=== PATIENT | male | born 1970 | race Caucasian/White ===

== ENCOUNTER → 2017-05-11 06:00 | Outpatient (REF) | payer MEDICARE, MEDICAID, SELFPAY ==
[2017-05-11 08:21] LABS: ALB/GLOB Ratio 0.7 RATIO (0.9-2.4); AST(SGOT) 17 U/L (15-37); Alanine Aminotransfer ALT/SGPT 33 U/L (12-78); Albumin, Serum 3.1 g/dL (3.4-5.0); Alkaline Phosphatase 108 U/L (45-117); Anion Gap 9 (5-15); BUN 16 mg/dL (7-18); BUN/Creat Ratio 11.4 RATIO (10-20); Calcium,Total 8.5 mg/dL (8.5-10.1); Chloride 107 mmol/L (98-107); EST Glomerular Filtration Rate 58 mL/min (>60); Est Glom Filt Rate - Afr Amer 70 mL/min (>60); Globulin 4.4 g/dL (2.2-4.2); Glucose 96 mg/dL (70-110); Protein, Total 7.5 g/dL (6.4-8.2); Sodium Level 139 mmol/L (136-145)
[2017-05-15 12:14] LABS: KEPPRA (LEVETIRACETAM) 23.2 ug/mL (10.0-40.0)
== END ==
LOC: OLS.WCC 06:00
PROVIDERS: Visit Provider Family Medicine
DX: Z79.899 Other long term (current) drug therapy (principal)
CPT/HCPCS: 36415; 80053; 80177

== ENCOUNTER → 2017-11-17 05:00 | Outpatient (REF) | payer MEDICARE, MEDICAID, SELFPAY ==
[2017-11-17 08:42] LABS: ALB/GLOB Ratio 0.6 RATIO (0.9-2.4); AST(SGOT) 18 U/L (15-37); Alanine Aminotransfer ALT/SGPT 38 U/L (16-61); Albumin, Serum 3.3 g/dL (3.2-5.0); Alkaline Phosphatase 121 U/L (45-117); Anion Gap 9 (5-15); BUN 18 mg/dL (7-18); BUN/Creat Ratio 13.1 RATIO (10-20); Bilirubin, Direct < 0.05 mg/dL (0.00-0.30); Calcium,Total 8.3 mg/dL (8.5-10.1); Chloride 106 mmol/L (98-107); Creatinine, Serum 1.37 mg/dL (0.70-1.30); EST Glomerular Filtration Rate 59 mL/min (>60); Est Glom Filt Rate - Afr Amer 72 mL/min (>60); Globulin 5.1 g/dL (2.2-4.2); Glucose 87 mg/dL (74-106); Protein, Total 8.4 g/dL (6.4-8.2); Sodium Level 138 mmol/L (136-145)
[2017-11-17 11:45] LABS: Hematocrit 40.2 % (40-54); Hemoglobin 13.2 g/dl (13.0-16.5); Mean Corp Hgb Conc 32.8 g/gl (32-36); Mean Corpuscular Hgb 27.1 pg (27.0-32.0); Mean Corpuscular Volume 82.5 fL (80-94); Mean Platelet Vol. 9.4 fl (6.2-12.0); Platelet Count 213 K/mm3 (150-450); RBC Distribution Width CV 14.4 % (11.6-14.6); RBC Distribution Width SD 43.3 fl (35.1-43.9); Red Blood Count 4.87 M/mm3 (4.6-6.2)
[2017-11-17 11:49] LABS: Scan Indicated on CBC? Y/N NO
[2017-11-28 11:59] LABS: KEPPRA (LEVETIRACETAM) 45.8 ug/mL (10.0-40.0)
== END ==
LOC: OLS.WCC 05:00
PROVIDERS: Visit Provider Family Medicine
DX: R56.9 Unspecified convulsions (principal); Z79.899 Other long term (current) drug therapy
CPT/HCPCS: 36415; 80053; 80177; 82248; 85027

== ENCOUNTER → 2018-02-21 05:00 | Outpatient (REF) | payer MEDICARE, MEDICAID, SELFPAY ==
[2018-02-24 11:45] LABS: KEPPRA (LEVETIRACETAM) 31.4 ug/mL (10.0-40.0)
== END ==
LOC: OLS.WCC 05:00
PROVIDERS: Visit Provider Family Medicine
DX: Z79.899 Other long term (current) drug therapy (principal)
CPT/HCPCS: 36415; 80177

== ENCOUNTER → 2018-05-16 04:00 | Outpatient (REF) | payer MEDICARE, MEDICAID, SELFPAY ==
[2018-05-16 09:09] LABS: Hematocrit 40.2 % (40-54); Hemoglobin 13.2 g/dl (13.0-16.5); Mean Corp Hgb Conc 32.8 g/gl (32-36); Mean Corpuscular Hgb 27.6 pg (27.0-32.0); Mean Corpuscular Volume 83.9 fL (80-94); Mean Platelet Vol. 10.4 fl (6.2-12.0); Platelet Count 210 K/mm3 (150-450); RBC Distribution Width CV 13.9 % (11.6-14.6); RBC Distribution Width SD 42.6 fl (35.1-43.9); Red Blood Count 4.79 M/mm3 (4.6-6.2); White Blood Count 5.5 K/mm3 (4.4-11.0)
[2018-05-16 09:18] LABS: Scan Indicated on CBC? Y/N NO
[2018-05-16 09:23] LABS: Hemoglobin A1c 5.8 % (4.2-6.3)
[2018-05-16 09:25] LABS: ALB/GLOB Ratio 0.7 RATIO (0.9-2.4); AST(SGOT) 34 U/L (15-37); Alanine Aminotransfer ALT/SGPT 46 U/L (16-61); Albumin, Serum 3.3 g/dL (3.2-5.0); Alkaline Phosphatase 107 U/L (45-117); Anion Gap 10 (5-15); BUN 14 mg/dL (7-18); BUN/Creat Ratio 9.4 RATIO (10-20); Calcium,Total 8.2 mg/dL (8.5-10.1); Chloride 106 mmol/L (98-107); Creatinine, Serum 1.49 mg/dL (0.70-1.30); EST Glomerular Filtration Rate 54 mL/min (>60); Est Glom Filt Rate - Afr Amer 65 mL/min (>60); Globulin 4.7 g/dL (2.2-4.2); Glucose 93 mg/dL (74-106); Potassium 3.9 mmol/L (3.5-5.1); Sodium Level 139 mmol/L (136-145); Thyroid Stim Hormone (TSH) 1.16 uIU/mL (0.358-3.74)
[2018-05-19 11:58] LABS: KEPPRA (LEVETIRACETAM) 34.6 ug/mL (10.0-40.0)
--- OUTSIDE RECORDS SUMMARY | 2018-06-27 18:03 | XMS RPT_ITS ---
:1970 Author Organization OHIP Care Team Providers Name Role Phone PROVIDER, UNKNOWN Admitting Unavailable PROVIDER, UNKNOWN Attending Unavailable OLVIN HAYDEN Referring Unavailable OLVIN HAYDEN Primary Care Unavailable PROVIDER, UNKNOWN Admitting Unavailable PROVIDER, UNKNOWN Attending Unavailable PATIENT, SELF Referring Unavailable OLVIN HAYDEN Primary Care Unavailable PROVIDER, UNKNOWN Admitting Unavailable PROVIDER, UNKNOWN Attending Unavailable PATIENT, SELF Referring Unavailable OLVIN AHYDEN Primary Care Unavailable Olvin Hayden Attending Unavailable Bryson, Olvin Attending Unavailable Olvin Hayden Attending Unavailable PROBLEMS PROBLEMS DATE TYPE CONDITION / CODE ATTENDING STATUS SOURCE 05/29/2018 Active Other specified Unknown [facility] / Rep[facility] Z98.890(ICD-10) 05/26/2018 Unknown Z79.899 - Other long Olvin Hayden Active [place] term (current) drug Community therapy / Hospital Z79.899(ICD-10) Repository 05/26/2018 Unknown G40.89 - Other Olvin Hayden Active [place] seizures / Community G40.89(ICD-10) Hospital Repository 05/15/2018 Active Dental caries, Unknown Active The [facility] unspecified / System K02.9(ICD-10) Repository 03/15/2018 Active Retained dental root Unknown [facility] K08.3(ICD-10) System Repository 01/20/2018 Unknown R56.9 - Unspecified Olvin Hayden Active [place] convulsions / Community R56.9(ICD-10) Hospital Repository PROCEDURES PROCEDURES DATE CODE DESCRIPTION STATUS SOURCE 05/15/2018 D7140(C4) EXTRACTION ERUPTED Completed [facility] TOOTH/EXR System Repository 03/15/2018 D0330(C4) PANORAMIC X RAY Completed [facility] System Repository RESULTS RESULTS CBC-COMPLETE BLOOD CNT Collected: 05/16/2018 Status: F Source: [place] NO DIFF 5:30 AM [facility] REPOSITORY Order Comment: ROOM 126 TYPE CODE TESTS RESULT OUT OF RANGE REFERENCE UNITS LAB L100.1000 4.4-11.0 K/mm3 Normal WBC 5.5 LAB L100.1200 4.6-6.2 M/mm3 Normal RBC 4.79 LAB L100.1300 13.0-16.5 g/dl Normal HGB 13.2 LAB L100.1400 40-54 % Normal HCT 40.2 LAB L100.1500 80-94 fL Normal MCV 83.9 LAB L100.1600 27.0-32.0 pg Normal MCH 27.6 LAB L100.1700 32-36 g/gl Normal MCHC 32.8 LAB L100.1810 11.6-14.6 % Normal RDW CV 13.9 LAB L100.1820 35.1-43.9 fl Normal RDW SD 42.6 LAB L100.1900 150-450 K/mm3 Normal PLT 210 LAB L100.2000 6.2-12.0 fl Normal MPV 10.4 Performed By: #### L100.0500 #### [facility] [place], [address] HEMOGLOBIN A1C Collected: 05/16/2018 Status: F Source: [place] 5:30 AM [facility] REPOSITORY Order Comment: ROOM 126 TYPE CODE TESTS RESULT OUT OF RANGE REFERENCE UNITS LAB L501.9985 4.2-6.3 % Normal HGB A1C 5.8 Performed By: #### L501.9985 #### [place] [facility] [address] [place], [address] COMPREHENSIVE METABOLIC Collected: 05/16/2018 Status: F Source: [place] [facility] 5:30 AM [facility] REPOSITORY Order Comment: ROOM 126 TYPE CODE TESTS RESULT OUT OF RANGE REFERENCE UNITS LAB L501.0100 74-106 mg/dL Normal GLU 93 Result Comment: Please note revised GLUCOSE reference range effective 2017. LAB L501.1000 7-18 mg/dL Normal BUN 14 LAB L501.1100 0.70-1.30 mg/dL High CREAT,SERUM 1.49 Result Comment: The validity of the calculated GFR AND GFRAA in patients over 70 years has not been determined. Clinical correlation is essential. LAB L501.1110 >60 mL/min Low EST GFR 54 Result Comment: Non- GFR Calc LAB L501.1115 >60 mL/min Normal EST GFR - AA 65 Result Comment: GFR Calc LAB L501.1300 10-20 RATIO Low BUN/CRE 9.4 LAB L501.1500 6.4-8.2 g/dL Normal T PROT 8.0 LAB L501.1800 3.2-5.0 g/dL Normal ALB 3.3 LAB L501.1950 2.2-4.2 g/dL High GLOB 4.7 LAB L501.2000 0.9-2.4 RATIO Low A/G 0.7 LAB L501.2200 8.5-10.1 mg/dL Low CA 8.2 LAB L501.4100 15-37 U/L Normal AST 34 LAB L501.4305 45-117 U/L Normal ALK P 107 LAB L501.4405 16-61 U/L Normal ALT 46 LAB L501.4600 0.20-1.00 mg/dL Normal T BILI 0.30 LAB L501.5300 136-145 mmol/L Normal NA 139 LAB L501.5600 3.5-5.1 mmol/L Normal K 3.9 LAB L501.5900 98-107 mmol/L Normal CL 106 LAB L501.6100 21.0-32.0 mmol/L Normal CO2 23.0 LAB L501.6200 5-15 Normal GAP 10 Performed By: #### L500.4050, L501.9520 #### [facility] [address] [place], [place], [address] THYROID STIM HORMONE Collected: 05/16/2018 Status: F Source: [place] (TSH) 5:30 AM [facility] REPOSITORY Order Comment: ROOM 126 TYPE CODE TESTS RESULT OUT OF RANGE REFERENCE UNITS LAB L501.9520 0.358-3.74 uIU/mL Normal TSH 1.16 Performed By: #### L500.4050, L501.9520 #### [facility] [address] [place], [place], [address] KEPPRA (LEVETIRACETAM) Collected: 05/16/2018 Status: F Source: [place] 5:30 AM [facility] REPOSITORY Order Comment: ROOM 126 TYPE CODE TESTS RESULT OUT OF RANGE REFERENCE UNITS LAB L3310.0000 10.0-40.0 ug/mL Normal KEPPRA 34.6 Result Comment: Performed at: [facility] [address] [id number] Preschool Teacher Aide: Jere Tierney MD, Phone: [phone] Performed By: #### L3310.0000 #### [facility] (refer to report for specific site) refer to report for address and phone number KEPPRA (LEVETIRACETAM) Collected: 02/21/2018 Status: F Source: [place] 7:30 AM [facility] REPOSITORY Order Comment: 126-1 TYPE CODE TESTS RESULT OUT OF RANGE REFERENCE UNITS LAB L3310.0000 10.0-40.0 ug/mL Normal KEPPRA 31.4 Result Comment: Performed at: [facility] [id number] Preschool Teacher Aide: Osbaldo Abbott MD, Phone: [phone] Performed By: #### L3310.0000 #### [facility] (refer to report for specific site) refer to report for address and phone number MISCELLANEOUS LAB Collected: 02/21/2018 Status: F Source: [place] PROCEDURE 7:30 AM [facility] REPOSITORY Order Comment: Comments: [id number];zonisamide;red/serum;1.2ml Test(s) Ordered: [id number];zonisamide;red/serum;1.2ml TYPE CODE TESTS RESULT OUT OF RANGE REFERENCE UNITS LAB L801.1541 Normal [facility] LAB TEST Result Comment: TEST RESULT UNITS REFERENCE INTERVAL Zonisamide(zonegran), serum Zonisamide 16.2 ug/mL 10.0 - 40.0 Detection Limit = 1.0 TESTING PERFORMED AT [facility]. ORIGINAL REPORT ON FILE IN LAB CONTAINS ADDITIONAL TEST SITE INFORMATION. Performed By: #### L801.1541 #### [facility] [address] [place], [address] CBC-COMPLETE BLOOD CNT Collected: 11/17/2017 Status: F Source: [place] NO DIFF 10:10 AM [facility] REPOSITORY TYPE CODE TESTS RESULT OUT OF RANGE REFERENCE UNITS LAB L100.1000 4.4-11.0 K/mm3 Normal WBC 5.0 LAB L100.1200 4.6-6.2 M/mm3 Normal RBC 4.87 LAB L100.1300 13.0-16.5 g/dl Normal HGB 13.2 LAB L100.1400 40-54 % Normal HCT 40.2 LAB L100.1500 80-94 fL Normal MCV 82.5 LAB L100.1600 27.0-32.0 pg Normal MCH 27.1 LAB L100.1700 32-36 g/gl Normal MCHC 32.8 LAB L100.1810 11.6-14.6 % Normal RDW CV 14.4 LAB L100.1820 35.1-43.9 fl Normal RDW SD 43.3 LAB L100.1900 150-450 K/mm3 Normal PLT 213 LAB L100.2000 6.2-12.0 fl Normal MPV 9.4 Performed By: #### L100.0500 #### [facility] [place], [address] COMPREHENSIVE METABOLIC Collected: 11/17/2017 Status: F Source: [place] GREENE 6:30 AM [facility] REPOSITORY Order Comment: 126-1 TYPE CODE TESTS RESULT OUT OF RANGE REFERENCE UNITS LAB L501.0100 74-106 mg/dL Normal GLU 87 Result Comment: Please note revised GLUCOSE reference range effective 2017. LAB L501.1000 7-18 mg/dL Normal BUN 18 LAB L501.1100 0.70-1.30 mg/dL High CREAT,SERUM 1.37 Result Comment: The validity of the calculated GFR AND GFRAA in patients over 70 years has not been determined. Clinical correlation is essential. LAB L501.1110 >60 mL/min Low EST GFR 59 Result Comment: Non- GFR Calc LAB L501.1115 >60 mL/min Normal EST GFR - AA 72 Result Comment: GFR Calc LAB L501.1300 10-20 RATIO Normal BUN/CRE 13.1 LAB L501.1500 6.4-8.2 g/dL High T PROT 8.4 LAB L501.1800 3.2-5.0 g/dL Normal ALB 3.3 LAB L501.1950 2.2-4.2 g/dL High GLOB 5.1 LAB L501.2000 0.9-2.4 RATIO Low A/G 0.6 LAB L501.2200 8.5-10.1 mg/dL Low CA 8.3 LAB L501.4100 15-37 U/L Normal AST 18 LAB L501.4305 45-117 U/L High ALK P 121 LAB L501.4405 16-61 U/L Normal ALT 38 LAB L501.4600 0.20-1.00 mg/dL T Normal BILI 0.30 LAB L501.5300 136-145 mmol/L NA Normal 138 LAB L501.5600 3.5-5.1 mmol/L K Normal 4.0 LAB L501.5900 98-107 mmol/L CL Normal 106 LAB L501.6100 21.0-32.0 mmol/L Normal CO2 23.0 LAB L501.6200 5-15 Normal GAP 9 Performed By: #### L500.4050, L501.4700 #### [facility] [address] [place], [address] BILIRUBIN, DIRECT Collected: 11/17/2017 Status: F Source: ODD 6:30 AM [facility] REPOSITORY Order Comment: 126-1 TYPE CODE TESTS RESULT OUT OF RANGE REFERENCE UNITS LAB L501.4700 0.00-0.30 mg/dL Normal D BILI < 0.05 Performed By: #### L500.4050, L501.4700 #### [facility] [address] [place], [address] KEPPRA (LEVETIRACETAM) Collected: 11/17/2017 Status: F Source: ODD 6:30 AM [facility] REPOSITORY Order Comment: 126-1 TYPE CODE TESTS RESULT OUT OF REFERENCE UNITS RANGE LAB L3310.0000 10.0-40.0 ug/mL High KEPPRA 45.8 Result Comment: Performed at: - [facility] [id number] Preschool Teacher Aide: Osbaldo Abbott MD, Phone: [phone] Performed By: #### L3310.0000 #### [facility] (refer to report for specific site) refer to report for address and phone number ALLERGIES ALLERGIES DATE TYPE / CODE NAME / CODE REACTION SEVERITY SOURCE 12/20/2013 Drug venom-honey Unknown Unknown [facility] Allergy/416 bee/[id number] Hospital 591203(SNOM 698(RXNORM) Repository ED CT) 12/06/2006 DRUG/579980 BEE ANAPHYLACTIC [facility] 003(SNOMED System Repository CT) ENCOUNTERS ENCOUNTERS ADMIT/DISCHARGE ACCOUNT NUMBER ADMITTING ENCOUNTER LOCATION SOURCE CLASS 05/29/2018 [id number] Unknown [facility] Repository 05/16/2018 [id number] [facility] ding:[facility] Repository 05/15/2018 [id number] Unknown Ambulatory [facility] Repository 03/15/2018/03/15/20 [id number] Unknown Ambulatory [facility] The [facility] Repository 02/21/2018 [id number] [facility] ding:[facility] Repository 11/17/2017 [id number] [facility] ding:[facility] Repository PAYERS PAYERS ENCOUNTER GUARANTOR PAYER SUBSCRIBER SOURCE 05/29/2018 OLVIN Abdul [facility] MONEOB: Insurance:DENTAL [facility] NICHOLASDOB: System Repository S MEDICAIDPolicy Number: [id number] [facility] [id number] [place], [place] Date:2018-02-18 [place], [place] [address]Zrq: [phone]: [phone] () 05/16/2018 Olvin Nazario Primary Insurance:[facility] Olvin L [place] [id number] [address] [facility] PLANPolicy NicholasDOB: [facility] Number: [id number] Repository [place] [id number] CARE Date:4998-39-17RP[address] [address]Kfm: [id number]: [phone] (HP) 05/16/2018 Secondary Olvin Nazario [facility] Insurance:MEDICARE RaviolaNahomiOB: Hospital PART A BPolicy Number: [id number] Repository [id number] Date:2018-05-16 05/16/2018 Tertiary NOT [facility] Insurance:SELF PAY Hospital INSURANCEPolicy Repository Number: Effective Date:2018-05-16 05/15/2018 OLVIN Abdul [facility] MONEOB: Insurance:DENTAL [facility] System Repository [id number] S MEDICAIDPolicy Number: [id number] [facility] [id number] S [facility] [place] Date:2018-02-18 [place], [place] [address]Bch: [phone]: [phone] (HP) 03/15/2018 OLVIN Primary [facility] Insurance:[facility] System Repository [id number] S HEALTHCAREPolicy [id number] [facility] Number: [place], [place] [id number] [place], [place] [address]Rry: 330) Date:2018-02-18 00824Vsz: (HP) [phone] (HP) 03/15/2018 Secondary OLVIN [facility] Insurance:[facility] System Repository [facility] [id number] Number: Stefania [facility] [id number] [facility] [place] Date:2018-02-18 [id number]: (HP) 02/21/2018 Olvin Nazario Primary Insurance:[facility] Olvin Hernandez [facility] [facility]ANPol[facility] NichAspirus Ontonagon HospitalOB: [facility] Number: [id number] Repository [place] [id number] CARE Date:1934-26-[address] [address]Ogp: [id number]: [phone] (HP) 02/21/2018 Secondary Olvin [facility] Insurance:MEDICARE NicholasDOB: Hospital PART A BPolicy Number: [id number] Repository [id number] Date:2018-02-21 02/21/2018 Tertiary NOT GIVENCYNTHIA [facility] Insurance:SELF PAY Hospital INSURANCEPolicy Repository Number: Effective Date:2018-02-21 11/17/2017 Olvin L Primary Olvin Nazario [id number] Insurance:MEDICARE NichAspirus Ontonagon HospitalOB: [facility] PART A BPolicy Number: [id number] Repository [place] [id number] CARE Date:2017-11-17 [place], [place] [address]Ecc: () 11/17/2017 Secondary Olvin Hernandez Community Insurance:[facility] RavicantonNahomiOB: [facility] COMMUNITY PLANPolicy [id number] Repository Number: [id number] Date:[id number] [address]LI: 11/17/2017 Tertiary NOT RALF [facility] Insurance:SELF PAY Hospital INSURANCEPolicy Repository Number: Effective Date:2017-11-17
== END ==
LOC: OLS.WCC 04:00
PROVIDERS: Visit Provider Family Medicine
DX: R56.9 Unspecified convulsions (principal); Z79.899 Other long term (current) drug therapy
CPT/HCPCS: 36415; 80053; 80177; 83036; 84443; 85027

== ENCOUNTER 2018-07-10 16:31 | Emergency (ER) | payer MEDICARE, MEDICAID, SELFPAY ==
[2018-07-10 16:33] VITALS: BP 142/98; PULSE 95; RESP 14; TEMP 36.9; O2SAT 92; BMI 43.0
--- NOTE | 2018-07-10 16:46 | CT_ITS ---
STUDY: CT BRAIN WITHOUT CONTRAST REASON FOR EXAM: Male, 47 years old. Fall, seizures. History of seizures. RADIATION DOSAGE (If Supplied By Facility): CTDIvol = ( 44.99 ) mGy, DLP = ( 931.09 ) mGycm TECHNIQUE: Transaxial CT imaging of the brain was performed without administration of intravenous contrast material. Coronal and sagittal 2-D MPR Individualized dose optimization techniques were used for this CT. COMPARISON: None. FINDINGS: Chronic near complete opacification of the right maxillary sinus, of the anterior right ethmoid and right frontal sinuses. Mild mucoperiosteal thickening left maxillary sinuses. Mastoid air cells acutely clear. Developmentally greater pneumatization on the left. Normal variant. Middle ear cavities clear. Osseous structures intact. Extra cranial soft tissues including orbital contents exhibit no definitive acute process. There may be a small forehead contusion on the left. Clinically correlate. There is also a small focus of calyceal thickening high right parietal which may represent an acute or old contusion. Moderate symmetric expansion of extra axial spaces, slightly more prominent of the lateral ventricles. Minimally ectatic 3rd ventricle. Compression of sulcation at the vertex. These features may merely represent age-related atrophy but could also be a manifestation of normal pressure hydrocephalus. Minimal chronic white matter changes. No acute intracranial bleed, mass or mass effect nor any specific evidence of acute territorial infarct. CT/Brain/Head without Contrast IMPRESSION: Ventriculomegaly somewhat out of proportion to increased sulcation. Differential considerations may include both age-related atrophy, and the possibility of normal pressure hydrocephalus. Chronic sinus disease. There may be a small left forehead contusion and a very small right parietal contusion. Clinically correlate. No fracture. No intracranial bleed. Electronically Signed: Tyree Arriaza MD at 17:25 EST Tel , Service support ,
--- NOTE | 2018-07-10 16:47 | EKG12_ITS ---
Test Reason : NEURO SYM Blood Pressure : / mmHG Vent. Rate : 092 BPM Atrial Rate : 092 BPM P-R Int : 174 ms QRS Dur : 092 ms QT Int : 348 ms P-R-T Axes : 022 039 018 degrees QTc Int : 430 ms Normal sinus rhythm Normal ECG Confirmed by SIENA TAYLOR, JINNY ([id number]), newspaper copy editor OMAR HAYDEN ([id number]) on 07/12/2018 1:41:11 PM Referred By: CANDELARIO Confirmed By:JINNY WREN MD
--- NOTE | 2018-07-10 16:47 | CT_ITS ---
STUDY: CT CERVICAL SPINE WITHOUT CONTRAST REASON FOR EXAM: Male, 47 years old. Fall x2, seizure. History of seizures. RADIATION DOSAGE (If Supplied By Facility): CTDIvol = ( 33.75 ) mGy, DLP = ( 794.41 ) mGycm TECHNIQUE: Thin slice helical CT acquisition of the cervical spine without contrast. Coronal and sagittal 2-D multiplanar reformatted images were saved to the PACS archive. Individualized dose optimization techniques were used for this CT. COMPARISON: None FINDINGS: Cervical and supraglottic or soft tissues exhibit no acute process. Apical lungs clear. Apical thoracic cage intact. Odontoid and lateral masses and ring of C1 is intact. Facet joints normally aligned with moderate to moderately severe facet hypertrophy at multiple levels most prominent on the left in the superior cervical spine. There is chronic fusion across the facet joints at C2-C3, C3-C4 with partial fusion across intervertebral discs. Vertebral body height and alignment are normal with reversal of lordosis. There is multilevel moderate disc narrowing between C4 and C7. Uncovertebral joint hypertrophy and facet hypertrophy contributing to foraminal narrowing at multiple levels. CT/Spine Cervical without Contras IMPRESSION: No evidence of acute cervical spine fracture or traumatic subluxation. Prominent multilevel spondylosis with multilevel mild to moderate foraminal stenosis secondary to uncovertebral joint hypertrophy and facet hypertrophy. Electronically Signed: Tyree Arriaza MD at 17:27 EST Tel , Service support ,
--- NOTE | 2018-07-10 16:48 | RAD_ITS ---
STUDY: X-RAY - LEFT KNEE REASON FOR EXAM: Male, 47 years old. Seizure. Pain. TECHNIQUE: 3 view(s) of the knee. COMPARISON: None. FINDINGS: Normal visualized distal femur. Normal visualized proximal tibia and fibula. Normal proximal tibiofibular articulation. There is no demonstrated fracture. Normal medial femorotibial compartment. Normal lateral femorotibial compartment. Normal patellofemoral articulation. The soft tissue structures are unremarkable. RAD/Knee 3 Views IMPRESSION: Normal x-ray examination of the knee. Electronically Signed: Dipak Talley MD at 17:43 EST , Service support ,
--- NOTE | 2018-07-10 16:48 | ED.VISSUMM ---
- ER Visit Summary Date of Service: 07/10/18 Chief Complaint: Seizures and falls History of Present Illness: The patient is a 47 M with history of seizure disorder and MRDD who presents from a fdc after having 2 falls and a seizure today. Patient was found on the ground at 9 AM this morning, unwitnessed. There was no noted seizure activity at that time, and nobody is quite sure what happened. This afternoon at 1 PM, patient had a generalized seizure and fell again. It is believed he had the seizure causing the fall. Patient was complaining of diffuse pain, including headache and back. History is limited from the patient due to MRDD and will not answer questions. Patient is on medications for seizure disorder, including Keppra and zonisamide. Patient at time of my evaluation is not complaining of any pain. Physical Examination: Vital signs: afebrile, hemodynamically stable, no hypoxia on room air General: well nourished, well developed, in no distress, laying in bed with eyes closed, will follow commands Skin: warm, dry, no rash, no pallor HEENT: normocephalic, hematoma with overlying abrasion to the left frontal forehead, no other scalp or maxillofacial trauma noted; PERRL, EOMI, moist mucous membranes, no oropharyngeal lesions or bleeding noted Cardiovascular: regular rate and rhythm without murmurs, no peripheral edema, 2+ pulses all distal extremities Respiratory: No increased work of breathing, lungs are clear to auscultation bilaterally, no rales, rhonchi or wheezing Abdominal: Abdomen is soft, nontender with normoactive bowel sounds, no guarding or rebound, no masses MSK: Moves all extremities, no deformities, will not fully extend the left knee, is able to lift both legs off the bed Neuro: Awake with eyes closed, will not open them to request but will follow all commands with his eyes closed, does not speak much. No facial droop, sensation and motor function intact and symmetric Test Results: Abnormal Lab Results 07/10/18 07/10/18 07/10/18 16:50 16:50 16:50 WBC 13.1 H RBC 4.89 Hgb 13.1 Hct 40.6 MCV 83.0 MCH 26.8 L MCHC 32.3 RDW 13.9 RDW Differential 41.9 Plt Count 248 MPV 9.2 Immature Gran % (Auto) 0.200 Neut % (Auto) 78.6 H Lymph % (Auto) 14.5 L Pepin % (Auto) 6.3 Eos % (Auto) 0.2 Baso % (Auto) 0.2 Absolute Neuts (auto) 10.3 H Absolute Lymphs (auto) 1.90 Total Counted Not Reportable PT 14.7 INR 1.2 APTT 28.6 Sodium 135 L Potassium 3.8 Chloride 103 Carbon Dioxide 24.0 Anion Gap 8 BUN 12 Creatinine 1.40 H Estim Creat Clear Calc 63.11 Est GFR (MDRD) Af Amer 70 Est GFR (MDRD) Non-Af 58 L BUN/Creatinine Ratio 8.6 L Glucose 96 Calcium 8.6 POC Glucose 07/10/18 16:56 WBC RBC Hgb Hct MCV MCH MCHC RDW RDW Differential Plt Count MPV Immature Gran % (Auto) Neut % (Auto) Lymph % (Auto) Pepin % (Auto) Eos % (Auto) Baso % (Auto) Absolute Neuts (auto) Absolute Lymphs (auto) Total Counted PT INR APTT Sodium Potassium Chloride Carbon Dioxide Anion Gap BUN Creatinine Estim Creat Clear Calc Est GFR (MDRD) Af Amer Est GFR (MDRD) Non-Af BUN/Creatinine Ratio Glucose Calcium POC Glucose 98 Clinical Impression(s) from Imaging Studies Brain CT 07/10/18 16:46 IMPRESSION: Ventriculomegaly somewhat out of proportion to increased sulcation. Differential considerations may include both age-related atrophy, and the possibility of normal pressure hydrocephalus. Chronic sinus disease. There may be a small left forehead contusion and a very small right parietal contusion. Clinically correlate. No fracture. No intracranial bleed. Electronically Signed: Tyree Arriaza MD at 17:25 EST Tel , Service support , Cervical Spine CT 07/10/18 16:47 IMPRESSION: No evidence of acute cervical spine fracture or traumatic subluxation. Prominent multilevel spondylosis with multilevel mild to moderate foraminal stenosis secondary to uncovertebral joint hypertrophy and facet hypertrophy. Electronically Signed: Tyree Arriaza MD at 17:27 EST Tel , Service support , Knee X-Ray 07/10/18 16:48 IMPRESSION: Normal x-ray examination of the knee. Electronically Signed: Dipak Talley MD at 17:43 EST , Service support , Chest X-Ray 07/10/18 17:08 IMPRESSION: Hypoventilatory exam with crowding of bronchovascular structures. No focal infiltrate. Electronically Signed: Dipak Talley MD at 17:43 EST , Service support , Medications Given Discontinued Medications Sodium Chloride () 1,000 mls @ 1,000 mls/hr IV .Q1H ONE Stop: 07/10/18 17:45 Last Admin: 07/10/18 16:59 Dose: 1,000 mls/hr Emergency Department Course and Treatment: Patient has findings consistent with head trauma on exam, with the hematoma to the left forehead. The staff member from patient's fdc accompanying him states patient is acting at his baseline mental status. Head CT showed no intracranial hemorrhage or other acute process. C-spine CT showed no fracture. X-ray of the left knee was performed due to patient not fully straightening it. It showed no fracture or other injury. Chest x-ray showed no acute process. Patient's EKG showed no ectopy or ischemia. Normal sinus rhythm. Labs were unremarkable for any acute changes from patient's baseline. Blood glucose at initial presentation was 98. Patient was reevaluated and was talking to me, denying pain and answering questions. No concerning injuries were noted on patient's workup. He does have a history of seizure disorder, thus no further workup for seizure was performed. Patient was discharged back to his fdc with emphasis on him getting all of his seizure medications properly dosed. Treatment Plan: [] Disposition: [] Impression: Breakthrough seizure, left forehead hematoma This note was generated with [employer] software. It may contain incorrect words, spelling, and punctuation that were not noted in review of the chart prior to signing ED Disposition - Plan for ED Patient: Disposition: Custodial Facility Chief Complaint: Seizure Instructions: ED Contusion Scalp, ED Seizure Recurrent Referrals: Otis Massey MD [Primary Care Provider] - 1-2 Days if not improving Additional Instructions: Continue all medications as prescribed, especially seizure medications. Apply ice for 15 minutes 3 times a day to the bruise on the left forehead to help with swelling and pain. Use [id number] pain medication as needed for headache or pain. If you have any worsening of your condition or any new concerning symptoms, please return immediately to the emergency department for another evaluation.
--- NOTE | 2018-07-10 16:53 | ED.DCSUM_ITS ---
- ER Visit Summary Date of Service: 07/10/18 Chief Complaint: Seizures and falls History of Present Illness: The patient is a 47 M with history of seizure disorder and MRDD who presents from a retirement after having 2 falls and a seizure today. Patient was found on the ground at 9 AM this morning, unwitne ssed. There was no noted seizure activity at that time, and nobody is quite sure what happened. This afternoon at 1 PM, patient had a generalized seizure and fell again. It is believed he had the seizure causing the fall. Patient was complaining of diffuse pain, including headache and back. History is limited from the patient due to MRDD and will not answer questions. Patient is on medications for seizure disorder, including Keppra and zonisamide. Patient at time of my evaluation is not complaining of any pain. Physical Examination: Vital signs: afebrile, hemodynamically stable, no hypoxia on room air General: well nourished, well developed, in no distress, laying in bed with eyes closed, will follow commands Skin: warm, dry, no rash, no pallor HEENT: normocephalic, hematoma with overlying abrasion to the left frontal forehead, no other scalp or maxillofacial trauma noted; PERRL, EOMI, moist mucous membranes, no oropharyngeal lesions or bleeding noted Cardiovascular: regular rate and rhythm without murmurs, no peripheral edema, 2+ pulses all distal extremities Respiratory: No increased work of breathing, lungs are clear to auscultation bilaterally, no rales, rhonchi or wheezing Abdominal: Abdomen is soft, nontender with normoactive bowel sounds, no guarding or rebound, no masses MSK: Moves all extremities, no deformities, will not fully extend the left knee, is able to lift both legs off the bed Neuro: Awake with eyes closed, will not open them to request but will follow all commands with his eyes closed, does not speak much. No facial droop, sensation and motor function intact and symmetric Test Results: Abnormal Lab Results 07/10/18 07/10/18 07/10/18 16:50 16:50 16:50 WBC 13.1 H RBC 4.89 Hgb 13.1 Hct 40.6 MCV 83.0 MCH 26.8 L MCHC 32.3 RDW 13.9 RDW Differential 41.9 Plt Count 248 MPV 9.2 Immature Gran % (Auto) 0.200 Neut % (Auto) 78.6 H Lymph % (Auto) 14.5 L Charles % (Auto) 6.3 Eos % (Auto) 0.2 Baso % (Auto) 0.2 Absolute Neuts (auto) 10.3 H Absolute Lymphs (auto) 1.90 Total Counted Not Reportable PT 14.7 INR 1.2 APTT 28.6 Sodium 135 L Potassium 3.8 Chloride 103 Carbon Dioxide 24.0 Anion Gap 8 BUN 12 Creatinine 1.40 H Estim Creat Clear Calc 63.11 Est GFR (MDRD) Af Amer 70 Est GFR (MDRD) Non-Af 58 L BUN/Creatinine Ratio 8.6 L Glucose 96 Calcium 8.6 POC Glucose 07/10/18 16:56 WBC RBC Hgb Hct MCV MCH MCHC RDW RDW Differential Plt Count MPV Immature Gran % (Auto) Neut % (Auto) Lymph % (Auto) Charles % (Auto) Eos % (Auto) Baso % (Auto) Absolute Neuts (auto) Absolute Lymphs (auto) Total Counted PT INR APTT Sodium Potassium Chloride Carbon Dioxide Anion Gap BUN Creatinine Estim Creat Clear Calc Est GFR (MDRD) Af Amer Est GFR (MDRD) Non-Af BUN/Creatinine Ratio Glucose Calcium POC Glucose 98 Clinical Impression(s) from Imaging Studies Brain CT 07/10/18 16:46 IMPRESSION: Ventriculomegaly somewhat out of proportion to increased sulcation. Differential considerations may include both age-related atrophy, and the possibility of normal pressure hydrocephalus. Chronic sinus disease. There may be a small left forehead contusion and a very small right parietal contusion. Clinically correlate. No fracture. No intracranial bleed. Electronically Signed: Tyree Arriaza MD at 17:25 EST Tel , Service support , Cervical Spine CT 07/10/18 16:47 IMPRESSION: No evidence of acute cervical spine fracture or traumatic subluxation. Prominent multilevel spondylosis with multilevel mild to moderate foraminal stenosis secondary to uncovertebral joint hypertrophy and facet hypertrophy. Electronically Signed: Tyree Arriaza MD at 17:27 EST Tel , Service support , Knee X-Ray 07/10/18 16:48 IMPRESSION: Normal x-ray examination of the knee. Electronically Signed: Dipak Talley MD at 17:43 EST , Service support , Chest X-Ray 07/10/18 17:08 IMPRESSION: Hypoventilatory exam with crowding of bronchovascular structures. No focal infiltrate. Electronically Signed: Dipak Talley MD at 17:43 EST , Service support , Medications Given Discontinued Medications Sodium Chloride () 1,000 mls @ 1,000 mls/hr IV .Q1H ONE Stop: 07/10/18 17:45 Last Admin: 07/10/18 16:59 Dose: 1,000 mls/hr Emergency Department Course and Treatment: Patient has findings consistent with head trauma on exam, with the hematoma to the left forehead. The staff member from patient's retirement accompanying him states patient is acting at his baseline mental status. Head CT showed no intracranial hemorrhage or other acute process. C-spine CT showed no fracture. X-ray of the left knee was performed due to patient not fully straightening it. It showed no fracture or other injury. Chest x-ray showed no acute process. Patient's EKG showed no ectopy or ischemia. Normal sinus rhythm. Labs were unremarkable for any acute changes from patient's baseline. Blood glucose at initial presentation was 98. Patient was reevaluated and was talking to me, denying pain and answering questions. No concerning injuries were noted on patient's workup. He does have a history of seizure disorder, thus no further workup for seizure was performed. Patient was discharged back to his retirement with emphasis on him getting all of his seizure medications properly dosed. Treatment Plan: [] Disposition: [] Impression: Breakthrough seizure, left forehead hematoma This note was generated with [employer] software. It may contain incorrect words, spelling, and punctuation that were not noted in review of the chart prior to signing ED Disposition - Plan for ED Patient: Disposition: Long-Term Facility Chief Complaint: Seizure Instructions: ED Contusion Scalp, ED Seizure Recurrent Referrals: Otis Massey MD [Primary Care Provider] - 1-2 Days if not improving Additional Instructions: Continue all medications as prescribed, especially seizure medications. Apply ice for 15 minutes 3 times a day to the bruise on the left forehead to help with swelling and pain. Use [id number] pain medication as needed for headache or pain. If you have any worsening of your condition or any new concerning symptoms, please return immediately to the emergency department for another evaluation.
[2018-07-10] MEDS: 0.9% Normal Saline 1,000 ML 1000 ML IV (16:59)
[2018-07-10 17:01] LABS: Bedside Glucose 98 mg/dL (70-110)
[2018-07-10 17:05] LABS: Absolute Neutrophil Count 10.3 X10^3/uL (2.0-7.7); Basophil# 0.03 X10^3/uL; Basophil% 0.2 % (0-1); Eosinophil# 0.03 X10^3/uL; Eosinophils% 0.2 % (0-5); Hematocrit 40.6 % (40-54); Hemoglobin 13.1 g/dl (13.0-16.5); Lymphocyte % 14.5 % (19-41); Mean Corp Hgb Conc 32.3 g/gl (32-36); Mean Corpuscular Hgb 26.8 pg (27.0-32.0); Mean Platelet Vol. 9.2 fl (6.2-12.0); Monocyte# 0.83 X10^3/uL; Monocyte% 6.3 % (0-10); Neutrophil # 10.29 X10^3/uL (2.7-7.7); Neutrophil % 78.6 % (47-70); Platelet Count 248 K/mm3 (150-450); RBC Distribution Width CV 13.9 % (11.6-14.6); RBC Distribution Width SD 41.9 fl (35.1-43.9); Red Blood Count 4.89 M/mm3 (4.6-6.2); White Blood Count 13.1 K/mm3 (4.4-11.0)
[2018-07-10 17:06] LABS: POSITIVE COUNT NO; POSITIVE DIFFERENTIAL NO; POSITIVE MORPHOLOGY NO
--- NOTE | 2018-07-10 17:08 | RAD_ITS ---
STUDY: X-RAY CHEST REASON FOR EXAM: Male, 47 years old. Seizure. TECHNIQUE: Single frontal view of the chest. COMPARISON: February 25, 2014. FINDINGS: There are monitoring devices. The lungs are underexpanded with crowding of bronchovascular structures. There is no demonstrated pleural abnormality. There is borderline cardiomegaly. Normal mediastinum and raegan. Normal visualized pulmonary arteries. Normal visualized aortic arch and descending thoracic aorta. Normal visualized thoracic spine. Normal visualized ribs, clavicles, and shoulders. There is no demonstrated abnormality of the visualized soft tissue structures of the upper abdomen. RAD/Chest 1 View (Portable) IMPRESSION: Hypoventilatory exam with crowding of bronchovascular structures. No focal infiltrate. Electronically Signed: Dipak Talley MD at 17:43 EST , Service support ,
[2018-07-10 17:16] LABS: Anion Gap 8 (5-15); BUN 12 mg/dL (7-18); BUN/Creat Ratio 8.6 RATIO (10-20); Calcium,Total 8.6 mg/dL (8.5-10.1); Chloride 103 mmol/L (98-107); EST Glomerular Filtration Rate 58 mL/min (>60); Est Glom Filt Rate - Afr Amer 70 mL/min (>60); Estimated Creatinine Clearance 63.11 ml/min; Glucose 96 mg/dL (74-106); Potassium 3.8 mmol/L (3.5-5.1); Sodium Level 135 mmol/L (136-145)
[2018-07-10 17:26] LABS: International Normalized Ratio 1.2; Prothrombin Time (Protime)PT. 14.7 SECONDS (11.7-14.9)
[2018-07-10 17:27] LABS: Partial Thromboplast Time 28.6 Seconds (24.1-36.2)
--- NOTE | 2018-07-10 17:49 | NURSING ---
PER [facility] REQUEST, FAXED LIVER PANEL AND 24 HR NOTE FROM DOCTOR TO THEM
[2018-07-10 19:17] VITALS: BP 145/91; PULSE 83; RESP 12; O2SAT 91
--- NOTE | 2018-07-10 19:41 | ED.DEP ---
ED Disposition - Plan for ED Patient: Disposition: Home or Assisted Living Chief Complaint: Seizure Instructions: ED Seizure Recurrent, ED Contusion Scalp Referrals: Otis Massey MD [Primary Care Provider] - 1-2 Days if not improving Additional Instructions: Continue all medications as prescribed, especially seizure medications. Apply ice for 15 minutes 3 times a day to the bruise on the left forehead to help with swelling and pain. Use [id number] pain medication as needed for headache or pain. If you have any worsening of your condition or any new concerning symptoms, please return immediately to the emergency department for another evaluation.
[2018-07-10 20:42] VITALS: BP 124/71; PULSE 88; RESP 14; O2SAT 94
--- OUTSIDE RECORDS SUMMARY | 2018-09-12 05:14 | XMS RPT_ITS ---
:1970 Author Organization OHIP Support Name Relationship Address Phone D Unavailable Unavailable Unavailable Abida Cochran/Cousin Unavailable [address] + [place] [address] Abelardo Cochran Unavailable [address] + [address] [place] [address] [facility] [place] Unavailable Unavailable + ABELARDO COCHRAN Unavailable Unavailable + D Unavailable Unavailable Unavailable Abiad Cochran/Cousin Unavailable [address] + [place] [address] Abelardo Cochran Unavailable [address] + [address] [place] [address] [facility] [place] Unavailable Unavailable + ABELARDO COCHRAN Unavailable Unavailable + [facility] [place] Unavailable Unavailable + ABELARDO COCHRAN Unavailable Unavailable + D Unavailable Unavailable Unavailable CochranAbida hudsno/Cousin Unavailable [address] + [place] [address] Abelardo Cochran Unavailable [address] + [address] [place] [address] D Unavailable Unavailable Unavailable CochranAbida hudson/Cousin Unavailable [address] + [place] [address] Abelardo Cochran Unavailable [address] + [address] [place] [address] Care Team Providers Name Role Phone PROVIDER, UNKNOWN Admitting Unavailable PROVIDER, UNKNOWN Attending Unavailable OLVIN HAYDEN Referring Unavailable OLVIN HAYDEN Primary Care Unavailable PROVIDER, UNKNOWN Admitting Unavailable PROVIDER, UNKNOWN Attending Unavailable PATIENT, SELF Referring Unavailable OLVIN HAYDEN Primary Care Unavailable PROVIDER, UNKNOWN Admitting Unavailable PROVIDER, UNKNOWN Attending Unavailable PATIENT, SELF Referring Unavailable CATRACHO, OLVIN Primary Care Unavailable Yeni Gusman Attending Unavailable Hayden, Olvin Primary Care Unavailable Hayden, Olvin Attending Unavailable Hayden, Olvin Attending Unavailable Hayden, Olvin Attending Unavailable PROBLEMS PROBLEMS DATE TYPE CONDITION / CODE ATTENDING STATUS SOURCE 05/29/2018 Active Other specified Unknown [facility] / Rep[facility] Z98.890(ICD-10) 05/26/2018 Unknown Z79.899 - Other long Olvin Hayden Active [facility]current[facility] therapy / Hospital Z79.899(ICD-10) Repository 05/26/2018 Unknown G40.89 - Other Olvin Hayden Active [facility] seizures / Community G40.89(ICD-10) Hospital Repository 05/15/2018 Active Dental caries, Unknown [facility] K02.9(ICD-10) Repository 03/15/2018 Active Retained dental root Unknown Active [facility] / K08.3(ICD-10) System Repository 01/20/2018 Unknown R56.9 - Unspecified Olvin Hayden Active [facility] convulsions / Community R56.9(ICD-10) Hospital Repository PROCEDURES PROCEDURES DATE CODE DESCRIPTION STATUS SOURCE 05/15/2018 D7140(C4) EXTRACTION ERUPTED Completed [facility] TO[facility]EXR [facility] Repository 03/15/2018 D0330(C4) PANORAMIC X RAY Com[facility] Rep[facility] RESULTS RESULTS 12 LEAD ELECTROCARDIOGRAM Observed: 07/12/2018 Status: F Source: [place] 1:[address] [facility] REPOSITORY [facility] Cardiovascular Services [address] [place] [address] 12 Lead EKG 07/10/18 1657 MR#: [id number] Acct: [id number] Name: OLVIN FARLEY Rep #: [id number] : 1970 47 From: Tobias Wren MD Attending Dr: Status: DEP ER Ordering Dr: Yeni Gusman MD Date: 07/10/18 Location: ED Sex: M C Admitted: Test Reason : NEURO SYM Blood Pressure : / mmHG Vent. Rate : 092 BPM Atrial Rate : 092 BPM P-R Int : 174 ms QRS Dur : 092 ms QT Int : 348 ms P-R-T Axes : 022 039 018 degrees QTc Int : 430 ms Normal sinus rhythm Normal ECG Confirmed by TOBIAS WREN MD ([id number]), scientific editor OMAR HAYDEN ([id number]) on 07/12/2018 1:41:11 PM Referred By: CANDELARIO Confirmed By:TOBIAS WREN MD 07/12/18 1341 Date Tobias Wren MD CC: Olvin Hayden MD; Yeni Gusman MD Signed EMERGENCY DEPARTMENT Observed: 07/10/2018 Status: F Source: [place] SUMMARY 9:[address] [facility] REPOSITORY [facility] Medical Records Department [address] [place] [address] Emergency Department Summary 07/10/18 1648 MR#: [id number] Acct: [id number] Name: OLVIN FARLEY Rep #: [id number] : 1970 47 From: Yeni Gusman MD PCP: Olvin Hayden MD Status: DEP ER - ER Visit Summary Date of Service: 07/10/18 Chief Complaint: Seizures and falls History of Present Illness: The patient is a 47 M with history of seizure disorder and MRDD who presents from a prison after having 2 falls and a seizure today. Patient was found on the ground at 9 AM this morning, unwitnessed. There was no noted seizure activity at that time, and nobody is quite sure what happened. This afternoon at 1 PM, patient had a generalized seizure and fell again. It is believed he had the seizure causing the fall. Patient was complaining of diffuse pain, including headache and back. History is limited from the patient due to MRDD and will not answer questions. Patient is on medications for seizure disorder, including Keppra and zonisamide. Patient at time of my evaluation is not complaining of any pain. Physical Examination: Vital signs: afebrile, hemodynamically stable, no hypoxia on room air General: well nourished, well developed, in no distress, laying in bed with eyes closed, will follow commands Skin: warm, dry, no rash, no pallor HEENT: normocephalic, hematoma with overlying abrasion to the left frontal forehead, no other scalp or maxillofacial trauma noted; PERRL, EOMI, moist mucous membranes, no oropharyngeal lesions or bleeding noted Cardiovascular: regular rate and rhythm without murmurs, no peripheral edema, 2+ pulses all distal extremities Respiratory: No increased work of breathing, lungs are clear to auscultation bilaterally, no rales, rhonchi or wheezing Abdominal: Abdomen is soft, nontender with normoactive bowel sounds, no guarding or rebound, no masses MSK: Moves all extremities, no deformities, will not fully extend the left knee, is able to lift both legs off the bed Neuro: Awake with eyes closed, will not open them to request but will follow all commands with his eyes closed, does not speak much. No facial droop, sensation and motor function intact and symmetric Test Results: Abnormal Lab Results WBC RBC Hgb Hct MCV MCH MCHC RDW RDW Differential Plt Count MPV Immature Gran % (Auto) Neut % (Auto) Clinical Impression(s) from Imaging Studies Brain CT 07/10/18 16:46 IMPRESSION: Ventriculomegaly somewhat out of proportion to increased sulcation. Differential considerations may include both age-related atrophy, and the possibility of normal pressure hydrocephalus. Chronic sinus disease. There may be a small left forehead contusion and a very small right parietal contusion. Clinically correlate. No fracture. No intracranial bleed. Electronically Signed: Tyree Arriaza MD at 17:25 EST Tel , Service support , Cervical Spine CT 07/10/18 16:47 IMPRESSION: No evidence of acute cervical spine fracture or traumatic subluxation. Prominent multilevel spondylosis with multilevel mild to moderate foraminal stenosis secondary to uncovertebral joint hypertrophy and facet hypertrophy. Electronically Signed: Tyree Arriaza MD at 17:27 EST Tel , Service support , Knee X-Ray 07/10/18 16:48 IMPRESSION: Normal x-ray examination of the knee. Electronically Signed: Dipak Talley MD at 17:43 EST , Service support , Chest X-Ray 07/10/18 17:08 IMPRESSION: Hypoventilatory exam with crowding of bronchovascular structures. No focal infiltrate. Electronically Signed: Dipak Talley MD at 17:43 EST , Service support , Medications Given Discontinued Medications Sodium Chloride () 1,000 mls @ 1,000 mls/hr IV .Q1H ONE Stop: 07/10/18 17:45 Last Admin: 07/10/18 16:59 Dose: 1,000 mls/hr Emergency Department Course and Treatment: Patient has findings consistent with head trauma on exam, with the hematoma to the left forehead. The staff member from patient's prison accompanying him states patient is acting at his baseline mental status. Head CT showed no intracranial hemorrhage or other acute process. C-spine CT showed no fracture. X-ray of the left knee was performed due to patient not fully straightening it. It showed no fracture or other injury. Chest x-ray showed no acute process. Patient's EKG showed no ectopy or ischemia. Normal sinus rhythm. Labs were unremarkable for any acute changes from patient's baseline. Blood glucose at initial presentation was 98. Patient was reevaluated and was talking to me, denying pain and answering questions. No concerning injuries were noted on patient's workup. He does have a history of seizure disorder, thus no further workup for seizure was performed. Patient was discharged back to his prison with emphasis on him getting all of his seizure medications properly dosed. Treatment Plan: [] Disposition: [] Impression: Breakthrough seizure, left forehead hematoma This note was generated with [employer] dictation software. It may contain incorrect words, spelling, and punctuation that were not noted in review of the chart prior to signing ED Disposition - Plan for ED Patient: Disposition: Half-Way Facility Chief Complaint: Seizure Instructions: ED Contusion Scalp, ED Seizure Recurrent Referrals: Olvin Hayden MD [Primary Care Provider] - 1-2 Days if not improving Additional Instructions: Continue all medications as prescribed, especially seizure medications. Apply ice for 15 minutes 3 times a day to the bruise on the left forehead to help with swelling and pain. Use ocyk-riw-baonpvm pain medication as needed for headache or pain. If you have any worsening of your condition or any new concerning symptoms, please return immediately to the emergency department for another evaluation. What to do if you have Problems For any increased pain, shortness of breath, bleeding, nausea or vomiting, chest pain, or any unexpected problems, contact your Primary Care Provider. Call [facility] ([phone]) or report to the closest Emergency Room. Call 911 if necessary. 07/10/182121 <Electronically signed by Yeni Gusman MD> Date Yeni Gusman MD Cosigner Signature (If Indicated): Date CC: Olvin Hayden MD DISCHARGE INSTRUCTION Observed: 07/10/2018 Status: F Source: [place] 9:[address] [facility] REPOSITORY [facility] Medical Records Department [address] [facility] [place] [address] Discharge Instruction 07/10/18 194 MR#: [id number] Acct: [id number] Name: OLVIN FARLEY Rep #: [id number] : 1970 47 From: Yeni Gusman MD PCP: Olvin Hayden MD Status: [facility] ER ED Disposition - Plan for ED Patient: Disposition: Home or Assisted Living Chief Complaint: Seizure Instructions: ED Seizure Recurrent, ED Contusion Scalp Referrals: Olvin Hayden MD [Primary Care Provider] - 1-2 Days if not improving Additional Instructions: Continue all medications as prescribed, especially seizure medications. Apply ice for 15 minutes 3 times a day to the bruise on the left forehead to help with swelling and pain. Use rqvc-qfc-yolbonj pain medication as needed for headache or pain. If you have any worsening of your condition or any new concerning symptoms, please return immediately to the emergency department for another evaluation. What to do if you have Problems For any increased pain, shortness of breath, bleeding, nausea or vomiting, chest pain, or any unexpected problems, contact your Primary Care Provider. Call [facility] ([phone]) or report to the closest Emergency Room. Call 911 if necessary. 07/10/182109 <Electronically signed by Yeni Gusman MD> Date Yeni Gusman MD Cosigner Signature (If Indicated): Date CC: Olvin Hayden MD BEDSIDE GLUCOSE Collected: 07/10/2018 Status: F Source: [place] 4:[address] [facility] REPOSITORY TYPE CODE TESTS RESULT OUT OF RANGE REFERENCE UNITS LAB L501.080 70-110 mg/dL Normal BEDSIDE GLU 98 Result Comment: MANAGEMENT OF PATIENT CARE PER NURSING PROTOCOL Performed By: #### L501.080 #### [facility] Point of Care [facility] [place] [address] CBC W/DIFF, AUTOMATED Collected: 07/10/2018 Status: F Source: [place] 4:[address] [facility] REPOSITORY TYPE CODE TESTS RESULT OUT OF RANGE REFERENCE UNITS LAB L100.1000 4.4-11.0 K/mm3 High WBC 13.1 LAB L100.1200 4.6-6.2 M/mm3 Normal RBC 4.89 LAB L100.1300 13.0-16.5 g/dl Normal HGB 13.1 LAB L100.1400 40-54 % Normal HCT 40.6 LAB L100.1500 80-94 fL Normal MCV 83.0 LAB L100.1600 27.0-32.0 pg Low MCH 26.8 LAB L100.1700 32-36 g/gl Normal MCHC 32.3 LAB L100.1810 11.6-14.6 % Normal RDW CV 13.9 LAB L100.1820 35.1-43.9 fl Normal RDW SD 41.9 LAB L100.1900 150-450 K/mm3 Normal PLT 248 LAB L100.2000 6.2-12.0 fl Normal MPV 9.2 LAB L100.2100 47-70 % High NEUT% 78.6 LAB L100.2200 19-41 % Low LY% 14.5 LAB L100.2300 0-10 % Normal MONO% 6.3 LAB L100.2400 0-5 % Normal EO% 0.2 LAB L100.2500 0-1 % Normal BASO% 0.2 LAB L100.2550 0.0-0.9 % Normal IM GRAN % 0.200 Result Comment: IG% - Immature Granulocytes (promyelocytes, myelocytes and metamyelocytes) > 1% indicates that a LEFT SHIFT is Present. LAB L100.2620 2.0-7.7 X10 3/uL High Absolute Neut 10.3 LAB L100.2720 0.83-4.51 X10 3/ul Normal Absolute Lymph 1.90 Performed By: #### L100.0100 #### [facility] [address] [place], [address] BASIC METABOLIC Collected: 07/10/2018 Status: F Source: [place] PROFILE (BMP) 4:[address] [facility] REPOSITORY TYPE CODE TESTS RESULT OUT OF RANGE REFERENCE UNITS LAB L501.0100 74-106 mg/dL Normal GLU 96 Result Comment: Please note revised GLUCOSE reference range effective 2017. LAB L501.1000 7-18 mg/dL Normal BUN 12 LAB L501.1100 0.70-1.30 mg/dL High CREAT,SERUM 1.40 Result Comment: The validity of the calculated GFR AND GFRAA in patients over 70 years has not been determined. Clinical correlation is essential. LAB L501.1110 >60 mL/min Low EST GFR 58 Result Comment: Non- GFR Calc LAB L501.1115 >60 mL/min Normal EST GFR - AA 70 Result Comment: GFR Calc LAB L501.1255 ml/min Normal Estimated CRCL 63.11 LAB L501.1300 10-20 RATIO Low BUN/CRE 8.6 LAB L501.2200 8.5-10 mg/dL Normal .1 CA 8.6 LAB L501.5300 136-14 mmol/L Low 5 NA 135 LAB L501.5600 3.5-5. mmol/L Normal 1 K 3.8 LAB L501.5900 98-107 mmol/L Normal CL 103 LAB L501.6100 21.0-3 mmol/L Normal 2.0 CO2 24.0 LAB L501.6200 5-15 Normal GAP 8 Performed By: #### L500.2500 #### [facility] [address] [facility] [place], [address] PROTHROMBIN TIME W/INR Collected: 07/10/2018 Status: F Source: [place] 4:[address] [facility] REPOSITORY TYPE CODE TESTS RESULT OUT OF RANGE REFERENCE UNITS LAB L300.4150 11.7-14.9 SECONDS Normal PROTIME 14.7 LAB L300.4200 Normal INR 1.2 Performed By: #### L300.3900, L300.4310 #### [facility] [address] [place], [address] PARTIAL THROMBOPLAST Collected: 07/10/2018 Status: F Source: [place] TIME 4:[address] [facility] REPOSITORY TYPE CODE TESTS RESULT OUT OF RANGE REFERENCE UNITS LAB L300.4310 24.1-36.2 Seconds Normal PTT 28.6 Performed By: #### L300.3900, L300.4310 #### [facility] [address] [place], [address] BRAIN/HEAD WITHOUT Observed: 07/10/2018 Status: F Source: [place] CONTRAST 4:[address] [facility] REPOSITORY [facility] Imaging Services [address] [place] [address] Brain/Head without Contrast MR#: [id number] Acct: [id number] Name: Miguelito,Olvin Aravind Rep #: [id number] : 1970 M 47 From: Tyree Arriaza MD PCP: Olvin Hayden MD Status: PRE ER Study: Brain/Head without Contrast Date of Exam: 07/10/18 Exam# [id number] Ordering Dr: Yeni Gusman MD STUDY: CT BRAIN WITHOUT CONTRAST REASON FOR EXAM: Male, 47 years old. Fall, seizures. History of seizures. RADIATION DOSAGE (If Supplied By Facility): CTDIvol = ( 44.99 ) mGy, DLP = ( 931.09 ) mGycm TECHNIQUE: Transaxial CT imaging of the brain was performed without administration of intravenous contrast material. Coronal and sagittal 2-D MPR Individualized dose optimization techniques were used for this CT. COMPARISON: None. FINDINGS: Chronic near complete opacification of the right maxillary sinus, of the anterior right ethmoid and right frontal sinuses. Mild mucoperiosteal thickening left maxillary sinuses. Mastoid air cells acutely clear. Developmentally greater pneumatization on the left. Normal variant. Middle ear cavities clear. Osseous structures intact. Extra cranial soft tissues including orbital contents exhibit no definitive acute process. There may be a small forehead contusion on the left. Clinically correlate. There is also a small focus of calyceal thickening high right parietal which may represent an acute or old contusion. Moderate symmetric expansion of extra axial spaces, slightly more prominent of the lateral ventricles. Minimally ectatic 3rd ventricle. Compression of sulcation at the vertex. These features may merely represent age-related atrophy but could also be a manifestation of normal pressure hydrocephalus. Minimal chronic white matter changes. No acute intracranial bleed, mass or mass effect nor any specific evidence of acute territorial infarct. CT/Brain/Head without Contrast IMPRESSION: Ventriculomegaly somewhat out of proportion to increased sulcation. Differential considerations may include both age-related atrophy, and the possibility of normal pressure hydrocephalus. Chronic sinus disease. There may be a small left forehead contusion and a very small right parietal contusion. Clinically correlate. No fracture. No intracranial bleed. Electronically Signed: Tyree Arriaza MD at 17:25 EST Tel , Service support , CC: Olvin Hayden MD; Yeni Gusman MD Fringe Weaver: Signed SPINE CERVICAL Observed: 07/10/2018 Status: F Source: [place] WITHOUT CONTRAS 4:[address] [facility] REPOSITORY [facility] [place] [address] Spine Cervical without Contras MR#: [id number] Acct: [id number] Name: Olvin Farley Rep #: [id number] : 1970 M 47 From: Tyree Arriaza MD PCP: Olvin Hayden MD Status: PRE ER Study: Spine Cervical without Contras Date of Exam: 07/10/18 Exam# [id number] Ordering Dr: Yeni Gusman MD STUDY: CT CERVICAL SPINE WITHOUT CONTRAST REASON FOR EXAM: Male, 47 years old. Fall x2, seizure. History of seizures. RADIATION DOSAGE (If Supplied By Facility): CTDIvol = ( 33.75 ) mGy, DLP = ( 794.41 ) mGycm TECHNIQUE: Thin slice helical CT acquisition of the cervical spine without contrast. Coronal and sagittal 2-D multiplanar reformatted images were saved to the PACS archive. Individualized dose optimization techniques were used for this CT. COMPARISON: None FINDINGS: Cervical and supraglottic or soft tissues exhibit no acute process. Apical lungs clear. Apical thoracic cage intact. Odontoid and lateral masses and ring of C1 is intact. Facet joints normally aligned with moderate to moderately severe facet hypertrophy at multiple levels most prominent on the left in the superior cervical spine. There is chronic fusion across the facet joints at C2-C3, C3-C4 with partial fusion across intervertebral discs. Vertebral body height and alignment are normal with reversal of lordosis. There is multilevel moderate disc narrowing between C4 and C7. Uncovertebral joint hypertrophy and facet hypertrophy contributing to foraminal narrowing at multiple levels. CT/Spine Cervical without Contras IMPRESSION: No evidence of acute cervical spine fracture or traumatic subluxation. Prominent multilevel spondylosis with multilevel mild to moderate foraminal stenosis secondary to uncovertebral joint hypertrophy and facet hypertrophy. Electronically Signed: Tyree Arriaza MD at 17:27 EST Tel , Service support , CC: Olvin Hayden MD; Yeni Gusman MD Fringe Weaver: Signed CHEST 1 VIEW Observed: 07/10/2018 Status: F Source: [place] (PORTABLE) 4:48 PM [facility] RE[facility] Imaging Services [address] [place] [address] Chest 1 View (Portable) MR#: [id number] Acct: [id number] Name: OLVIN FARLEY Rep #: [id number] : 1970 M 47 From: Dipak Talley MD PCP: Olvin Hayden MD Status: REG ER Study: Chest 1 View (Portable) Date of Exam: 07/10/18 Exam# [id number] Ordering Dr: Yeni Gusman MD STUDY: X-RAY CHEST REASON FOR EXAM: Male, 47 years old. Seizure. TECHNIQUE: Single frontal view of the chest. COMPARISON: February 25, 2014. FINDINGS: There are monitoring devices. The lungs are underexpanded with crowding of bronchovascular structures. There is no demonstrated pleural abnormality. There is borderline cardiomegaly. Normal mediastinum and raegan. Normal visualized pulmonary arteries. Normal visualized aortic arch and descending thoracic aorta. Normal visualized thoracic spine. Normal visualized ribs, clavicles, and shoulders. There is no demonstrated abnormality of the visualized soft tissue structures of the upper abdomen. RAD/Chest 1 View (Portable) IMPRESSION: Hypoventilatory exam with crowding of bronchovascular structures. No focal infiltrate. Electronically Signed: Dipak Talley MD at 17:43 EST , Service support , CC: Olvin Hayden MD; Yeni Gusman MD Fringe Weaver: Signed KNEE 3 VIEWS Observed: 07/10/2018 Status: F Source: [place] 4:48 PM [facility] REPOSIT[facility] Imaging Services [address] [place] [address] Knee 3 Views MR#: [id number] Acct: [id number] Name: OLVIN FARLEY Rep #: [id number] : 1970 M 47 From: Dipak Talley MD PCP: Olvin Hayden MD Status: REG ER Study: Knee 3 Views Date of Exam: 07/10/18 Exam# [id number] Ordering Dr: Yeni Gusman MD STUDY: X-RAY - LEFT KNEE REASON FOR EXAM: Male, 47 years old. Seizure. Pain. TECHNIQUE: 3 view(s) of the knee. COMPARISON: None. FINDINGS: Normal visualized distal femur. Normal visualized proximal tibia and fibula. Normal proximal tibiofibular articulation. There is no demonstrated fracture. Normal medial femorotibial compartment. Normal lateral femorotibial compartment. Normal patellofemoral articulation. The soft tissue structures are unremarkable. RAD/Knee 3 Views IMPRESSION: Normal x-ray examination of the knee. Electronically Signed: Dipak Talley MD at 17:43 EST , Service support , CC: Olvin Hayden MD; Yeni Gusman MD Fringe Weaver: Signed CBC-COMPLETE BLOOD CNT Collected: 05/16/2018 Status: F Source: [place] NO DIFF 5:[address] [facility] REPOSITORY Order Comment: ROOM 126 TYPE CODE [...] MPV 10.4 Performed By: #### L100.0500 #### [facility] [address] [place], [address] HEMOGLOBIN A1C Collected: 05/16/2018 Status: F Source: [place] 5:[address] [facility] REPOSITORY Order Comment: ROOM 126 TYPE CODE TESTS RESULT OUT OF RANGE REFERENCE UNITS LAB L501.9985 4.2-6.3 % Normal HGB A1C 5.8 Performed By: #### L501.9985 #### [facility] [address] [place], [address] COMPREHENSIVE METABOLIC Collected: 05/16/2018 Status: F Source: [facility] 5:[address] [facility] REPOSITORY Order Comment: ROOM 126 TYPE CODE [...] 10 Performed By: #### L500.4050, L501.9520 #### [facility] [address] [place], [place], [address] THYROID STIM HORMONE Collected: 05/16/2018 Status: F Source: [place] (TSH) 5:[address] [facility] REPOSITORY Order Comment: ROOM 126 TYPE CODE TESTS RESULT OUT OF RANGE REFERENCE UNITS LAB L501.9520 0.358-3.74 uIU/mL Normal TSH 1.16 Performed By: #### L500.4050, L501.9520 #### [facility] [address] [place], [place], [address] KEPPRA (LEVETIRACETAM) Collected: 05/16/2018 Status: F Source: [place] 5:[address] [facility] REPOSITORY Order Comment: ROOM 126 TYPE CODE TESTS RESULT OUT OF RANGE REFERENCE UNITS LAB L3310.0000 10.0-40.0 ug/mL Normal KEPPRA 34.6 Result Comment: Performed at: - [facility] [address] [id number] E Learning Designer: Jere Tierney MD, Phone: [phone] Performed By: #### L3310.0000 #### [facility] (refer to report for specific site) refer to report for address and phone number KEPPRA (LEVETIRACETAM) Collected: 02/21/2018 Status: F Source: DAVID 7:[address] [facility] REPOSITORY Order Comment: 126-1 TYPE CODE TESTS RESULT OUT OF RANGE REFERENCE UNITS LAB L3310.0000 10.0-40.0 ug/mL Normal KEPPRA 31.4 Result Comment: Performed at: [address] [id number] E Learning Designer: Osbaldo Abbott MD, Phone: [phone] Performed By: #### L3310.0000 #### [facility] (refer to report for specific site) refer to report for address and phone number MISCELLANEOUS LAB Collected: 02/21/2018 Status: F Source: DAVID PROCEDURE 7:[address] [facility] REPOSITORY Order Comment: Comments: [id number];zonisamide;red/serum;1.2ml Test(s) Ordered: [id number];zonisamide;red/serum;1.2ml TYPE CODE TESTS RESULT OUT OF RANGE REFERENCE UNITS LAB L801.1541 Normal [facility] LAB TEST Result Comment: TEST RESULT UNITS REFERENCE INTERVAL Zonisamide(zonegran), serum Zonisamide 16.2 ug/mL 10.0 - 40.0 Detection Limit = 1.0 TESTING PERFORMED AT [facility]. ORIGINAL REPORT ON FILE IN LAB CONTAINS ADDITIONAL TEST SITE INFORMATION. Performed By: #### L801.1541 #### [facility] [address], [address] CBC-COMPLETE BLOOD CNT Collected: 11/17/2017 Status: F Source: DAVID NO DIFF 10:[address] [facility] REPOSITORY TYPE CODE TESTS RESULT OUT OF [...] MPV 9.4 Performed By: #### L100.0500 #### [facility] [address] [place], [address] COMPREHENSIVE METABOLIC Collected: 11/17/2017 Status: F Source: [facility] 6:[address] [facility] REPOSITORY Order Comment: 126-1 TYPE CODE TESTS [...] 9 Performed By: #### L500.4050, L501.4700 #### [facility] [address] [facility] [place], [address] BILIRUBIN, DIRECT Collected: 11/17/2017 Status: F Source: [place] 6:[address] [facility] REPOSITORY Order Comment: 126-1 TYPE CODE TESTS RESULT OUT OF RANGE REFERENCE UNITS LAB L501.4700 0.00-0.30 mg/dL Normal D BILI < 0.05 Performed By: #### L500.4050, L501.4700 #### [facility] [address] [place], [place], [address] KEPPRA (LEVETIRACETAM) Collected: 11/17/2017 Status: F Source: [place] 6:[address] [facility] REPOSITORY Order Comment: 126-1 TYPE CODE TESTS RESULT OUT OF REFERENCE UNITS RANGE LAB L3310.0000 10.0-40.0 ug/mL High KEPPRA 45.8 Result Comment: Performed at: - [facility] [address] [id number] E Learning Designer: Osbaldo Abbott MD, Phone: [phone] Performed By: #### L3310.0000 #### [facility] (refer to report for specific site) refer to report for address and phone number ALLERGIES ALLERGIES DATE TYPE / CODE NAME / CODE REACTION SEVERITY SOURCE 07/10/2018 Drug venom-honey Unknown Unknown [facility] Allergy/416 bee/R651978 Hospital 936591(SNOM 698(RXNORM) Repository ED CT) 12/06/2006 DRUG/288319 B[facility]LACTIC [facility](SN[facility]ED System Repository CT) ENCOUNTERS ENCOUNTERS ADMIT/DISCHARGE ACCOUNT NUMBER ADMITTING ENCOUNTER LOCATION SOURCE CLASS 07/10/2018/07/10/19 [id number] Emergency [address] ding:ED Repository 05/29/2018 [id number] Unknown [facility]ulatory [facility] Repository 05/16/2018 [id number] Ambulatory [facility] ding:[facility] Repository 05/15/2018 [id number] Unknown [facility]ulatory [facility] Repository 03/15/2018/03/15/20 [id number] Unknown Ambulatory [facility] The [facility] Repository 02/21/2018 [id number] Ambulatory [facility] ding:[facility] Repository 11/17/2017 [id number] Ambulatory [facility] ding:[facility] Repository PAYERS PAYERS ENCOUNTER GUARANTOR PAYER SUBSCRIBER SOURCE 07/10/2018 OLVIN Nazario Primary Insurance:[facility] OLVIN Nazario [facility]Policy [facility] Number: [id number] Repository [facility] [id number] CARE Date:[id number] [address]Ifu: [phone]: [phone] (hp) 07/10/2018 Secondary [facility] Insurance:MEDICARE [facility] PART A BPolicy Number: [id number] Repository [id number] Date:2018-07-10 07/10/2018 [facility]SELF PAY Hospital INSURANCEPolicy Repository Number: Effective Date:2018-07-10 05/29/2018 [facility] BAH [facility] Insurance:DENTAL [facility] NICHOLASDOB: System Repository S MEDICAIDPolicy Number: [id number] [facility] [id number] [address] [place], [place] Date:2018-02-18 [place], [place] [address]Vzi: [phone]: (HP) [phone] (HP) 05/16/2018 Olvin Nazario Primary Insurance:[facility] Olvin Hernandez Count Includes [facility]Policy NicholasDOB: Hospital [facility] Number: [id number] Repository [facility] [id number] CARE Date:[id number] [address]Lul: [address]LD: [phone] (HP) 05/16/2018 Secondary Olvin Hernandez [facility] Insurance:MEDICARE NicholasDOB: Hospital PART A BPolicy Number: [id number] Repository [id number] Date:2018-05-16 05/16/2018 [facility]ertiary [facility] [place] [facility] Insurance:SELF PAY Hospital INSURANCEPolicy Repository Number: Effective Date:2018-05-16 05/15/2018 OLVIN BAH [facility] NICHOLASDOB: Insurance:DENTAL [facility] NICHOLASDOB: System Repository [id number] S MEDICAIDPolicy Number: [id number] [facility] [id number] S [place], [place] Date:2018-02-18 [place], [place] [address]Buz: [phone]: (HP) [phone] (HP) 03/15/2018 OLVIN BAH [facility] NICHOLASDOB: Insurance:UNITED NICHOLASDOB: System Repository S HEALTHCAREPolicy [id number] [facility] Number: S [facility] [id number] [place], [place] [address]Cqg: (330) Date:2018-02-18 [address]Yev: (HP) [phone] (HP) 03/15/2018 Secondary [facility]LVIN [facility]ithra [facility] System Repository HEALTHCAREPolicy [id number] Number: [facility] [id number] [place], [place] Date:2018-02-18 [address]Tfr: (HP) 02/21/2018 Olvin Nzaario Primary Insurance:[facility] Olvin Hernandez Count Includes [facility] PLANPolicy NicholasDOB: [facility] Number: [id number] Repository [facility] [id number] CARE Date:[id number] [address]Lje: [address]YX: [phone] () 02/21/2018 Secondary Olvin Hernandez Community Insurance:MEDICARE NicholasDOB: Hospital PART A BPolicy Number: [id number] Repository [id number] Date:2018-02-21 02/21/2018 Tertiary NOT GIVENUNK [facility] Insurance:SELF PAY Hospital INSURANCEPolicy Repository Number: Effective Date:2018-02-21 11/17/2017 Olvin L Primary Olvin Hernandez Count Includes [facility]876 S Insurance:MEDICARE NicholasDOB: [facility] PART A BPolicy Number: [id number] Repository [facility] [id number] CARE Date:2017-11-17 [place], [place] [address]Abx: () 11/17/2017 Secondary Olvin L [facility] Insurance:[facility] NicholasDOB: Hospital COMMUNITY PLANPolicy [id number] Repository Number: [id number] Date:[id number] [address] [address]SZ: 11/17/2017 Tertiary NOT GIVENUNK [facility] Insurance:SELF PAY Hospital INSURANCEPolicy Repository Number: Effective Date:2017-11-17
== END 2018-07-10 20:42 | disposition skilled nursing facility (03) ==
PROVIDERS: Emergency Provider Emergency Medicine; Family Provider Family Medicine; PCP Family Medicine
DX: G40.909 Epilepsy, unspecified, not intractable, without status epilepticus (principal); S00.83XA Contusion of other part of head, initial encounter; W19.XXXA Unspecified fall, initial encounter; Y93.9 Activity, unspecified; Y92.199 Unspecified place in other specified residential institution as the place of occurrence of the external cause; Y99.9 Unspecified external cause status; F79 Unspecified intellectual disabilities; E66.9 Obesity, unspecified
CPT/HCPCS: 70450; 71045; 72125; 73562; 80048; 82962; 85025; 85610; 85730; 93005; 96360; 99285; J7030; A4216

== ENCOUNTER → 2018-08-29 05:30 | Outpatient (REF) | payer MEDICARE, SELFPAY ==
[2018-08-29 09:06] LABS: Absolute Lymphocyte Count 2.23 X10^3/ul (0.83-4.51); Absolute Neutrophil Count 5.1 X10^3/uL (2.0-7.7); Basophil# 0.04 X10^3/uL; Basophil% 0.5 % (0-1); Eosinophil# 0.13 X10^3/uL; Eosinophils% 1.6 % (0-5); Hematocrit 41.8 % (40-54); Lymphocyte # 2.23 X10^3/ul (4.0); Lymphocyte % 27.4 % (19-41); Mean Corp Hgb Conc 31.1 g/gl (32-36); Mean Corpuscular Hgb 26.5 pg (27.0-32.0); Mean Corpuscular Volume 85.3 fL (80-94); Mean Platelet Vol. 10.4 fl (6.2-12.0); Monocyte# 0.63 X10^3/uL; Monocyte% 7.7 % (0-10); Neutrophil % 62.7 % (47-70); Platelet Count 247 K/mm3 (150-450); RBC Distribution Width CV 14.6 % (11.6-14.6); RBC Distribution Width SD 45.6 fl (35.1-43.9); White Blood Count 8.1 K/mm3 (4.4-11.0)
[2018-08-29 09:07] LABS: POSITIVE COUNT NO; POSITIVE DIFFERENTIAL NO; POSITIVE MORPHOLOGY NO
[2018-08-29 09:30] LABS: Anion Gap 10 (5-15); BUN 14 mg/dL (7-18); BUN/Creat Ratio 10.8 RATIO (10-20); Calcium,Total 8.8 mg/dL (8.5-10.1); Chloride 108 mmol/L (98-107); EST Glomerular Filtration Rate 63 mL/min (>60); Est Glom Filt Rate - Afr Amer 76 mL/min (>60); Glucose 86 mg/dL (74-106); Potassium 4.1 mmol/L (3.5-5.1); Sodium Level 141 mmol/L (136-145)
[2018-09-01 08:23] LABS: KEPPRA (LEVETIRACETAM) 19.2 ug/mL (10.0-40.0)
== END ==
LOC: OLS.WCC 05:30
PROVIDERS: Visit Provider Family Medicine
DX: R53.83 Other fatigue (principal); R56.9 Unspecified convulsions
CPT/HCPCS: 36415; 80048; 80177; 85025

== ENCOUNTER → 2018-09-25 09:40 | Outpatient (REF) | payer MEDICARE, MEDICAID, SELFPAY ==
[2018-09-25 10:27] LABS: Absolute Lymphocyte Count 1.67 X10^3/ul (0.83-4.51); Absolute Neutrophil Count 3.8 X10^3/uL (2.0-7.7); Basophil# 0.02 X10^3/uL; Basophil% 0.3 % (0-1); Eosinophil# 0.13 X10^3/uL; Hematocrit 41.9 % (40-54); Lymphocyte # 1.67 X10^3/ul (4.0); Lymphocyte % 26.3 % (19-41); Mean Corp Hgb Conc 33.4 g/gl (32-36); Mean Corpuscular Hgb 27.6 pg (27.0-32.0); Mean Corpuscular Volume 82.5 fL (80-94); Mean Platelet Vol. 9.9 fl (6.2-12.0); Monocyte# 0.73 X10^3/uL; Monocyte% 11.5 % (0-10); Neutrophil % 59.7 % (47-70); Platelet Count 234 K/mm3 (150-450); RBC Distribution Width CV 14.1 % (11.6-14.6); RBC Distribution Width SD 42.2 fl (35.1-43.9); Red Blood Count 5.08 M/mm3 (4.6-6.2); White Blood Count 6.4 K/mm3 (4.4-11.0)
[2018-09-25 10:28] LABS: POSITIVE COUNT NO; POSITIVE DIFFERENTIAL NO; POSITIVE MORPHOLOGY NO
[2018-09-25 10:47] LABS: Hemoglobin A1c 5.9 % (4.2-6.3)
[2018-09-25 10:52] LABS: ALB/GLOB Ratio 0.8 RATIO (0.9-2.4); AST(SGOT) 30 U/L (15-37); Alanine Aminotransfer ALT/SGPT 39 U/L (16-61); Albumin, Serum 3.6 g/dL (3.2-5.0); Alkaline Phosphatase 125 U/L (45-117); Anion Gap 5 (5-15); BUN 14 mg/dL (7-18); BUN/Creat Ratio 9.9 RATIO (10-20); Calcium,Total 8.7 mg/dL (8.5-10.1); Chloride 107 mmol/L (98-107); Creatinine, Serum 1.41 mg/dL (0.70-1.30); EST Glomerular Filtration Rate 57 mL/min (>60); Est Glom Filt Rate - Afr Amer 69 mL/min (>60); Globulin 4.7 g/dL (2.2-4.2); Glucose 77 mg/dL (74-106); Potassium 4.1 mmol/L (3.5-5.1); Protein, Total 8.3 g/dL (6.4-8.2); Sodium Level 140 mmol/L (136-145)
[2018-09-25 11:00] LABS: Insulin 29.7 mU/L (2.6-37.6)
== END ==
LOC: OLS.WCC 09:40
PROVIDERS: Visit Provider Family Medicine
DX: R53.83 Other fatigue (principal); R61 Generalized hyperhidrosis; E16.2 Hypoglycemia, unspecified
CPT/HCPCS: 80053; 83036; 83525; 85025

== ENCOUNTER → 2018-10-02 06:48 | Outpatient (CLI) | payer MEDICARE, SELFPAY ==
--- NOTE | 2018-10-02 06:54 | CT_ITS ---
STUDY: CT ABDOMEN AND PELVIS WITH CONTRAST REASON FOR EXAM: Male, 47 years old. Abdominal distention RADIATION DOSAGE (If Supplied By Facility): CTDIvol = ( 18.74 ) mGy, DLP = ( 1344.68 ) mGycm TECHNIQUE: Transaxial images were obtained from the dome of the diaphragm to the symphysis pubis without oral contrast. 100 IV Isovue 300 was administered. Sagittal and coronal images were reconstructed. Individualized dose optimization techniques were used for this CT. COMPARISON: July 20, 2018 chest x-ray FINDINGS: The visualized lung bases are unremarkable. There is minimal lower lobe atelectasis. There is borderline cardiac enlargement. There is decreased attenuation of the liver consistent with steatosis. There is a small focus of low attenuation within the liver measuring 5.9 mm the most too small to characterize likely representing a small cyst. Normal gallbladder and extrahepatic biliary system. Normal spleen. There is a diminutive appearance of the tail the pancreas. Normal bilateral adrenal glands. There is a small low attenuating structure within the right kidney measuring 5 mm which may represent cyst or angiomyolipoma. Normal left kidney. There is a hiatal hernia which contains a portion of the fundus of the stomach 4.5 x 4.0 cm. There is a tortuous appearance of the mid mesentery with the small bowel extending partially over to the right. There is no evidence of bowel obstruction. There is a tortuous redundant appearance of the sigmoid colon raising to the left upper quadrant. This is moderately stool-filled. There is a ggcm-dx-qeirpozj amount of stool within the cecum with a decompressed appearance of the transverse colon. There Is abundant stool in the rectum. The appendix is visualized and appears normal. There is trace calcification of the distal aorta. Normal inferior vena cava. Normal retroperitoneum. The bladder is decompressed, mildly thick walled. Prostate is incompletely visualized on this study measures 4.1 x 4.8 cm. Normal abdominal wall. There are diffuse degenerative changes of the visualized lumbar spine. CT/Abdomen/Pelvis WITH Contrast IMPRESSION: Constipation redundant tortuous appearing sigmoid colon. Fecal impaction. Small right renal cyst Hepatic cyst. Hepatic steatosis. Electronically Signed: Deepa Maldonado MD at 16:59 EDT Tel , Service support ,
== END ==
PROVIDERS: Family Provider Family Medicine; PCP Family Medicine; Referring Provider Family Medicine; Visit Provider Family Medicine
DX: R14.0 Abdominal distension (gaseous) (principal); E16.2 Hypoglycemia, unspecified
CPT/HCPCS: 74177; Q9967

== ENCOUNTER → 2018-11-08 05:35 | Outpatient (REF) | payer MEDICARE, MEDICAID, SELFPAY ==
[2018-11-08 07:50] LABS: Hematocrit 40.3 % (40-54); Hemoglobin 13.1 g/dl (13.0-16.5); Mean Corp Hgb Conc 32.5 g/gl (32-36); Mean Corpuscular Hgb 26.7 pg (27.0-32.0); Mean Corpuscular Volume 82.2 fL (80-94); Platelet Count 255 K/mm3 (150-450); RBC Distribution Width CV 13.7 % (11.6-14.6); RBC Distribution Width SD 40.4 fl (35.1-43.9); White Blood Count 7.2 K/mm3 (4.4-11.0)
[2018-11-08 07:53] LABS: Scan Indicated on CBC? Y/N NO
[2018-11-08 07:59] LABS: ALB/GLOB Ratio 0.7 RATIO (0.9-2.4); AST(SGOT) 15 U/L (15-37); Alanine Aminotransfer ALT/SGPT 30 U/L (16-61); Albumin, Serum 3.1 g/dL (3.2-5.0); Alkaline Phosphatase 118 U/L (45-117); Anion Gap 6 (5-15); BUN 15 mg/dL (7-18); BUN/Creat Ratio 10.9 RATIO (10-20); Bilirubin, Direct 0.06 mg/dL (0.00-0.30); Calcium,Total 8.1 mg/dL (8.5-10.1); Chloride 111 mmol/L (98-107); Creatinine, Serum 1.38 mg/dL (0.70-1.30); EST Glomerular Filtration Rate 59 mL/min (>60); Est Glom Filt Rate - Afr Amer 71 mL/min (>60); Globulin 4.3 g/dL (2.2-4.2); Glucose 81 mg/dL (74-106); Potassium 3.6 mmol/L (3.5-5.1); Protein, Total 7.4 g/dL (6.4-8.2); Sodium Level 140 mmol/L (136-145)
[2018-11-11 12:40] LABS: KEPPRA (LEVETIRACETAM) 43.1 ug/mL (10.0-40.0)
== END ==
LOC: OLS.WCC 05:35
PROVIDERS: Visit Provider Family Medicine
DX: R56.9 Unspecified convulsions (principal)
CPT/HCPCS: 36415; 80053; 80177; 82248; 85027

== ENCOUNTER → 2019-05-16 05:00 | Outpatient (REF) | payer MEDICARE, SELFPAY ==
[2019-05-16 07:35] LABS: Hematocrit 41.4 % (40-54); Hemoglobin 13.5 g/dL (13.0-16.5); Mean Corp Hgb Conc 32.6 g/dL (32-36); Mean Corpuscular Hgb 28.1 pg (27.0-32.0); Mean Corpuscular Volume 86.3 fL (80-94); Mean Platelet Vol. 10.4 fl (6.2-12.0); Platelet Count 241 K/mm3 (150-450); RBC Distribution Width CV 13.2 % (11.6-14.6); RBC Distribution Width SD 41.1 fl (35.1-43.9); White Blood Count 6.7 K/mm3 (4.4-11.0)
[2019-05-16 07:39] LABS: Anion Gap 6 (5-15); BUN 15 mg/dL (7-18); BUN/Creat Ratio 11.4 RATIO (10-20); Calcium,Total 8.5 mg/dL (8.5-10.1); Chloride 112 mmol/L (98-107); Creatinine, Serum 1.32 mg/dL (0.70-1.30); EST Glomerular Filtration Rate 61 mL/min (>60); Est Glom Filt Rate - Afr Amer 74 mL/min (>60); Glucose 91 mg/dL (74-106); Potassium 4.1 mmol/L (3.5-5.1); Sodium Level 141 mmol/L (136-145)
[2019-05-19 13:21] LABS: KEPPRA (LEVETIRACETAM) 24.5 ug/mL (10.0-40.0)
== END ==
LOC: OLS.WCC 05:00
PROVIDERS: Visit Provider Family Medicine
DX: Z79.899 Other long term (current) drug therapy (principal)
CPT/HCPCS: 36415; 80048; 80177; 85027

== ENCOUNTER → 2019-11-14 06:00 | Outpatient (REF) | payer MEDICARE, MEDICAID, SELFPAY ==
[2019-11-14 11:13] LABS: Absolute Lymphocyte Count 2.77 X10^3/uL (0.83-4.51); Absolute Neutrophil Count 6.2 X10^3/uL (2.0-7.7); Basophil# 0.08 X10^3/uL; Basophil% 0.8 % (0-1); Eosinophil# 0.25 X10^3/uL; Eosinophils% 2.5 % (0-5); Hematocrit 46.2 % (40-54); Hemoglobin 14.6 g/dL (13.0-16.5); Lymphocyte # 2.77 X10^3/ul (4.0); Lymphocyte % 27.6 % (19-41); Mean Corp Hgb Conc 31.6 g/dL (32-36); Mean Corpuscular Hgb 27.5 pg (27.0-32.0); Monocyte# 0.65 X10^3/uL; Monocyte% 6.5 % (0-10); NRBC Flagged by Analyzer 0 % (0-5); Neutrophil # 6.23 X10^3/uL (2.7-7.7); Neutrophil % 62.2 % (47-70); Platelet Count 255 K/mm3 (150-450); RBC Distribution Width CV 13.6 % (11.6-14.6); RBC Distribution Width SD 42.6 fl (35.1-43.9); Red Blood Count 5.31 M/mm3 (4.6-6.2)
[2019-11-14 11:28] LABS: ALB/GLOB Ratio 0.7 RATIO (0.9-2.4); AST(SGOT) 22 U/L (15-37); Alanine Aminotransfer ALT/SGPT 40 U/L (16-61); Albumin, Serum 3.5 g/dL (3.2-5.0); Alkaline Phosphatase 131 U/L (45-117); Anion Gap 6 (5-15); BUN 13 mg/dL (7-18); BUN/Creat Ratio 9.3 RATIO (10-20); Chloride 107 mmol/L (98-107); EST Glomerular Filtration Rate 57 mL/min (>60); Est Glom Filt Rate - Afr Amer 69 mL/min (>60); Glucose 91 mg/dL (74-106); Potassium 3.9 mmol/L (3.5-5.1); Protein, Total 8.5 g/dL (6.4-8.2); Sodium Level 139 mmol/L (136-145)
[2019-11-16 09:15] LABS: KEPPRA (LEVETIRACETAM) 41.1 ug/mL (10.0-40.0)
== END ==
LOC: OLS.WCC 06:00
PROVIDERS: PCP Family Medicine; Visit Provider Family Medicine
DX: G40.89 Other seizures (principal); Z79.899 Other long term (current) drug therapy
CPT/HCPCS: 36415; 80053; 80177; 82248; 85025

== ENCOUNTER → 2020-02-13 13:33 | Outpatient (REF) | payer MEDICARE, MEDICAID, SELFPAY | LOC: OLS.WCC 13:33 | PROVIDERS: PCP Family Medicine; Referring Provider Family Medicine; Visit Provider Family Medicine | DX: Z20.828 Contact with and (suspected) exposure to other viral communicable diseases (principal) | CPT/HCPCS: 87635; U0003 ==

== ENCOUNTER → 2020-03-10 10:36 | Outpatient (REF) | payer MEDICARE, MEDICAID, SELFPAY ==
[2020-03-10 13:29] LABS: Hematocrit 44.3 % (40-54); Hemoglobin 13.8 g/dL (13.0-16.5); Mean Corp Hgb Conc 31.2 g/dL (32-36); Mean Corpuscular Hgb 27.2 pg (27.0-32.0); Mean Corpuscular Volume 87.2 fL (80-94); Mean Platelet Vol. 10.7 fl (6.2-12.0); Platelet Count 235 K/mm3 (150-450); RBC Distribution Width CV 13.5 % (11.6-14.6); RBC Distribution Width SD 43.2 fl (35.1-43.9); Red Blood Count 5.08 M/mm3 (4.6-6.2); White Blood Count 7.8 K/mm3 (4.4-11.0)
[2020-03-10 15:44] LABS: Anion Gap 7 (5-15); BUN 14 mg/dL (7-18); BUN/Creat Ratio 10.1 RATIO (10-20); Calcium,Total 8.6 mg/dL (8.5-10.1); Chloride 108 mmol/L (98-107); Creatinine, Serum 1.39 mg/dL (0.70-1.30); Glucose 110 mg/dL (74-106); Potassium 3.9 mmol/L (3.5-5.1); Sodium Level 140 mmol/L (136-145)
[2020-03-10 16:17] LABS: EST Glomerular Filtration Rate 58 mL/min (>60); Est Glom Filt Rate - Afr Amer 70 mL/min (>60)
== END ==
LOC: OLS.WCC 10:36
PROVIDERS: PCP Family Medicine; Visit Provider Family Medicine
DX: G40.909 Epilepsy, unspecified, not intractable, without status epilepticus (principal)
CPT/HCPCS: 80048; 85027

== ENCOUNTER → 2020-05-16 06:45 | Outpatient (REF) | payer MEDICARE, MEDICAID, SELFPAY ==
[2020-05-16 08:03] LABS: Hemoglobin 13.5 g/dL (13.0-16.5); Mean Corp Hgb Conc 31.4 g/dL (32-36); Mean Corpuscular Hgb 27.3 pg (27.0-32.0); Mean Platelet Vol. 9.8 fl (6.2-12.0); Platelet Count 252 K/mm3 (150-450); RBC Distribution Width CV 13.8 % (11.6-14.6); RBC Distribution Width SD 43.8 fl (35.1-43.9); Red Blood Count 4.94 M/mm3 (4.6-6.2); White Blood Count 4.8 K/mm3 (4.4-11.0)
[2020-05-16 08:31] LABS: ALB/GLOB Ratio 0.7 RATIO (0.9-2.4); AST(SGOT) 25 U/L (15-37); Alanine Aminotransfer ALT/SGPT 42 U/L (16-61); Albumin, Serum 3.3 g/dL (3.2-5.0); Alkaline Phosphatase 110 U/L (45-117); Anion Gap 4 (5-15); BUN 14 mg/dL (7-18); BUN/Creat Ratio 9.6 RATIO (10-20); Calcium,Total 8.6 mg/dL (8.5-10.1); Chloride 109 mmol/L (98-107); Creatinine, Serum 1.46 mg/dL (0.70-1.30); EST Glomerular Filtration Rate 55 mL/min (>60); Est Glom Filt Rate - Afr Amer 66 mL/min (>60); Globulin 4.5 g/dL (2.2-4.2); Glucose 89 mg/dL (74-106); Potassium 4.1 mmol/L (3.5-5.1); Protein, Total 7.8 g/dL (6.4-8.2); Sodium Level 140 mmol/L (136-145)
[2020-05-20 08:32] LABS: KEPPRA (LEVETIRACETAM) 34.6 ug/mL (10.0-40.0)
== END ==
LOC: OLS.WCC 06:45
PROVIDERS: PCP Family Medicine; Referring Provider Family Medicine; Visit Provider Family Medicine
DX: R56.9 Unspecified convulsions (principal); Z79.899 Other long term (current) drug therapy
CPT/HCPCS: 36415; 80053; 80177; 85027

== ENCOUNTER → 2020-05-20 10:48 | Outpatient (REF) | payer MEDICARE, MEDICAID, SELFPAY | LOC: OLS.WCC 10:48 | PROVIDERS: PCP Family Medicine; Referring Provider Family Medicine; Visit Provider Family Medicine | DX: Z03.818 Encounter for observation for suspected exposure to other biological agents ruled out (principal) | CPT/HCPCS: 87635; U0003 ==

== ENCOUNTER → 2020-06-17 06:00 | Outpatient (REF) | payer MEDICARE, MEDICAID, SELFPAY ==
[2020-06-17 07:26] LABS: Absolute Lymphocyte Count 1.89 X10^3/uL (0.83-4.51); Basophil# 0.06 X10^3/uL; Basophil% 0.4 % (0-1); Eosinophil# 0.15 X10^3/uL; Eosinophils% 1.1 % (0-5); Hematocrit 43.7 % (40-54); Hemoglobin 13.4 g/dL (13.0-16.5); Lymphocyte # 1.89 X10^3/ul (4.0); Lymphocyte % 14.1 % (19-41); Mean Corp Hgb Conc 30.7 g/dL (32-36); Mean Corpuscular Volume 87.9 fL (80-94); Mean Platelet Vol. 9.7 fl (6.2-12.0); Monocyte# 1.24 X10^3/uL; Monocyte% 9.3 % (0-10); NRBC Flagged by Analyzer 0 % (0-5); Neutrophil # 9.96 X10^3/uL (2.7-7.7); Neutrophil % 74.7 % (47-70); Platelet Count 254 K/mm3 (150-450); RBC Distribution Width SD 44.8 fl (35.1-43.9); Red Blood Count 4.97 M/mm3 (4.6-6.2); White Blood Count 13.4 K/mm3 (4.4-11.0)
[2020-06-17 07:44] LABS: Anion Gap 4 (5-15); BUN 15 mg/dL (7-18); BUN/Creat Ratio 10.6 RATIO (10-20); Calcium,Total 8.6 mg/dL (8.5-10.1); Chloride 107 mmol/L (98-107); Creatinine, Serum 1.42 mg/dL (0.70-1.30); EST Glomerular Filtration Rate 56 mL/min (>60); Est Glom Filt Rate - Afr Amer 68 mL/min (>60); Glucose 85 mg/dL (74-106); Potassium 3.9 mmol/L (3.5-5.1); Sodium Level 138 mmol/L (136-145)
[2020-06-17 09:22] LABS: BNP,B-Type NATRIURETIC PEPTIDE 24.2 pg/mL (0-100)
== END ==
LOC: OLS.WCC 06:00
PROVIDERS: PCP Family Medicine; Referring Provider Family Medicine; Visit Provider Family Medicine
DX: M62.81 Muscle weakness (generalized) (principal); R50.9 Fever, unspecified; R22.9 Localized swelling, mass and lump, unspecified
CPT/HCPCS: 36415; 80048; 83880; 85025

== ENCOUNTER → 2020-07-01 12:05 | Outpatient (REF) | payer MEDICARE, MEDICAID, SELFPAY | LOC: OLS.WCC 12:05 | PROVIDERS: PCP Family Medicine; Referring Provider Family Medicine; Visit Provider Family Medicine | DX: Z20.828 Contact with and (suspected) exposure to other viral communicable diseases (principal) | CPT/HCPCS: 87635; U0005; U0003 ==

== ENCOUNTER → 2020-07-22 05:00 | Outpatient (REF) | payer MEDICARE, MEDICAID, SELFPAY ==
[2020-07-22 08:16] LABS: Absolute Lymphocyte Count 2.47 X10^3/uL (0.83-4.51); Absolute Neutrophil Count 2.6 X10^3/uL (2.0-7.7); Basophil# 0.05 X10^3/uL; Basophil% 0.8 % (0-1); Eosinophil# 0.14 X10^3/uL; Eosinophils% 2.2 % (0-5); Hematocrit 43.8 % (40-54); Hemoglobin 13.7 g/dL (13.0-16.5); Lymphocyte # 2.47 X10^3/ul (4.0); Lymphocyte % 38.2 % (19-41); Mean Corp Hgb Conc 31.3 g/dL (32-36); Mean Corpuscular Hgb 27.1 pg (27.0-32.0); Mean Corpuscular Volume 86.7 fL (80-94); Monocyte% 18.5 % (0-10); NRBC Flagged by Analyzer 0 % (0-5); Neutrophil # 2.59 X10^3/uL (2.7-7.7); Platelet Count 246 K/mm3 (150-450); RBC Distribution Width CV 13.4 % (11.6-14.6); RBC Distribution Width SD 42.9 fl (35.1-43.9); Red Blood Count 5.05 M/mm3 (4.6-6.2); White Blood Count 6.5 K/mm3 (4.4-11.0)
[2020-07-22 08:33] LABS: Anion Gap 7 (5-15); BUN 14 mg/dL (7-18); BUN/Creat Ratio 10.4 RATIO (10-20); Calcium,Total 8.5 mg/dL (8.5-10.1); Chloride 104 mmol/L (98-107); Creatinine, Serum 1.35 mg/dL (0.70-1.30); EST Glomerular Filtration Rate 60 mL/min (>60); Est Glom Filt Rate - Afr Amer 72 mL/min (>60); Glucose 77 mg/dL (74-106); Potassium 3.8 mmol/L (3.5-5.1); Sodium Level 135 mmol/L (136-145)
== END ==
LOC: OLS.WCC 05:00
PROVIDERS: PCP Family Medicine; Visit Provider Family Medicine
DX: R50.9 Fever, unspecified (principal)
CPT/HCPCS: 36415; 80048; 85025

== ENCOUNTER → 2020-09-23 07:05 | Outpatient (REF) | payer MEDICARE, MEDICAID, SELFPAY ==
[2020-09-23 08:24] LABS: Anion Gap 7 (5-15); BUN 13 mg/dL (7-18); BUN/Creat Ratio 9.2 RATIO (10-20); Calcium,Total 8.8 mg/dL (8.5-10.1); Chloride 105 mmol/L (98-107); Creatinine, Serum 1.41 mg/dL (0.70-1.30); EST Glomerular Filtration Rate 57 mL/min (>60); Est Glom Filt Rate - Afr Amer 69 mL/min (>60); Glucose 87 mg/dL (74-106); Sodium Level 137 mmol/L (136-145)
[2020-09-23 09:08] LABS: Hemoglobin A1c 5.8 % (3.8-5.6)
== END ==
LOC: OLS.WCC 07:05
PROVIDERS: PCP Family Medicine; Referring Provider Family Medicine; Visit Provider Family Medicine
DX: E66.01 Morbid (severe) obesity due to excess calories (principal); G40.901 Epilepsy, unspecified, not intractable, with status epilepticus; E11.9 Type 2 diabetes mellitus without complications
CPT/HCPCS: 36415; 80048; 83036

== ENCOUNTER → 2020-11-13 05:00 | Outpatient (REF) | payer MEDICARE, MEDICAID, SELFPAY ==
[2020-11-13 08:42] LABS: Hematocrit 41.4 % (40-54); Mean Corp Hgb Conc 31.4 g/dL (32-36); Mean Corpuscular Hgb 27.1 pg (27.0-32.0); Mean Corpuscular Volume 86.4 fL (80-94); Mean Platelet Vol. 10.3 fl (6.2-12.0); Platelet Count 293 K/mm3 (150-450); RBC Distribution Width SD 41.1 fl (35.1-43.9); Red Blood Count 4.79 M/mm3 (4.6-6.2); White Blood Count 10.3 K/mm3 (4.4-11.0)
[2020-11-13 09:13] LABS: ALB/GLOB Ratio 0.7 RATIO (0.9-2.4); AST(SGOT) 28 U/L (15-37); Alanine Aminotransfer ALT/SGPT 41 U/L (16-61); Albumin, Serum 3.2 g/dL (3.2-5.0); Alkaline Phosphatase 126 U/L (45-117); Anion Gap 6 (5-15); BUN 15 mg/dL (7-18); Bilirubin, Direct 0.15 mg/dL (0.00-0.30); Calcium,Total 8.5 mg/dL (8.5-10.1); Chloride 106 mmol/L (98-107); Creatinine, Serum 1.25 mg/dL (0.70-1.30); EST Glomerular Filtration Rate 65 mL/min (>60); Est Glom Filt Rate - Afr Amer 79 mL/min (>60); Globulin 4.7 g/dL (2.2-4.2); Glucose 102 mg/dL (74-106); Potassium 3.6 mmol/L (3.5-5.1); Protein, Total 7.9 g/dL (6.4-8.2); Sodium Level 137 mmol/L (136-145)
[2020-11-14 06:53] LABS: Bacteria 0 SEEN /hpf (None Seen); Mucous, Urine 0 SEEN /hpf (<or=2+); Red Blood Cells-Urine 0 SEEN /hpf (0-5); Squamous Epithelial Cells - UA 0 SEEN /hpf (0-5); White Blood Cells 0 SEEN /hpf (0-5)
[2020-11-14 08:40] LABS: Color, Urine Yellow (Yellow); Glucose, Dipstick Normal (Normal); Ketone-Dipstick Negative (Negative); Leukocyte Esterase-Dipstick Negative /ul (Negative); Nitrite-Dipstick Negative (Negative); Occult Blood-Urine Negative /ul (Negative); Protein-Dipstick Negative (Negative); Urine Bilirubin Dipstick Negative (Negative); Urine Clarity Clear (Clear); Urine Urobilinogen Normal (Normal); Urine pH 6.5 (5.0 - 8.0)
[2020-11-16 13:55] LABS: KEPPRA (LEVETIRACETAM) 21.9 ug/mL (10.0-40.0)
== END ==
LOC: OLS.WCC 05:00
PROVIDERS: Visit Provider Family Medicine
DX: R56.9 Unspecified convulsions (principal); Z79.899 Other long term (current) drug therapy
CPT/HCPCS: 36415; 80053; 80177; 81001; 82248; 85027; 87086

== ENCOUNTER → 2021-02-24 15:15 | Outpatient (REF) | payer MEDICARE, MEDICAID, SELFPAY | LOC: OLS.WCC 15:15 | PROVIDERS: PCP Family Medicine; Visit Provider Family Medicine | DX: Z20.828 Contact with and (suspected) exposure to other viral communicable diseases (principal) | CPT/HCPCS: 87635; U0005; U0003 ==

== ENCOUNTER → 2021-03-16 11:30 | Outpatient (REF) | payer MEDICARE, MEDICAID, SELFPAY | LOC: OLS.WCC 11:30 | PROVIDERS: PCP Family Medicine; Visit Provider Family Medicine | DX: S71.102A Unspecified open wound, left thigh, initial encounter (principal) | CPT/HCPCS: 87070; 87077; 87186; 87205 ==

== ENCOUNTER → 2021-05-15 04:00 | Outpatient (REF) | payer MEDICARE, MEDICAID, SELFPAY ==
[2021-05-15 06:27] LABS: Hematocrit 41.8 % (40-54); Hemoglobin 13.7 g/dL (13.0-16.5); Mean Corp Hgb Conc 32.8 g/dL (32-36); Mean Corpuscular Hgb 28.4 pg (27.0-32.0); Mean Corpuscular Volume 86.5 fL (80-94); Mean Platelet Vol. 9.8 fl (6.2-12.0); Platelet Count 240 K/mm3 (150-450); RBC Distribution Width CV 12.9 % (11.6-14.6); RBC Distribution Width SD 40.8 fl (35.1-43.9); Red Blood Count 4.83 M/mm3 (4.6-6.2); White Blood Count 8.2 K/mm3 (4.4-11.0)
[2021-05-15 06:55] LABS: ALB/GLOB Ratio 0.7 RATIO (0.9-2.4); AST(SGOT) 14 U/L (15-37); Alanine Aminotransfer ALT/SGPT 25 U/L (16-61); Albumin, Serum 3.1 g/dL (3.2-5.0); Alkaline Phosphatase 123 U/L (45-117); Anion Gap 7 (5-15); BUN 16 mg/dL (7-18); BUN/Creat Ratio 12.3 RATIO (10-20); Chloride 106 mmol/L (98-107); EST Glomerular Filtration Rate 62 mL/min (>60); Est Glom Filt Rate - Afr Amer 75 mL/min (>60); Globulin 4.7 g/dL (2.2-4.2); Glucose 92 mg/dL (74-106); Protein, Total 7.8 g/dL (6.4-8.2); Sodium Level 139 mmol/L (136-145)
== END ==
LOC: OLS.WCC 04:00
PROVIDERS: PCP Family Medicine; Visit Provider Family Medicine
DX: I10 Essential (primary) hypertension (principal); R56.9 Unspecified convulsions; Z79.899 Other long term (current) drug therapy
CPT/HCPCS: 36415; 80053; 80177; 85027

== ENCOUNTER → 2021-11-13 | Outpatient (REF) | payer MEDICARE, MEDICAID, SELFPAY ==
[2021-11-13 09:14] LABS: Hemoglobin 14.1 g/dL (13.0-16.5); Mean Corp Hgb Conc 32.8 g/dL (32-36); Mean Corpuscular Hgb 28.8 pg (27.0-32.0); Mean Corpuscular Volume 87.8 fL (80-94); Mean Platelet Vol. 9.7 fl (6.2-12.0); Platelet Count 254 K/mm3 (150-450); RBC Distribution Width CV 12.4 % (11.6-14.6); RBC Distribution Width SD 39.7 fl (35.1-43.9)
[2021-11-13 09:27] LABS: ALB/GLOB Ratio 0.8 RATIO (0.9-2.4); AST(SGOT) 16 U/L (15-37); Alanine Aminotransfer ALT/SGPT 43 U/L (16-61); Albumin, Serum 3.4 g/dL (3.2-5.0); Alkaline Phosphatase 112 U/L (45-117); Anion Gap 6 (5-15); BUN 14 mg/dL (7-18); BUN/Creat Ratio 9.6 RATIO (10-20); Bilirubin, Direct 0.08 mg/dL (0.00-0.30); Calcium,Total 8.8 mg/dL (8.5-10.1); Chloride 105 mmol/L (98-107); Creatinine, Serum 1.46 mg/dL (0.70-1.30); EST Glomerular Filtration Rate 54 mL/min (>60); Est Glom Filt Rate - Afr Amer 66 mL/min (>60); Globulin 4.4 g/dL (2.2-4.2); Glucose 96 mg/dL (74-106); Potassium 3.9 mmol/L (3.5-5.1); Protein, Total 7.8 g/dL (6.4-8.2); Sodium Level 137 mmol/L (136-145)
[2021-11-18 11:32] LABS: KEPPRA (LEVETIRACETAM) 30.3 ug/mL (10.0-40.0)
== END | disposition home or self-care (01) ==
LOC: OLS.WCC 05:00
PROVIDERS: PCP Family Medicine; Visit Provider Family Medicine
DX: R56.9 Unspecified convulsions (principal); Z79.899 Other long term (current) drug therapy
CPT/HCPCS: 36415; 80053; 80177; 82248; 85027

== ENCOUNTER → 2022-05-17 | Outpatient (REF) | payer MEDICARE, MEDICAID, SELFPAY ==
[2022-05-17 08:11] LABS: Hematocrit 42.6 % (40-54); Hemoglobin 14.2 g/dL (13.0-16.5); Mean Corp Hgb Conc 33.3 g/dL (32-36); Mean Corpuscular Hgb 29.5 pg (27.0-32.0); Mean Corpuscular Volume 88.6 fL (80-94); Mean Platelet Vol. 10.1 fl (6.2-12.0); Platelet Count 245 K/mm3 (150-450); RBC Distribution Width CV 12.5 % (11.6-14.6); RBC Distribution Width SD 40.9 fl (35.1-43.9); Red Blood Count 4.81 M/mm3 (4.6-6.2); White Blood Count 12.9 K/mm3 (4.4-11.0)
[2022-05-17 08:28] LABS: ALB/GLOB Ratio 0.8 RATIO (0.9-2.4); AST(SGOT) 15 U/L (15-37); Alanine Aminotransfer ALT/SGPT 29 U/L (16-61); Albumin, Serum 3.4 g/dL (3.2-5.0); Alkaline Phosphatase 104 U/L (45-117); Anion Gap 6 (5-15); BUN 16 mg/dL (7-18); BUN/Creat Ratio 11.8 RATIO (10-20); Calcium,Total 8.8 mg/dL (8.5-10.1); Chloride 107 mmol/L (98-107); Creatinine, Serum 1.36 mg/dL (0.70-1.30); EST Glomerular Filtration Rate 59 mL/min (>60); Est Glom Filt Rate - Afr Amer 71 mL/min (>60); Globulin 4.4 g/dL (2.2-4.2); Glucose 95 mg/dL (74-106); Potassium 3.7 mmol/L (3.5-5.1); Protein, Total 7.8 g/dL (6.4-8.2); Sodium Level 139 mmol/L (136-145)
[2022-05-19 20:14] LABS: KEPPRA (LEVETIRACETAM) 29.6 ug/mL (10.0-40.0)
== END ==
LOC: OLS.WCC 05:00
PROVIDERS: PCP Family Medicine; Visit Provider Family Medicine
DX: G40.219 Localization-related (focal) (partial) symptomatic epilepsy and epileptic syndromes with complex partial seizures, intractable, without status epilepticus (principal); R53.83 Other fatigue; I10 Essential (primary) hypertension; Z79.899 Other long term (current) drug therapy
CPT/HCPCS: 36415; 80053; 80177; 85027

== ENCOUNTER → 2022-11-16 | Outpatient (REF) | payer MEDICARE, MEDICAID, SELFPAY ==
[2022-11-16 08:47] LABS: Hematocrit 45.2 % (40-54); Hemoglobin 14.6 g/dL (13.0-16.5); Mean Corp Hgb Conc 32.3 g/dL (32-36); Mean Corpuscular Hgb 28.7 pg (27.0-32.0); Mean Platelet Vol. 9.6 fl (6.2-12.0); Platelet Count 268 K/mm3 (150-450); RBC Distribution Width CV 12.7 % (11.6-14.6); RBC Distribution Width SD 41.7 fl (35.1-43.9); Red Blood Count 5.08 M/mm3 (4.6-6.2); White Blood Count 7.7 K/mm3 (4.4-11.0)
[2022-11-16 09:04] LABS: ALB/GLOB Ratio 0.7 RATIO (0.9-2.4); AST(SGOT) 14 U/L (15-37); Alanine Aminotransfer ALT/SGPT 32 U/L (16-61); Albumin, Serum 3.4 g/dL (3.2-5.0); Alkaline Phosphatase 130 U/L (45-117); Anion Gap 4 (5-15); BUN 15 mg/dL (7-18); BUN/Creat Ratio 11.8 RATIO (10-20); Bilirubin, Direct 0.09 mg/dL (0.00-0.30); Calcium,Total 9.1 mg/dL (8.5-10.1); Chloride 105 mmol/L (98-107); Creatinine, Serum 1.27 mg/dL (0.70-1.30); EST Glomerular Filtration Rate 63 mL/min (>60); Est Glom Filt Rate - Afr Amer 77 mL/min (>60); Globulin 4.9 g/dL (2.2-4.2); Glucose 90 mg/dL (74-106); Potassium 4.1 mmol/L (3.5-5.1); Protein, Total 8.3 g/dL (6.4-8.2); Sodium Level 136 mmol/L (136-145)
[2022-11-17 15:08] LABS: KEPPRA (LEVETIRACETAM) 48.3 ug/mL (10.0-40.0)
== END ==
LOC: OLS.WCC 05:00
PROVIDERS: PCP Family Medicine; Visit Provider Internal Medicine
DX: G40.219 Localization-related (focal) (partial) symptomatic epilepsy and epileptic syndromes with complex partial seizures, intractable, without status epilepticus (principal); K76.0 Fatty (change of) liver, not elsewhere classified; R53.83 Other fatigue; I10 Essential (primary) hypertension; Z79.899 Other long term (current) drug therapy
CPT/HCPCS: 36415; 80053; 80177; 82248; 85027

== ENCOUNTER → 2022-12-13 | Outpatient (REF) | payer MEDICARE, MEDICAID, SELFPAY ==
[2022-12-13 09:09] LABS: Hematocrit 43.1 % (40-54); Mean Corp Hgb Conc 32.5 g/dL (32-36); Mean Corpuscular Volume 89.2 fL (80-94); Mean Platelet Vol. 9.7 fl (6.2-12.0); Platelet Count 233 K/mm3 (150-450); RBC Distribution Width CV 12.7 % (11.6-14.6); RBC Distribution Width SD 41.4 fl (35.1-43.9); Red Blood Count 4.83 M/mm3 (4.6-6.2); White Blood Count 10.8 K/mm3 (4.4-11.0)
[2022-12-13 09:15] LABS: Anion Gap 5 (5-15); BUN 13 mg/dL (7-18); BUN/Creat Ratio 9.6 RATIO (10-20); Calcium,Total 8.8 mg/dL (8.5-10.1); Chloride 104 mmol/L (98-107); Creatinine, Serum 1.35 mg/dL (0.70-1.30); EST Glomerular Filtration Rate 59 mL/min (>60); Est Glom Filt Rate - Afr Amer 71 mL/min (>60); Glucose 87 mg/dL (74-106); Potassium 3.6 mmol/L (3.5-5.1); Sodium Level 136 mmol/L (136-145)
== END ==
LOC: OLS.WCC 05:00
PROVIDERS: PCP Family Medicine; Visit Provider Family Medicine
DX: R53.83 Other fatigue (principal); I10 Essential (primary) hypertension; Z79.899 Other long term (current) drug therapy
CPT/HCPCS: 36415; 80048; 85027

== ENCOUNTER → 2023-05-16 | Outpatient (REF) | payer MEDICARE, MEDICAID, SELFPAY ==
[2023-05-16 08:17] LABS: Hematocrit 43.8 % (40-54); Hemoglobin 14.1 g/dL (13.0-16.5); Mean Corp Hgb Conc 32.2 g/dL (32-36); Mean Corpuscular Hgb 29.2 pg (27.0-32.0); Mean Corpuscular Volume 90.7 fL (80-94); Mean Platelet Vol. 10.1 fl (6.2-12.0); Platelet Count 232 K/mm3 (150-450); RBC Distribution Width CV 11.6 % (11.6-14.6); RBC Distribution Width SD 38.5 fl (35.1-43.9); Red Blood Count 4.83 M/mm3 (4.6-6.2); White Blood Count 7.5 K/mm3 (4.4-11.0)
[2023-05-16 08:35] LABS: ALB/GLOB Ratio 0.7 RATIO (0.9-2.4); AST(SGOT) 15 U/L (15-37); Alanine Aminotransfer ALT/SGPT 25 U/L (16-61); Albumin, Serum 3.2 g/dL (3.2-5.0); Alkaline Phosphatase 121 U/L (45-117); Anion Gap 5 (5-15); BUN 14 mg/dL (7-18); BUN/Creat Ratio 10.4 RATIO (10-20); Calcium,Total 8.8 mg/dL (8.5-10.1); Chloride 107 mmol/L (98-107); Creatinine, Serum 1.34 mg/dL (0.70-1.30); EST Glomerular Filtration Rate 59 mL/min (>60); Est Glom Filt Rate - Afr Amer 72 mL/min (>60); Globulin 4.3 g/dL (2.2-4.2); Glucose 94 mg/dL (74-106); Potassium 3.5 mmol/L (3.5-5.1); Protein, Total 7.5 g/dL (6.4-8.2); Sodium Level 140 mmol/L (136-145)
[2023-05-18 11:09] LABS: KEPPRA (LEVETIRACETAM) 42.1 ug/mL (10.0-40.0)
== END ==
LOC: OLS.WCC 04:00
PROVIDERS: PCP Family Medicine; Referring Provider Family Medicine; Visit Provider Family Medicine
DX: R53.83 Other fatigue (principal); I10 Essential (primary) hypertension; G40.219 Localization-related (focal) (partial) symptomatic epilepsy and epileptic syndromes with complex partial seizures, intractable, without status epilepticus; Z79.899 Other long term (current) drug therapy
CPT/HCPCS: 36415; 80053; 80177; 85027

== ENCOUNTER → 2023-08-10 | Outpatient (REF) | payer MEDICARE, MEDICAID, SELFPAY ==
--- OUTSIDE RECORDS SUMMARY | 2023-08-10 23:07 | XMS RPT_ITS | CCD ---
Author Name Unknown Address [address] [place] [address] Organization [facility] Care Team Providers Care Lean Facilitator Name Role Phone PATIENT, SELF Referring Unavailable OLVIN HAYDEN Primary Care Unavailable PROVIDER, UNKNOWN Admitting Unavailable PROVIDER, UNKNOWN Attending Unavailable Allergies Allergy Classification Reported Allergen(s) Allergy Type Date of Onset Reaction(s) Facility (1 source) Bee; Translations: [BEE] Propensity to adverse reactions to drug (disorder) 7 [facility] Encounters Encounter Date Encounter Type Care Provider Facility Start: 05-29-2018 ambulatory SELF PATIENT Facility:[facility] Payers Date Payer Category Payer Medicaid [id number] 1970 Unknown [id number] Summary Purpose Family History No Family History Records Found Advance Directives No Advanced Directives Records Found Additional Source Comments (unrecognized sect ion and content) No Status Records Found INFORMATION SOURCE (unrecogn ized section and content) FOR RECORDS PERTAINING TO PATIENTS WHO ARE OR HAVE BEEN ENROLLED IN A CHEMICAL DEPENDENCY/SUBSTANCEABUSE PROGRAM, SOME INFORMATION MAY BE OMITTED. This clinical summary was aggregated from multiple sources. Caution should be exercised in using it in the provision of clinical care. This summary normalizes information from multiple sources, and as a consequence, information in this document may materially change the coding, format and clinical context of patient data. In addition, data may be omitted in some cases. CLINICAL DECISIONS SHOULD BE BASED ON THE PRIMARY CLINICAL RECORDS. [employer] provides no warranty or guarantee of the accuracy or completeness of information in this document.
== END ==
LOC: OLS.WCC 23:05
PROVIDERS: PCP Family Medicine; Visit Provider Family Medicine
DX: R50.9 Fever, unspecified (principal)
CPT/HCPCS: 87633

== ENCOUNTER → 2023-11-15 | Outpatient (REF) | payer MEDICARE, MEDICAID, SELFPAY ==
[2023-11-15 08:23] LABS: Hematocrit 44.7 % (40-54); Hemoglobin 14.6 g/dL (13.0-16.5); Mean Corp Hgb Conc 32.7 g/dL (32-36); Mean Corpuscular Hgb 29.7 pg (27.0-32.0); Platelet Count 220 K/mm3 (150-450); RBC Distribution Width SD 39.9 fl (35.1-43.9); Red Blood Count 4.91 M/mm3 (4.6-6.2); White Blood Count 8.3 K/mm3 (4.4-11.0)
[2023-11-15 09:11] LABS: ALB/GLOB Ratio 0.8 RATIO (0.9-2.4); AST(SGOT) 20 U/L (15-37); Alanine Aminotransfer ALT/SGPT 29 U/L (16-61); Albumin, Serum 3.3 g/dL (3.2-5.0); Alkaline Phosphatase 118 U/L (45-117); Anion Gap 6 (5-15); BUN 18 mg/dL (7-18); BUN/Creat Ratio 13.2 RATIO (10-20); Calcium,Total 8.9 mg/dL (8.5-10.1); Chloride 106 mmol/L (98-107); Creatinine, Serum 1.36 mg/dL (0.70-1.30); EST Glomerular Filtration Rate 58 mL/min (>60); Est Glom Filt Rate - Afr Amer 71 mL/min (>60); Globulin 4.2 g/dL (2.2-4.2); Glucose 114 mg/dL (74-106); Potassium 3.6 mmol/L (3.5-5.1); Protein, Total 7.5 g/dL (6.4-8.2); Sodium Level 137 mmol/L (136-145)
[2023-11-16 15:08] LABS: KEPPRA (LEVETIRACETAM) 38.4 ug/mL (10.0-40.0)
== END ==
LOC: OLS.WCC 05:00
PROVIDERS: PCP Family Medicine; Visit Provider Family Medicine
DX: G40.219 Localization-related (focal) (partial) symptomatic epilepsy and epileptic syndromes with complex partial seizures, intractable, without status epilepticus (principal); R53.83 Other fatigue; I10 Essential (primary) hypertension; K76.0 Fatty (change of) liver, not elsewhere classified; Z79.899 Other long term (current) drug therapy
CPT/HCPCS: 36415; 80053; 80177; 82248; 85027

== ENCOUNTER → 2024-05-15 | Outpatient (REF) | payer MEDICARE, MEDICAID, SELFPAY ==
[2024-05-15 08:19] LABS: Hematocrit 40.8 % (40-54); Hemoglobin 13.9 g/dL (13.0-16.5); Mean Corp Hgb Conc 34.1 g/dL (32-36); Mean Corpuscular Volume 87.9 fL (80-94); Mean Platelet Vol. 9.4 fl (6.2-12.0); Platelet Count 212 K/mm3 (150-450); RBC Distribution Width CV 11.9 % (11.6-14.6); RBC Distribution Width SD 37.7 fl (35.1-43.9); Red Blood Count 4.64 M/mm3 (4.6-6.2); White Blood Count 8.7 K/mm3 (4.4-11.0)
[2024-05-15 09:08] LABS: ALB/GLOB Ratio 0.9 RATIO (0.9-2.4); AST(SGOT) 22 U/L (15-37); Alanine Aminotransfer ALT/SGPT 41 U/L (16-61); Albumin, Serum 3.3 g/dL (3.2-5.0); Alkaline Phosphatase 109 U/L (45-117); Anion Gap 6 (5-15); BUN 12 mg/dL (7-18); BUN/Creat Ratio 8.5 RATIO (10-20); Calcium,Total 8.8 mg/dL (8.5-10.1); Chloride 107 mmol/L (98-107); Creatinine, Serum 1.42 mg/dL (0.70-1.30); EST Glomerular Filtration Rate 55 mL/min (>60); Est Glom Filt Rate - Afr Amer 67 mL/min (>60); Globulin 3.8 g/dL (2.2-4.2); Glucose 86 mg/dL (74-106); Potassium 3.7 mmol/L (3.5-5.1); Protein, Total 7.1 g/dL (6.4-8.2); Sodium Level 137 mmol/L (136-145)
[2024-05-18 16:09] LABS: KEPPRA (LEVETIRACETAM) 40.6 ug/mL (10.0-40.0)
== END ==
LOC: OLS.WCC 07:15
PROVIDERS: PCP Family Medicine; Visit Provider Family Medicine
DX: R53.83 Other fatigue (principal); I10 Essential (primary) hypertension; G40.219 Localization-related (focal) (partial) symptomatic epilepsy and epileptic syndromes with complex partial seizures, intractable, without status epilepticus; Z79.899 Other long term (current) drug therapy
CPT/HCPCS: 36415; 80053; 80177; 85027

== ENCOUNTER → 2024-07-02 04:00 | Outpatient (REF) | payer MEDICARE, MEDICAID, SELFPAY ==
[2024-07-02 08:34] LABS: Hematocrit 38.4 % (40-54); Mean Corp Hgb Conc 33.9 g/dL (32-36); Mean Corpuscular Hgb 29.5 pg (27.0-32.0); Mean Corpuscular Volume 87.1 fL (80-94); Mean Platelet Vol. 10.1 fl (6.2-12.0); Platelet Count 233 K/mm3 (150-450); RBC Distribution Width CV 12.1 % (11.6-14.6); RBC Distribution Width SD 38.7 fl (35.1-43.9); Red Blood Count 4.41 M/mm3 (4.6-6.2); White Blood Count 7.3 K/mm3 (4.4-11.0)
[2024-07-02 08:46] LABS: Anion Gap 5 (5-15); BUN 12 mg/dL (7-18); BUN/Creat Ratio 11.4 RATIO (10-20); Calcium,Total 8.6 mg/dL (8.5-10.1); Chloride 105 mmol/L (98-107); Creatinine, Serum 1.05 mg/dL (0.70-1.30); EST Glomerular Filtration Rate 78 mL/min (>60); Est Glom Filt Rate - Afr Amer 95 mL/min (>60); Glucose 106 mg/dL (74-106); Potassium 3.7 mmol/L (3.5-5.1); Sodium Level 135 mmol/L (136-145)
== END ==
LOC: OLS.WCC 04:00
PROVIDERS: PCP Family Medicine; Referring Provider Family Medicine; Visit Provider Family Medicine
DX: I10 Essential (primary) hypertension (principal)
CPT/HCPCS: 36415; 80048; 85027

== ENCOUNTER → 2024-07-20 05:00 | Outpatient (REF) | payer MEDICARE, MEDICAID, SELFPAY ==
[2024-07-20 08:11] LABS: Hematocrit 37.6 % (40-54); Hemoglobin 12.8 g/dL (13.0-16.5); Mean Corpuscular Hgb 29.7 pg (27.0-32.0); Mean Corpuscular Volume 87.2 fL (80-94); Mean Platelet Vol. 8.6 fl (6.2-12.0); Platelet Count 266 K/mm3 (150-450); RBC Distribution Width CV 12.6 % (11.6-14.6); RBC Distribution Width SD 40.2 fl (35.1-43.9); Red Blood Count 4.31 M/mm3 (4.6-6.2); White Blood Count 6.6 K/mm3 (4.4-11.0)
[2024-07-20 08:31] LABS: Anion Gap 5 (5-15); BUN 18 mg/dL (7-18); BUN/Creat Ratio 15.1 RATIO (10-20); Calcium,Total 8.9 mg/dL (8.5-10.1); Chloride 107 mmol/L (98-107); Creatinine, Serum 1.19 mg/dL (0.70-1.30); EST Glomerular Filtration Rate 68 mL/min (>60); Est Glom Filt Rate - Afr Amer 82 mL/min (>60); Glucose 100 mg/dL (74-106); Potassium 3.7 mmol/L (3.5-5.1); Sodium Level 136 mmol/L (136-145)
== END ==
LOC: OLS.WCC 05:00
PROVIDERS: PCP Family Medicine; Visit Provider Family Medicine
DX: Z79.899 Other long term (current) drug therapy (principal)
CPT/HCPCS: 36415; 80048; 85027

== ENCOUNTER 2024-08-05 08:53 | Emergency (ER) | payer MEDICARE, MEDICAID, SELFPAY ==
[2024-08-05 08:54] VITALS: BP 98/65; PULSE 96; RESP 14; TEMP 37; O2SAT 95; BMI 30.9
--- NOTE | 2024-08-05 09:52 | CT_ITS ---
EXAM: BRAIN/HEAD WITHOUT CONTRAST CLINICAL HISTORY: 53-year-old male, altered mental status. Increasing behavioral problems, history of bipolar and schizoaffective disorder. COMPARISON: CT head 07/10/2018. TECHNIQUE: Routine CT imaging of the head without IV contrast. Additional multiplanar reformats were obtained. Dose reduction techniques were used including intermediate exposure control (AEC),iterative reconstruction technique, and/or mA and/or KV dose adjustments based on patient's size. FINDINGS: Marked generalized cerebral and cerebellar volume loss with concordant prominence of the ventricles and subarachnoid spaces. There is overall a simplified gyral pattern throughout the cerebrum. The wade- white matter interfaces are maintained. No acute intracranial hemorrhage or herniation. The basal cisterns are patent. Improved near-complete opacification of the right frontal sinus and a few right ethmoid air cells. Mild mucosal thickening of the bilateral maxillary sinuses. The mastoid air cells are well-aerated. No acute calvarial fracture or scalp hematoma. CT/Brain/Head without Contrast IMPRESSION: Stable CT head. Congenital findings as described. Reading Location: [id number]
--- NOTE | 2024-08-05 09:52 | CT_ITS ---
PROCEDURE: ABDOMEN/PELVIS W IV CONT ONLY REASON FOR EXAM: 53-year-old male, abdominal pain. TECHNIQUE: Abdomen and pelvis CT with intravenous contrast. No oral contrast. IV CONTRAST: Administered. COMPARISON: CT abdomen pelvis 10/02/2018. FINDINGS: Lung bases: Trace bilateral pleural effusions and bibasilar atelectasis. Mild cardiomegaly. Liver: The liver is normal in size with scattered hepatic cysts. The major portal veins are patent. No biliary ductal dilation. Gallbladder: No radiopaque stones within the gallbladder. Spleen: Unremarkable. Pancreas: Unremarkable. Adrenals: Unremarkable. Kidneys: Small bilateral renal cysts. No hydronephrosis or nephrolithiasis. Bladder: Moderate diffuse thickening of the bladder wall. Reproductive Organs: Unremarkable. Bowel: The bowel loops are normal in caliber. Moderate retained fecal material throughout the sigmoid colon with circumferential mural thickening. No ascites or pneumoperitoneum. Normal appendix. Lymph nodes: No suspicious lymph node enlargement. Vasculature: Major vascular structures are unremarkable. Bones: Thoracolumbar spondylosis. CT/Abdomen/Pelvis W IV Cont ONLY IMPRESSION: 1. No acute abdominopelvic finding. 2. Moderate retained fecal material throughout the sigmoid colon with circumfer ential mural thickening, compatible with constipation. No evidence of ulceration or perforation. 3. Diffuse thickening of the urinary bladder, which may be secondary to incompl ete distention, however infection can not be ruled out. Correlation with urinalysis recommended. 4. Mild cardiomegaly and trace pleural effusions, which may represent CHF/volum e overload. One or more dose reduction techniques were used (e.g., Automated exposure contr ol, adjustment of the mA and/or kV according to patient size, use of iterative reconstruction technique). Reading Location: [id number]
--- NOTE | 2024-08-05 09:52 | RAD_ITS ---
PROCEDURE: CHEST 1 VIEW (PORTABLE) REASON FOR EXAM: 53-year-old male, altered mental status. TECHNIQUE: Frontal view of the chest. COMPARISON: Same day CT abdomen pelvis, chest radiograph 07/10/2018. FINDINGS: Heart size is mildly enlarged. Low lung volumes bilaterally. Trace bilateral pleural effusions. No focal consolidation or pneumothorax. The bones are unremarkable. RAD/Chest 1 View (Portable) IMPRESSION: Findings of mild CHF/volume overload. Reading Location: [id number]
--- NOTE | 2024-08-05 10:15 | EDS_ITS ---
HPI History of Present Illness Chief Complaint: Mental Health Informant: patient, EMS and SNF Narrative Narrative: 53-year-old male from [facility] presenting to the emergency room with abnormal behavior. Patient has a history of schizoaffective disorder, bipolar, OCD, mild cognitive impairment, schizoaffective disorder. He has a history of seizure disorder as well He also has a history of hyponatremia and is on a fluid restricted diet. snf provider notes the patient has been more confused from his baseline. Send of using his wheelchair to move around he has been crawling on the floor. He attempted to strike staff members. He notes an intermittent abdominal pain. Patient states he feels okay currently. He notes that he had fruit loops for breakfast. There was no report of new or medications. Apparently this morning was not the first time that he had change in behavior. There is a provider at the [facility] that makes psychiatric medication changes but that person is not working for the next couple weeks due to a medical leave of absence. There was concern that the patient may be overmedicated. [facility] Home Medications ?Medication ?Instructions ?Recorded ?Last Taken ?Type docusate sodium 100 mg capsule 100 mg PO DAILY 6 Unknown History (DOK) levetiracetam 500 mg tablet 1,000 mg PO BREAKFAST 12/03 Unknown History lorazepam 1 mg tablet 1 mg PO QHS 02/24/16 Unknown History sennosides 8.8 mg/5 mL oral syrup 2 tab PO BID 6 Unknown History (Senexon) zonisamide 100 mg capsule 200 mg PO BID 02/24/16 Unkno wn History (Zonegran) aspirin 81 mg tablet,delayed 81 mg PO DAILY 07/10/18 U nknown History release (Aspir-Low) levetiracetam 500 mg tablet 1,500 mg PO LUNCH 07/10/18 Unknown History magnesium hydroxide 400 mg/5 mL 30 ml PO DAILY PRN PRN Constipation 07/10/18 Unknown History oral suspension nystatin 100,000 unit/gram topical 1 applic TP Q12H MI N PRN redness 07/10/18 Unknown History powder (Nystop) and irritation amlodipine 5 mg tablet 5 mg PO DAILY 08/05/24 Unkno wn History fluvoxamine 100 mg tablet 100 mg PO BID 08/05/24 Unkno wn History loratadine 10 mg capsule (Allergy 10 mg PO DAILY 08/05 Unknown History Relief (loratadine)) tamsulosin 0.4 mg capsule 0.4 mg PO Q24H 08/05/24 Unkn own History Allergy/AdvReac Type Severity Reaction Status Date / Time venom-honey bee (bee venom Allergy Unknown Verified 08/05/24 08:54 (honey bee)) Social History Smoking Status: Never smoker ROS ROS ED Constitutional Constitutional ED: Denies chills or weight loss Eyes Eyes: Denies change in vision or diplopia ENT ENT ED: Denies ear pain, rhinorrhea or sore throat Cardiovascular Cardiovascular: Denies chest pain, orthopnea, palpitations or racing heartbeat Respiratory/Chest Respiratory/Chest: Denies cough, dyspnea or orthopnea Gastrointestinal Gastrointestinal: Reports abdominal pain; Denies diarrhea, nausea or vomiting Genitourinary Genitourinary ED: Denies dysuria, hematuria or urinary frequency Musculoskeletal Musculoskeletal: Denies arthralgias or myalgias Integumentary Denies abscess or rash Neurologic Neurologic: Reports other Details: Confusion behavioral changes ; Denies headache(s) or weakness Psychiatric Psychiatric: Reports depression; Denies anxiety, suicidal ideation or suicidal thoughts Endocrine Endocrinology: Denies polydipsia, polyphagia or polyuria Allergic/Immunologic Allergic/Immunologic ED: Denies mouth swelling, tongue swelling or urticaria EXAM Physical Exam Const Vital Signs: 08/05/24 08:54 08/05/24 11:28 08/05/24 13:00 Temperature 98.6 F Temperature Source Oral Pulse Rate 96 65 Respiratory Rate 14 15 Blood Pressure 98/65 104/62 101/74 Blood Pressure Mean 76 76 83 Pulse Ox 95 98 Oxygen Delivery Method Room Air Room Air Positive well nourished, well developed and obese General Appearance ED: well developed and NAD Nutritional Appearance: obese HEENT Reports normocephalic, head/scalp atraumatic and moist mucous membranes Eyes PERRL and EOMs intact bilaterally Neck no lymphadenopathy, supple and no JVD Resp normal respiratory effort and clear to auscultation bilaterally Cardio regular rate, regular rhythm and no murmurs GI normal to inspection, nondistended, normoactive bowel sounds and non-tender Palpation: soft Back/Spine no CVA tenderness and normal ROM Extremity normal to inspection General Extremety ED: Negative for edema General Extremity: Negative for edema Neuro CN's II-XII intact bilaterally Neuro Narrative: Patient is alert and speaking with me. He does however quickly go to sleep and I am able to wake him up and continue our conversation. Sensorium / Orientation: alert Motor Exam: strength 5/5 throughout Psych Psych Narrative: Blunted affect. Patient cooperative with staff. Mood & Affect: Negative for depressed or tearful Skin no rashes or lesions noted and no wounds MDM MDM MDM Narrative Medical decision making narrative: Differential diagnosis includes UTI electrolyte abnormality dehydration decompensated mental health illness Psychiatric screening labs were obtained. Sodium is 140 potassium 3.4 BUN of 14 creatinine 1.28. LFTs are normal except for an alkaline phosphatase 210. Lipase 27. Urinalysis with 5-10 white cells no bacteria 2+ sediment negative nitrates. Toxicology workup is negative. CT of the brain shows no acute findings. CT of the ab pelvis was read by radiology reviewed by myself. There are no acute findings to explain his symptoms. My independent interpretation the chest x-ray is no acute process. I discussed the case with social work. They interviewed the patient also spoke with half-way and additional [facility] social workers. Recommendation is to admit for psychiatric evaluation/medication adjustment. History & Record Review Discussion w/independent historian: EMS personnel, Patient and Other (SNF) Additional record(s) reviewed:: Prior labs Lab Data Attestation: I reviewed the patient's lab results. Labs: Laboratory Results - last 24 hr 08/05/24 08/05/24 10:15 13:20 WBC 8.3 RBC 4.48 L Hgb 13.3 Hct 40.6 MCV 90.6 MCH 29.7 MCHC 32.8 RDW Std Deviation 43.5 RDW Coeff of Moon 13.2 Plt Count 261 MPV 9.0 Immature Gran % (Auto) 0.400 Neut % (Auto) 73.5 H Lymph % (Auto) 17.9 L [place] % (Auto) 7.4 Eos % (Auto) 0.1 Baso % (Auto) 0.7 Absolute Neuts (auto) 6.1 Absolute Lymphs (auto) 1.48 Nucleated RBC % 0 Sodium 140 Potassium 3.4 L Chloride 107 Carbon Dioxide 27.0 Anion Gap 6 BUN 14 Creatinine 1.28 Estim Creat Clear Calc 78.34 Est GFR (MDRD) Af Amer 75 Est GFR (MDRD) Non-Af 62 BUN/Creatinine Ratio 10.9 Glucose 119 H Calcium 9.1 Magnesium 2.5 Total Bilirubin 0.30 Direct Bilirubin 0.11 AST 15 ALT 28 Alkaline Phosphatase 210 H Total Protein 7.6 Albumin 3.3 Globulin 4.3 H Lipase 27 L Urine Color Yellow Urine Clarity Cloudy Urine pH 8.0 Ur Specific [place] 1.010 Urine Protein Negative Urine Glucose (UA) Normal Urine Ketones Negative Urine Occult Blood Negative Urine Nitrite Negative Urine Bilirubin Negative Urine Urobilinogen Normal Ur Leukocyte Esterase 100 H Urine RBC 0 SEEN Urine WBC 5-10 SEEN Ur Squamous Epith Cells 0 SEEN Amorphous Sediment 2+ Urine Bacteria 0 SEEN Urine Mucus 0 SEEN Urine Opiates Screen NEGATIVE Urine Methadone Screen NEGATIVE Ur Barbiturates Screen NEGATIVE Ur Phencyclidine Scrn NEGATIVE Ur Amphetamines Screen NEGATIVE MDMA (Ecstasy) Screen NEGATIVE U Benzodiazepines Scrn NEGATIVE Urine Cocaine Screen NEGATIVE U Cannabinoids Screen NEGATIVE Ur Drug Screen Comment Ethyl Alcohol < 3.0 Radiography Diagnostic Testing: Clinical Impression(s) from Imaging Studies Abdomen/Pelvis CT 08/05/24 09:52 IMPRESSION: 1. No acute abdominopelvic finding. 2. Moderate retained fecal material throughout the sigmoid colon with circumferential mural thickening, compatible with constipation. No evidence of ulceration or perforation. 3. Diffuse thickening of the urinary bladder, which may be secondary to incomplete distention, however infection can not be ruled out. Correlation with urinalysis recommended. 4. Mild cardiomegaly and trace pleural effusions, which may represent CHF/volume overload. One or more dose reduction techniques were used (e.g., Automated exposure control, adjustment of the mA and/or kV according to patient size, use of iterative reconstruction technique). Reading Location: [facility] Brain CT 08/05/24 09:52 IMPRESSION: Stable CT head. Congenital findings as described. Reading Location: [facility] Chest X-Ray 08/05/24 09:52 IMPRESSION: Findings of mild CHF/volume overload. Reading Location: [facility] EKG Initial EKG: Attestation: I personally reviewed and interpreted this EKG as follows: Comments: Normal sinus rhythm ventricular rate of 80 bpm Management Discussion w/another healthcare provider: protective services social worker/Case management Discharge Plan Triage Chief Complaint: Mental Health Other Complaint: Suicidal ED Provider: Landon Allen Dx/Rx/DC Orders Clinical Impression: Schizoaffective disorder, Bipolar disorder Prescriptions: No Action levetiracetam 500 MG tablet 1,000 mg PO BREAKFAST sennosides [Senexon] 8.8 MG/5 ML syrup 2 tab PO BID zonisamide [Zonegran] 100 MG capsule 200 mg PO BID docusate sodium [DOK] 100 MG capsule 100 mg PO DAILY lorazepam 1 MG tablet 1 mg PO QHS levetiracetam 500 tablet 1,500 mg PO LUNCH aspirin [Aspir-Low] 81 MG tablet,delayed release (DR/EC) 81 mg PO DAILY magnesium hydroxide 30 ML suspension 30 ml PO DAILY PRN PRN (Reason: Constipation) nystatin [Nystop] 100,000 powder 1 applic TP Q12H PRN PRN (Reason: redness and irritation) fluvoxamine 100 mg tablet 100 mg PO BID tamsulosin 0.4 mg capsule 0.4 mg PO Q24H Patient Comments: [NO ORIGINAL SIG] amlodipine 5 mg tablet 5 mg PO DAILY Allergy Relief (loratadine) 10 mg capsule 10 mg PO DAILY Primary Care Provider: Otis Massey Referrals: Otis Massey MD [[facility]] - Print Language: Serbian Disposition Disposition: Psychiatric Hospital or Unit
[2024-08-05 10:20] LABS: Absolute Lymphocyte Count 1.48 X10^3/uL (0.83-4.51); Absolute Neutrophil Count 6.1 X10^3/uL (2.0-7.7); Basophil# 0.06 X10^3/uL; Basophil% 0.7 % (0-1); Eosinophil# 0.01 X10^3/uL; Eosinophils% 0.1 % (0-5); Hematocrit 40.6 % (40-54); Hemoglobin 13.3 g/dL (13.0-16.5); Lymphocyte # 1.48 X10^3/ul (0.83-4.51); Lymphocyte % 17.9 % (19-41); Mean Corp Hgb Conc 32.8 g/dL (32-36); Mean Corpuscular Hgb 29.7 pg (27.0-32.0); Mean Corpuscular Volume 90.6 fL (80-94); Monocyte# 0.61 X10^3/uL; Monocyte% 7.4 % (0-10); NRBC Flagged by Analyzer 0 % (0-5); Neutrophil # 6.08 X10^3/uL (2.7-7.7); Neutrophil % 73.5 % (47-70); Platelet Count 261 K/mm3 (150-450); RBC Distribution Width CV 13.2 % (11.6-14.6); RBC Distribution Width SD 43.5 fl (35.1-43.9); Red Blood Count 4.48 M/mm3 (4.6-6.2); White Blood Count 8.3 K/mm3 (4.4-11.0)
[2024-08-05 10:48] LABS: AST(SGOT) 15 U/L (15-37); Alanine Aminotransfer ALT/SGPT 28 U/L (16-61); Albumin, Serum 3.3 g/dL (3.2-5.0); Alcohol, Blood (Medical)-Serum < 3.0 mg/dL; Alkaline Phosphatase 210 U/L (45-117); Anion Gap 6 (5-15); BUN 14 mg/dL (7-18); BUN/Creat Ratio 10.9 RATIO (10-20); Bilirubin, Direct 0.11 mg/dL (0.00-0.30); Calcium,Total 9.1 mg/dL (8.5-10.1); Chloride 107 mmol/L (98-107); Creatinine, Serum 1.28 mg/dL (0.70-1.30); EST Glomerular Filtration Rate 62 mL/min (>60); Est Glom Filt Rate - Afr Amer 75 mL/min (>60); Estimated Creatinine Clearance 78.34 ml/min; Globulin 4.3 g/dL (2.2-4.2); Glucose 119 mg/dL (74-106); Lipase 27 U/L (73-393); Magnesium 2.5 mg/dL (1.6-2.6); Potassium 3.4 mmol/L (3.5-5.1); Protein, Total 7.6 g/dL (6.4-8.2); Sodium Level 140 mmol/L (136-145)
--- NOTE | 2024-08-05 11:24 | CM.ED ---
Social Work: animal care service worker attempted to complete psychiatric assessment with no success. Patient was asleep and could not stay awake to answer more than 2 questions. animal care service worker will try again at a later time. Georgie Velásquez, SKIVER MACHINE OPERATOR, SENIOR SALES ASSISTANT
[2024-08-05 11:28] VITALS: BP 104/62; PULSE 65; RESP 15; O2SAT 98
[2024-08-05 13:00] VITALS: BP 101/74
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
--- NOTE | 2024-08-05 13:15 | CM.ED ---
Social Work: idea worker made phone contact Ashli the nurse at [facility] who stated patient's behavior started changing roughly a week-week and a half ago. Patient has had more attention-seeking behavior, asks the same questions over and over like when is it time to go to bed, when patient goes to bed he won't stay in bed and won't always go back to bed when directed to. Patient's sleeping patterns and eating patterns have been off; sometimes not sleeping well and not always eating. Patient pulled back like he was going to swing at a staff member but patient never hit anyone. Last week and today, patient was crawling around on the floor on all 4's. This is not patient's baseline and the person at the facility who normally oversees patient's medication is on medical leave for the next few week. Facility doctor, Dr. Otis Massey doesnot feel comfortable adjusting meds at this time and is requesting this be done through a thad-psych inpatient placement. Georgie Velásquez, RESIDENTIAL COUNSELOR, CRITICAL CARE CLINICAL NURSE SPECIALIST
[2024-08-05 13:25] LABS: Bacteria 0 SEEN /hpf (None Seen); Mucous, Urine 0 SEEN /hpf (<or=2+); Squamous Epithelial Cells - UA 0 SEEN /hpf (0-5)
[2024-08-05 13:33] LABS: Color, Urine Yellow (Yellow); Glucose, Dipstick Normal (Normal); Ketone-Dipstick Negative (Negative); Leukocyte Esterase-Dipstick 100 /ul (Negative); Nitrite-Dipstick Negative (Negative); Occult Blood-Urine Negative /ul (Negative); Protein-Dipstick Negative (Negative); Urine Bilirubin Dipstick Negative (Negative); Urine Clarity Cloudy (Clear); Urine Urobilinogen Normal (Normal)
[2024-08-05 13:42] LABS: Amorphous Sediment 2+; Red Blood Cells-Urine 0 SEEN /hpf (0-5); White Blood Cells 5-10 SEEN /hpf (0-5)
[2024-08-05 13:57] LABS: Amphetamine Urine NEGATIVE (<1000 ng/mL); Barbiturate Urine VISTA NEGATIVE (< 200 ng/mL); Benzodiazepine Urine VISTA NEGATIVE (< 200 ng/mL); Cocaine Urine VISTA NEGATIVE (< 300 ng/mL); Ecstacy Urine VISTA NEGATIVE (< 500 ng/mL); Methadone Urine VISTA NEGATIVE (< 300 ng/mL); Opiates Urine NEGATIVE (< 300 ng/mL); PCP Urine NEGATIVE (< 25 ng/mL); THC Urine VISTA NEGATIVE (< 50 ng/mL); Vista UDS pH Range 7
--- NOTE | 2024-08-05 14:40 | CM.ED ---
Social Work: direct service worker clarified with LTC facility nurse Kasey that patient is LTC there and his admission date was 12/11/13. Patient's guardian is patient's aunt, Renay Silveira of [place] . Guardian is aware of behaviors and also that patient is here at the hospital ED. Georgie Velásquez, ONCOLOGY ADMIN, ELECTRICIAN SHIP
--- NOTE | 2024-08-05 14:55 | CM.ED ---
Social Work: radiation control worker made phone contact with patient's guardian who assisted with some of the questions for the psychiatric assessment. Guardian agreeable to placement and agreed that the described behaviors aren't typical for patient. Guardian stated once placement is secured, social service director can call LTC facility and LTC facility can notify her of where patient is placed. No other concerns/needs identified at this time. Georgie Velásquez, DEATH CLAIM CLERK, BILINGUAL LOAN PROCESSOR
--- NOTE | 2024-08-05 16:44 | CM.ED ---
Social Work: [facility] an open thad-psych bed. asbestos worker helper faxed over referral to see if they will accept. Georgie Velásquez, SAW EDGE FUSER CIRCULAR, DIRECTOR COMMUNITY HEALTH NURSING
--- NOTE | 2024-08-05 18:28 | CM.ED ---
Social Work: [facility] will accept patient. [facility] slip needs to be faxed to them at [phone] and will also need to accompany patient. Accepting doctor: Dr. Jean-Baptiste. NTN: [phone], opt. 1. They will need an ETA and will then transfer to thad-nurse. Georgie Velásquez, PRIMARY OPERATOR, CLASSIFICATION ANALYST
--- NOTE | 2024-08-05 19:05 | ED.RN ---
CALLED [facility] TO ARRANGE TRANSPORT FOR PT, SPOKE TO JOÃO. ETA IS 0700 TOMORROW MORNING DUE TO [facility] AVAILABILITY AND WEATHER. REQUESTED OUTSOURCING, THEY STATED THEY WOULD WORK ON IT.
[2024-08-05 20:04] VITALS: BP 119/74; PULSE 73; RESP 17; O2SAT 96
[2024-08-05] MEDS: Tamsulosin HCl 0.4 MG Capsule PO (21:25)
[2024-08-05] MEDS: fluvoxaMINE Maleate 50 MG Tablet 100 MG PO (21:25)
[2024-08-05] MEDS: ZONISAMIDE 100 MG CAPSULE 200 MG PO (21:25)
--- NOTE | 2024-08-05 21:33 | ED.RN ---
[facility] CALLED TO INQUIRE ABOUT PT ETA. THEY STATED DUE TO LONG WAIT TIME, THEY WOULD WORK ON ARRANGING TRANSPORT ON THEIR END THROUGH [facility] TO TRY AND GET PT TO FACILITY SOONER.
--- NOTE | 2024-08-05 22:37 | ED.RN ---
[facility] CALLED TO LET US KNOW THEY WERE ABLE TO ARRANGE TRANSPORT FOR PT THROUGH [facility] @ 0300. CALLED [facility] TO [facility] THROUGH THEM.
[2024-08-06 00:13] VITALS: BP 119/72; PULSE 79; RESP 18; O2SAT 96
== END 2024-08-06 04:10 ==
PROVIDERS: Emergency Provider Emergency Medicine; PCP Family Medicine; Visit Provider Emergency Medicine
DX: F25.9 Schizoaffective disorder, unspecified (principal); F31.9 Bipolar disorder, unspecified; G40.909 Epilepsy, unspecified, not intractable, without status epilepticus; E66.9 Obesity, unspecified; Z68.30 Body mass index [BMI] 30.0-30.9, adult; Z79.899 Other long term (current) drug therapy
CPT/HCPCS: 70450; 71045; 74177; 80048; 80076; 80307; 81001; 82077; 83690; 83735; 85025; 93005; 99285; P9612; Q9967; A4216

== ENCOUNTER → 2024-08-29 | Outpatient (REF) | payer MEDICARE, MEDICAID, SELFPAY ==
[2024-08-29 08:18] LABS: Anion Gap 11 (5-15); BUN 13 mg/dL (4-19); BUN/Creat Ratio 11.8 RATIO (10-20); Carbon Dioxide 21.8 mmol/L (21.0-32.0); Chloride 98 mmol/L (98-108); Creatinine, Serum 1.07 mg/dL (0.70-1.20); EST Glomerular Filtration Rate 83 (>60); Glucose 90 mg/dL (70-99); Potassium 4.3 mmol/L (3.3-5.1); Sodium Level 130 mmol/L (133-145)
== END ==
LOC: OLS.WCC 06:40
PROVIDERS: PCP Family Medicine; Visit Provider Family Medicine
DX: E87.1 Hypo-osmolality and hyponatremia (principal); Z79.899 Other long term (current) drug therapy
CPT/HCPCS: 36415; 80048

== ENCOUNTER → 2024-09-25 | Outpatient (REF) | payer MEDICARE, MEDICAID, SELFPAY ==
[2024-09-25 08:53] LABS: Anion Gap 10 (5-15); BUN 12 mg/dL (4-19); Calcium,Total 8.8 mg/dL (7.6-11.0); Carbon Dioxide 21.8 mmol/L (21.0-32.0); Chloride 104 mmol/L (98-108); Creatinine, Serum 0.99 mg/dL (0.70-1.20); EST Glomerular Filtration Rate 91 (>60); Glucose 98 mg/dL (70-99); Sodium Level 136 mmol/L (133-145)
== END ==
LOC: OLS.WCC 05:00
PROVIDERS: PCP Family Medicine; Visit Provider Family Medicine
DX: I10 Essential (primary) hypertension (principal)
CPT/HCPCS: 36415; 80048

== ENCOUNTER → 2024-10-09 | Outpatient (REF) | payer MEDICARE, MEDICAID, SELFPAY ==
[2024-10-09 07:11] LABS: Anion Gap 9 (5-15); BUN 15 mg/dL (4-19); BUN/Creat Ratio 13.4 RATIO (10-20); Calcium,Total 8.8 mg/dL (7.6-11.0); Carbon Dioxide 24.7 mmol/L (21.0-32.0); Chloride 101 mmol/L (98-108); Creatinine, Serum 1.12 mg/dL (0.70-1.20); EST Glomerular Filtration Rate 79 (>60); Glucose 88 mg/dL (70-99); Potassium 3.9 mmol/L (3.3-5.1); Sodium Level 135 mmol/L (133-145)
== END ==
LOC: OLS.WCC 04:00
PROVIDERS: PCP Family Medicine; Referring Provider Family Medicine; Visit Provider Family Medicine
DX: Z79.899 Other long term (current) drug therapy (principal); I67.9 Cerebrovascular disease, unspecified
CPT/HCPCS: 36415; 80048

== ENCOUNTER → 2024-10-25 05:00 | Outpatient (REF) | payer MEDICARE, MEDICAID, SELFPAY ==
[2024-10-25 08:21] LABS: Anion Gap 10 (5-15); BUN 17 mg/dL (4-19); BUN/Creat Ratio 15.3 RATIO (10-20); Calcium,Total 9.3 mg/dL (7.6-11.0); Carbon Dioxide 23.4 mmol/L (21.0-32.0); Chloride 104 mmol/L (98-108); Creatinine, Serum 1.12 mg/dL (0.70-1.20); EST Glomerular Filtration Rate 79 (>60); Glucose 104 mg/dL (70-99); Potassium 3.7 mmol/L (3.3-5.1); Sodium Level 137 mmol/L (133-145)
== END ==
LOC: OLS.WCC 05:00
PROVIDERS: PCP Family Medicine; Visit Provider Family Medicine
DX: I10 Essential (primary) hypertension (principal); Z79.899 Other long term (current) drug therapy
CPT/HCPCS: 36415; 80048

== ENCOUNTER → 2024-11-14 05:00 | Outpatient (REF) | payer MEDICARE, MEDICAID, SELFPAY ==
[2024-11-14 09:13] LABS: Hematocrit 42.9 % (40-54); Hemoglobin 14.1 g/dL (13.0-16.5); Mean Corp Hgb Conc 32.9 g/dL (32-36); Mean Corpuscular Hgb 28.8 pg (27.0-32.0); Mean Corpuscular Volume 87.6 fL (80-94); Platelet Count 256 K/mm3 (150-450); RBC Distribution Width SD 38.6 fl (35.1-43.9); White Blood Count 6.7 K/mm3 (4.4-11.0)
[2024-11-14 09:54] LABS: AST(SGOT) 19 U/L (<=37); Alanine Aminotransfer ALT/SGPT 22 U/L (<=46); Albumin, Serum 4.1 g/dL (3.5-5.0); Alkaline Phosphatase 147 U/L (40-129); Bilirubin, Direct 0.12 mg/dL (0.00-0.30); Globulin 3.7 g/dL (2.2-4.2); Protein, Total 7.8 g/dL (5.9-8.4)
[2024-11-17 12:08] LABS: KEPPRA (LEVETIRACETAM) 22.5 ug/mL (10.0-40.0)
== END ==
LOC: OLS.WCC 05:00
PROVIDERS: PCP Family Medicine; Visit Provider Family Medicine
DX: K76.0 Fatty (change of) liver, not elsewhere classified (principal); G40.219 Localization-related (focal) (partial) symptomatic epilepsy and epileptic syndromes with complex partial seizures, intractable, without status epilepticus
CPT/HCPCS: 36415; 80076; 80177; 85027

== ENCOUNTER → 2024-12-14 | Outpatient (REF) | payer MEDICARE, MEDICAID, SELFPAY ==
[2024-12-14 09:23] LABS: Cholesterol 124 mg/dL (<=200); High Density Lipoprotein 40 mg/dL; Low Density Lipoprotein Calc. 60 mg/dL; Triglycerides 118 mg/dL; Very Low Density Lipoprotein 24 mg/dL (5-40)
[2024-12-14 09:28] LABS: Hemoglobin A1c 5.6 % (<=5.6)
== END ==
LOC: OLS.WCC 05:00
PROVIDERS: PCP Family Medicine; Visit Provider Family Medicine
DX: E78.5 Hyperlipidemia, unspecified (principal)
CPT/HCPCS: 36415; 80061; 83036

== ENCOUNTER → 2025-01-24 | Outpatient (REF) | payer MEDICARE, MEDICAID, SELFPAY ==
[2025-01-24 17:43] LABS: Mucous, Urine 0 SEEN /hpf (<or=2+); Squamous Epithelial Cells - UA 0 SEEN /hpf (0-5)
[2025-01-24 18:26] LABS: Color, Urine Straw (Yellow); Glucose, Dipstick Normal (Normal); Ketone-Dipstick Negative (Negative); Leukocyte Esterase-Dipstick 500 /ul (Negative); Nitrite-Dipstick Negative (Negative); Occult Blood-Urine Negative /ul (Negative); Protein-Dipstick Negative (Negative); Specific Gravity, Urine 1.005 (1.002-1.030); Urine Bilirubin Dipstick Negative (Negative)
[2025-01-24 23:05] LABS: Red Blood Cells-Urine 0-5 SEEN /hpf (0-5)
== END ==
LOC: OLS.WCC 17:36
PROVIDERS: PCP Family Medicine; Referring Provider Family Medicine; Visit Provider Family Medicine
DX: N39.0 Urinary tract infection, site not specified (principal)
CPT/HCPCS: 81001; 87077; 87086; 87088; 87186

== ENCOUNTER → 2025-01-25 | Outpatient (REF) | payer MEDICARE, MEDICAID, SELFPAY ==
[2025-01-25 07:34] LABS: Anion Gap 11 (5-15); BUN 20 mg/dL (4-19); BUN/Creat Ratio 17.6 RATIO (10-20); Calcium,Total 9.3 mg/dL (7.6-11.0); Carbon Dioxide 23.4 mmol/L (21.0-32.0); Chloride 105 mmol/L (98-108); Glucose 84 mg/dL (70-99); Potassium 4.0 mmol/L (3.3-5.1)
== END ==
LOC: OLS.WCC 04:00
PROVIDERS: PCP Family Medicine; Referring Provider Family Medicine; Visit Provider Family Medicine
DX: E11.9 Type 2 diabetes mellitus without complications (principal); I10 Essential (primary) hypertension
CPT/HCPCS: 36415; 80048

== ENCOUNTER → 2025-02-23 | Outpatient (REF) | payer MEDICARE, MEDICAID, SELFPAY ==
[2025-02-23 17:53] LABS: Mucous, Urine 0 SEEN /hpf (<or=2+); Red Blood Cells-Urine 0 SEEN /hpf (0-5); Squamous Epithelial Cells - UA 0 SEEN /hpf (0-5)
[2025-02-23 18:00] LABS: Color, Urine Yellow (Yellow); Glucose, Dipstick Normal (Normal); Ketone-Dipstick Negative (Negative); Leukocyte Esterase-Dipstick Negative /ul (Negative); Nitrite-Dipstick Negative (Negative); Occult Blood-Urine Negative /ul (Negative); Protein-Dipstick 30 mg/dl (Negative); Specific Gravity, Urine 1.010 (1.002-1.030); Urine Bilirubin Dipstick Negative (Negative)
== END ==
LOC: OLS.WCC 08:50
PROVIDERS: PCP Family Medicine; Referring Provider Family Medicine; Visit Provider Family Medicine
DX: R39.9 Unspecified symptoms and signs involving the genitourinary system (principal)
CPT/HCPCS: 81001; 87086; 87088

== ENCOUNTER → 2025-04-29 | Outpatient (REF) | payer MEDICARE, MEDICAID, SELFPAY ==
--- OUTSIDE RECORDS SUMMARY | 2025-04-29 04:12 | XMS RPT_ITS | CCD ---
Author Organization [facility] Care Team Providers Care Machine Milker Name Role Phone PATIENT, SELF Referring Unavailable CATRACHO, OLVIN Primary Care Unavailable PROVIDER, UNKNOWN Admitting Unavailable PROVIDER, UNKNOWN Attending Unavailable Catracho TAYLOR, Olvin Vania Primary Care Provider Unavaila jose Massey MD, Olvin Caro Attending Provider Unavailable Catracho TAYLOR, Olvin Caro Referring Provider Unavailable Dr. Landon Allen DO Attending Provider [phone] Dr. Landon Allen DO Emergency Provider Dr. Olvin Massey MD Primary Care Provider [phone] Massey OLS, Olvin K Attending Unavailable Massey, Olvin K Primary Care Unavailable Massey OLS, Olvin K Attending Unavailable Massey OLS, Olvin K Primary Care Unavailable Massey OLS, Olvin K Referring Unavailable Massey OLS, Olvin K Primary Care Unavailable Massey OLS, Olvin K Attending Unavailable Massey OLS, Olvin K Attending Unavailable Massey OLS, Olvin K Primary Care Unavailable Landon Allen Attending Unavailable Massey, Olvin K Primary Care Unavailable Massey OLS, Olvin K Referring Unavailable Massey OLS, Olvin K Primary Care Unavailable Massey OLS, Olvin K Attending Unavailable Massey OLS, Olvin K Referring Unavailable Massey OLS, Olvin K Attending Unavailable Massey, Olvin K Primary Care Unavailable Massey OLS, Olvin K Referring Unavailable Massey OLS, Olvin K Attending Unavailable Massey, Olvin K Primary Care Unavailable Massey OLS, Olvin K Attending Unavailable Massey, Olvin K Primary Care Unavailable Massey OLS, Olvin K Attending Unavailable Massey, Olvin K Primary Care Unavailable Massey OLS, Olvin K Attending Unavailable Massey, Olvin K Primary Care Unavailable Massey OLS, Olvin K Attending Unavailable Massey OLS, Olvin K Primary Care Unavailable Massey OLS, Olvin K Attending Unavailable Massey OLS, Olvin K Referring Unavailable Massey, Olvin K Primary Care Unavailable Massey OLS, Olvin K Attending Unavailable Massey, Olvin K Primary Care Unavailable Allergies Allergy Classification Reported Allergen(s) Allergy Type Date of Onset Reaction(s) Facility (1 source) Bee; Translations: [BEE] Propensity to adverse reactions to drug (disorder) 7 [facility] (7 sources) venom-honey bee Allergy to substance 9 Unknown [facility] (1 source) venom-honey bee Drug allergy (disorder) 5 [facility] Repository Medications Current Medications Medication Drug Class(es) Dates Sig (Normalized) Sig (Original) amLODIPine 5 mg oral tablet (1 source) Dihydropyridine Calcium Channel Maame Start: 08-05-2024 take 1 tablet by mouth once daily Amlodipine 5 mg tablet Active 5 mg PO DAILY August 05, 2024 1:00am aspirin 81 mg delayed release oral tablet (7 sources) Platelet Aggregation Inhibitor, Nonsteroidal Anti-inflammatory Drug Start: 07-10-2018 take 1 tablet by mouth once daily Aspirin (Aspir-Low) 81 MG tablet,delayed release (DR/EC) Active 81 mg PO DAILY July 10, 2018 1:00am docusate sodium 100 mg oral capsule (7 sources) Start: 02-24-2016 take 1 capsule by mouth once daily Docusate Sodium (Colace) 100 MG capsule Active 100 mg PO DAILY February 24, 2016 12:00am fluvoxaMINE maleate 100 mg oral tablet (1 source) Serotonin Reuptake Inhibitor Start: 08-05-2024 take 1 tablet by mouth twice daily Fluvoxamine 100 mg tablet Active 100 mg PO TWICE A DAY August 05, 2024 1:00am levETIRAcetam 500 mg oral tablet (14 sources) Start: 07-10-2018 take 1 tablet by mouth at lunch Levetiracetam 500 tablet Active 1500 mg PO WITH LUNCH July 10, 2018 1:00am Start: 02-24-2016 take 2 tablets by mo uth at breakfast Levetiracetam 500 MG tablet Active 1000 mg PO WITH BREAKFAST February 24, 2016 12:00am Start: 02-24-2016 take 1000 mg by mout h at breakfast Levetiracetam Active 1000 MG PO WITH BREAKFAST February 23, 2016 11:00pm loratadine 10 mg oral tablet (1 source) Start: 08-05-2024 take 1 capsule by mouth once daily Loratadine (Allergy Relief (Loratadine)) 10 mg capsule Active 10 mg PO DAILY August 05, 2024 1:00am LORazepam 1 mg oral tablet (7 sources) Benzodiazepine Start: 02-24-2016 take 1 tablet by mouth at bedtime Lorazepam 1 MG tablet Active 1 mg PO AT BEDTIME February 24, 2016 12:00am Magnesium Hydroxide (7 sources) Start: 07-10-2018 take 1 mL by mouth once daily as needed for constipation Magnesium Hydroxide 30 ML suspension Active 30 mL PO DAILY NEEDED as needed for Constipation July 10, 2018 1:00am Start: 07-10-2018 take 1 mL by mouth o nce daily as needed Magnesium Hydroxide Active 30 ML PO DAILY NEEDED July 10, 2018 12:00am nystatin 100 unt/mg topical powder (7 sources) Polyene Antifungal Start: 07-10-2018 Nystatin (N ystop) 586644 powder Active 1 NMA TP EVERY 12 HOURS NEEDED as needed for redness and irritation July 10, 2018 1:00am sennosides, snf 1.76 mg/ml oral solution (7 sources) Start: 02-24-2016 Sennosides (Se nexon) 8.8 MG/5 ML syrup Active 2 {tbl} PO TWICE A DAY February 24, 2016 12:00am Start: 02-24-2016 take 2 tablets by mo [facility] twice daily Sennosides (Senexon) 8.8 MG/5 ML syrup Active 2 TABLET PO TWICE A DAY February 23, 2016 11:00pm tamsulosin hydrochloride 0.4 mg oral capsule (1 source) alpha-Adrenergic Maame Start: 08-05-2024 take 1 capsule by mouth every twenty-four hours Tamsulosin 0.4 mg capsule Active 0.4 mg PO Q24H August 05, 2024 1:00am zonisamide 100 mg oral capsule (7 sources) Anti-epileptic Agent Start: 02-24-2016 take 1 capsule by mouth twice daily Zonisamide (Zonegran) 100 MG capsule Active 200 mg PO TWICE A DAY February 24, 2016 12:00am Completed/Discontinued Medications Medication Drug Class(es) Dates Sig (Normalized) Sig (Original) escitalopram 20 mg oral tablet (7 sources) Serotonin Reuptake Inhibitor Start: 02-24-2016 End: 08-05-2024 take 1 tablet by mouth once daily Escitalopram Oxalate 20 MG tablet Discontinued 20 mg PO DAILY February 24, 2016 12:00am August 05, 2024 4:06pm meloxicam 15 mg oral tablet (7 sources) Nonsteroidal Anti-inflammatory Drug Start: 02-24-2016 End: 08-05-2024 take 1 tablet by mouth once daily Meloxicam (Mobic) 15 MG tablet Discontinued 15 mg PO DAILY February 24, 2016 12:00am August 05, 2024 4:08pm OLANZapine 5 mg oral tablet (7 sources) Atypical Antipsychotic Start: 07-10-2018 End: 08-05-2024 take 1 tablet by mouth once daily Olanzapine (Zyprexa) 5 MG tablet Discontinued 5 mg PO DAILY July 10, 2018 1:00am August 05, 2024 4:08pm Problems Active Problems Problem Classification Problem Date Documented Date Episodic/Chronic Anxiety disorders (7 sources) Acute stress disorder; Translations: [Acute stress reaction] 12-01-2013 Chronic Diabetes mellitus without complication (1 source) Type 2 diabetes mellitus without complications; Translations: [Type 2 diabetes mellitus without complications] Onset: 04-19-2025 Chronic Disorders of lipid metabolism (1 source) Hyperlipidemia, unspecified; Translations: [Hyperlipidemia, unspecified] Onset: 04-19-2025 Chronic Epilepsy; convulsions (1 source) Localization-related (focal) (partial) symptomatic epilepsy and epileptic syndromes with complex partial seizures, intractable, without status epilepticus; Translations: [Localization-related (focal) (partial) symptomatic epilepsy and epileptic syndromes with complex partial seizures, intractable, without status epilepticus] Onset: 11-28-2024 Chronic Essential hypertension (2 sources) Essential (primary) hypertension; Translations: [Essential (primary) hypertension] Onset: 11-28-2024 Chronic Genitourinary symptoms and ill-defined conditions (3 sources) Dysuria; Translations: [Frequency of micturition] Onset: 04-19-2025 Episodic Mood disorders (1 source) Bipolar disorder; Translations: [Bipolar disorder, unspecified] 08-14-2024 Chronic Other and ill-defined cerebrovascular disease (1 source) Cerebrovascular disease, unspecified; Translations: [Cerebrovascular disease, unspecified] Onset: 10-09-2024 Chronic Other liver diseases (1 source) Fatty (change of) liver, not elsewhere classified; Translations: [Fatty (change of) liver, not elsewhere classified] Onset: 11-28-2024 Chronic Other nutritional; endocrine; and metabolic disorders (1 source) Polydipsia; Translations: [Polydipsia] Onset: 04-19-2025 Episodic Residual codes; unclassified (7 sources) Insomnia; Translations: [Insomnia, unspecified] 12-01-2013 Episodic Schizophrenia and other psychotic disorders (1 source) Schizoaffective disorder; Translations: [Schizoaffective disorder, unspecified] 08-14-2024 Chronic Urinary tract infections (1 source) Urinary tract infection, site not specified; Translations: [Urinary tract infection, site not specified] Onset: 04-19-2025 Episodic Past or Other Problems Problem Classification Problem Date Documented Da te Episodic/Chronic Attention-deficit, conduct, and disruptive behavior disorders (1 source) Strange and inexplicable behavior; Translations: [Strange and inexplicable behavior] Onset: 08-19-2024 Episodic Fluid and electrolyte disorders (1 source) Hypo-osmolality and hyponatremia; Translations: [Hypo-osmolality and hyponatremia] Onset: 09-19-2024 Episodic Malaise and fatigue (1 source) Other fatigue; Translations: [Other fatigue] Onset: 06-15-2024 Episodic Other aftercare (2 sources) Other alf (current) drug therapy; Translations: [Other terminal block assembler (current) drug therapy] Onset: 10-09-2024 Episodic Results Test Name Value Interpretation Reference Range Facility Urine Cultureon 02-25-2025 [facility] Below infection leve l. Mixed Gram Positive Organisms [place] Count 1000-10,000 [facility] Mixed contaminants. Submit a new specimen if indicated. Normal [facility] Comment on above: Performed By: #### M 100.2200, L400.0001 #### [facility] [address] [place], [address] Urinalysis, Completeon 02-23 BACTERIA RARE Normal None Seen [facility] Comment on above: Order Comment: Urine , Random Performed By: #### M 100.2200, L400.0001 #### [facility] [address] [place], [address] EPI,SQUAMOUS 0 SEEN Normal 0-5 [facility] Comment on above: Order Comment: Urine , Random Performed By: #### M 100.2200, L400.0001 #### [facility] [address] [place], [address] Mucus Ql (Urine sed) 0 SEEN Normal [facility] Comment on above: Order Comment: Urine , Random Performed By: #### M 100.2200, L400.0001 #### [facility] [address] [place], [address] RBC 0 SEEN Normal 0-5 [facility] Comment on above: Order Comment: Urine , Random Performed By: #### M 100.2200, L400.0001 #### [facility] [address] [place], [address] WBC 0 SEEN Normal 0-5 [facility] Comment on above: Order Comment: Urine , Random Performed By: #### M 100.2200, L400.0001 #### [facility] [address] [place], [address] Urine Cultureon 01-26-2025 [facility] Enterococcus faecali s [place] Count 1000-10,000 Enterococcus faecalis: REACTION Ampicillin Islt BRIANDA <=2 Gentamicin Synergy Susc Islt SYN-S S Linezolid Islt BRIANDA 2 S Streptomycin High Pot Susc Islt SYN-S S Vancomycin Islt BRIANDA 1 S Normal [facility] Comment on above: Performed By: #### L 100.0500, L500.2500 #### [facility] [address] [place], [address] Basic Metabolic Profile (BMP )on 01-25-2025 BUN/CRE 17.6 RATIO Normal 10-20 [facility] Comment on above: Order Comment: 119.1 Performed By: #### L 100.0500, L500.2500 #### [facility] [address] [place], [address] Calcium [Mass/Vol] 9.3 mg/dL Normal 7.6-11.0 [facility] Comment on above: Order Comment: 119.1 Performed By: #### L 100.0500, L500.2500 #### [facility] [address] [place], [address] Chloride [Moles/Vol] 105 mmol/L Normal 98-108 [facility] Comment on above: Order Comment: 119.1 Performed By: #### L 100.0500, L500.2500 #### [facility] [address] [place], [address] CO2 [Moles/Vol] 23.4 mmol/L Normal 21.0-32.0 [facility] Comment on above: Order Comment: 119.1 Performed By: #### L 100.0500, L500.2500 #### [facility] [address] [place], [address] Creatinine [Mass/Vol] 1.12 mg/dL Normal 0.70-1.[address] [facility] Comment on above: Order Comment: 119.1 Performed By: #### L 100.0500, L500.2500 #### [facility] [address] [place], [address] GAP 11 Normal 5-15 [facility] Comment on above: Order Comment: 119.1 Performed By: #### L 100.0500, L500.2500 #### [facility] [address] [place], [address] GFR/1.73 sq M.predicted among non-blacks MDRD (S/P/Bld) [Vol rate/Area] 78 mL/min/{1.73_m2} Normal >60 [facility] Comment on above: Order Comment: 119.1 Result Comment: mL/m in/1.73m2 CKD-EPI Creatinine Equation (2020) Performed By: #### L 100.0500, L500.2500 #### [facility] [address] [place], [address] Glucose [Mass/Vol] 84 mg/dL Normal 70-99 [facility] Comment on above: Order Comment: 119.1 Performed By: #### L 100.0500, L500.2500 #### [facility] [address] [place], [address] Potassium [Moles/Vol] 4.0 mmol/L Normal 3.3-5.[address] [facility] Comment on above: Order Comment: 119.1 Performed By: #### L 100.0500, L500.2500 #### [facility] [address] [place], [address] Sodium [Moles/Vol] 139 mmol/L Normal 133-145 [facility] Comment on above: Order Comment: 119.1 Performed By: #### L 100.0500, L500.2500 #### [facility] [address] [place], [address] Urea nitrogen [Mass/Vol] 20 mg/dL High 4-19 [facility] Comment on above: Order Comment: 119.1 Performed By: #### L 100.0500, L500.2500 #### [facility] [address] [place], [address] Urinalysis, Completeon 01-24 BACTERIA RARE Normal None Seen [facility] Comment on above: Order Comment: 119.1 Performed By: #### L 100.0500, L500.2500 #### [facility] [address] [place], [address] RBC 0-5 SEEN Normal 0-5 [facility] Comment on above: Order Comment: 119.1 Performed By: #### L 100.0500, L500.2500 #### [facility] [address] [place], [address] WBC 5-10 SEEN Normal 0-5 [facility] Comment on above: Order Comment: 119.1 Performed By: #### L 100.0500, L500.2500 #### [facility] [address] [place], [address] EPI,SQUAMOUS 0 SEEN Normal 0-5 [facility] Comment on above: Order Comment: 119.1 Performed By: #### L 100.0500, L500.2500 #### [facility] [address] [place], [address] Mucus Ql (Urine sed) 0 SEEN Normal [facility] Comment on above: Order Comment: 119.1 Performed By: #### L 100.0500, L500.2500 #### [facility] [address] [place], [address] Hemoglobin A1con 12-14-2024 HbA1c (Bld) [Mass fraction] 5.6 % Normal <=5.6 [facility] Comment on above: Result Comment: Norm al < 5.7 % Prediabetic 5.7 - 6.4 % Diabetic >or= 6.5 % Please note range changes. Performed By: #### L 500.2500, L100.0500 #### [facility] [address] [place], [address] Lipid Profileon 12-14-2024 CHOL:HDL 3.10 Normal [facility] Comment on above: Order Comment: 119-1 Performed By: #### L 500.2500, L100.0500 #### [facility] [address] [place], [address] Cholesterol [Mass/Vol] 124 mg/dL Normal <=200 [facility] Comment on above: Order Comment: 119-1 Result Comment: Chol esterol level, Desirable <200 mg/dL Borderline high cholesterol 200-239 mg/dL High cholesterol >=240 mg/dL Recommendations of the NCEP Adult Treatment Panel for the following risk-cutoff thresholds for the [place] population. Performed By: #### L 500.2500, L100.0500 #### [facility] [address] [place], [address] Cholesterol in HDL [Mass/Vol] 40 mg/dL Normal [facility] Comment on above: Order Comment: 119-1 Result Comment: Shayna onal Cholesterol Education Program (NCEP) guidelines: <40 mg/dL: Low HDL-cholesterol (major risk factor for CHD) >= 60 mg/dL: High HDL-cholesterol (negative risk factor for CHD) HDL-cholesterol is affected by a number of factors, e.g. smoking, exercise, hormones, sex and age. Performed By: #### L 500.2500, L100.0500 #### [facility] [address] [place], [address] Cholesterol in LDL [Mass/Vol] 60 mg/dL Normal [facility] Comment on above: Order Comment: 119-1 Result Comment: Bord cysbfe=673-985 mg/dL Higher Wrvh=830 mg/dL or greater Performed By: #### L 500.2500, L100.0500 #### [facility] [address] [place], [address] Cholesterol in VLDL [Mass/Vol] 24 mg/dL Normal 5-40 [facility] Comment on above: Order Comment: 119-1 Performed By: #### L 500.2500, L100.0500 #### [facility] [address] [place], [address] Triglyceride [Mass/Vol] 118 mg/dL Normal [facility] Comment on above: Order Comment: 119-1 Result Comment: The drugs N-Acetylcysteine and Metamizole may falsely depress this assay. Normal range: <150 mg/dL Borderline High: 150-199 mg/dL High: 200-499 mg/dL Very High: >500 mg/dL Performed By: #### L 500.2500, L100.0500 #### [facility] [address] [place], [address] KEPPRA (LEVETIRACETAM)on KEPPRA 22.5 ug/mL Normal 10.0-40.0 [facility] Comment on above: Order Comment: 119-1 Result Comment: Perf ormed at: - [facility] [id number] Chief Quality Officer: Jere Tierney MD, Phone: [phone] Performed By: #### L 500.2500, L100.0500 #### [facility] [address] [place], [address] CBC-Complete Blood Cnt No Di ffon 11-14-2024 Erythrocyte distribution width (RBC) [Ratio] 12.0 % Normal 11.6-14.6 [facility] Comment on above: Order Comment: 119-1 Performed By: #### L 500.2500, L100.0500 #### [facility] [address] [place], [address] Hematocrit (Bld) [Volume fraction] 42.9 % Normal 40-54 [facility] Comment on above: Order Comment: 119-1 Performed By: #### L 500.2500, L100.0500 #### [facility] [address] [place], [address] Hemoglobin (Bld) [Mass/Vol] 14.1 g/dL Normal 13.0-16. 5 [facility] Comment on above: Order Comment: 119-1 Performed By: #### L 500.2500, L100.0500 #### [facility] [address] [place], [address] MCH (RBC) [Entitic mass] 28.8 pg Normal 27.0-32.0 [facility] Comment on above: Order Comment: 119-1 Performed By: #### L 500.2500, L100.0500 #### [facility] [address] [place], [address] MCHC (RBC) [Mass/Vol] 32.9 g/dL Normal 32-[address] [facility] Comment on above: Order Comment: 119-1 Performed By: #### L 500.2500, L100.0500 #### [facility] [address] [place], [address] MCV (RBC) [Entitic vol] 87.6 fL Normal 80-94 [facility] Comment on above: Order Comment: 119-1 Performed By: #### L 500.2500, L100.0500 #### [facility] [address] [place], [address] Platelet mean volume (Bld) [Entitic vol] 10.0 fL Normal 6.2-12.0 [facility] Comment on above: Order Comment: 119-1 Performed By: #### L 500.2500, L100.0500 #### [facility] [address] [place], [address] Platelets (Bld) [#/Vol] 256 10*3/uL Normal 150-450 [facility] Comment on above: Order Comment: 119-1 Performed By: #### L 500.2500, L100.0500 #### [facility] [address] [place], [address] RBC (Bld) [#/Vol] 4.90 10*6/uL Normal 4.6-6.2 [facility] Comment on above: Order Comment: 119-1 Performed By: #### L 500.2500, L100.0500 #### [facility] [address] [place], [address] RDW SD 38.6 fl Normal 35.1-43.9 [facility] Comment on above: Order Comment: 119-1 Performed By: #### L 500.2500, L100.0500 #### [facility] [address] [place], [address] WBC (Bld) [#/Vol] 6.7 10*3/uL Normal 4.4-11.0 [facility] Comment on above: Order Comment: 119-1 Performed By: #### L 500.2500, L100.0500 #### [facility] [address] [place], [address] Liver Profileon 11-14-2024 Albumin [Mass/Vol] 4.1 g/dL Normal 3.5-5.0 [facility] Comment on above: Order Comment: 119-1 Performed By: #### L 500.2500, L100.0500 #### [facility] [address] [place], [address] ALK PHOS 147 U/L High 40-129 [facility] Comment on above: Order Comment: 119-1 Performed By: #### L 500.2500, L100.0500 #### [facility] [address] [place], [address] ALT [Catalytic activity/Vol] 22 U/L Normal <=46 [facility] Comment on above: Order Comment: 119-1 Performed By: #### L 500.2500, L100.0500 #### [facility] [address] [place], [address] AST [Catalytic activity/Vol] 19 U/L Normal <=37 [facility] Comment on above: Order Comment: 119-1 Performed By: #### L 500.2500, L100.0500 #### [facility] [address] [place], [address] Bilirubin [Mass/Vol] 0.30 mg/dL Normal 0.00-1.30 [facility] Comment on above: Order Comment: 119-1 Performed By: #### L 500.2500, L100.0500 #### [facility] [address] [place], [address] Bilirubin.direct [Mass/Vol] 0.12 mg/dL Normal 0.00-0.3 0 [facility] Comment on above: Order Comment: 119-1 Performed By: #### L 500.2500, L100.0500 #### [facility] [address] [place], [address] Globulin (S) [Mass/Vol] 3.7 g/dL Normal 2.2-4.2 [facility] Comment on above: Order Comment: 119-1 Performed By: #### L 500.2500, L100.0500 #### [facility] [facility] [address] [place], [address] T PROT 7.8 g/dL Normal 5.9-8.4 [facility] Comment on above: Order Comment: 119-1 Performed By: #### L 500.2500, L100.0500 #### [facility] [address] [place], [address] Basic Metabolic Profile (BMP )on 10-25-2024 BUN/CRE 15.3 RATIO Normal 10-20 [facility] Comment on above: Order Comment: 119-1 Performed By: #### L 500.2500, L100.0500 #### [facility] [address] [place], [address] Calcium [Mass/Vol] 9.3 mg/dL Normal 7.6-11.0 [facility] Comment on above: Order Comment: 119-1 Performed By: #### L 500.2500, L100.0500 #### [facility] [address] [place], [address] Chloride [Moles/Vol] 104 mmol/L Normal 98-108 [facility] Comment on above: Order Comment: 119-1 Performed By: #### L 500.2500, L100.0500 #### [facility] [address] [place], [address] CO2 [Moles/Vol] 23.4 mmol/L Normal 21.0-32.0 [facility] Comment on above: Order Comment: 119-1 Performed By: #### L 500.2500, L100.0500 #### [facility] [address] [place], [address] Creatinine [Mass/Vol] 1.12 mg/dL Normal 0.70-1.[address] [facility] Comment on above: Order Comment: 119-1 Performed By: #### L 500.2500, L100.0500 #### [facility] [address] [place], [address] GAP 10 Normal 5-15 [facility] Comment on above: Order Comment: 119-1 Performed By: #### L 500.2500, L100.0500 #### [facility] [address] [place], [address] GFR/1.73 sq M.predicted among non-blacks MDRD (S/P/Bld) [Vol rate/Area] 79 mL/min/{1.73_m2} Normal >60 [facility] Comment on above: Order Comment: 119-1 Result Comment: mL/m in/1.73m2 CKD-EPI Creatinine Equation (2020) Performed By: #### L 500.2500, L100.0500 #### [facility] [address] [place], [address] Glucose [Mass/Vol] 104 mg/dL High 70-99 [facility] Comment on above: Order Comment: 119-1 Performed By: #### L 500.2500, L100.0500 #### [facility] [address] [place], [address] Potassium [Moles/Vol] 3.7 mmol/L Normal 3.3-5.[address] [facility] Comment on above: Order Comment: 119-1 Performed By: #### L 500.2500, L100.0500 #### [facility] [address] [place], [address] Sodium [Moles/Vol] 137 mmol/L Normal 133-145 [facility] Comment on above: Order Comment: 119-1 Performed By: #### L 500.2500, L100.0500 #### [facility] [address] [place], [address] Urea nitrogen [Mass/Vol] 17 mg/dL Normal 4-19 [facility] Comment on above: Order Comment: 119-1 Performed By: #### L 500.2500, L100.0500 #### [facility] [address] [place], [address] Basic Metabolic Profile (BMP )on 10-09-2024 BUN/CRE 13.4 RATIO Normal 10-20 [facility] Comment on above: Order Comment: 119-1 Performed By: #### L 500.2500, L100.0500 #### [facility] [address] [place], [address] Calcium [Mass/Vol] 8.8 mg/dL Normal 7.6-11.0 [facility] Comment on above: Order Comment: 119-1 Performed By: #### L 500.2500, L100.0500 #### [facility] [address] [place], [address] Chloride [Moles/Vol] 101 mmol/L Normal 98-108 [facility] Comment on above: Order Comment: 119-1 Performed By: #### L 500.2500, L100.0500 #### [facility] [address] [place], [address] CO2 [Moles/Vol] 24.7 mmol/L Normal 21.0-32.0 [facility] Comment on above: Order Comment: 119-1 Performed By: #### L 500.2500, L100.0500 #### [facility] [address] [place], [address] Creatinine [Mass/Vol] 1.12 mg/dL Normal 0.70-1.[address] [facility] Comment on above: Order Comment: 119-1 Performed By: #### L 500.2500, L100.0500 #### [facility] [address] [place], [address] GAP 9 Normal 5-15 [facility] Comment on above: Order Comment: 119-1 Performed By: #### L 500.2500, L100.0500 #### [facility] [address] [place], [address] GFR/1.73 sq M.predicted among non-blacks MDRD (S/P/Bld) [Vol rate/Area] 79 mL/min/{1.73_m2} Normal >60 [facility] Comment on above: Order Comment: 119-1 Result Comment: mL/m in/1.73m2 CKD-EPI Creatinine Equation (2020) Performed By: #### L 500.2500, L100.0500 #### [facility] [address] [place], [address] Glucose [Mass/Vol] 88 mg/dL Normal 70-99 [facility] Comment on above: Order Comment: 119-1 Performed By: #### L 500.2500, L100.0500 #### [facility] [address] [place], [address] Potassium [Moles/Vol] 3.9 mmol/L Normal 3.3-5.[address] [facility] Comment on above: Order Comment: 119-1 Performed By: #### L 500.2500, L100.0500 #### [facility] [address] [place], [address] Sodium [Moles/Vol] 135 mmol/L Normal 133-145 [facility] Comment on above: Order Comment: 119-1 Performed By: #### L 500.2500, L100.0500 #### [facility] [address] [place], [address] Urea nitrogen [Mass/Vol] 15 mg/dL Normal 4-19 [facility] Comment on above: Order Comment: 119-1 Performed By: #### L 500.2500, L100.0500 #### [facility] [address] [place], [address] Basic Metabolic Profile (BMP )on 09-25-2024 BUN/CRE 12.0 RATIO Normal 10-20 [facility] Comment on above: Order Comment: 119-1 Performed By: #### L 500.2500, L100.0500 #### [facility] [address] [place], [address] Calcium [Mass/Vol] 8.8 mg/dL Normal 7.6-11.0 [facility] Comment on above: Order Comment: 119-1 Performed By: #### L 500.2500, L100.0500 #### [facility] [address] [place], [address] Chloride [Moles/Vol] 104 mmol/L Normal 98-108 [facility] Comment on above: Order Comment: 119-1 Performed By: #### L 500.2500, L100.0500 #### [facility] [address] [place], [address] CO2 [Moles/Vol] 21.8 mmol/L Normal 21.0-32.0 [facility] Comment on above: Order Comment: 119-1 Performed By: #### L 500.2500, L100.0500 #### [facility] [address] [place], [address] Creatinine [Mass/Vol] 0.99 mg/dL Normal 0.70-1.[address] [facility] Comment on above: Order Comment: 119-1 Performed By: #### L 500.2500, L100.0500 #### [facility] [address] [place], [address] GAP 10 Normal 5-15 [facility] Comment on above: Order Comment: 119-1 Performed By: #### L 500.2500, L100.0500 #### [facility] [address] [place], [address] GFR/1.73 sq M.predicted among non-blacks MDRD (S/P/Bld) [Vol rate/Area] 91 mL/min/{1.73_m2} Normal >60 [facility] Comment on above: Order Comment: 119 Result Comment: mL/m in/1.73m2 CKD-EPI Creatinine Equation (2020) Performed By: #### L 500.2500, L100.0500 #### [facility] [address] [place], [address] Glucose [Mass/Vol] 98 mg/dL Normal 70-99 [facility] Comment on above: Order Comment: 119-1 Performed By: #### L 500.2500, L100.0500 #### [facility] [address] [place], [address] Potassium [Moles/Vol] 4.0 mmol/L Normal 3.3-5.[address] [facility] Comment on above: Order Comment: 119- Result Comment: Hemo lysis present, Results??could be affected. ?? Performed By: #### L 500.2500, L100.0500 #### [facility] [address] [place], [address] Sodium [Moles/Vol] 136 mmol/L Normal 133-145 [facility] Comment on above: Order Comment: 119-1 Performed By: #### L 500.2500, L100.0500 #### [facility] [address] [place], [address] Urea nitrogen [Mass/Vol] 12 mg/dL Normal 4-19 [facility] Comment on above: Order Comment: 119-1 Performed By: #### L 500.2500, L100.0500 #### [facility] [address] [place], [address] Anion gap in Serum or Plasma Ordered By: Olvin Massey on 08-29-2024 Anion gap [Moles/Vol] 11 mmol/L 5-[address] [facility] BUN/creatinine ratioOrdered By: Olvin Massey on 08-29-2024 Urea nitrogen/Creatinine [Mass ratio] 11.8 mg/mg 10-20 [facility] Basic Metabolic Profile (BMP )on 08-29-2024 BUN/CRE 11.8 RATIO Normal 10-20 [facility] Comment on above: Performed By: #### L 100.0500, L500.2500 #### [facility] [address] [place], [address] Calcium [Mass/Vol] 9.0 mg/dL Normal 7.6-11.0 [facility] Comment on above: Performed By: #### L 100.0500, L500.2500 #### [facility] [address] [place], [address] Chloride [Moles/Vol] 98 mmol/L Normal 98-108 [facility] Comment on above: Performed By: #### L 100.0500, L500.2500 #### [facility] [address] [place], [address] CO2 [Moles/Vol] 21.8 mmol/L Normal 21.0-32.0 [facility] Comment on above: Performed By: #### L 100.0500, L500.2500 #### [facility] [address] [place], [address] Creatinine [Mass/Vol] 1.07 mg/dL Normal 0.70-1.[address] [facility] Comment on above: Performed By: #### L 100.0500, L500.2500 #### [facility] [address] [place], [address] GAP 11 Normal 5-15 [facility] Comment on above: Performed By: #### L 100.0500, L500.2500 #### [facility] [address] [place], [address] GFR/1.73 sq M.predicted among non-blacks MDRD (S/P/Bld) [Vol rate/Area] 83 mL/min/{1.73_m2} Normal >60 [facility] Comment on above: Result Comment: mL/m in/1.73m2 CKD-EPI Creatinine Equation (2020) Performed By: #### L 100.0500, L500.2500 #### [facility] [address] [place], [address] Glucose [Mass/Vol] 90 mg/dL Normal 70-99 [facility] Comment on above: Performed By: #### L 100.0500, L500.2500 #### [facility] [address] [place], [address] Potassium [Moles/Vol] 4.3 mmol/L Normal 3.3-5.[address] [facility] Comment on above: Performed By: #### L 100.0500, L500.2500 #### [facility] [address] [place], [address] Sodium [Moles/Vol] 130 mmol/L Low 133-145 [facility] Comment on above: Performed By: #### L 100.0500, L500.2500 #### [facility] [address] [place], [address] Urea nitrogen [Mass/Vol] 13 mg/dL Normal 4-19 [facility] Comment on above: Performed By: #### L 100.0500, L500.2500 #### [facility] [address] [place], [address] Carbon dioxide, total [Moles /volume] in Central venous bloodOrdered By: Olvin Massey on 08-29-2024 CO2 [Moles/Vol] 21.8 mmol/L 21.0-32.0 [facility] Chloride assayOrdered By: Deborah Massey on 08-29-2024 Chloride [Moles/Vol] 98 mmol/L 98-108 [facility] GFR/1.73 sq M.predicted emory g non-blacks MDRD (S/P/Bld) [Vol rate/Area]Ordered By: Olvin Massey on 08-29-2024 Estimated GFR (MDRD) Non-Af Amer 83 >60 [facility] Comment on above: mL/min/1.73m2 CKD-EP I Creatinine Equation (2020) Potassium (Unsp spec) [Mass/ Vol]Ordered By: Olvin Massey on 08-29-2024 Potassium [Moles/Vol] 4.3 mmol/L 3.3-5.[address] [facility] Serum creatinine measurement (mass/volume)Ordered By: Olvin Massey on 08-29-2024 Creatinine [Mass/Vol] 1.07 mg/dL 0.70-1.[address] [facility] Serum glucose measurement (m ass/volume)Ordered By: Olvin Massey on 08-29-2024 Glucose [Mass/Vol] 90 mg/dL 70-99 [facility] Serum or plasma calcium jack urement (mass/volume)Ordered By: Olvin Massey on 08-29-2024 Calcium [Mass/Vol] 9.0 mg/dL 7.6-11.0 [facility] Serum or plasma urea nitroge n measurement (mass/volume)Ordered By: Olvin Massey on 08-29-2024 Urea nitrogen [Mass/Vol] 13 mg/dL 4-19 [facility] Sodium levelOrdered By: Olvin Massey on 08-29-2024 Sodium [Moles/Vol] 130 mmol/L Low 133-145 [facility] Abdomen/Pelvis W IV Cont ONL Yon 08-05-2024 Abdomen/Pelvis W IV Cont ONLY [facility] [address] [place], [place] [address] Abdomen/Pelvis W IV Cont ONLY MR#: [id number] Acct: [id number] Name: OLVIN JUAREZ Rep #: [id number] : 1970 M 53 From: Caitlin Jimenez nd, MD PCP: Dr. Olvin Massey MD Status: REG ER Study: Abdomen/Pelvis W IV Cont ONLY Date of Exam: Exam# [id number] Ordering Dr: Landon Allen DO PROCEDURE: ABDOMEN/PELVIS W IV CONT ONLY REASON FOR EXAM: 53-year-old male, abdominal pain. TECHNIQUE: Abdomen and pelvis CT with intravenous contrast. No oral contrast. IV CONTRAST: Administered. COMPARISON: CT abdomen pelvis 10/02/2018. FINDINGS: Lung bases: Trace bilateral pleural effusions and bibasilar atelectasis. Mild cardiomegaly. Liver: The liver is normal in size with scattered hepatic cysts. The major portal veins are patent. No biliary ductal dilation. Gallbladder: No radiopaque stones within the gallbladder. Spleen: Unremarkable. Pancreas: Unremarkable. Adrenals: Unremarkable. Kidneys: Small bilateral renal cysts. No hydronephrosis or nephrolithiasis. Bladder: Moderate diffuse thickening of the bladder wall. Reproductive Organs: Unremarkable. Bowel: The bowel loops are normal in caliber. Moderate retained fecal material throughout the sigmoid colon with circumferential mural thickening. No ascites or pneumoperitoneum. Normal appendix. Lymph nodes: No suspicious lymph node enlargement. Vasculature: Major vascular structures are unremarkable. Bones: Thoracolumbar spondylosis. CT/Abdomen/Pelvis W IV Cont ONLY IMPRESSION: 1. No acute abdominopelvic finding. 2. Moderate retained fecal material throughout the sigmoid colon with circumferential mural thickening, compatible with constipation. No evidence of ulceration or perforation. 3. Diffuse thickening of the urinary bladder, which may be secondary to incomplete distention, however infection can not be ruled out. Correlation with urinalysis recommended. 4. Mild cardiomegaly and trace pleural effusions, which may represent CHF/volume overload. One or more dose reduction techniques were used (e.g., Automated exposure control, adjustment of the mA and/or kV according to patient size, use of iterative reconstruction technique). Reading Location: [facility] CC: Dr. Landon Allen DO; Dr. Olvin Massey MD Mgmt Specialist: Signed Normal [facility] Absolute neutrophil countOrd ered By: Landon Allen on 08-05-2024 Neutrophils (Bld) [#/Vol] 6.1 10*3/uL 2.0-7.7 [facility] Alcohol, Blood (Medical)-Ser umon 08-05-2024 SERUM ETOH < 3.0 Normal [facility] Comment on above: Result Comment: The serum:whole blood ethanol ratio is approximately 1.14 and varies slightly with hematocrit. Medical Alcohol reference interval and critical value in non-tolerant individuals; 50 - 100 Impairment 100 Intoxication 100 - 250 Severe Poisoning 250 - 400 Deep/possible fatal coma Performed By: #### L 501.2450, L500.2500, L501.9100, L500.3400, L501.5200, L100.0100 #### [facility] [address] [place], [address] Amorphous sediment detection in urine sediment by light microscopyOrdered By: Landon Allen on 08-05-2024 Amorphous sediment LM Ql (Urine sed) 2+ [facility] Basic Metabolic Profile (BMP )on 08-05-2024 BUN/CRE 10.9 RATIO Normal 10-20 [facility] Comment on above: Performed By: #### L 501.2450, L500.2500, L501.9100, L500.3400, L501.5200, L100.0100 #### [facility] [address] [place], [address] CA,Total 9.1 mg/dL Normal 8.5-10.1 [facility] Comment on above: Performed By: #### L 501.2450, L500.2500, L501.9100, L500.3400, L501.5200, L100.0100 #### [facility] [address] [place], [address] Chloride [Moles/Vol] 107 mmol/L Normal 98-107 [facility] Comment on above: Performed By: #### L 501.2450, L500.2500, L501.9100, L500.3400, L501.5200, L100.0100 #### [facility] [address] [place], [address] CO2 [Moles/Vol] 27.0 mmol/L Normal 21.0-32.0 [facility] Comment on above: Performed By: #### L 501.2450, L500.2500, L501.9100, L500.3400, L501.5200, L100.0100 #### [facility] [address] [place], [address] Creatinine [Mass/Vol] 1.28 mg/dL Normal 0.70-1.[address] [facility] Comment on above: Result Comment: The validity of the calculated GFR GFRAA in patients over 70 years has not been determined. Clinical correlation is essential. Performed By: #### L 501.2450, L500.2500, L501.9100, L500.3400, L501.5200, L100.0100 #### [facility] [address] [place], [address] ECRCL 78.34 ml/min Normal [facility] Comment on above: Performed By: #### L 501.2450, L500.2500, L501.9100, L500.3400, L501.5200, L100.0100 #### [facility] [address] [place], [address] EST GFR - AA 75 mL/min Normal >60 [facility] Comment on above: Result Comment: Afri can Italian GFR Calc Performed By: #### L 501.2450, L500.2500, L501.9100, L500.3400, L501.5200, L100.0100 #### [facility] [address] [place], [address] GAP 6 Normal 5-15 [facility] Comment on above: Performed By: #### L 501.2450, L500.2500, L501.9100, L500.3400, L501.5200, L100.0100 #### [facility] [address] [place], [address] GFR/1.73 sq M.predicted among non-blacks MDRD (S/P/Bld) [Vol rate/Area] 62 mL/min/{1.73_m2} Normal >60 [facility] Comment on above: Result Comment: Non- GFR Calc Performed By: #### L 501.2450, L500.2500, L501.9100, L500.3400, L501.5200, L100.0100 #### [facility] [address] [place], [address] Glucose [Mass/Vol] 119 mg/dL High 74-106 [facility] Comment on above: Result Comment: Fast ing Glucose result from 100 to 125 mg/dL suggests IMPAIRED HOMEOSTASIS per A.D.A. criteria. Performed By: #### L 501.2450, L500.2500, L501.9100, L500.3400, L501.5200, L100.0100 #### [facility] [address] [place], [address] Potassium [Moles/Vol] 3.4 mmol/L Low 3.5-5.[address] [facility] Comment on above: Performed By: #### L 501.2450, L500.2500, L501.9100, L500.3400, L501.5200, L100.0100 #### [facility] [address] [place], [address] Sodium [Moles/Vol] 140 mmol/L Normal 136-145 [facility] Comment on above: Performed By: #### L 501.2450, L500.2500, L501.9100, L500.3400, L501.5200, L100.0100 #### [facility] [address] [place], [address] Urea nitrogen [Mass/Vol] 14 mg/dL Normal 7-18 [facility] Comment on above: Performed By: #### L 501.2450, L500.2500, L501.9100, L500.3400, L501.5200, L100.0100 #### [facility] [address] [place], [address] Basophil percentageOrdered B y: aLndon Allen on 08-05-2024 Basophils/100 WBC (Bld) 0.7 % 0-1 [facility] Bilirubin Test strip Ql (U)O rdered By: Landon Allen on 08-05-2024 Bilirubin Ql (U) Negative Negative [facility] Bilirubin directOrdered By: Landon Allen on 08-05-2024 Bilirubin.direct [Mass/Vol] 0.11 mg/dL 0.00-0.3 0 [facility] Bilirubin, totalOrdered By: Landon Allen on 08-05-2024 Bilirubin [Mass/Vol] 0.30 mg/dL 0.20-1.00 [facility] Comment on above: For patients on eltr ombopag therapy, use of Dimension [place] TBIL is not recommended. Blood urea nitrogen (BUN)/cr eatinine ratioOrdered By: Landon Allen on 08-05-2024 Urea nitrogen/Creatinine [Mass ratio] 10.9 mg/mg 10-20 [facility] Brain/Head without Contrasto n 08-05-2024 Brain/Head without Contrast [facility] Imaging Services [address] [place], [place] [address] Brain/Head without Contrast MR#: [id number] Acct: [id number] Name: OLVIN JUAREZ Rep #: [id number] : 1970 M 53 From: Caitlin Jimenez nd, MD PCP: Dr. Olvin Massey MD Status: [facility] Study: Brain/Head without Contrast Date of Exam: 07/21 12/12 Exam# [id number] Ordering Dr: Landon Allen DO EXAM: BRAIN/HEAD WITHOUT CONTRAST CLINICAL HISTORY: 53-year-old male, altered mental status. Increasing behavioral problems, history of bipolar and schizoaffective disorder. COMPARISON: CT head 07/10/2018. TECHNIQUE: Routine CT imaging of the head without IV contrast. Additional multiplanar reformats were obtained. Dose reduction techniques were used including intermediate exposure control (AEC),iterative reconstruction technique, and/or mA and/or KV dose adjustments based on patient's size. FINDINGS: Marked generalized cerebral and cerebellar volume loss with concordant prominence of the ventricles and subarachnoid spaces. There is overall a simplified gyral pattern throughout the cerebrum. The wade-white matter interfaces are maintained. No acute intracranial hemorrhage or herniation. The basal cisterns are patent. Improved near-complete opacification of the right frontal sinus and a few right ethmoid air cells. Mild mucosal thickening of the bilateral maxillary sinuses. The mastoid air cells are well-aerated. No acute calvarial fracture or scalp hematoma. CT/Brain/Head without Contrast IMPRESSION: Stable CT head. Congenital findings as described. Reading Location: [facility] CC: Dr. Landon Allen DO; Dr. Olvin Massey MD Mgmt Specialist: Signed Normal [facility] CBC W/Diff, Automatedon 07-21 Absolute Lymph 1.48 X10 3/uL Normal 0.83-4.51 [facility] Comment on above: Performed By: #### L 501.2450, L500.2500, L501.9100, L500.3400, L501.5200, L100.0100 #### [facility] [address] [place], [address] Absolute Neut 6.1 X10 3/uL Normal 2.0-7.7 [facility] Comment on above: Performed By: #### L 501.2450, L500.2500, L501.9100, L500.3400, L501.5200, L100.0100 #### [facility] [address] [place], [address] Basophils/100 WBC (Bld) 0.7 % Normal 0-1 [facility] Comment on above: Performed By: #### L 501.2450, L500.2500, L501.9100, L500.3400, L501.5200, L100.0100 #### [facility] [address] [place], [address] Eosinophils/100 WBC (Bld) 0.1 % Normal 0-5 [facility] Comment on above: Performed By: #### L 501.2450, L500.2500, L501.9100, L500.3400, L501.5200, L100.0100 #### [facility] [address] [place], [address] Erythrocyte distribution width (RBC) [Ratio] 13.2 % Normal 11.6-14.6 [facility] Comment on above: Performed By: #### L 501.2450, L500.2500, L501.9100, L500.3400, L501.5200, L100.0100 #### [facility] [address] [place], [address] Hematocrit (Bld) [Volume fraction] 40.6 % Normal 40-54 [facility] Comment on above: Performed By: #### L 501.2450, L500.2500, L501.9100, L500.3400, L501.5200, L100.0100 #### [facility] [address] [place], [address] Hemoglobin (Bld) [Mass/Vol] 13.3 g/dL Normal 13.0-16. 5 [facility] Comment on above: Performed By: #### L 501.2450, L500.2500, L501.9100, L500.3400, L501.5200, L100.0100 #### [facility] [address] [place], [address] IG% 0.400 Normal 0.0-0.9 [facility] Comment on above: Result Comment: IG% - Immature Granulocytes (promyelocytes, myelocytes and metamyelocytes) > 1% indicates that a LEFT SHIFT is Present. Performed By: #### L 501.2450, L500.2500, L501.9100, L500.3400, L501.5200, L100.0100 #### [facility] [address] [place], [address] Lymphocytes/100 WBC (Bld) 17.9 % Low 19-41 [facility] Comment on above: Performed By: #### L 501.2450, L500.2500, L501.9100, L500.3400, L501.5200, L100.0100 #### [facility] [address] [place], [address] MCH (RBC) [Entitic mass] 29.7 pg Normal 27.0-32.0 [facility] Comment on above: Performed By: #### L 501.2450, L500.2500, L501.9100, L500.3400, L501.5200, L100.0100 #### [facility] [address] [place], [address] MCHC (RBC) [Mass/Vol] 32.8 g/dL Normal 32-[address] [facility] Comment on above: Performed By: #### L 501.2450, L500.2500, L501.9100, L500.3400, L501.5200, L100.0100 #### [facility] [address] [place], [address] MCV (RBC) [Entitic vol] 90.6 fL Normal 80-94 [facility] Comment on above: Performed By: #### L 501.2450, L500.2500, L501.9100, L500.3400, L501.5200, L100.0100 #### [facility] [address] [place], [address] Monocytes/100 WBC (Bld) 7.4 % Normal 0-10 [facility] Comment on above: Performed By: #### L 501.2450, L500.2500, L501.9100, L500.3400, L501.5200, L100.0100 #### [facility] [address] [place], [address] Neutrophils/100 WBC (Bld) 73.5 % High 47-70 [facility] Comment on above: Performed By: #### L 501.2450, L500.2500, L501.9100, L500.3400, L501.5200, L100.0100 #### [facility] [address] [place], [address] Nucleated RBC (Bld) [#/Vol] 0 10*3/uL Normal 0-5 [facility] Comment on above: Performed By: #### L 501.2450, L500.2500, L501.9100, L500.3400, L501.5200, L100.0100 #### [facility] [address] [place], [address] Platelet mean volume (Bld) [Entitic vol] 9.0 fL Normal 6.2-12.0 [facility] Comment on above: Performed By: #### L 501.2450, L500.2500, L501.9100, L500.3400, L501.5200, L100.0100 #### [facility] [address] [place], [address] Platelets (Bld) [#/Vol] 261 10*3/uL Normal 150-450 [facility] Comment on above: Performed By: #### L 501.2450, L500.2500, L501.9100, L500.3400, L501.5200, L100.0100 #### [facility] [address] [place], [address] RBC (Bld) [#/Vol] 4.48 10*6/uL Low 4.6-6.2 [facility] Comment on above: Performed By: #### L 501.2450, L500.2500, L501.9100, L500.3400, L501.5200, L100.0100 #### [facility] [address] [place], [address] RDW SD 43.5 fl Normal 35.1-43.9 [facility] Comment on above: Performed By: #### L 501.2450, L500.2500, L501.9100, L500.3400, L501.5200, L100.0100 #### [facility] [address] [place], [address] WBC (Bld) [#/Vol] 8.3 10*3/uL Normal 4.4-11.0 [facility] Comment on above: Performed By: #### L 501.2450, L500.2500, L501.9100, L500.3400, L501.5200, L100.0100 #### [facility] [address] [place], [address] Carbon dioxide measurementOr dered By: Landon Allen on 08-05-2024 CO2 [Moles/Vol] 27.0 mmol/L 21.0-32.0 [facility] Chest 1 View (Portable)on Chest 1 View (Portable) [facility] Services [address] [place], [place] [address] Chest 1 View (Portable) MR#: [id number] Acct: [id number] Name: OLVIN JUAREZ Rep #: [id number] : 1970 M 53 From: Caitlin Jimenez nd, MD PCP: Dr. Olvin Massey MD Status: REG ER Study: Chest 1 View (Portable) Date of Exam: 08/05/24 Exam# [id number] Ordering Dr: Landon Allen DO PROCEDURE: CHEST 1 VIEW (PORTABLE) REASON FOR EXAM: 53-year-old male, altered mental status. TECHNIQUE: Frontal view of the chest. COMPARISON: Same day CT abdomen pelvis, chest radiograph 07/10/2018. FINDINGS: Heart size is mildly enlarged. Low lung volumes bilaterally. Trace bilateral pleural effusions. No focal consolidation or pneumothorax. The bones are unremarkable. RAD/Chest 1 View (Portable) IMPRESSION: Findings of mild CHF/volume overload. Reading Location: [facility] CC: Dr. Landon Allen DO; Dr. Olvin Massey MD Mgmt Specialist: Signed Normal [facility] Chloride measurementOrdered By: Landon Allen on 08-05-2024 Chloride [Moles/Vol] 107 mmol/L 98-107 [facility] Emergency Department Summary on 08-05-2024 Emergency Department Summary [facility] Medical Records Department [address] [place] [address] Emergency Department Summary 08/05/24 MR#: [id number] Acct: [id number] Name: OLVIN JUAREZ Rep #: [id number] : 1970 53 From: Landon Allen DO PCP: Dr. Olvin Massey MD Status:REG ER Location: ED ADDENDUM by Dr. Brian Reyes DO on 08/05/24 at 2250 Care of the patient was turned over to me. Patient was accepted to [place]. Thinks it was filled out. Patient remained calm and cooperative. Care of the patient will be turned over to the oncoming physician pending transfer. 08/05/24 2250 Cosigner Signature (if applicable): cc: Dr. Olvin Massey MD * Signed HPI History of Present Illness Chief Complaint: Mental Health Informant: patient, EMS and SNF Narrative Narrative: 53-year-old male from [facility] presenting to the emergency room with abnormal behavior. Patient has a history of schizoaffective disorder, bipolar, OCD, mild cognitive impairment, schizoaffective disorder. He has a history of seizure disorder as well He also has a history of hyponatremia and is on a fluid restricted diet. residential provider notes the patient has been more confused from his baseline. Send of using his wheelchair to move around he has been crawling on the floor. He attempted to strike staff members. He notes an intermittent abdominal pain. Patient states he feels okay currently. He notes that he had fruit loops for breakfast. There was no report of new or medications. Apparently this morning was not the first time that he had change in behavior. There is a provider at the skilled facility that makes psychiatric medication changes but that person is not working for the next couple weeks due to a medical leave of absence. There was concern that the patient may be overmedicated. PFSH PFSH Home Medications ???Medication ???Instructions ???Recorded ???Last Taken ???Type docusate sodium 100 mg capsule 100 mg PO DAILY 02/24/16 Unknown H istory (DOK) levetiracetam 500 mg tablet 1,000 mg PO BREAKFAST 02/24/16 Unk nown History lorazepam 1 mg tablet 1 mg PO QHS 02/24/16 Unknown Histo ry sennosides 8.8 mg/5 mL oral syrup 2 tab PO BID 02/24/16 Unknown His tory (Senexon) zonisamide 100 mg capsule 200 mg PO BID 02/24/16 Unknown His tory (Zonegran) aspirin 81 mg tablet,delayed 81 mg PO DAILY 07/10/18 Unknown Hi story release (Aspir-Low) levetiracetam 500 mg tablet 1,500 mg PO LUNCH 07/10/18 Unknown History magnesium hydroxide 400 mg/5 mL 30 ml PO DAILY PRN PRN Constipatio n 07/10/18 Unknown History oral suspension nystatin 100,000 unit/gram topical 1 applic TP Q12H PRN PRN redness 07/10/18 Unknown History powder (Nystop) and irritation amlodipine 5 mg tablet 5 mg PO DAILY 08/05/24 Unknown His tory fluvoxamine 100 mg tablet 100 mg PO BID 08/05/24 Unknown His tory loratadine 10 mg capsule (Allergy 10 mg PO DAILY 08/05/24 Unknown H istory Relief (loratadine)) tamsulosin 0.4 mg capsule 0.4 mg PO Q24H 08/05/24 Unknown Hi story Allergy/AdvReac Type Severity Reaction Status Date / Time venom-honey bee (bee venom Allergy Unknown Verified 08/05/24 08:54 (honey bee)) Social History Smoking Status: Never smoker ROS ROS ED Constitutional Constitutional ED: Denies chills or weight loss Eyes Eyes: Denies change in vision or diplopia ENT ENT ED: Denies ear pain, rhinorrhea or sore throat Cardiovascular Cardiovascular: Denies chest pain, orthopnea, palpitations or racing heartbeat Respiratory/Chest Respiratory/Chest: Denies cough, dyspnea or orthopnea Gastrointestinal Gastrointestinal: Reports abdominal pain; Denies diarrhea, nausea or vomiting Genitourinary Genitourinary ED: Denies dysuria, hematuria or urinary frequency Musculoskeletal Musculoskeletal: Denies arthralgias or myalgias Integumentary Denies abscess or rash Neurologic Neurologic: Reports other Details: Confusion behavioral changes ; Denies headache(s) or weakness Psychiatric Psychiatric: Reports depression; Denies anxiety, suicidal ideation or suicidal thoughts Endocrine Endocrinology: Denies polydipsia, polyphagia or polyuria Allergic/Immunologic Allergic/Immunologic ED: Denies mouth swelling, tongue swelling or urticaria EXAM Physical Exam Const Vital Signs: 08/05/24 08:54 08/05/24 11:28 08/05/24 13:00 Temperature 98.6 F Temperature Source Oral Pulse Rate 96 65 Respiratory Rate 14 15 Blood Pressure 98/65 104/62 101/74 Blood Pressure Mean 76 76 83 Pulse Ox 95 98 Oxygen Delivery Method Room Air Room Air Positive well nourished, well developed and obese General Appearance ED: well developed and NAD Nutritional Appearance: obese (more content not included)... Normal [facility] Eosinophil percentageOrdered By: Landon Allen on 08-05-2024 Eosinophils/100 WBC (Bld) 0.1 % 0-5 [facility] Epithelial cells.squamous LM Ql (Urine sed)Ordered By: Landon Allen on 08-05-2024 Epithelial cells.squamous LM.HPF (Urine sed) [#/Area] 0 /[HPF] 0-5 [facility] Erythrocyte distribution wid th (RBC) [Ratio]Ordered By: Landon Allen on 08-05-2024 Erythrocyte distribution width (RBC) [Entitic vol] 43.5 fL 35.1-43.9 [facility] Erythrocyte distribution wid th ratioOrdered By: Landon Allen on 08-05-2024 Erythrocyte distribution width (RBC) [Ratio] 13.2 % 11.6-14.6 [facility] Estimated glomerular filtrat ion rate (GFR) AmericanOrdered By: Landon Allen on 08-05-2024 Estimated GFR (MDRD) Amer 75 mL/min >60 [facility] Comment on above: GFR Calc Estimation of creatinine rodriguez aranceOrdered By: Landon Allen on 08-05-2024 Estimated Creatinine Clearance Calc 78.34 ml/min [facility] Glomerular filtration rate ( GFR) estimationOrdered By: Landon Allen on 08-05-2024 Estimated GFR (MDRD) Non-Af Amer 62 mL/min >60 [facility] Comment on above: Non- GFR Calc Glucose Ql (U)Ordered By: Nehemiah Allen on 08-05-2024 Urine Glucose (UA) Normal mg/dl Normal [facility] Glucose measurementOrdered B y: Landon Allen on 08-05-2024 Glucose [Mass/Vol] 119 mg/dL High 74-106 [facility] Comment on above: Fasting Glucose resu lt from 100 to 125 mg/dL suggests IMPAIRED HOMEOSTASIS per A.D.A. criteria. Hematocrit Auto (Bld) [Volum e fraction]Ordered By: Landon Allen on 08-05-2024 Hematocrit (Bld) [Volume fraction] 40.6 % 40-54 [facility] Hemoglobin measurementOrdere d By: Landon Allen on 08-05-2024 Hemoglobin (Bld) [Mass/Vol] 13.3 g/dL 13.0-16. 5 [facility] Immature granulocytes/100 WB C Auto (Bld)Ordered By: Landon Allen on 08-05-2024 Immature granulocytes/100 WBC (Bld) 0.400 % 0.0-0.9 [facility] Comment on above: IG% - Immature Granu locytes (promyelocytes, myelocytes and metamyelocytes) > 1% indicates that a LEFT SHIFT is Present. Ketones Test strip Ql (U)Ord ered By: Landon Allen on 08-05-2024 Ketones Ql (U) Negative Negative [facility] Laboratory - Chemistry and C hemistry - challengeOrdered By: Landon Allen on 08-05-2024 AST [Catalytic activity/Vol] 15 U/L 15-37 [facility] Lipaseon 08-05-2024 Lipase [Catalytic activity/Vol] 27 U/L Low 73-393 [facility] Comment on above: Performed By: #### L 500.2500, L100.0500 #### [facility] Laboratory [address] [place], [place] [address], [address] Lipase measurementOrdered By : Landon Allen on 08-05-2024 Lipase [Catalytic activity/Vol] 27 U/L Low 73-393 [facility] Liver Profileon 08-05-2024 Albumin [Mass/Vol] 3.3 g/dL Normal 3.2-5.0 [facility] Comment on above: Performed By: #### L 500.2500, L100.0500 #### [facility] [address] [place], [address] ALK P 210 U/L High 45-117 [facility] Comment on above: Performed By: #### L 500.2500, L100.0500 #### [facility] [address] [place], [address] ALT [Catalytic activity/Vol] 28 U/L Normal 16-61 [facility] Comment on above: Performed By: #### L 500.2500, L100.0500 #### [facility] [address] [place], [address] AST [Catalytic activity/Vol] 15 U/L Normal 15-37 [facility] Comment on above: Performed By: #### L 500.2500, L100.0500 #### [facility] [address] [place], [address] Bilirubin [Mass/Vol] 0.30 mg/dL Normal 0.20-1.00 [facility] Comment on above: Result Comment: For patients on eltrombopag therapy, use of Dimension [place] TBIL is not recommended. Performed By: #### L 500.2500, L100.0500 #### [facility] [address] [place], [address] Bilirubin.direct [Mass/Vol] 0.11 mg/dL Normal 0.00-0.3 0 [facility] Comment on above: Performed By: #### L 500.2500, L100.0500 #### [facility] [address] [place], [address] Globulin (S) [Mass/Vol] 4.3 g/dL High 2.2-4.2 [facility] Comment on above: Performed By: #### L 500.2500, L100.0500 #### [facility] [address] [place], [address] T PROT 7.6 g/dL Normal 6.4-8.2 [facility] Comment on above: Performed By: #### L 500.2500, L100.0500 #### [facility] [address] [place], [address] Lymphocytes Auto (Unsp spec) [#/Vol]Ordered By: Landon Allen on 08-05-2024 Lymphocytes (Bld) [#/Vol] 1.48 10*3/uL 0.83-4.5 1 [facility] Lymphocytes/100 WBC Auto (Un sp spec)Ordered By: Landon Allen on 08-05-2024 Lymphocytes/100 WBC (Bld) 17.9 % Low 19-41 [facility] MCV (mean corpuscular volume ) determinationOrdered By: Landon Allen on 08-05-2024 MCV (RBC) [Entitic vol] 90.6 fL 80-94 [facility] Magnesiumon 08-05-2024 Magnesium [Mass/Vol] 2.5 mg/dL Normal 1.6-2.6 [facility] Comment on above: Performed By: #### L 500.2500, L100.0500 #### [facility] [address] [place], [address] Magnesium measurementOrdered By: Landon Allen on 08-05-2024 Magnesium [Mass/Vol] 2.5 mg/dL 1.6-2.6 [facility] Mean corpuscular hemoglobin (MCH) determinationOrdered By: Landon Allen on 08-05-2024 MCH (RBC) [Entitic mass] 29.7 pg 27.0-32.0 [facility] Mean corpuscular hemoglobin concentration (MCHC) determinationOrdered By: Landon Allen on 08-05-2024 MCHC (RBC) [Mass/Vol] 32.8 g/dL 32-[address] [facility] Mean platelet volume determi nationOrdered By: Landon Allen on 08-05-2024 Platelet mean volume (Bld) [Entitic vol] 9.0 fL 6.2-12.0 [facility] Methadone, urineOrdered By: Landon Allen on 08-05-2024 Urine Methadone Screen Negative < 300 ng/mL [facility] Microscopic analysis of urin e for red blood cells (RBC)Ordered By: Ladnon Allen on 08-05-2024 Urine RBC 0 SEEN /hpf 0-5 [facility] Monocyte percentageOrdered B y: Landon Allen on 08-05-2024 Monocytes/100 WBC (Bld) 7.4 % 0-10 [facility] Mucus LM Ql (Urine sed)Order ed By: Landon Allen on 08-05-2024 Mucus Ql (Urine sed) 0 SEEN /hpf [facility] Neutrophil percentageOrdered By: Landon Allen on 08-05-2024 Neutrophils/100 WBC (Bld) 73.5 % High 47-70 [facility] Nitrite Test strip Ql (U)Ord ered By: Landon Allen on 08-05-2024 Nitrite Ql (U) Negative Negative [facility] No Panel InformationOrdered By: Landon Allen on 08-05-2024 Urine Drug Screen Comment [facility] Comment on above: CONFIRMATORY TESTING FOR ALL POSITIVE URINE DRUG SCREENRESULTS WILL ONLY BE SENT OUT UPON PHYSICIAN ORDER. VISTA Urine Drug Screen methods provide only preliminaryanalytical test results. A more specific alternate chemicalmethod must be used in order to obtain a confirmedanalytical result. Gas chromatography/mass spectrometery(GC/MS) is the preferred confirmatory method. Clinicalconsideration and professional judgement should be appliedto any drug of abuse test result, particularly whenpreliminary positive results are used. URINE TCA TESTING MUST BE ORDERED SEPARATELY. USE TESTMNEMONIC: [facility] Nucleated red blood cell per centageOrdered By: Landon Allen on 08-05-2024 Nucleated RBC/100 WBC (Bld) [Ratio] 0 % 0-5 [facility] Platelet countOrdered By: Nehemiah Allen on 08-05-2024 Platelets (Bld) [#/Vol] 261 10*3/uL 150-450 [facility] Potassium measurementOrdered By: Landon Allen on 08-05-2024 Potassium [Moles/Vol] 3.4 mmol/L Low 3.5-5.[address] [facility] Protein Test strip Ql (U)Ord ered By: Landon Allen on 08-05-2024 Protein Ql (U) Negative Negative [facility] Quantitative urine opiates m easurementOrdered By: Landon Allen on 08-05-2024 Opiates Ql (U) Negative < 300 ng/mL [facility] RBC Auto (Bld) [#/Vol]Ordere d By: Landon Allen on 08-05-2024 RBC (Bld) [#/Vol] 4.48 10*6/uL Low 4.6-6.2 [facility] Serum anion gap measurementO rdered By: Landon Allen on 08-05-2024 Anion gap [Moles/Vol] 6 mmol/L 5-[address] [facility] Serum ethanol measurementOrd ered By: Landon Allen on 08-05-2024 Ethyl Alcohol Level < 3.0 mg/dL [facility] Comment on above: The serum:whole bloo d ethanol ratio is approximately 1.14and varies slightly with hematocrit. Medical Alcohol reference interval and critical value innon-tolerant individuals; 50 - 100 Impairment 100 Intoxication 100 - 250 Severe Poisoning 250 - 400 Deep/possible fatal coma Serum globulin measurementOr dered By: Landon Allen on 08-05-2024 Globulin (S) [Mass/Vol] 4.3 g/dL High 2.2-4.2 [facility] Serum or plasma alanine chavez otransferase (ALT) measurementOrdered By: Landon Allen on 08-05-2024 ALT [Catalytic activity/Vol] 28 U/L [facility] Serum or plasma albumin jack urement (mass/volume)Ordered By: Landon Allen on 08-05-2024 Albumin [Mass/Vol] 3.3 g/dL 3.2-5.0 [facility] Serum or plasma alkaline nazia sphatase measurementOrdered By: Landon Allen on 08-05-2024 ALP [Catalytic activity/Vol] 210 U/L High 45-117 [facility] Serum or plasma calcium jack urement (mass/volume)Ordered By: Landon Allen on 08-05-2024 Calcium [Mass/Vol] 9.1 mg/dL 8.5-10.1 [facility] Serum or plasma creatinine m easurement (mass/volume)Ordered By: Landon Allen on 08-05-2024 Creatinine [Mass/Vol] 1.28 mg/dL 0.70-1.[address] [facility] Comment on above: The validity of the calculated GFR & GFRAA in patients over 70 years has not been determined. Clinical correlation is essential. Serum or plasma urea nitroge n measurement (mass/volume)Ordered By: Landon Allen on 08-05-2024 Urea nitrogen [Mass/Vol] 14 mg/dL 7-18 [facility] Sodium levelOrdered By: Wm Allen on 08-05-2024 Sodium [Moles/Vol] 140 mmol/L 136-145 [facility] Total proteinOrdered By: James Allen on 08-05-2024 Protein [Mass/Vol] 7.6 g/dL 6.4-8.2 [facility] Urinalysis, Completeon 08-05 AMORPHOUS 2+ Normal [facility] Comment on above: Order Comment: CLEAN CATCH Performed By: #### L 400.0001 #### [facility] [address] [place], [address] RBC 0 SEEN Normal 0-5 [facility] Comment on above: Order Comment: CLEAN CATCH Performed By: #### L 400.0001 #### [facility] [address] [place], [address] WBC 5-10 SEEN Normal 0-5 [facility] Comment on above: Order Comment: CLEAN CATCH Performed By: #### L 400.0001 #### [facility] [address] [place], [address] BACTERIA 0 SEEN Normal None Seen [facility] Comment on above: Order Comment: CLEAN CATCH Performed By: #### L 400.0001 #### [facility] [address] [place], [address] EPI,SQUAMOUS 0 SEEN Normal 0-5 [facility] Comment on above: Order Comment: CLEAN CATCH Performed By: #### L 400.0001 #### [facility] [address] [place], [address] Mucus Ql (Urine sed) 0 SEEN Normal [facility] Comment on above: Order Comment: CLEAN CATCH Performed By: #### L 400.0001 #### [facility] [address] [place], [place], [facility] Urine Drug Screen (VISTA)on 08-05-2024 AMPHETAMINES Negative Normal <1000 ng/mL [facility] Comment on above: Performed By: #### L 500.2500, L100.0500 #### [facility] [address] [place], [place], [facility] BARBITIURATES Negative Normal < 200 ng/mL [facility] Comment on above: Performed By: #### L 500.2500, L100.0500 #### [facility] [address] [place], [place], [facility] BENZODIAZIPINE Negative Normal < 200 ng/mL [facility] Comment on above: Performed By: #### L 500.2500, L100.0500 #### [facility] [address] [place], [place], [facility] COCAINE Negative Normal < 300 ng/mL [facility] Comment on above: Performed By: #### L 500.2500, L100.0500 #### [facility] [address] [place], [address] ECSTACY Negative Normal < 500 ng/mL [facility] Comment on above: Performed By: #### L 500.2500, L100.0500 #### [facility] [address] [place], [address] METHADONE Negative Normal < 300 ng/mL [facility] Comment on above: Performed By: #### L 500.2500, L100.0500 #### [facility] [address] [place], [address] OPIATES Negative Normal < 300 ng/mL [facility] Comment on above: Performed By: #### L 500.2500, L100.0500 #### [facility] [address] [place], [address] PCP Negative Normal < 25 ng/mL [facility] Comment on above: Performed By: #### L 500.2500, L100.0500 #### [facility] [address] [place], [address] THC Negative Normal < 50 ng/mL [facility] Comment on above: Performed By: #### L 500.2500, L100.0500 #### [facility] [address] [place], [address] VISTA UDS PH 7 Normal [facility] Comment on above: Performed By: #### L 500.2500, L100.0500 #### [facility] [address] [place], [address] Urine amphetamine measuremen tOrdered By: Landon Allen on 08-05-2024 Amphetamines Ql (U) Negative <1000 ng/mL [facility] Urine barbiturates measureme ntOrdered By: Landon Allen on 08-05-2024 Urine Barbiturates Screen Negative < 200 ng/mL [facility] Urine benzodiazepine levelOr dered By: Landon Allen on 08-05-2024 Benzodiazepines Ql (U) Negative < 200 ng/mL [facility] Urine blood detectionOrdered By: Landon Allen on 08-05-2024 Urine Occult Blood Negative Negative [facility] Urine clarityOrdered By: James Allen on 08-05-2024 Clarity (U) Cloudy Clear [facility] Urine cocaine levelOrdered B y: Landon Allen on 08-05-2024 Cocaine Ql (U) Negative < 300 ng/mL [facility] Urine color determinationOrd ered By: Landon Allen on 08-05-2024 Color (U) Yellow Yellow [facility] Urine aizkt-0-irdwcwvtvauoyd abinol (THC) measurementOrdered By: Landon Allen on 08-05-2024 Cannabinoids Screen Ql (U) Negative < 50 ng/m L [facility] Urine leukocyte esterase det ection by dipstickOrdered By: Landon Allen on 08-05-2024 Leukocyte esterase Test strip Ql (U) 100 /ul High Negative [facility] Urine methylenedioxymethamph etamine (MDMA) measurementOrdered By: Landon Allen on 08-05-2024 MDMA (Ecstasy) Screen Negative < 500 ng/mL [facility] Urine pHOrdered By: Landon saunders on 08-05-2024 pH (U) 8.0 [pH] 5.0 - 8.0 [facility] Urine phencyclidine (PCP) de tectionOrdered By: Landon Allen on 08-05-2024 Phencyclidine Ql (U) Negative < 25 ng/mL [facility] Urine sediment bacteria coun t by microscopy (number/high power field)Ordered By: Landon Allen on 08-05-2024 Bacteria LM.HPF (Urine sed) [#/Area] 0 /[HPF] None Seen [facility] Urine specific gravity measu rementOrdered By: Landon Allen on 08-05-2024 Specific gravity (U) [Rel density] 1.010 1.002-1.03 0 [facility] Urobilinogen Ql (U)Ordered B y: Landon Allen on 08-05-2024 Urine Urobilinogen Normal mg/dl Normal [facility] White blood cell (WBC) count Ordered By: Landon Allen on 08-05-2024 WBC (Bld) [#/Vol] 8.3 10*3/uL 4.4-11.0 [facility] White blood cell countOrdere d By: Landon Allen on 08-05-2024 Urine WBC 5-10 SEEN /hpf 0-5 [facility] Automated blood erythrocyte countOrdered By: Olvin Massey on 07-20-2024 RBC (Bld) [#/Vol] 4.31 10*6/uL Low 4.6-6.2 [facility] Comment on above: Order Comment: 119-1 Performed By: #### L 500.2500, L100.0500 #### [facility] [address] [place], [address] Automated blood hematocrit ( percentage)Ordered By: Olvin Massey on 07-20-2024 Hematocrit (Bld) [Volume fraction] 37.6 % Low 40-54 [facility] Comment on above: Order Comment: 119-1 Performed By: #### L 500.2500, L100.0500 #### [facility] [address] [place], [address] Basic Metabolic Profile (BMP )on 07-20-2024 BUN/CRE 15.1 RATIO Normal 10-20 [facility] Comment on above: Order Comment: 119-1 Performed By: #### L 500.2500, L100.0500 #### [facility] [address] [place], [address] CA,Total 8.9 mg/dL Normal 8.5-10.1 [facility] Comment on above: Order Comment: 119-1 Performed By: #### L 500.2500, L100.0500 #### [facility] [address] [place], [address] EST GFR - AA 82 mL/min Normal >60 [facility] Comment on above: Order Comment: 119-1 Result Comment: Afri can Italian GFR Calc Performed By: #### L 500.2500, L100.0500 #### [facility] [address] [place], [address] GAP 5 Normal 5-15 [facility] Comment on above: Order Comment: 119-1 Performed By: #### L 500.2500, L100.0500 #### [facility] [address] [place], [address] GFR/1.73 sq M.predicted among non-blacks MDRD (S/P/Bld) [Vol rate/Area] 68 mL/min/{1.73_m2} Normal >60 [facility] Comment on above: Order Comment: Result Comment: Non- GFR Calc Performed By: #### L 500.2500, L100.0500 #### [facility] [address] [place], [address] Blood urea nitrogen (BUN)/cr eatinine ratioOrdered By: Olvin Massey on 07-20-2024 Urea nitrogen/Creatinine [Mass ratio] 15.1 mg/mg 10-20 [facility] CBC-Complete Blood Cnt No Di ffon 07-20-2024 RDW SD 40.2 fl Normal 35.1-43.9 [facility] Comment on above: Order Comment: Performed By: #### L 500.2500, L100.0500 #### [facility] [address] [place], [address] Carbon dioxide measurementOr dered By: Olvin Massey on 07-20-2024 CO2 [Moles/Vol] 24.0 mmol/L Normal 21.0-32.0 [facility] Comment on above: Order Comment: Performed By: #### L 500.2500, L100.0500 #### [facility] [address] [place], [address] Chloride measurementOrdered By: Olvin Massey on 07-20-2024 Chloride [Moles/Vol] 107 mmol/L Normal 98-107 [facility] Comment on above: Order Comment: Performed By: #### L 500.2500, L100.0500 #### [facility] [address] [place], [address] Erythrocyte distribution wid th (RBC) [Ratio]Ordered By: Olvin Massey on 07-20-2024 Erythrocyte distribution width (RBC) [Entitic vol] 40.2 fL 35.1-43.9 [facility] Erythrocyte distribution wid th ratioOrdered By: Olvin Massey on 07-20-2024 Erythrocyte distribution width (RBC) [Ratio] 12.6 % Normal 11.6-14.6 [facility] Comment on above: Order Comment: 119-1 Performed By: #### L 500.2500, L100.0500 #### [facility] [address] [place], [place], [address] Estimated glomerular filtrat ion rate (GFR) AmericanOrdered By: Olvin Massey on 07-20-2024 Estimated GFR (MDRD) Amer 82 mL/min >60 [facility] Comment on above: GFR Calc Glomerular filtration rate ( GFR) estimationOrdered By: Olvin Massey on 07-20-2024 Estimated GFR (MDRD) Non-Af Amer 68 mL/min >60 [facility] Comment on above: Non- GFR Calc Glucose measurementOrdered B y: Olvin Massey on 07-20-2024 Glucose [Mass/Vol] 100 mg/dL Normal 74-106 [facility] Comment on above: Fasting Glucose resu lt from 100 to 125 mg/dL suggests IMPAIRED HOMEOSTASIS per A.D.A. criteria. Order Comment: 119- Result Comment: Fast ing Glucose result from 100 to 125 mg/dL suggests IMPAIRED HOMEOSTASIS per A.D.A. criteria. Performed By: #### L 500.2500, L100.0500 #### [facility] [address] [place], [place], [id number] Hemoglobin measurementOrdere d By: Olvin Massey on 07-20-2024 Hemoglobin (Bld) [Mass/Vol] 12.8 g/dL Low 13.0-16. 5 [facility] Comment on above: Order Comment: 119-1 Performed By: #### L 500.2500, L100.0500 #### [facility] [address] [place], [address] MCV (mean corpuscular volume ) determinationOrdered By: Olvin Massey on 07-20-2024 MCV (RBC) [Entitic vol] 87.2 fL Normal 80-94 [facility] Comment on above: Order Comment: 119-1 Performed By: #### L 500.2500, L100.0500 #### [facility] [address] [place], [address] Mean corpuscular hemoglobin (MCH) determinationOrdered By: Olvin Massey on 07-20-2024 MCH (RBC) [Entitic mass] 29.7 pg Normal 27.0-32.0 [facility] Comment on above: Order Comment: 119-1 Performed By: #### L 500.2500, L100.0500 #### [facility] [address] [place], [address] Mean corpuscular hemoglobin concentration (MCHC) determinationOrdered By: Olvin Massey on 07-20-2024 MCHC (RBC) [Mass/Vol] 34.0 g/dL Normal 32-[address] [facility] Comment on above: Order Comment: 119-1 Performed By: #### L 500.2500, L100.0500 #### [facility] [address] [place], [address] Mean platelet volume determi nationOrdered By: Olvin Massey on 07-20-2024 Platelet mean volume (Bld) [Entitic vol] 8.6 fL Normal 6.2-12.0 [facility] Comment on above: Order Comment: 119-1 Performed By: #### L 500.2500, L100.0500 #### [facility] [address] [place], [address] Platelet countOrdered By: Deborah Massey on 07-20-2024 Platelets (Bld) [#/Vol] 266 10*3/uL Normal 150-450 [facility] Comment on above: Order Comment: 119-1 Performed By: #### L 500.2500, L100.0500 #### [facility] [address] [place], [address] Potassium measurementOrdered By: Olvin Massey on 07-20-2024 Potassium [Moles/Vol] 3.7 mmol/L Normal 3.5-5.[address] [facility] Comment on above: Order Comment: 119-1 Performed By: #### L 500.2500, L100.0500 #### [facility] [address] [place], [place], [id number] Serum anion gap measurementO rdered By: Olvin Massey on 07-20-2024 Anion gap [Moles/Vol] 5 mmol/L 5-[address] [facility] Serum or plasma calcium jack urement (mass/volume)Ordered By: Olvin Massey on 07-20-2024 Calcium [Mass/Vol] 8.9 mg/dL 8.5-10.1 [facility] Serum or plasma creatinine m easurement (mass/volume)Ordered By: Olvin Massey on 07-20-2024 Creatinine [Mass/Vol] 1.19 mg/dL Normal 0.70-1.[address] [facility] Comment on above: The validity of the calculated GFR & GFRAA in patients over 70 years has not been determined. Clinical correlation is essential. Order Comment: 119- Result Comment: The validity of the calculated GFR GFRAA in patients over 70 years has not been determined. Clinical correlation is essential. Performed By: #### L 500.2500, L100.0500 #### [facility] [address] [place], [address] Serum or plasma urea nitroge n measurement (mass/volume)Ordered By: Olvin Massey on 07-20-2024 Urea nitrogen [Mass/Vol] 18 mg/dL Normal 7-18 [facility] Comment on above: Order Comment: 119-1 Performed By: #### L 500.2500, L100.0500 #### [facility] [address] [place], [address] Sodium levelOrdered By: Olvin Massey on 07-20-2024 Sodium [Moles/Vol] 136 mmol/L Normal 136-145 [facility] Comment on above: Order Comment: 119-1 Performed By: #### L 500.2500, L100.0500 #### [facility] [address] [place], [address] White blood cell (WBC) count Ordered By: Olvin Massey on 07-20-2024 WBC (Bld) [#/Vol] 6.6 10*3/uL Normal 4.4-11.0 [facility] Comment on above: Order Comment: 119-1 Performed By: #### L 500.2500, L100.0500 #### [facility] [address] [place], [address] Basic Metabolic Profile (BMP )on 07-16-2024 BUN/CRE 7.5 RATIO Low 10-20 [facility] Comment on above: Order Comment: 119-1 Performed By: #### L 500.2500, L100.0500 #### [facility] [address] [place], [address] CA,Total 9.0 mg/dL Normal 8.5-10.1 [facility] Comment on above: Order Comment: 119-1 Performed By: #### L 500.2500, L100.0500 #### [facility] [address] [place], [address] Chloride [Moles/Vol] 94 mmol/L Low 98-107 [facility] Comment on above: Order Comment: 119-1 Performed By: #### L 500.2500, L100.0500 #### [facility] [address] [place], [address] CO2 [Moles/Vol] 21.0 mmol/L Normal 21.0-32.0 [facility] Comment on above: Order Comment: 119-1 Performed By: #### L 500.2500, L100.0500 #### [facility] [address] [place], [address] Creatinine [Mass/Vol] 0.94 mg/dL Normal 0.70-1.[address] [facility] Comment on above: Order Comment: 119-1 Result Comment: The validity of the calculated GFR GFRAA in patients over 70 years has not been determined. Clinical correlation is essential. Performed By: #### L 500.2500, L100.0500 #### [facility] [address] [place], [address] EST GFR - AA 108 mL/min Normal >60 [facility] Comment on above: Order Comment: 119-1 Result Comment: Afri can Italian GFR Calc Performed By: #### L 500.2500, L100.0500 #### [facility] [address] [place], [address] GAP 8 Normal 5-15 [facility] Comment on above: Order Comment: 119-1 Performed By: #### L 500.2500, L100.0500 #### [facility] [address] [place], [address] GFR/1.73 sq M.predicted among non-blacks MDRD (S/P/Bld) [Vol rate/Area] 90 mL/min/{1.73_m2} Normal >60 [facility] Comment on above: Order Comment: 119-1 Result Comment: Non- GFR Calc Performed By: #### L 500.2500, L100.0500 #### [facility] [address] [place], [address] Glucose [Mass/Vol] 98 mg/dL Normal 74-106 [facility] Comment on above: Order Comment: 119-1 Performed By: #### L 500.2500, L100.0500 #### [facility] [address] [place], [address] Potassium [Moles/Vol] 3.7 mmol/L Normal 3.5-5.[address] [facility] Comment on above: Order Comment: 119-1 Performed By: #### L 500.2500, L100.0500 #### [facility] [address] [place], [address] Sodium [Moles/Vol] 123 mmol/L Low 136-145 [facility] Comment on above: Order Comment: 119-1 Performed By: #### L 500.2500, L100.0500 #### [facility] [address] [place], [address] Urea nitrogen [Mass/Vol] 7 mg/dL Normal 7-18 [facility] Comment on above: Order Comment: 119-1 Performed By: #### L 500.2500, L100.0500 #### [facility] [address] [place], [address] Blood urea nitrogen (BUN)/cr eatinine ratioOrdered By: Olvin Massey on 07-16-2024 Urea nitrogen/Creatinine [Mass ratio] 7.5 mg/mg Low 10-20 [facility] CBC-Complete Blood Cnt No Di ffon 07-16-2024 Erythrocyte distribution width (RBC) [Ratio] 12.0 % Normal 11.6-14.6 [facility] Comment on above: Order Comment: 119-1 Performed By: #### L 500.2500, L100.0500 #### [facility] [address] [place], [address] Hematocrit (Bld) [Volume fraction] 39.5 % Low 40-54 [facility] Comment on above: Order Comment: 119-1 Performed By: #### L 500.2500, L100.0500 #### [facility] [address] [place], [address] Hemoglobin (Bld) [Mass/Vol] 13.6 g/dL Normal 13.0-16. 5 [facility] Comment on above: Order Comment: 119-1 Performed By: #### L 500.2500, L100.0500 #### [facility] [address] [place], [address] MCH (RBC) [Entitic mass] 29.1 pg Normal 27.0-32.0 [facility] Comment on above: Order Comment: 119-1 Performed By: #### L 500.2500, L100.0500 #### [facility] [address] [place], [address] MCHC (RBC) [Mass/Vol] 34.4 g/dL Normal 32-[address] [facility] Comment on above: Order Comment: 119-1 Performed By: #### L 500.2500, L100.0500 #### [facility] [address] [place], [address] MCV (RBC) [Entitic vol] 84.4 fL Normal 80-94 [facility] Comment on above: Order Comment: 119-1 Performed By: #### L 500.2500, L100.0500 #### [facility] [address] [place], [address] Platelet mean volume (Bld) [Entitic vol] 8.9 fL Normal 6.2-12.0 [facility] Comment on above: Order Comment: 119-1 Performed By: #### L 500.2500, L100.0500 #### [facility] [address] [place], [address] Platelets (Bld) [#/Vol] 237 10*3/uL Normal 150-450 [facility] Comment on above: Order Comment: 119-1 Performed By: #### L 500.2500, L100.0500 #### [facility] [address] [place], [address] RBC (Bld) [#/Vol] 4.68 10*6/uL Normal 4.6-6.2 [facility] Comment on above: Order Comment: 119-1 Performed By: #### L 500.2500, L100.0500 #### [facility] [address] [place], [address] RDW SD 36.9 fl Normal 35.1-43.9 [facility] Comment on above: Order Comment: 119-1 Performed By: #### L 500.2500, L100.0500 #### [facility] [address] [place], [address] WBC (Bld) [#/Vol] 5.5 10*3/uL Normal 4.4-11.0 [facility] Comment on above: Order Comment: 119-1 Performed By: #### L 500.2500, L100.0500 #### [facility] [address] [place], [address] Carbon dioxide measurementOr dered By: Olvin Massey on 07-16-2024 CO2 [Moles/Vol] 21.0 mmol/L 21.0-32.0 [facility] Chloride measurementOrdered By: Olvin Massey on 07-16-2024 Chloride [Moles/Vol] 94 mmol/L Low 98-107 [facility] Erythrocyte distribution wid th (RBC) [Ratio]Ordered By: Olvin Massey on 07-16-2024 Erythrocyte distribution width (RBC) [Entitic vol] 36.9 fL 35.1-43.9 [facility] Erythrocyte distribution wid th ratioOrdered By: Olvin Massey on 07-16-2024 Erythrocyte distribution width (RBC) [Ratio] 12.0 % 11.6-14.6 [facility] Estimated glomerular filtrat ion rate (GFR) AmericanOrdered By: Olvin Massey on 07-16-2024 Estimated GFR (MDRD) Amer 108 mL/min >60 [facility] Comment on above: GFR Calc Glomerular filtration rate ( GFR) estimationOrdered By: Olvin Massey on 07-16-2024 Estimated GFR (MDRD) Non-Af Amer 90 mL/min >60 [facility] Comment on above: Non- GFR Calc Glucose measurementOrdered B y: Olvin Massey on 07-16-2024 Glucose [Mass/Vol] 98 mg/dL 74-106 [facility] Hematocrit Auto (Bld) [Volum e fraction]Ordered By: Olvin Massey on 07-16-2024 Hematocrit (Bld) [Volume fraction] 39.5 % Low 40-54 [facility] Hemoglobin measurementOrdere d By: Olvin Massey on 07-16-2024 Hemoglobin (Bld) [Mass/Vol] 13.6 g/dL 13.0-16. 5 [facility] MCV (mean corpuscular volume ) determinationOrdered By: Olvin Massey on 07-16-2024 MCV (RBC) [Entitic vol] 84.4 fL 80-94 [facility] Mean corpuscular hemoglobin (MCH) determinationOrdered By: Olvin Massey on 07-16-2024 MCH (RBC) [Entitic mass] 29.1 pg 27.0-32.0 [facility] [facility] Mean corpuscular hemoglobin concentration (MCHC) determinationOrdered By: Olvin Massey on 07-16-2024 MCHC (RBC) [Mass/Vol] 34.4 g/dL 32-[address] [facility] Mean platelet volume determi nationOrdered By: Olvin Massey on 07-16-2024 Platelet mean volume (Bld) [Entitic vol] 8.9 fL 6.2-12.0 [facility] Platelet countOrdered By: Deborah Massey on 07-16-2024 Platelets (Bld) [#/Vol] 237 10*3/uL 150-450 [facility] Potassium measurementOrdered By: Olvin Massey on 07-16-2024 Potassium [Moles/Vol] 3.7 mmol/L 3.5-5.[address] [facility] RBC Auto (Bld) [#/Vol]Ordere d By: Olvin Massey on 07-16-2024 RBC (Bld) [#/Vol] 4.68 10*6/uL 4.6-6.2 [facility] Serum anion gap measurementO rdered By: Olvin Massey on 07-16-2024 Anion gap [Moles/Vol] 8 mmol/L 5-[address] [facility] Serum or plasma calcium jack urement (mass/volume)Ordered By: Olvin Massey on 07-16-2024 Calcium [Mass/Vol] 9.0 mg/dL 8.5-10.1 [facility] Serum or plasma creatinine m easurement (mass/volume)Ordered By: Olvin Massey on 07-16-2024 Creatinine [Mass/Vol] 0.94 mg/dL 0.70-1.[address] [facility] Comment on above: The validity of the calculated GFR & GFRAA in patients over 70 years has not been determined. Clinical correlation is essential. Serum or plasma urea nitroge n measurement (mass/volume)Ordered By: Olvin Massey on 07-16-2024 Urea nitrogen [Mass/Vol] 7 mg/dL 7-18 [facility] Sodium levelOrdered By: Olvin Massey on 07-16-2024 Sodium [Moles/Vol] 123 mmol/L Low 136-145 [facility] White blood cell (WBC) count Ordered By: Olvin Massey on 07-16-2024 WBC (Bld) [#/Vol] 5.5 10*3/uL 4.4-11.0 [facility] Basic Metabolic Profile (BMP )on 07-02-2024 BUN/CRE 11.4 RATIO Normal 10-20 [facility] Comment on above: Order Comment: 119.1 Performed By: #### L 100.0500, L500.2500 #### [facility] [address] [place], [address] CA,Total 8.6 mg/dL Normal 8.5-10.1 [facility] Comment on above: Order Comment: 119.1 Performed By: #### L 100.0500, L500.2500 #### [facility] [address] [place], [address] Chloride [Moles/Vol] 105 mmol/L Normal 98-107 [facility] Comment on above: Order Comment: 119.1 Performed By: #### L 100.0500, L500.2500 #### [facility] [address] [place], [address] CO2 [Moles/Vol] 25.0 mmol/L Normal 21.0-32.0 [facility] Comment on above: Order Comment: 119.1 Performed By: #### L 100.0500, L500.2500 #### [facility] [address] [place], [address] Creatinine [Mass/Vol] 1.05 mg/dL Normal 0.70-1.[address] [facility] Comment on above: Order Comment: 119.1 Result Comment: The validity of the calculated GFR GFRAA in patients over 70 years has not been determined. Clinical correlation is essential. Performed By: #### L 100.0500, L500.2500 #### [facility] [address] [place], [address] EST GFR - AA 95 mL/min Normal >60 [facility] Comment on above: Order Comment: 119.1 Result Comment: Afri can Italian GFR Calc Performed By: #### L 100.0500, L500.2500 #### [facility] [address] [place], [address] GAP 5 Normal 5-15 [facility] Comment on above: Order Comment: 119.1 Performed By: #### L 100.0500, L500.2500 #### [facility] [address] [place], [address] GFR/1.73 sq M.predicted among non-blacks MDRD (S/P/Bld) [Vol rate/Area] 78 mL/min/{1.73_m2} Normal >60 [facility] Comment on above: Order Comment: 119.1 Result Comment: Non- GFR Calc Performed By: #### L 100.0500, L500.2500 #### [facility] [address] [place], [address] Glucose [Mass/Vol] 106 mg/dL Normal 74-106 [facility] Comment on above: Order Comment: 119.1 Result Comment: Fast ing Glucose result from 100 to 125 mg/dL suggests IMPAIRED HOMEOSTASIS per A.D.A. criteria. Performed By: #### L 100.0500, L500.2500 #### [facility] [address] [place], [address] Potassium [Moles/Vol] 3.7 mmol/L Normal 3.5-5.[address] [facility] Comment on above: Order Comment: 119.1 Performed By: #### L 100.0500, L500.2500 #### [facility] [address] [place], [address] Sodium [Moles/Vol] 135 mmol/L Low 136-145 [facility] Comment on above: Order Comment: 119.1 Performed By: #### L 100.0500, L500.2500 #### [facility] [address] [place], [address] Urea nitrogen [Mass/Vol] 12 mg/dL Normal 7-18 [facility] Comment on above: Order Comment: 119.1 Performed By: #### L 100.0500, L500.2500 #### [facility] [address] [place], [address] Blood urea nitrogen (BUN)/cr eatinine ratioOrdered By: Olvin Massey on 07-02-2024 Urea nitrogen/Creatinine [Mass ratio] 11.4 mg/mg 10-20 [facility] CBC-Complete Blood Cnt No Di ffon 07-02-2024 Erythrocyte distribution width (RBC) [Ratio] 12.1 % Normal 11.6-14.6 [facility] Comment on above: Order Comment: 119.1 Performed By: #### L 100.0500, L500.2500 #### [facility] [address] [place], [address] Hematocrit (Bld) [Volume fraction] 38.4 % Low 40-54 [facility] Comment on above: Order Comment: 119.1 Performed By: #### L 100.0500, L500.2500 #### [facility] [address] [place], [address] Hemoglobin (Bld) [Mass/Vol] 13.0 g/dL Normal 13.0-16. 5 [facility] Comment on above: Order Comment: 119.1 Performed By: #### L 100.0500, L500.2500 #### [facility] [address] [place], [address] MCH (RBC) [Entitic mass] 29.5 pg Normal 27.0-32.0 [facility] Comment on above: Order Comment: 119.1 Performed By: #### L 100.0500, L500.2500 #### [facility] [address] [place], [address] MCHC (RBC) [Mass/Vol] 33.9 g/dL Normal 32-[address] [facility] Comment on above: Order Comment: 119.1 Performed By: #### L 100.0500, L500.2500 #### [facility] [address] [place], [address] MCV (RBC) [Entitic vol] 87.1 fL Normal 80-94 [facility] Comment on above: Order Comment: 119.1 Performed By: #### L 100.0500, L500.2500 #### [facility] [address] [place], [address] Platelet mean volume (Bld) [Entitic vol] 10.1 fL Normal 6.2-12.0 [facility] Comment on above: Order Comment: 119.1 Performed By: #### L 100.0500, L500.2500 #### [facility] [address] [place], [address] Platelets (Bld) [#/Vol] 233 10*3/uL Normal 150-450 [facility] Comment on above: Order Comment: 119.1 Performed By: #### L 100.0500, L500.2500 #### [facility] [address] [place], [address] RBC (Bld) [#/Vol] 4.41 10*6/uL Low 4.6-6.2 [facility] Comment on above: Order Comment: 119.1 Performed By: #### L 100.0500, L500.2500 #### [facility] [address] [place], [address] RDW SD 38.7 fl Normal 35.1-43.9 [facility] Comment on above: Order Comment: 119.1 Performed By: #### L 100.0500, L500.2500 #### [facility] [address] [place], [address] WBC (Bld) [#/Vol] 7.3 10*3/uL Normal 4.4-11.0 [facility] Comment on above: Order Comment: 119.1 Performed By: #### L 100.0500, L500.2500 #### [facility] [address] [place], [address] Carbon dioxide measurementOr dered By: Olvin Massey on 07-02-2024 CO2 [Moles/Vol] 25.0 mmol/L 21.0-32.0 [facility] Chloride measurementOrdered By: Olvin Massey on 07-02-2024 Chloride [Moles/Vol] 105 mmol/L 98-107 [facility] Erythrocyte distribution wid th (RBC) [Ratio]Ordered By: Olvin Massey on 07-02-2024 Erythrocyte distribution width (RBC) [Entitic vol] 38.7 fL 35.1-43.9 [facility] Erythrocyte distribution wid th ratioOrdered By: Olvin Massey on 07-02-2024 Erythrocyte distribution width (RBC) [Ratio] 12.1 % 11.6-14.6 [facility] Estimated glomerular filtrat ion rate (GFR) AmericanOrdered By: Olvin Massey on 07-02-2024 Estimated GFR (MDRD) Amer 95 mL/min >60 [facility] Comment on above: GFR Calc Glomerular filtration rate ( GFR) estimationOrdered By: Olvin Massey on 07-02-2024 Estimated GFR (MDRD) Non-Af Amer 78 mL/min >60 [facility] Comment on above: Non- GFR Calc Glucose measurementOrdered B y: Olvin Massey on 07-02-2024 Glucose [Mass/Vol] 106 mg/dL 74-106 [facility] Comment on above: Fasting Glucose resu lt from 100 to 125 mg/dL suggests IMPAIRED HOMEOSTASIS per A.D.A. criteria. Hematocrit Auto (Bld) [Volum e fraction]Ordered By: Olvin Massey on 07-02-2024 Hematocrit (Bld) [Volume fraction] 38.4 % Low 40-54 [facility] Hemoglobin measurementOrdere d By: Olvin Massey on 07-02-2024 Hemoglobin (Bld) [Mass/Vol] 13.0 g/dL 13.0-16. 5 [facility] MCV (mean corpuscular volume ) determinationOrdered By: Olvin Massey on 07-02-2024 MCV (RBC) [Entitic vol] 87.1 fL 80-94 [facility] Mean corpuscular hemoglobin (MCH) determinationOrdered By: Olvin Massey on 07-02-2024 MCH (RBC) [Entitic mass] 29.5 pg 27.0-32.0 [facility] Mean corpuscular hemoglobin concentration (MCHC) determinationOrdered By: Olvin Massey on 07-02-2024 MCHC (RBC) [Mass/Vol] 33.9 g/dL 32-[address] [facility] Mean platelet volume determi nationOrdered By: Olvin Massey on 07-02-2024 Platelet mean volume (Bld) [Entitic vol] 10.1 fL 6.2-12.0 [facility] Platelet countOrdered By: Deborah Massey on 07-02-2024 Platelets (Bld) [#/Vol] 233 10*3/uL 150-450 [facility] Potassium measurementOrdered By: Olvin Massey on 07-02-2024 Potassium [Moles/Vol] 3.7 mmol/L 3.5-5.[address] [facility] RBC Auto (Bld) [#/Vol]Ordere d By: Olvin Massey on 07-02-2024 RBC (Bld) [#/Vol] 4.41 10*6/uL Low 4.6-6.2 [facility] Serum anion gap measurementO rdered By: Olvin Massey on 07-02-2024 Anion gap [Moles/Vol] 5 mmol/L 5-[address] [facility] Serum or plasma calcium jack urement (mass/volume)Ordered By: Olvin Massey on 07-02-2024 Calcium [Mass/Vol] 8.6 mg/dL 8.5-10.1 [facility] Serum or plasma creatinine m easurement (mass/volume)Ordered By: Olvin Massey on 07-02-2024 Creatinine [Mass/Vol] 1.05 mg/dL 0.70-1.[address] [facility] Comment on above: The validity of the calculated GFR & GFRAA in patients over 70 years has not been determined. Clinical correlation is essential. Serum or plasma urea nitroge n measurement (mass/volume)Ordered By: Olvin Massey on 07-02-2024 Urea nitrogen [Mass/Vol] 12 mg/dL 7-18 [facility] Sodium levelOrdered By: Olvin Massey on 07-02-2024 Sodium [Moles/Vol] 135 mmol/L Low 136-145 [facility] White blood cell (WBC) count Ordered By: Olvin Massey on 07-02-2024 WBC (Bld) [#/Vol] 7.3 10*3/uL 4.4-11.0 [facility] KEPPRA (LEVETIRACETAM)on KEPPRA 40.6 ug/mL Abnormal 10.0-40.0 [facility] Comment on above: Result Comment: Perf ormed at: [facility] - [facility] [address] [id number] Chief Quality Officer: Jere Tierney MD, Phone: [phone] Performed By: #### L 100.0500, L500.2500 #### [facility] [address] [place], [place], [id number] CBC-Complete Blood Cnt No Di ffon 05-15-2024 Erythrocyte distribution width (RBC) [Ratio] 11.9 % Normal 11.6-14.6 [facility] Comment on above: Performed By: #### L 500.2500, L100.0500 #### [facility] [address] [place], [place], [id number] Hematocrit (Bld) [Volume fraction] 40.8 % Normal 40-54 [facility] Comment on above: Performed By: #### L 500.2500, L100.0500 #### [facility] [address] [place], [place], [id number] [phone] Hemoglobin (Bld) [Mass/Vol] 13.9 g/dL Normal 13.0-16. 5 [facility] Comment on above: Performed By: #### L 500.2500, L100.0500 #### [facility] [address] [place], [address] MCH (RBC) [Entitic mass] 30.0 pg Normal 27.0-32.0 [facility] Comment on above: Performed By: #### L 500.2500, L100.0500 #### [facility] [address] [place], [address] MCHC (RBC) [Mass/Vol] 34.1 g/dL Normal 32-[address] [facility] Comment on above: Performed By: #### L 500.2500, L100.0500 #### [facility] [address] [place], [address] MCV (RBC) [Entitic vol] 87.9 fL Normal 80-94 [facility] Comment on above: Performed By: #### L 500.2500, L100.0500 #### [facility] [address] [place], [address] Platelet mean volume (Bld) [Entitic vol] 9.4 fL Normal 6.2-12.0 [facility] Comment on above: Performed By: #### L 500.2500, L100.0500 #### [facility] [address] [place], [address] Platelets (Bld) [#/Vol] 212 10*3/uL Normal 150-450 [facility] Comment on above: Performed By: #### L 500.2500, L100.0500 #### [facility] [address] [place], [address] RBC (Bld) [#/Vol] 4.64 10*6/uL Normal 4.6-6.2 [facility] Comment on above: Performed By: #### L 500.2500, L100.0500 #### [facility] [address] [place], [address] RDW SD 37.7 fl Normal 35.1-43.9 [facility] Comment on above: Performed By: #### L 500.2500, L100.0500 #### [facility] [address] [place], [address] WBC (Bld) [#/Vol] 8.7 10*3/uL Normal 4.4-11.0 [facility] Comment on above: Performed By: #### L 500.2500, L100.0500 #### [facility] [address] [place], [address] Comprehensive Metabolic Prof ilon 05-15-2024 Albumin [Mass/Vol] 3.3 g/dL Normal 3.2-5.0 [facility] Comment on above: Performed By: #### L 500.2500, L100.0500 #### [facility] [address] [place], [address] Albumin/Globulin [Mass ratio] 0.9 {ratio} Normal 0.9-2.4 [facility] Comment on above: Performed By: #### L 500.2500, L100.0500 #### [facility] [address] [place], [address] ALK P 109 U/L Normal 45-117 [facility] Comment on above: Performed By: #### L 500.2500, L100.0500 #### [facility] [address] [place], [address] ALT [Catalytic activity/Vol] 41 U/L Normal 16-61 [facility] Comment on above: Performed By: #### L 500.2500, L100.0500 #### [facility] [address] [place], [address] AST [Catalytic activity/Vol] 22 U/L Normal 15-37 [facility] Comment on above: Performed By: #### L 500.2500, L100.0500 #### [facility] [address] [place], [address] Bilirubin [Mass/Vol] 0.40 mg/dL Normal 0.20-1.00 [facility] Comment on above: Result Comment: For patients on eltrombopag therapy, use of Dimension [place] TBIL is not recommended. Performed By: #### L 500.2500, L100.0500 #### [facility] [address] [place], [address] BUN/CRE 8.5 RATIO Low 10-20 [facility] Comment on above: Performed By: #### L 500.2500, L100.0500 #### [facility] [address] [place], [address] CA,Total 8.8 mg/dL Normal 8.5-10.1 [facility] Comment on above: Performed By: #### L 500.2500, L100.0500 #### [facility] [address] [place], [address] Chloride [Moles/Vol] 107 mmol/L Normal 98-107 [facility] Comment on above: Performed By: #### L 500.2500, L100.0500 #### [facility] [address] [place], [address] CO2 [Moles/Vol] 24.0 mmol/L Normal 21.0-32.0 [facility] Comment on above: Performed By: #### L 500.2500, L100.0500 #### [facility] [address] [place], [address] Creatinine [Mass/Vol] 1.42 mg/dL High 0.70-1.[address] [facility] Comment on above: Result Comment: The validity of the calculated GFR GFRAA in patients over 70 years has not been determined. Clinical correlation is essential. Performed By: #### L 500.2500, L100.0500 #### [facility] [address] [place], [address] EST GFR - AA 67 mL/min Normal >60 [facility] Comment on above: Result Comment: Afri can Italian GFR Calc Performed By: #### L 500.2500, L100.0500 #### [facility] [address] [place], [address] GAP 6 Normal 5-15 [facility] Comment on above: Performed By: #### L 500.2500, L100.0500 #### [facility] [address] [place], [address] GFR/1.73 sq M.predicted among non-blacks MDRD (S/P/Bld) [Vol rate/Area] 55 mL/min/{1.73_m2} Low >60 [facility] Comment on above: Result Comment: Non- GFR Calc Performed By: #### L 500.2500, L100.0500 #### [facility] [address] [place], [address] Globulin (S) [Mass/Vol] 3.8 g/dL Normal 2.2-4.2 [facility] Comment on above: Performed By: #### L 500.2500, L100.0500 #### [facility] [address] [place], [address] Glucose [Mass/Vol] 86 mg/dL Normal 74-106 [facility] Comment on above: Performed By: #### L 500.2500, L100.0500 #### [facility] [address] [place], [address] Potassium [Moles/Vol] 3.7 mmol/L Normal 3.5-5.[address] [facility] Comment on above: Performed By: #### L 500.2500, L100.0500 #### [facility] [address] [place], [address] Sodium [Moles/Vol] 137 mmol/L Normal 136-145 [facility] Comment on above: Performed By: #### L 500.2500, L100.0500 #### [facility] [address] [place], [address] T PROT 7.1 g/dL Normal 6.4-8.2 [facility] Comment on above: Performed By: #### L 500.2500, L100.0500 #### [facility] [address] [place], [address] Urea nitrogen [Mass/Vol] 12 mg/dL Normal 7-18 [facility] Comment on above: Performed By: #### L 500.2500, L100.0500 #### [facility] [address] [place], [address] Respiratory pathogens DNA an d RNA panel IBAN+probe (Resp)Ordered By: Olvin Massey on 08-10-2023 Respiratory Panel (PCR) Influenza A (Sub type H1) [facility] Basophil percentageOrdered B y: Olvin Massey on 05-16-2023 Bilirubin [Mass/Vol] 0.30 mg/dL 0.20-1.00 [facility] Comment on above: For patients on eltr ombopag therapy, use of Dimension [place] TBIL is not recommended. Chloride [Moles/Vol] 107 mmol/L 98-107 [facility] Glucose [Mass/Vol] 94 mg/dL 74-106 [facility] Potassium [Moles/Vol] 3.5 mmol/L 3.5-5.[address] [facility] Protein [Mass/Vol] 7.5 g/dL 6.4-8.2 [facility] Sodium [Moles/Vol] 140 mmol/L 136-145 [facility] WBC (Bld) [#/Vol] 7.5 10*3/uL 4.4-11.0 [facility] Blood erythrocytes count (nu mber/volume)Ordered By: Olvin Massey on 05-16-2023 RBC (Bld) [#/Vol] 4.83 10*6/uL 4.6-6.2 [facility] Blood hemoglobin measurement (mass/volume)Ordered By: Olvin Massey on 05-16-2023 Hemoglobin (Bld) [Mass/Vol] 14.1 g/dL 13.0-16. 5 [facility] Blood platelet mean volumeOr dered By: Olvin Massey on 05-16-2023 Platelet mean volume (Bld) [Entitic vol] 10.1 fL 6.2-12.0 [facility] Determination of erythrocyte mean corpuscular volume (MCV)Ordered By: Olvin Massey on 05-16-2023 MCV (RBC) [Entitic vol] 90.7 fL 80-94 [facility] Hematocrit Auto (Bld) [Volum e fraction]Ordered By: Olvin Massey on 05-16-2023 Hematocrit (Bld) [Volume fraction] 43.8 % 40-54 [facility] Laboratory - Chemistry and C hemistry - challengeOrdered By: Olvin Massey on 05-16-2023 ALP [Catalytic activity/Vol] 121 U/L 45-117 [facility] ALT [Catalytic activity/Vol] 25 U/L 16-61 [facility] CO2 [Moles/Vol] 28.0 mmol/L 21.0-32.0 [facility] Globulin (S) [Mass/Vol] 4.3 g/dL 2.2-4.2 [facility] Urea nitrogen/Creatinine [Mass ratio] 10.4 mg/mg 10-20 [facility] - Hematology and Cell countsOrdered By: Olvin Massey on 05-16-2023 Erythrocyte distribution width (RBC) [Entitic vol] 38.5 fL 35.1-43.9 [facility] Erythrocyte distribution width (RBC) [Ratio] 11.6 % 11.6-14.6 [facility] MCH (RBC) [Entitic mass] 29.2 pg 27.0-32.0 [facility] MCHC Auto (RBC) [Mass/Vol]Or dered By: Olvin Massey on 05-16-2023 MCHC (RBC) [Mass/Vol] 32.2 g/dL 32-[address] [facility] No Panel InformationOrdered By: Olvin Massey on 05-16-2023 Estimated GFR (MDRD) Amer 72 mL/min >60 [facility] Comment on above: GFR Calc Estimated GFR (MDRD) Non-Af Amer 59 mL/min >60 [facility] Comment on above: Non- GFR Calc Levetiracetam (Keppra) Level 42.1 ug/mL 10.0-40 .0 [facility] Comment on above: Performed at: - [address] [id number] Director: Jere Tierney MD, Phone: [phone] Platelets bldOrdered By: Herbert Massey on 05-16-2023 Platelets (Bld) [#/Vol] 232 10*3/uL 150-450 [facility] Serum or plasma albumin jack urement (mass/volume)Ordered By: Olvin Massey on 05-16-2023 Albumin [Mass/Vol] 3.2 g/dL 3.2-5.0 [facility] Serum or plasma albumin/glob ulin mass ratioOrdered By: Olvin Massey on 05-16-2023 Albumin/Globulin [Mass ratio] 0.7 {ratio} 0.9-2.4 [facility] Serum or plasma calcium jack urement (mass/volume)Ordered By: Olvin Massey on 05-16-2023 Calcium [Mass/Vol] 8.8 mg/dL 8.5-10.1 [facility] Serum or plasma creatinine m easurement (mass/volume)Ordered By: Olvin Massey on 05-16-2023 Creatinine [Mass/Vol] 1.34 mg/dL 0.70-1.[address] [facility] Comment on above: The validity of the calculated GFR & GFRAA in patients over 70 years has not been determined. Clinical correlation is essential. Serum or plasma urea nitroge n measurement (mass/volume)Ordered By: Olvin Massey on 05-16-2023 Urea nitrogen [Mass/Vol] 14 mg/dL 7-18 [facility] Thin prep Papanicolaou smear with manual screeningOrdered By: Olvin Massey on 05-16-2023 Thin prep Papanicolaou smear with manual screening 15 U/L 15-37 [facility] Thin prep Papanicolaou smear with manual screening 5 5-15 [facility] Basophil percentageOrdered B y: Olvin Massey on 12-13-2022 Chloride [Moles/Vol] 104 mmol/L 98-107 [facility] Glucose [Mass/Vol] 87 mg/dL 74-106 [facility] Potassium [Moles/Vol] 3.6 mmol/L 3.5-5.[address] [facility] Sodium [Moles/Vol] 136 mmol/L 136-145 [facility] WBC (Bld) [#/Vol] 10.8 10*3/uL 4.4-11.0 [facility] Blood erythrocytes count (nu mber/volume)Ordered By: Olvin Massey on 12-13-2022 RBC (Bld) [#/Vol] 4.83 10*6/uL 4.6-6.2 [facility] Blood hemoglobin measurement (mass/volume)Ordered By: Olvin Massey on 12-13-2022 Hemoglobin (Bld) [Mass/Vol] 14.0 g/dL 13.0-16. 5 [facility] Blood platelet mean volumeOr dered By: Olvin Massey on 12-13-2022 Platelet mean volume (Bld) [Entitic vol] 9.7 fL 6.2-12.0 [facility] Determination of erythrocyte mean corpuscular volume (MCV)Ordered By: Olvin Massey on 12-13-2022 MCV (RBC) [Entitic vol] 89.2 fL 80-94 [facility] Hematocrit Auto (Bld) [Volum e fraction]Ordered By: Olvin Massey on 12-13-2022 Hematocrit (Bld) [Volume fraction] 43.1 % 40-54 [facility] Laboratory - Chemistry and C hemistry - challengeOrdered By: Olvin Massey on 12-13-2022 CO2 [Moles/Vol] 27.0 mmol/L 21.0-32.0 [facility] Urea nitrogen/Creatinine [Mass ratio] 9.6 mg/mg 10-20 [facility] Laboratory - Hematology and Cell countsOrdered By: Olvin Massey on 12-13-2022 Erythrocyte distribution width (RBC) [Entitic vol] 41.4 fL 35.1-43.9 [facility] Erythrocyte distribution width (RBC) [Ratio] 12.7 % 11.6-14.6 [facility] MCH (RBC) [Entitic mass] 29.0 pg 27.0-32.0 [facility] MCHC Auto (RBC) [Mass/Vol]Or dered By: Olvin Massey on 12-13-2022 MCHC (RBC) [Mass/Vol] 32.5 g/dL 32-[address] [facility] No Panel InformationOrdered By: lOvin Massey on 12-13-2022 Estimated GFR (MDRD) Amer 71 mL/min >60 [facility] Comment on above: GFR Calc Estimated GFR (MDRD) Non-Af Amer 59 mL/min >60 [facility] Comment on above: Non- GFR Calc Platelets bldOrdered By: Herbert Massey on 12-13-2022 Platelets (Bld) [#/Vol] 233 10*3/uL 150-450 [facility] Serum or plasma calcium jack urement (mass/volume)Ordered By: Olvin Massey on 12-13-2022 Calcium [Mass/Vol] 8.8 mg/dL 8.5-10.1 [facility] Serum or plasma creatinine m easurement (mass/volume)Ordered By: Olvin Massey on 12-13-2022 Creatinine [Mass/Vol] 1.35 mg/dL 0.70-1.[address] [facility] Comment on above: The validity of the calculated GFR & GFRAA in patients over 70 years has not been determined. Clinical correlation is essential. Serum or plasma urea nitroge n measurement (mass/volume)Ordered By: Olvin Massey on 12-13-2022 Urea nitrogen [Mass/Vol] 13 mg/dL 7-18 [facility] Thin prep Papanicolaou smear with manual screeningOrdered By: Olvin Massey on 12-13-2022 Thin prep Papanicolaou smear with manual screening 5 5-15 [facility] Basophil percentageOrdered B y: Tracy Massey on 11-16-2022 Bilirubin [Mass/Vol] 0.40 mg/dL 0.20-1.00 [facility] Comment on above: For patients on eltr ombopag therapy, use of Dimension [place] TBIL is not recommended. Chloride [Moles/Vol] 105 mmol/L 98-107 [facility] Glucose [Mass/Vol] 90 mg/dL 74-106 [facility] Potassium [Moles/Vol] 4.1 mmol/L 3.5-5.[address] [facility] Protein [Mass/Vol] 8.3 g/dL 6.4-8.2 [facility] Sodium [Moles/Vol] 136 mmol/L 136-145 [facility] WBC (Bld) [#/Vol] 7.7 10*3/uL 4.4-11.0 [facility] Blood erythrocytes count (nu mber/volume)Ordered By: Tracy Massey on 11-16-2022 RBC (Bld) [#/Vol] 5.08 10*6/uL 4.6-6.2 [facility] Blood hemoglobin measurement (mass/volume)Ordered By: Tracy Massey on 11-16-2022 Hemoglobin (Bld) [Mass/Vol] 14.6 g/dL 13.0-16. 5 [facility] Blood platelet mean volumeOr dered By: Tracy Massey on 11-16-2022 Platelet mean volume (Bld) [Entitic vol] 9.6 fL 6.2-12.0 [facility] Determination of erythrocyte mean corpuscular volume (MCV)Ordered By: Tracy Massey on 11-16-2022 MCV (RBC) [Entitic vol] 89.0 fL 80-94 [facility] Direct bilirubinOrdered By: Tracy Massey on 11-16-2022 Bilirubin.direct [Mass/Vol] 0.09 mg/dL 0.00-0.3 0 [facility] Hematocrit Auto (Bld) [Volum e fraction]Ordered By: Tracy Massey on 11-16-2022 Hematocrit (Bld) [Volume fraction] 45.2 % 40-54 [facility] Laboratory - Chemistry and C hemistry - challengeOrdered By: Tracy Massey on 11-16-2022 ALP [Catalytic activity/Vol] 130 U/L 45-117 [facility] ALT [Catalytic activity/Vol] 32 U/L 16-61 [facility] CO2 [Moles/Vol] 27.0 mmol/L 21.0-32.0 [facility] Globulin (S) [Mass/Vol] 4.9 g/dL 2.2-4.2 [facility] Urea nitrogen/Creatinine [Mass ratio] 11.8 mg/mg 10-20 [facility] Laboratory - Hematology and Cell countsOrdered By: Tracy Massey on 11-16-2022 Erythrocyte distribution width (RBC) [Entitic vol] 41.7 fL 35.1-43.9 [facility] Erythrocyte distribution width (RBC) [Ratio] 12.7 % 11.6-14.6 [facility] MCH (RBC) [Entitic mass] 28.7 pg 27.0-32.0 [facility] MCHC Auto (RBC) [Mass/Vol]Or dered By: Tracy Massey on 11-16-2022 MCHC (RBC) [Mass/Vol] 32.3 g/dL 32-[address] [facility] No Panel InformationOrdered By: Tracy Massey on 11-16-2022 Estimated GFR (MDRD) Amer 77 mL/min >60 [facility] Comment on above: GFR Calc Estimated GFR (MDRD) Non-Af Amer 63 mL/min >60 [facility] Comment on above: Non- GFR Calc Levetiracetam (Keppra) Level 48.3 ug/mL 10.0-40 .0 [facility] Comment on above: Performed at: [address] [id number] Director: Jere Tierney MD, Phone: [phone] Platelets bldOrdered By: Maria Esther Massey on 11-16-2022 Platelets (Bld) [#/Vol] 268 10*3/uL 150-450 [facility] Serum or plasma albumin jack urement (mass/volume)Ordered By: Tracy Massey on 11-16-2022 Albumin [Mass/Vol] 3.4 g/dL 3.2-5.0 [facility] Serum or plasma albumin/glob ulin mass ratioOrdered By: Tracy Massey on 11-16-2022 Albumin/Globulin [Mass ratio] 0.7 {ratio} 0.9-2.4 [facility] Serum or plasma calcium jack urement (mass/volume)Ordered By: Tracy Massey on 11-16-2022 Calcium [Mass/Vol] 9.1 mg/dL 8.5-10.1 [facility] Serum or plasma creatinine m easurement (mass/volume)Ordered By: Tracy Massey on 11-16-2022 Creatinine [Mass/Vol] 1.27 mg/dL 0.70-1.[address] [facility] Comment on above: The validity of the calculated GFR & GFRAA in patients over 70 years has not been determined. Clinical correlation is essential. Serum or plasma urea nitroge n measurement (mass/volume)Ordered By: Tracy Massey on 11-16-2022 Urea nitrogen [Mass/Vol] 15 mg/dL 7-18 [facility] Thin prep Papanicolaou smear with manual screeningOrdered By: Tracy Massey on 11-16-2022 Thin prep Papanicolaou smear with manual screening 14 U/L 15-37 [facility] Thin prep Papanicolaou smear with manual screening 4 5-15 [facility] Basophil percentageon 2021 Bilirubin [Mass/Vol] 0.30 mg/dL 0.20-1.00 [facility] Work Phone: Comment on above: For patients on eltr ombopag therapy, use of Dim[employer] [place] TBIL is not recommended. Chloride [Moles/Vol] 107 mmol/L 98-107 [facility] Work Phone: [phone] Glucose [Mass/Vol] 95 mg/dL 74-106 [facility] Work Phone: [phone] Potassium [Moles/Vol] 3.7 mmol/L 3.5-5.[address] [facility] Work Phone: [phone] Protein [Mass/Vol] 7.8 g/dL 6.4-8.2 [facility] Work Phone: [phone] Sodium [Moles/Vol] 139 mmol/L 136-145 [facility] Work Phone: [phone] WBC (Bld) [#/Vol] 12.9 10*3/uL 4.4-11.0 [facility] Work Phone: [phone] Blood erythrocytes count (nu mber/volume)on 05-17-2022 RBC (Bld) [#/Vol] 4.81 10*6/uL 4.6-6.2 [facility] Work Phone: [phone] Blood hemoglobin measurement (mass/volume)on 05-17-2022 Hemoglobin (Bld) [Mass/Vol] 14.2 g/dL 13.0-16. 5 [facility] Work Phone: [phone] Blood platelet mean volumeon 05-17-2022 Platelet mean volume (Bld) [Entitic vol] 10.1 fL 6.2-12.0 [facility] Work Phone: [phone] Determination of erythrocyte mean corpuscular volume (MCV)on 05-17-2022 MCV (RBC) [Entitic vol] 88.6 fL 80-94 [facility] Work Phone: Hematocrit Auto (Bld) [Volum e fraction]on 05-17-2022 Hematocrit (Bld) [Volume fraction] 42.6 % 40-54 [facility] Work Phone: [phone] Laboratory - Chemistry and C hemistry - challengeon 05-17-2022 ALP [Catalytic activity/Vol] 104 U/L 45-117 [facility] Work Phone: ALT [Catalytic activity/Vol] 29 U/L 16-61 [facility] Work Phone: [phone] CO2 [Moles/Vol] 26.0 mmol/L 21.0-32.0 [facility] Work Phone: [phone] Globulin (S) [Mass/Vol] 4.4 g/dL 2.2-4.2 [facility] Work Phone: [phone] Urea nitrogen/Creatinine [Mass ratio] 11.8 mg/mg 10-20 [facility] Work Phone: [phone] Laboratory - Hematology and Cell countson 05-17-2022 Erythrocyte distribution width (RBC) [Entitic vol] 40.9 fL 35.1-43.9 [facility] Work Phone: [phone] Erythrocyte distribution width (RBC) [Ratio] 12.5 % 11.6-14.6 [facility] Work Phone: MCH (RBC) [Entitic mass] 29.5 pg 27.0-32.0 [facility] Work Phone: MCHC Auto (RBC) [Mass/Vol]on 05-17-2022 MCHC (RBC) [Mass/Vol] 33.3 g/dL 32-[address] [facility] Work Phone: No Panel Informationon 05-17 Estimated GFR (MDRD) Amer 71 mL/min >60 [facility] Work Phone: Comment on above: GFR Calc Estimated GFR (MDRD) Non-Af Amer 59 mL/min >60 [facility] Work Phone: Comment on above: Non- GFR Calc Levetiracetam (Keppra) Level 29.6 ug/mL 10.0-40 .0 [facility] Work Phone: Comment on above: Performed at: - [address] [id number] Director: Jere Tierney MD, Phone: [phone] Platelets bldon 05-17-2022 Platelets (Bld) [#/Vol] 245 10*3/uL 150-450 [facility] Work Phone: Serum or plasma albumin jack urement (mass/volume)on 05-17-2022 Albumin [Mass/Vol] 3.4 g/dL 3.2-5.0 [facility] Work Phone: Serum or plasma albumin/glob ulin mass ratioon 05-17-2022 Albumin/Globulin [Mass ratio] 0.8 {ratio} 0.9-2.4 [facility] Work Phone: Serum or plasma calcium jack urement (mass/volume)on 05-17-2022 Calcium [Mass/Vol] 8.8 mg/dL 8.5-10.1 [facility] Work Phone: Serum or plasma creatinine m easurement (mass/volume)on 05-17-2022 Creatinine [Mass/Vol] 1.36 mg/dL 0.70-1.[address] [facility] Work Phone: Comment on above: The validity of the calculated GFR & GFRAA in patients over 70 years has not been determined. Clinical correlation is essential. Serum or plasma urea nitroge n measurement (mass/volume)on 05-17-2022 Urea nitrogen [Mass/Vol] 16 mg/dL 7-18 [facility] Work Phone: Thin prep Papanicolaou smear with manual screeningon 05-17-2022 Thin prep Papanicolaou smear with manual screening 15 U/L 15-37 [facility] Work Phone: Thin prep Papanicolaou smear with manual screening 6 5-15 [facility] Work Phone: Basophil percentageon 2021 Bilirubin [Mass/Vol] 0.30 mg/dL 0.20-1.00 [facility] Work Phone: Comment on above: For patients on eltr ombopag therapy, use of Dim[place] TBIL is not recommended. Chloride [Moles/Vol] 105 mmol/L 98-107 [facility] Work Phone: Glucose [Mass/Vol] 96 mg/dL 74-106 [facility] Work Phone: Potassium [Moles/Vol] 3.9 mmol/L 3.5-5.[address] [facility] Work Phone: [phone] Protein [Mass/Vol] 7.8 g/dL 6.4-8.2 [facility] Work Phone: [phone] Sodium [Moles/Vol] 137 mmol/L 136-145 [facility] Work Phone: [phone] WBC (Bld) [#/Vol] 8.0 10*3/uL 4.4-11.0 [facility] Work Phone: [phone] Blood erythrocytes count (nu mber/volume)on 11-13-2021 RBC (Bld) [#/Vol] 4.90 10*6/uL 4.6-6.2 [facility] Work Phone: [phone] Blood hemoglobin measurement (mass/volume)on 11-13-2021 Hemoglobin (Bld) [Mass/Vol] 14.1 g/dL 13.0-16. 5 [facility] Work Phone: [phone] Blood platelet mean volumeon 11-13-2021 Platelet mean volume (Bld) [Entitic vol] 9.7 fL 6.2-12.0 [facility] Work Phone: Determination of erythrocyte mean corpuscular volume (MCV)on 11-13-2021 MCV (RBC) [Entitic vol] 87.8 fL 80-94 [facility] Work Phone: [phone] Direct bilirubinon Bilirubin.direct [Mass/Vol] 0.08 mg/dL 0.00-0.3 0 [facility] Work Phone: Hematocrit Auto (Bld) [Volum e fraction]on 11-13-2021 Hematocrit (Bld) [Volume fraction] 43.0 % 40-54 [facility] Work Phone: Laboratory - Chemistry and C hemistry - challengeon 11-13-2021 ALP [Catalytic activity/Vol] 112 U/L 45-117 [facility] Work Phone: [phone] ALT [Catalytic activity/Vol] 43 U/L 16-61 [facility] Work Phone: CO2 [Moles/Vol] 26.0 mmol/L 21.0-32.0 [facility] Work Phone: Globulin (S) [Mass/Vol] 4.4 g/dL 2.2-4.2 [facility] Work Phone: [phone] Urea nitrogen/Creatinine [Mass ratio] 9.6 mg/mg 10-20 [facility] Work Phone: Laboratory - Hematology and Cell countson 11-13-2021 Erythrocyte distribution width (RBC) [Entitic vol] 39.7 fL 35.1-43.9 [facility] Work Phone: Erythrocyte distribution width (RBC) [Ratio] 12.4 % 11.6-14.6 [facility] Work Phone: MCH (RBC) [Entitic mass] 28.8 pg 27.0-32.0 [facility] Work Phone: MCHC Auto (RBC) [Mass/Vol]on 11-13-2021 MCHC (RBC) [Mass/Vol] 32.8 g/dL 32-[address] [facility] Work Phone: No Panel Informationon 11-13 Estimated GFR (MDRD) Amer 66 mL/min >60 [facility] Work Phone: Comment on above: GFR Calc Estimated GFR (MDRD) Non-Af Amer 54 mL/min >60 [facility] Work Phone: Comment on above: Non- GFR Calc Levetiracetam (Keppra) Level 30.3 ug/mL [facility] Work Phone: Comment on above: Performed at: - [address] [id number] Director: Jere Tierney MD, Phone: [phone] Platelets bldon 11-13-2021 Platelets (Bld) [#/Vol] 254 10*3/uL 150-450 [facility] Work Phone: Serum or plasma albumin jack urement (mass/volume)on 11-13-2021 Albumin [Mass/Vol] 3.4 g/dL 3.2-5.0 [facility] Work Phone: Serum or plasma albumin/glob ulin mass ratioon 11-13-2021 Albumin/Globulin [Mass ratio] 0.8 {ratio} 0.9-2.4 [facility] Work Phone: Serum or plasma calcium jack urement (mass/volume)on 11-13-2021 Calcium [Mass/Vol] 8.8 mg/dL 8.5-10.1 [facility] Work Phone: Serum or plasma creatinine m easurement (mass/volume)on 11-13-2021 Creatinine [Mass/Vol] 1.46 mg/dL 0.70-1.[address] [facility] Work Phone: Comment on above: The validity of the calculated GFR & GFRAA in patients over 70 years has not been determined. Clinical correlation is essential. Serum or plasma urea nitroge n measurement (mass/volume)on 11-13-2021 Urea nitrogen [Mass/Vol] 14 mg/dL 7-18 [facility] Work Phone: Thin prep Papanicolaou smear with manual screeningon 11-13-2021 Thin prep Papanicolaou smear with manual screening 16 U/L 15-37 [facility] Work Phone: Thin prep Papanicolaou smear with manual screening 6 5-15 [facility] Work Phone: Vital Signs Date Time Vital Sign Value Performing Clinician Faci lity 08-06-2024 00:13-0500 Diastolic blood pressure 72 mm[Hg] Olvin Massey MD [facility] 08-06-2024 00:13-0500 Heart rate 79 /min Olvin Massey MD [facility] 08-06-2024 00:13-0500 Respiratory rate 18 /min Olvin Massey MD [facility] 08-06-2024 00:13-0500 SaO2% (BldA) [Mass fraction] 96 % Olvin Massey MD [facility] 08-06-2024 00:13-0500 Systolic blood pressure 119 mm[Hg] Olvin Massey MD [facility] 08-05-2024 08:54-0500 Body height 177.8 cm Olvin Massey MD [facility] 08-05-2024 08:54-0500 Body mass index (BMI) [Ratio] 30.9 kg/m2 Olvin Massey MD [facility] 08-05-2024 08:54-0500 Body temperature 98.6 [degF] Olvin Massey MD [facility] 08-05-2024 08:54-0500 Body weight 97.97 kg Olvin Massey MD [facility] Encounters Encounter Date Encounter Type Care Provider Facility Start: 02-23-2025 End: 02-23-2025 ambulatory Olvin NOEL Facility:[facility] Start: 01-25-2025 End: 01-25-2025 ambulatory Olvin NOEL Facility:[facility] Start: 01-24-2025 End: 01-24-2025 ambulatory Olvin NOEL Facility:[facility] Start: 12-14-2024 End: 12-14-2024 ambulatory Olvin Massey OLS Facility:[facility] Start: 11-14-2024 ambulatory Olvin Massey OLS Facil ity:[facility] Start: 10-25-2024 ambulatory Olvin NOEL Facil ity:[facility] Start: 10-09-2024 End: 10-09-2024 ambulatory Olvin NOEL Facility:[facility] Start: 09-25-2024 End: 09-25-2024 ambulatory Olvin NOEL Facility:[facility] Start: 08-29-2024 End: 08-29-2024 ambulatory Olvin Massey MD [facility] Work Phone: Start: 08-29-2024 End: 08-29-2024 Departed Referred Olvin Massey MD [facility] Start: 08-29-2024 End: 08-29-2024 ambulatory Olvin NEOL Facility:[facility] Start: 08-05-2024 End: 08-06-2024 Emergency department patient visit Dr. Landon Allen DO -Emergency Department Work Phone: Start: 07-20-2024 ambulatory Olvin NOEL Facil ity:[facility] Start: 07-20-2024 Registered Referred Olvin Massey MD [facility] Start: 07-16-2024 ambulatory Olvin NOEL Facil ity:[facility] Start: 07-16-2024 Registered Referred Olvin Massey MD [facility] Start: 07-02-2024 ambulatory Olvin NOEL Facil ity:[facility] Start: 07-02-2024 Registered Referred Olvin Massey MD [facility] Start: 05-15-2024 End: 05-15-2024 ambulatory Olvin NOEL Facility:[facility] Start: 08-10-2023 End: 08-10-2023 ambulatory [facility] Work Phone: Start: 08-10-2023 End: 08-10-2023 Departed Referred [facility] Start: 05-16-2023 End: 05-16-2023 ambulatory [facility] Work Phone: Start: 05-16-2023 End: 05-16-2023 Departed Referred [facility] Start: 12-13-2022 End: 12-13-2022 ambulatory [facility] Work Phone: Start: 12-13-2022 End: 12-13-2022 Departed Referred [facility] Start: 12-13-2022 Registered Referred [facility] Start: 11-16-2022 End: 11-16-2022 ambulatory [facility] Work Phone: Start: 11-16-2022 End: 11-16-2022 Departed Referred [facility] Start: 05-17-2022 End: 05-17-2022 ambulatory [facility] Work Phone: Start: 05-17-2022 End: 05-17-2022 Departed Referred [facility] Start: 11-13-2021 End: 11-13-2021 Departed Referred [facility] Start: 05-29-2018 ambulatory SELF PATIENT Facility:[facility] Procedures Date Procedure Procedure Detail Performing Clinician Start: 08-05-2024 Computed tomography of abdomen and pelvis with intravenous contrast Olvin Massey MD Start: 08-05-2024 CT of head without contrast Olvin Massey MD Start: 08-05-2024 Plain chest X-ray Olvin Massey MD Start: 08-10-2023 Nucleic acid assay Plan of Treatment Date Care Activity Detail Author Start: 08-05-2024 [facility] Start: 08-05-2024 [facility] Start: 08-05-2024 [facility] Patient referral [facility] Work Phone: Immunizations Immunization Date Immunization Notes Care Provider Fa ciliuma 02-25-2014 tetanus and diphther ia toxoids, adsorbed, preservative free, for adult use (2 Lf of tetanus toxoid and 2 Lf of diphtheria toxoid) [facility] Payers Date Payer Category Payer Medicare [id number] 2024 Self-pay [id number] 2018 Medicaid [id number] 2013 Medicaid [id number] [id number] 1970 Unknown [id number] 2.16. [id number] Unknown [id number] 2.16.8 [id number] Unknown [id number] 2.16.8 40.1.285345.3.579.2.462 Unknown [id number] 2.16.8 40.1.108710.3.579.2.462 Unknown [id number] 2.16.8 40.1.462744.3.579.2.462 Unknown [id number] 2.16.8 40.1.171008.3.579.2.462 Unknown [id number] 2.16.8 40.1.242709.3.579.2.462 Unknown [id number] 2.16.8 40.1.369381.3.579.2.462 Unknown [id number] 2.16.8 40.1.680492.3.579.2.462 Unknown [id number] 2.16.8 40.1.498991.3.579.2.462 Unknown [id number] 2.16.8 40.1.605860.3.579.2.462 Unknown [id number] 2.16.8 40.1.019551.3.579.2.462 Unknown [id number] 2.16.8 40.1.409908.3.579.2.462 Unknown [id number] 2.16.8 40.1.760691.3.579.2.462 Social History Date Type Detail Facility Start: 07-10-2018 End: 07-10-2018 Tobacco smoking status NHIS Unknown if ever smoked [facility] Start: 1970 Sex Assigned At Male [facility] Start: 08-05-2024 Tobacco smoking stat us NHIS Never smoked tobacco (finding) [facility] Start: 09-19-2024 Sex Male (finding) [facility] Evaluation note Note Date & Type Note Facility Evaluation note No assessment information availa ble [facility] Work Phone: Reason for referral (narrative) Note Date & Type Note Facility Reason for referral (narrative) No reason for referral information available [facility] Work Phone: Summary Purpose Family History No Family History Records FoundNo Family History Records Found Advance Directives No Advanced Directives Records Found Advance Directive Response Recorded Date/ Time Living Will No July 10 5:47pm Power of Packaging Tech No July 10, 2018 5:47pm Advance Directive Response Recorded Date/ Time Living Will No July 10 4:47pm Power of Packaging Tech No July 10, 2018 4:47pm Advance Directive Response Recorded Date/ Time Living Will Yes August 05 10:03am Do you have a Healthcare Power of Packaging Tech? Yes August 05, 2024 10:03am Name of Medical Power of Packaging Tech ? August 05, 2024 10:03am Chief Complaint and Reason for Visit Chief Complaint LONG TERM LABWORK Chief Complaint LONG TERM LAB WOR K LABWORK Chief Complaint LONG TERM LAB WOR K Chief Complaint Admit Date LONG TERM LAB WORK July 02, 2024 4:00am LONG TERM LAB WORK July 20, 2024 5:00am mental health August 05, 2024 8:53am LONG TERM LAB WORK August 29, 2024 6 :40am Additional Source Comments (unrecognized sect ion and content) No Status Records FoundNo Status Records Found INFORMATION SOURCE (unrecogn ized section and content) DATE CREATED AUTHOR 07/11/2021 [employer] DATE CREATED AUTHOR AUTHOR'Stefania GUTIÉRREZ 04/20/2025 [facility] Goals (unrecognized section and content) Goals may be documented in a n alternate sectionGoals may be documented in an alternate sectionGoals may be documented in an alternate sectionGoals may be documented in an alternate sectionGoals may be documented in an alternate sectionGoals may be documented in an alternate sectionGoals may be documented in an alternate section Care Teams (unrecognized sec tion and content) Team Status: Active Member Role Status Dates Dr. Olvin Massey MD Family Provider Active Dr. Olvin Massey MD Primary Care Provider Active Team Status: Inactive Member Role Status Dates Dr. Olvin Massey MD Primary Care Provider Active Dr. Tracy NOEL DO Attending Provider Active Team Status: Active Member Role Status Dates Dr. Olvin Massey MD Primary Care Provider Active Olvin NOEL MD Attending Provider Active Team Status: Inactive Member Role Status Dates Dr. Olvin Massey MD Primary Care Provider Active Olvin NOEL MD Attending Provider Active Team Status: Active Member Role Status Dates Dr. Olvin Massey MD Family Provider Active Olvin NOEL MD Primary Care Provider Active Team Status: Inactive Member Role Status Dates Olvin NOEL MD Primary Care Provi maritza, Attending Provider, Referring Provider Active Team Status: Inactive Member Role Status Dates Olvin NOEL MD Primary Care Provider, Attending Provider Active Team Status: Active Member Role Status Dates Dr. Olvin Massey MD Primary Care Provider Active Team Status: Active Member Role Status Dates Olvin NOEL MD Primary Care Provider Active Start: July 02, 2024 Olvin NOEL MD Attending Provider Active Start: July 02, 2024 Olvin NOEL MD Referring Provider Active Start: July 02, 2024 Team Status: Active Member Role Status Dates Olvin NOEL MD Primary Care Provider Active Start: July 16, 2024 Olvin NOEL MD Attending Provider Active Start: July 16, 2024 Team Status: Active Member Role Status Dates Olvin NOEL MD Primary Care Provider Active Start: July 20, 2024 Olvin NOEL MD Attending Provider Active Start: July 20, 2024 Team Status: Inactive Member Role Status Dates Dr. Landon Allen DO Attending Provider Active Start: August 05, 2024 End: August 06, 2024 Dr. Landon Allen DO Emergency Provider Active Start: August 05, 2024 End: August 06, 2024 Dr. Olvin Massey MD Primary Care Provider Active Start: August 05, 2024 End: August 06, 2024 Team Status: Inactive Member Role Status Dates Dr. Olvin Massey MD Primary Care Provider Active Start: August 29, 2024 End: August 29, 2024 Olvin NOEL MD Attending Provider Active Start: August 29, 2024 End: August 29, 2024 FOR RECORDS PERTAINING TO PATIENTS WHO ARE [...] BE BASED ON THE PRIMARY CLINICAL RECORDS. [employer] provides no warranty or guarantee of the accuracy or completeness of information in this document.
[2025-04-29 07:56] LABS: Anion Gap 9 (5-15); BUN 17 mg/dL (4-19); BUN/Creat Ratio 15.0 RATIO (10-20); Calcium,Total 9.4 mg/dL (7.6-11.0); Carbon Dioxide 24.5 mmol/L (21.0-32.0); Chloride 102 mmol/L (98-108); Glucose 97 mg/dL (70-99); Potassium 4.2 mmol/L (3.3-5.1)
== END ==
LOC: OLS.WCC 05:00
PROVIDERS: PCP Family Medicine; Visit Provider Family Medicine
DX: I10 Essential (primary) hypertension (principal)
CPT/HCPCS: 36415; 80048

== ENCOUNTER → 2025-05-17 | Outpatient (REF) | payer MEDICARE, MEDICAID, SELFPAY ==
--- OUTSIDE RECORDS SUMMARY | 2025-05-17 03:56 | XMS RPT_ITS | CCD ---
Author Organization [facility] Care Team Providers Care Plan Consultant Name Role Phone PATIENT, SELF Referring Unavailable CATRACHO OLVIN Primary Care Unavailable PROVIDER, UNKNOWN Admitting Unavailable PROVIDER, UNKNOWN Attending Unavailable Catracho TAYLOR, Olvin Caro Primary Care Provider Unavaila jose Massey MD, Olvin Caro Attending Provider Unavailable Catracho TAYLOR, Olvin Caro Referring Provider Unavailable Dr. Landon Allen DO Attending Provider Dr. Landon Allen DO Emergency Provider Dr. Olvin Massey MD Primary Care Provider [phone] Massey OLS, Olvin K Attending Unavailable Massey OLS, Olvin K Primary Care Unavailable Massey OLS, Olvin K Referring Unavailable Massey OLS, Olvin K Primary Care Unavailable Massey OLS, Olvin K Attending Unavailable Landon Allen Attending Unavailable Massey, Olvin [...] Primary Care Unavailable Massey OLS, Olvin K Primary Care Unavailable Massey OLS, Olvin K Attending Unavailable Massey OLS, Olvin K Referring Unavailable Massey OLS, Olvin K Primary Care Unavailable Massey OLS, Olvin K Attending Unavailable Massey OLS, Olvin K Primary Care Unavailable Massey OLS, Olvin K Attending Unavailable Allergies Allergy Classification Reported Allergen(s) Allergy Type Date of Onset Reaction(s) Facility (1 source) Bee; Translations: [BEE] Propensity to adverse reactions to drug (disorder) 7 [facility] (7 sources) venom-honey bee Allergy to substance 9 Unknown [facility] (1 source) venom-honey bee Drug allergy (disorder) 5 [facility] Medications Current Medications Medication Drug Class(es) [...] Polyene Antifungal Start: 07-10-2018 Nystatin (N ystop) 753841 powder Active 1 NMA TP EVERY 12 HOURS NEEDED as needed for redness and irritation July 10, 2018 1:00am sennosides, jail 1.76 mg/ml oral solution (7 sources) Start: 02-24-2016 Sennosides (Se nexon) 8.8 MG/5 ML syrup Active 2 {tbl} PO TWICE A DAY February 24, 2016 12:00am Start: 02-24-2016 take 2 tablets by mo [facility] twice daily Sennosides (Senexon) 8.8 MG/5 ML [...] (primary) hypertension; Translations: [Essential (primary) hypertension] Onset: 04-19-2025 Chronic Genitourinary symptoms and ill-defined conditions (3 [...] 06-15-2024 Episodic Other aftercare (2 sources) Other bed bug exterminator (current) drug therapy; Translations: [Other custodial (current) drug therapy] Onset: 10-09-2024 Episodic Results Test Name Value Interpretation Reference Range Facility Basic Metabolic Profile (BMP )on 04-29-2025 BUN/CRE 15.0 RATIO Normal - [facility] Comment on above: Order Comment: 119-1 Performed By: #### L 500.2500, L100.0500 #### [facility] [address] [place], [address] Calcium [Mass/Vol] 9.4 mg/dL Normal 7.6-11.0 [facility] Comment on above: Order Comment: 119-1 Performed By: #### L 500.2500, L100.0500 #### [facility] [address] [place], [address] Chloride [Moles/Vol] 102 mmol/L Normal 98-108 [facility] Comment on above: Order Comment: 119-1 Performed By: #### L 500.2500, L100.0500 #### [facility] [address] [place], [address] CO2 [Moles/Vol] 24.5 mmol/L Normal 21.0-32.0 [facility] Comment on above: Order Comment: 119-1 Performed By: #### L 500.2500, L100.0500 #### [facility] [address] [place], [address] Creatinine [Mass/Vol] 1.16 mg/dL Normal 0.70-1.20 [facility] Comment on above: Order Comment: 119-1 Performed By: #### L 500.2500, L100.0500 #### [facility] [address] [place], [address] GAP 9 Normal 5-15 [facility] Comment on above: Order Comment: 119-1 Performed By: #### L 500.2500, L100.0500 #### [facility] [address] [place], [address] GFR/1.73 sq M.predicted among non-blacks MDRD (S/P/Bld) [Vol rate/Area] 75 mL/min/{1.73_m2} Normal >60 [facility] Comment on above: Order Comment: 119-1 Result Comment: mL/m in/1.73m2 CKD-EPI Creatinine Equation (2020) Performed By: #### L 500.2500, L100.0500 #### [facility] [address] [place], [address] Glucose [Mass/Vol] 97 mg/dL Normal 70-99 [facility] Comment on above: Order Comment: 119-1 Performed By: #### L 500.2500, L100.0500 #### [facility] [address] [place], [address] Potassium [Moles/Vol] 4.2 mmol/L Normal 3.3-5.1 [facility] Comment on above: Order Comment: 119-1 Performed By: #### L 500.2500, L100.0500 #### [facility] [address] [place], [address] Sodium [Moles/Vol] 135 mmol/L Normal 133-145 [facility] Comment on above: Order Comment: 119-1 Performed By: #### L 500.2500, L100.0500 #### [facility] [address] [place], [address] Urea nitrogen [Mass/Vol] 17 mg/dL Normal 4-19 [facility] Comment on above: Order Comment: 119-1 Performed By: #### L 500.2500, L100.0500 #### [facility] [address] [place], [address] Urine Cultureon 02-25-2025 [facility] Below infection leve l. Mixed Gram Positive Organisms [place] Count 1000-10,000 MIXC Mixed contaminants. Submit a new specimen if indicated. Normal [facility] Comment on above: Performed By: #### M 100.2200, L400.0001 #### [facility] [address] [place], [address] Urinalysis, Completeon 02-23 BACTERIA RARE Normal None Seen [facility] Comment on above: Order Comment: Urine , Random Performed By: #### M 100.2200, L400.0001 #### [facility] [address] [place], [address] EPI,SQUAMOUS 0 SEEN Normal 0-5 [facility] Comment on above: Order Comment: Urine , Random Performed By: #### M 100.2200, L400.0001 #### [facility] [address] [place], [address] Mucus Ql (Urine sed) 0 SEEN Normal [facility] Comment on above: Order Comment: Urine , Random Performed By: #### M 100.2200, L400.0001 #### [facility] [address] [place], [address] RBC 0 SEEN Normal 0-5 [facility] Comment on above: Order Comment: Urine , Random Performed By: #### M 100.2200, L400.0001 #### [facility] [address] [place], [address] WBC 0 SEEN Normal 0-5 [facility] Comment on above: Order Comment: Urine , Random Performed By: #### M 100.2200, L400.0001 #### [facility] [address] [place], [address] Urine Cultureon 01-26-2025 URC Enterococcus faecali s [place] Count 1000-10,000 Enterococcus faecalis: REACTION Ampicillin Islt BRIANDA <=2 Gentamicin Synergy Susc Islt SYN-S S Linezolid Islt BRIANDA 2 S Streptomycin High Pot Susc Islt SYN-S S Vancomycin Islt BRIANDA 1 S Normal [facility] Comment on above: Performed By: #### L 100.0500, L500.2500 #### [facility] [address] [place], [address] Basic Metabolic Profile (BMP )on 01-25-2025 BUN/CRE 17.6 RATIO Normal 10-20 [facility] Comment on above: Order Comment: 119.1 Performed By: #### L 100.0500, L500.2500 #### [facility] [address] [place], [address] Calcium [Mass/Vol] 9.3 mg/dL Normal 7.6-11.0 [facility] Comment on above: Order Comment: 119.1 Performed By: #### L 100.0500, L500.2500 #### [facility] [address] [place], [address] Chloride [Moles/Vol] 105 mmol/L Normal 98-108 [facility] Comment on above: Order Comment: 119.1 Performed By: #### L 100.0500, L500.2500 #### [facility] [address] [place], [address] CO2 [Moles/Vol] 23.4 mmol/L Normal 21.0-32.0 [facility] Comment on above: Order Comment: 119.1 Performed By: #### L 100.0500, L500.2500 #### [facility] [address] [place], [address] Creatinine [Mass/Vol] 1.12 mg/dL Normal 0.70-1.20 [facility] Comment on above: Order Comment: 119.1 Performed By: #### L 100.0500, L500.2500 #### [facility] [address] [place], [address] GAP 11 Normal 5-15 [facility] Comment on above: Order Comment: 119.1 Performed By: #### L 100.0500, L500.2500 #### [facility] [address] [place], [address] GFR/1.73 sq M.predicted among non-blacks MDRD (S/P/Bld) [Vol rate/Area] 78 mL/min/{1.73_m2} Normal >60 [facility] Comment on above: Order Comment: 119.1 Result Comment: mL/m in/1.73m2 CKD-EPI Creatinine Equation (2020) Performed By: #### L 100.0500, L500.2500 #### [facility] [address] [place], [address] Glucose [Mass/Vol] 84 mg/dL Normal 70-99 [facility] Comment on above: Order Comment: 119.1 Performed By: #### L 100.0500, L500.2500 #### [facility] [address] [place], [address] Potassium [Moles/Vol] 4.0 mmol/L Normal 3.3-5.1 [facility] Comment on above: Order Comment: 119.1 Performed By: #### L 100.0500, L500.2500 #### [facility] [address] [place], [address] Sodium [Moles/Vol] 139 mmol/L Normal 133-145 [facility] Comment on above: Order Comment: 119.1 Performed By: #### L 100.0500, L500.2500 #### [facility] [address] [place], [address] Urea nitrogen [Mass/Vol] 20 mg/dL High 4-19 [facility] Comment on above: Order Comment: 119.1 Performed By: #### L 100.0500, L500.2500 #### [facility] [address] [place], [address] Urinalysis, Completeon 01-24 BACTERIA RARE Normal None Seen [facility] Comment on above: Order Comment: 119.1 Performed By: #### L 100.0500, L500.2500 #### [facility] [address] [place], [address] RBC 0-5 SEEN Normal 0-5 [facility] Comment on above: Order Comment: 119.1 Performed By: #### L 100.0500, L500.2500 #### [facility] [address] [place], [address] WBC 5-10 SEEN Normal 0-5 [facility] Comment on above: Order Comment: 119.1 Performed By: #### L 100.0500, L500.2500 #### [facility] [address] [place], [address] EPI,SQUAMOUS 0 SEEN Normal 0-5 [facility] Comment on above: Order Comment: 119.1 Performed By: #### L 100.0500, L500.2500 #### [facility] [address] [place], [address] Mucus Ql (Urine sed) 0 SEEN Normal [facility] Comment on above: Order Comment: 119.1 Performed By: #### L 100.0500, L500.2500 #### [facility] [address] [place], [address] Hemoglobin A1con 12-14-2024 HbA1c (Bld) [Mass fraction] 5.6 % Normal <=5.6 [facility] Comment on above: Result Comment: Norm al < 5.7 % Prediabetic 5.7 - 6.4 % Diabetic >or= 6.5 % Please note range changes. Performed By: #### L 500.2500, L100.0500 #### [facility] [address] [place], [address] Lipid Profileon 12-14-2024 CHOL:HDL 3.10 Normal [facility] Comment on above: Order Comment: 119-1 Performed By: #### L 500.2500, L100.0500 #### [facility] [address] [place] [place], [address] Cholesterol [Mass/Vol] 124 mg/dL Normal <=200 [facility] Comment on above: Order Comment: 119-1 Result Comment: Chol esterol level, Desirable <200 mg/dL Borderline high cholesterol 200-239 mg/dL High cholesterol >=240 mg/dL Recommendations of the NCEP Adult Treatment Panel for the following risk-cutoff thresholds for the [place] population. Performed By: #### L 500.2500, L100.0500 #### [facility] [address] [place], [address] Cholesterol in HDL [Mass/Vol] 40 mg/dL Normal [facility] Comment on above: Order Comment: 119-1 Result Comment: Shayna onal Cholesterol Education Program (NCEP) guidelines: <40 mg/dL: Low HDL-cholesterol (major risk factor for CHD) >= 60 mg/dL: High HDL-cholesterol (negative risk factor for CHD) HDL-cholesterol is affected by a number of factors, e.g. smoking, exercise, hormones, sex and age. Performed By: #### L 500.2500, L100.0500 #### [facility] [address] [place], [address] Cholesterol in LDL [Mass/Vol] 60 mg/dL Normal [facility] Comment on above: Order Comment: 119-1 Result Comment: Bord igiuyg=705-427 mg/dL Higher Tuwk=270 mg/dL or greater Performed By: #### L 500.2500, L100.0500 #### [facility] [address] [place], [address] Cholesterol in VLDL [Mass/Vol] 24 mg/dL Normal 5-40 [facility] Comment on above: Order Comment: 119-1 Performed By: #### L 500.2500, L100.0500 #### [facility] [address] [place], [address] Triglyceride [Mass/Vol] 118 mg/dL Normal [facility] Comment on above: Order Comment: 119-1 Result Comment: The drugs N-Acetylcysteine and Metamizole may falsely depress this assay. Normal range: <150 mg/dL Borderline High: 150-199 mg/dL High: 200-499 mg/dL Very High: >500 mg/dL Performed By: #### L 500.2500, L100.0500 #### [facility] [address] [place], [address] KEPPRA (LEVETIRACETAM)on KEPPRA 22.5 ug/mL Normal 10.0-40.0 [facility] Comment on above: Order Comment: 119-1 Result Comment: Perf ormed at: - [facility] [id number] Traffic Control Operator: Jere Tierney MD, Phone: [phone] Performed By: #### L 500.2500, L100.0500 #### [facility] [address] [place], [address] CBC-Complete Blood Cnt No Di ffon 11-14-2024 Erythrocyte distribution width (RBC) [Ratio] 12.0 % Normal 11.6-14.6 [facility] Comment on above: Order Comment: 119-1 Performed By: #### L 500.2500, L100.0500 #### [facility] [address] [place], [address] Hematocrit (Bld) [Volume fraction] 42.9 % Normal 40-54 [facility] Comment on above: Order Comment: 119-1 Performed By: #### L 500.2500, L100.0500 #### [facility] [address] [place], [address] Hemoglobin (Bld) [Mass/Vol] 14.1 g/dL Normal 13.0-16. 5 [facility] Comment on above: Order Comment: 119-1 Performed By: #### L 500.2500, L100.0500 #### [facility] [address] [place], [address] MCH (RBC) [Entitic mass] 28.8 pg Normal 27.0-32.0 [facility] Comment on above: Order Comment: 119-1 Performed By: #### L 500.2500, L100.0500 #### [facility] [address] [place], [address] MCHC (RBC) [Mass/Vol] 32.9 g/dL Normal 32-36 [facility] Comment on above: Order Comment: 119-1 Performed By: #### L 500.2500, L100.0500 #### [facility] [address] [place], [address] MCV (RBC) [Entitic vol] 87.6 fL Normal 80-94 [facility] Comment on above: Order Comment: 119-1 Performed By: #### L 500.2500, L100.0500 #### [facility] [address] [place], [address] Platelet mean volume (Bld) [Entitic vol] 10.0 fL Normal 6.2-12.0 [facility] Comment on above: Order Comment: 119-1 Performed By: #### L 500.2500, L100.0500 #### [facility] [address] [place], [address] Platelets (Bld) [#/Vol] 256 10*3/uL Normal 150-450 [facility] Comment on above: Order Comment: 119-1 Performed By: #### L 500.2500, L100.0500 #### [facility] [address] [place], [address] RBC (Bld) [#/Vol] 4.90 10*6/uL Normal 4.6-6.2 [facility] Comment on above: Order Comment: 119-1 Performed By: #### L 500.2500, L100.0500 #### [facility] [address] [place], [address] RDW SD 38.6 fl Normal 35.1-43.9 [facility] Comment on above: Order Comment: 119-1 Performed By: #### L 500.2500, L100.0500 #### [facility] [address] [place], [address] WBC (Bld) [#/Vol] 6.7 10*3/uL Normal 4.4-11.0 [facility] Comment on above: Order Comment: 119-1 Performed By: #### L 500.2500, L100.0500 #### [facility] [address] [place], [address] Liver Profileon 11-14-2024 Albumin [Mass/Vol] 4.1 g/dL Normal 3.5-5.0 [facility] Comment on above: Order Comment: 119-1 Performed By: #### L 500.2500, L100.0500 #### [facility] [address] [place], [address] ALK PHOS 147 U/L High 40-129 [facility] Comment on above: Order Comment: 119-1 Performed By: #### L 500.2500, L100.0500 #### [facility] [address] [place], [address] ALT [Catalytic activity/Vol] 22 U/L Normal <=46 [facility] Comment on above: Order Comment: 119-1 Performed By: #### L 500.2500, L100.0500 #### [facility] [address] [place], [address] AST [Catalytic activity/Vol] 19 U/L Normal <=37 [facility] Comment on above: Order Comment: 119-1 Performed By: #### L 500.2500, L100.0500 #### [facility] [address] [place], [address] Bilirubin [Mass/Vol] 0.30 mg/dL Normal 0.00-1.30 [facility] Comment on above: Order Comment: 119-1 Performed By: #### L 500.2500, L100.0500 #### [facility] [address] [place], [address] Bilirubin.direct [Mass/Vol] 0.12 mg/dL Normal 0.00-0.3 0 [facility] Comment on above: Order Comment: 119-1 Performed By: #### L 500.2500, L100.0500 #### [facility] [address] [place], [address] Globulin (S) [Mass/Vol] 3.7 g/dL Normal 2.2-4.2 [facility] Comment on above: Order Comment: 119-1 Performed By: #### L 500.2500, L100.0500 #### [facility] [address] [place], [address] T PROT 7.8 g/dL Normal 5.9-8.4 [facility] Comment on above: Order Comment: 119-1 Performed By: #### L 500.2500, L100.0500 #### [facility] [address] [place], [address] Basic Metabolic Profile (BMP )on 10-25-2024 BUN/CRE 15.3 RATIO Normal 10-20 [facility] Comment on above: Order Comment: 119-1 Performed By: #### L 500.2500, L100.0500 #### [facility] [address] [place], [address] Calcium [Mass/Vol] 9.3 mg/dL Normal 7.6-11.0 [facility] Comment on above: Order Comment: 119-1 Performed By: #### L 500.2500, L100.0500 #### [facility] [address] [place], [address] Chloride [Moles/Vol] 104 mmol/L Normal 98-108 [facility] Comment on above: Order Comment: 119-1 Performed By: #### L 500.2500, L100.0500 #### [facility] [address] [place], [address] CO2 [Moles/Vol] 23.4 mmol/L Normal 21.0-32.0 [facility] Comment on above: Order Comment: 119-1 Performed By: #### L 500.2500, L100.0500 #### [facility] [address] [place], [address] Creatinine [Mass/Vol] 1.12 mg/dL Normal 0.70-1.20 [facility] Comment on above: Order Comment: 119-1 Performed By: #### L 500.2500, L100.0500 #### [facility] [address] [place], [address] GAP 10 Normal 5-15 [facility] Comment on above: Order Comment: 119-1 Performed By: #### L 500.2500, L100.0500 #### [facility] [address] [place], [address] GFR/1.73 sq M.predicted among non-blacks MDRD (S/P/Bld) [Vol rate/Area] 79 mL/min/{1.73_m2} Normal >60 [facility] Comment on above: Order Comment: 119-1 Result Comment: mL/m in/1.73m2 CKD-EPI Creatinine Equation (2020) Performed By: #### L 500.2500, L100.0500 #### [facility] [address] [place], [address] Glucose [Mass/Vol] 104 mg/dL High 70-99 [facility] Comment on above: Order Comment: 119-1 Performed By: #### L 500.2500, L100.0500 #### [facility] [address] [place], [address] Potassium [Moles/Vol] 3.7 mmol/L Normal 3.3-5.1 [facility] Comment on above: Order Comment: 119-1 Performed By: #### L 500.2500, L100.0500 #### [facility] [address] [place], [address] Sodium [Moles/Vol] 137 mmol/L Normal 133-145 [facility] Comment on above: Order Comment: 119-1 Performed By: #### L 500.2500, L100.0500 #### [facility] [address] [place], [address] Urea nitrogen [Mass/Vol] 17 mg/dL Normal 4-19 [facility] Comment on above: Order Comment: 119-1 Performed By: #### L 500.2500, L100.0500 #### [facility] [address] [place], [address] Basic Metabolic Profile (BMP )on 10-09-2024 BUN/CRE 13.4 RATIO Normal 10-20 [facility] Comment on above: Order Comment: 119-1 Performed By: #### L 500.2500, L100.0500 #### [facility] [address] [place], [address] Calcium [Mass/Vol] 8.8 mg/dL Normal 7.6-11.0 [facility] Comment on above: Order Comment: 119-1 Performed By: #### L 500.2500, L100.0500 #### [facility] [address] [place], [address] Chloride [Moles/Vol] 101 mmol/L Normal 98-108 [facility] Comment on above: Order Comment: 119-1 Performed By: #### L 500.2500, L100.0500 #### [facility] [address] [place], [address] CO2 [Moles/Vol] 24.7 mmol/L Normal 21.0-32.0 [facility] Comment on above: Order Comment: 119-1 Performed By: #### L 500.2500, L100.0500 #### [facility] [address] [place], [address] Creatinine [Mass/Vol] 1.12 mg/dL Normal 0.70-1.20 [facility] Comment on above: Order Comment: 119-1 Performed By: #### L 500.2500, L100.0500 #### [facility] [address] [place], [address] GAP 9 Normal 5-15 [facility] Comment on above: Order Comment: 119-1 Performed By: #### L 500.2500, L100.0500 #### [facility] [address] [place], [address] GFR/1.73 sq M.predicted among non-blacks MDRD (S/P/Bld) [Vol rate/Area] 79 mL/min/{1.73_m2} Normal >60 [facility] Comment on above: Order Comment: 119-1 Result Comment: mL/m in/1.73m2 CKD-EPI Creatinine Equation (2020) Performed By: #### L 500.2500, L100.0500 #### [facility] [address] [place], [address] Glucose [Mass/Vol] 88 mg/dL Normal 70-99 [facility] Comment on above: Order Comment: 119-1 Performed By: #### L 500.2500, L100.0500 #### [facility] [address] [place], [address] Potassium [Moles/Vol] 3.9 mmol/L Normal 3.3-5.1 [facility] Comment on above: Order Comment: 119-1 Performed By: #### L 500.2500, L100.0500 #### [facility] [address] [place], [address] Sodium [Moles/Vol] 135 mmol/L Normal 133-145 [facility] Comment on above: Order Comment: 119-1 Performed By: #### L 500.2500, L100.0500 #### [facility] [address] [place], [address] Urea nitrogen [Mass/Vol] 15 mg/dL Normal 4-19 [facility] Comment on above: Order Comment: 119-1 Performed By: #### L 500.2500, L100.0500 #### [facility] [address] [place], [address] Basic Metabolic Profile (BMP )on 09-25-2024 BUN/CRE 12.0 RATIO Normal 10-20 [facility] Comment on above: Order Comment: 119-1 Performed By: #### L 500.2500, L100.0500 #### [facility] [address] [place], [address] Calcium [Mass/Vol] 8.8 mg/dL Normal 7.6-11.0 [facility] Comment on above: Order Comment: 119-1 Performed By: #### L 500.2500, L100.0500 #### [facility] [address] [place], [address] Chloride [Moles/Vol] 104 mmol/L Normal 98-108 [facility] Comment on above: Order Comment: 119-1 Performed By: #### L 500.2500, L100.0500 #### [facility] [address] [place], [address] CO2 [Moles/Vol] 21.8 mmol/L Normal 21.0-32.0 [facility] Comment on above: Order Comment: 119-1 Performed By: #### L 500.2500, L100.0500 #### [facility] [address] [place], [address] Creatinine [Mass/Vol] 0.99 mg/dL Normal 0.70-1.20 [facility] Comment on above: Order Comment: 119-1 Performed By: #### L 500.2500, L100.0500 #### [facility] [address] [place], [address] GAP 10 Normal 5-15 [facility] Comment on above: Order Comment: 119-1 Performed By: #### L 500.2500, L100.0500 #### [facility] [address] [place], [address] GFR/1.73 sq M.predicted among non-blacks MDRD (S/P/Bld) [Vol rate/Area] 91 mL/min/{1.73_m2} Normal >60 [facility] Comment on above: Order Comment: 119-1 Result Comment: mL/m in/1.73m2 CKD-EPI Creatinine Equation (2020) Performed By: #### L 500.2500, L100.0500 #### [facility] [place] [facility] [address] [place], [address] Glucose [Mass/Vol] 98 mg/dL Normal 70-99 [facility] Comment on above: Order Comment: 119-1 Performed By: #### L 500.2500, L100.0500 #### [facility] [address] [place], [address] Potassium [Moles/Vol] 4.0 mmol/L Normal 3.3-5.1 [facility] Comment on above: Order Comment: 119-1 Result Comment: Hemo lysis present, Results??could be affected. ?? Performed By: #### L 500.2500, L100.0500 #### [facility] [address] [place], [address] Sodium [Moles/Vol] 136 mmol/L Normal 133-145 [facility] Comment on above: Order Comment: 119-1 Performed By: #### L 500.2500, L100.0500 #### [facility] [address] [place], [address] Urea nitrogen [Mass/Vol] 12 mg/dL Normal -19 [facility] Comment on above: Order Comment: 119-1 Performed By: #### L 500.2500, L100.0500 #### [facility] [address] [place], [address] Anion gap in Serum or Plasma Ordered By: Olvin Massey on 08-29-2024 Anion gap [Moles/Vol] 11 mmol/L -15 [facility] BUN/creatinine ratioOrdered By: Olvin Massey on 08-29-2024 Urea nitrogen/Creatinine [Mass ratio] 11.8 mg/mg - [facility] Basic Metabolic Profile (BMP )on 08-29-2024 BUN/CRE 11.8 RATIO Normal - [facility] Comment on above: Performed By: #### L 100.0500, L500.2500 #### [facility] [address] [place], [address] Calcium [Mass/Vol] 9.0 mg/dL Normal 7.6-11.0 [facility] Comment on above: Performed By: #### L 100.0500, L500.2500 #### [facility] [address] [place], [address] Chloride [Moles/Vol] 98 mmol/L Normal 98-108 [facility] Comment on above: Performed By: #### L 100.0500, L500.2500 #### [facility] [address] [place], [address] CO2 [Moles/Vol] 21.8 mmol/L Normal 21.0-32.0 [facility] Comment on above: Performed By: #### L 100.0500, L500.2500 #### [facility] [address] [place], [address] Creatinine [Mass/Vol] 1.07 mg/dL Normal 0.70-1.20 [facility] Comment on above: Performed By: #### L 100.0500, L500.2500 #### [facility] [address] [place], [address] GAP 11 Normal 5-15 [facility] Comment on above: Performed By: #### L 100.0500, L500.2500 #### [facility] [address] [place], [address] GFR/1.73 sq M.predicted among non-blacks MDRD (S/P/Bld) [Vol rate/Area] 83 mL/min/{1.73_m2} Normal >60 [facility] Comment on above: Result Comment: mL/m in/1.73m2 CKD-EPI Creatinine Equation (2020) Performed By: #### L 100.0500, L500.2500 #### [facility] [address] [place], [address] Glucose [Mass/Vol] 90 mg/dL Normal 70-99 [facility] Comment on above: Performed By: #### L 100.0500, L500.2500 #### [facility] [address] [place], [address] Potassium [Moles/Vol] 4.3 mmol/L Normal 3.3-5.1 [facility] Comment on above: Performed By: #### L 100.0500, L500.2500 #### [facility] [address] [place], [address] Sodium [Moles/Vol] 130 mmol/L Low 133-145 [facility] Comment on above: Performed By: #### L 100.0500, L500.2500 #### [facility] [address] [place], [address] Urea nitrogen [Mass/Vol] 13 mg/dL Normal 4-19 [facility] Comment on above: Performed By: #### L 100.0500, L500.2500 #### [facility] [address] [place], [address] Carbon dioxide, total [Moles /volume] in Central venous bloodOrdered By: Olvin Massey on 08-29-2024 CO2 [Moles/Vol] 21.8 mmol/L 21.0-32.0 [facility] Chloride assayOrdered By: Deborah Massey on 08-29-2024 Chloride [Moles/Vol] 98 mmol/L 98-108 [facility] GFR/1.73 sq M.predicted emory g non-blacks MDRD (S/P/Bld) [Vol rate/Area]Ordered By: Olvin Massey on 08-29-2024 Estimated GFR (MDRD) Non-Af Amer 83 >60 [facility] Comment on above: mL/min/1.73m2 CKD-EP I Creatinine Equation (2020) Potassium (Unsp spec) [Mass/ Vol]Ordered By: Olvin Massey on 08-29-2024 Potassium [Moles/Vol] 4.3 mmol/L 3.3-5.1 [facility] Serum creatinine measurement (mass/volume)Ordered By: Olvin Massey on 08-29-2024 Creatinine [Mass/Vol] 1.07 mg/dL 0.70-1.20 [facility] Serum glucose measurement (m ass/volume)Ordered By: Olvin Massey on 08-29-2024 Glucose [Mass/Vol] 90 mg/dL 70-99 [facility] Serum or plasma calcium jack urement (mass/volume)Ordered By: Olvin Massey on 08-29-2024 Calcium [Mass/Vol] 9.0 mg/dL 7.6-11.0 [facility] Serum or plasma urea nitroge n measurement (mass/volume)Ordered By: Olvin Massey on 08-29-2024 Urea nitrogen [Mass/Vol] 13 mg/dL 4-19 [facility] Sodium levelOrdered By: Olvin Massey on 08-29-2024 Sodium [Moles/Vol] 130 mmol/L Low 133-145 [facility] Abdomen/Pelvis W IV Cont ONL Yon 08-05-2024 Abdomen/Pelvis W IV Cont ONLY [facility] [address] [place] [address] Abdomen/Pelvis W IV Cont ONLY MR#: [id number] Acct: [id number] Name: OLVIN JUAREZ Rep #: [id number] : 1970 M 53 From: Caitlin Jimenez nd, MD PCP: Dr. Olvin Massey MD Status: [facility] ER Study: Abdomen/Pelvis W IV Cont ONLY Date of Exam: Exam# [id number] Ordering Dr: Landon Allen DO PROCEDURE: ABDOMEN/PELVIS [...] use of iterative reconstruction technique). Reading Location: [facility] CC: Dr. Landon Allen DO; Dr. Olvin Massey MD Apprentice Jockey: Signed Normal [facility] Absolute neutrophil countOrd ered By: Landon Allen on 08-05-2024 Neutrophils (Bld) [#/Vol] 6.1 10*3/uL 2.0-7.7 [facility] Alcohol, Blood (Medical)-Ser umon 08-05-2024 SERUM ETOH < 3.0 Normal [facility] Comment on above: Result Comment: The serum:whole blood ethanol ratio is approximately 1.14 and varies slightly with hematocrit. Medical Alcohol reference interval and critical value in non-tolerant individuals; 50 - 100 Impairment 100 Intoxication 100 - 250 Severe Poisoning 250 - 400 Deep/possible fatal coma Performed By: #### L 501.2450, L500.2500, L501.9100, L500.3400, L501.5200, L100.0100 #### [facility] [place], [address] Amorphous sediment detection in urine sediment by light microscopyOrdered By: Landon Allen on 08-05-2024 Amorphous sediment LM Ql (Urine sed) 2+ [facility] Basic Metabolic Profile (BMP )on 08-05-2024 BUN/CRE 10.9 RATIO Normal 10-20 [facility] Comment on above: Performed By: #### L 501.2450, L500.2500, L501.9100, L500.3400, L501.5200, L100.0100 #### [facility] [address] [place], [address] CA,Total 9.1 mg/dL Normal 8.5-10.1 [facility] Comment on above: Performed By: #### L 501.2450, L500.2500, L501.9100, L500.3400, L501.5200, L100.0100 #### [facility] [address] [place], [address] Chloride [Moles/Vol] 107 mmol/L Normal 98-107 [facility] Comment on above: Performed By: #### L 501.2450, L500.2500, L501.9100, L500.3400, L501.5200, L100.0100 #### [facility] [address] [place], [address] CO2 [Moles/Vol] 27.0 mmol/L Normal 21.0-32.0 [facility] Comment on above: Performed By: #### L 501.2450, L500.2500, L501.9100, L500.3400, L501.5200, L100.0100 #### [facility] [address] [place], [address] Creatinine [Mass/Vol] 1.28 mg/dL Normal 0.70-1.30 [facility] Comment on above: Result Comment: The validity of the calculated GFR GFRAA in patients over 70 years has not been determined. Clinical correlation is essential. Performed By: #### L 501.2450, L500.2500, L501.9100, L500.3400, L501.5200, L100.0100 #### [facility] [address] [place], [address] ECRCL 78.34 ml/min Normal [facility] Comment on above: Performed By: #### L 501.2450, L500.2500, L501.9100, L500.3400, L501.5200, L100.0100 #### [facility] [address] [place], [address] EST GFR - AA 75 mL/min Normal >60 [facility] Comment on above: Result Comment: Afri can [place] GFR Calc Performed By: #### L 501.2450, L500.2500, L501.9100, L500.3400, L501.5200, L100.0100 #### [facility] [address] [place], [address] GAP 6 Normal 5-15 [facility] Comment on above: Performed By: #### L 501.2450, L500.2500, L501.9100, L500.3400, L501.5200, L100.0100 #### [facility] [address] [place], [address] GFR/1.73 sq M.predicted among non-blacks MDRD (S/P/Bld) [Vol rate/Area] 62 mL/min/{1.73_m2} Normal >60 [facility] Comment on above: Result Comment: Non- GFR Calc Performed By: #### L 501.2450, L500.2500, L501.9100, L500.3400, L501.5200, L100.0100 #### [facility] [address] [place], [address] Glucose [Mass/Vol] 119 mg/dL High 74-106 [facility] Comment on above: Result Comment: Fast ing Glucose result from 100 to 125 mg/dL suggests IMPAIRED HOMEOSTASIS per A.D.A. criteria. Performed By: #### L 501.2450, L500.2500, L501.9100, L500.3400, L501.5200, L100.0100 #### [facility] [address] [place], [address] Potassium [Moles/Vol] 3.4 mmol/L Low 3.5-5.1 [facility] Comment on above: Performed By: #### L 501.2450, L500.2500, L501.9100, L500.3400, L501.5200, L100.0100 #### [facility] [address] [place], [address] Sodium [Moles/Vol] 140 mmol/L Normal 136-145 [facility] Comment on above: Performed By: #### L 501.2450, L500.2500, L501.9100, L500.3400, L501.5200, L100.0100 #### [facility] [address] [place], [address] Urea nitrogen [Mass/Vol] 14 mg/dL Normal 7-18 [facility] Comment on above: Performed By: #### L 501.2450, L500.2500, L501.9100, L500.3400, L501.5200, L100.0100 #### [facility] [address] [place], [address] Basophil percentageOrdered B y: Landon Allen on 08-05-2024 Basophils/100 WBC (Bld) 0.7 % 0-1 [facility] Bilirubin Test strip Ql (U)O rdered By: Landon Allen on 08-05-2024 Bilirubin Ql (U) Negative Negative [facility] Bilirubin directOrdered By: Landon Allen on 08-05-2024 Bilirubin.direct [Mass/Vol] 0.11 mg/dL 0.00-0.3 0 [facility] Bilirubin, totalOrdered By: Landon Allen on 08-05-2024 Bilirubin [Mass/Vol] 0.30 mg/dL 0.20-1.00 [facility] Comment on above: For patients on eltr ombopag therapy, use of Dimension [place] TBIL is not recommended. Blood urea nitrogen (BUN)/cr eatinine ratioOrdered By: Landon Allen on 08-05-2024 Urea nitrogen/Creatinine [Mass ratio] 10.9 mg/mg 10-20 [facility] Brain/Head without Contrasto n 08-05-2024 Brain/Head without Contrast [facility] Services [address] [place], [place] [address] Brain/Head without Contrast MR#: [id number] Acct: [id number] Name: OLVIN JUAREZ Rep #: [id number] : 1970 M 53 From: Caitlin Jimenez nd, MD PCP: Dr. Olvin Massey MD Status: [facility] Study: Brain/Head without Contrast Date of Exam: 07/21 12/12 Exam# [id number] Ordering Dr: Landon Allen DO EXAM: BRAIN/HEAD [...] head. Congenital findings as described. Reading Location: [facility] CC: Dr. Landon Allen DO; Dr. Olvin Massey MD Apprentice Jockey: Signed Normal [facility] CBC W/Diff, Automatedon 02- Absolute Lymph 1.48 X10 3/uL Normal 0.83-4.51 [facility] Comment on above: Performed By: #### L 501.2450, L500.2500, L501.9100, L500.3400, L501.5200, L100.0100 #### [facility] [address] [place], [address] Absolute Neut 6.1 X10 3/uL Normal 2.0-7.7 [facility] Comment on above: Performed By: #### L 501.2450, L500.2500, L501.9100, L500.3400, L501.5200, L100.0100 #### [facility] [address] [place], [address] Basophils/100 WBC (Bld) 0.7 % Normal 0-1 [facility] Comment on above: Performed By: #### L 501.2450, L500.2500, L501.9100, L500.3400, L501.5200, L100.0100 #### [facility] [address] [place], [address] Eosinophils/100 WBC (Bld) 0.1 % Normal 0-5 [facility] Comment on above: Performed By: #### L 501.2450, L500.2500, L501.9100, L500.3400, L501.5200, L100.0100 #### [facility] [address] [place], [address] Erythrocyte distribution width (RBC) [Ratio] 13.2 % Normal 11.6-14.6 [facility] Comment on above: Performed By: #### L 501.2450, L500.2500, L501.9100, L500.3400, L501.5200, L100.0100 #### [facility] [address] [place], [address] Hematocrit (Bld) [Volume fraction] 40.6 % Normal 40-54 [facility] Comment on above: Performed By: #### L 501.2450, L500.2500, L501.9100, L500.3400, L501.5200, L100.0100 #### [facility] [address] [place], [address] Hemoglobin (Bld) [Mass/Vol] 13.3 g/dL Normal 13.0-16. 5 [facility] Comment on above: Performed By: #### L 501.2450, L500.2500, L501.9100, L500.3400, L501.5200, L100.0100 #### [facility] [address] [place], [address] IG% 0.400 Normal 0.0-0.9 [facility] Comment on above: Result Comment: IG% - Immature Granulocytes (promyelocytes, myelocytes and metamyelocytes) > 1% indicates that a LEFT SHIFT is Present. Performed By: #### L 501.2450, L500.2500, L501.9100, L500.3400, L501.5200, L100.0100 #### [facility] [address] [place], [address] Lymphocytes/100 WBC (Bld) 17.9 % Low 19-41 [facility] Comment on above: Performed By: #### L 501.2450, L500.2500, L501.9100, L500.3400, L501.5200, L100.0100 #### [facility] [address] [place], [address] MCH (RBC) [Entitic mass] 29.7 pg Normal 27.0-32.0 [facility] Comment on above: Performed By: #### L 501.2450, L500.2500, L501.9100, L500.3400, L501.5200, L100.0100 #### [facility] [address] [place], [address] MCHC (RBC) [Mass/Vol] 32.8 g/dL Normal 32-36 [facility] Comment on above: Performed By: #### L 501.2450, L500.2500, L501.9100, L500.3400, L501.5200, L100.0100 #### [facility] [address] [place], [address] MCV (RBC) [Entitic vol] 90.6 fL Normal 80-94 [facility] Comment on above: Performed By: #### L 501.2450, L500.2500, L501.9100, L500.3400, L501.5200, L100.0100 #### [facility] [address] [place], [address] Monocytes/100 WBC (Bld) 7.4 % Normal 0-10 [facility] Comment on above: Performed By: #### L 501.2450, L500.2500, L501.9100, L500.3400, L501.5200, L100.0100 #### [facility] [address] [place], [address] Neutrophils/100 WBC (Bld) 73.5 % High 47-70 [facility] Comment on above: Performed By: #### L 501.2450, L500.2500, L501.9100, L500.3400, L501.5200, L100.0100 #### [facility] [address] [place], [address] Nucleated RBC (Bld) [#/Vol] 0 10*3/uL Normal 0-5 [facility] Comment on above: Performed By: #### L 501.2450, L500.2500, L501.9100, L500.3400, L501.5200, L100.0100 #### [facility] [address] [place], [address] Platelet mean volume (Bld) [Entitic vol] 9.0 fL Normal 6.2-12.0 [facility] Comment on above: Performed By: #### L 501.2450, L500.2500, L501.9100, L500.3400, L501.5200, L100.0100 #### [facility] [address] [place], [address] Platelets (Bld) [#/Vol] 261 10*3/uL Normal 150-450 [facility] Comment on above: Performed By: #### L 501.2450, L500.2500, L501.9100, L500.3400, L501.5200, L100.0100 #### [facility] [address] [place], [address] RBC (Bld) [#/Vol] 4.48 10*6/uL Low 4.6-6.2 [facility] Comment on above: Performed By: #### L 501.2450, L500.2500, L501.9100, L500.3400, L501.5200, L100.0100 #### [facility] [address] [place], [address] RDW SD 43.5 fl Normal 35.1-43.9 [facility] Comment on above: Performed By: #### L 501.2450, L500.2500, L501.9100, L500.3400, L501.5200, L100.0100 #### [facility] [address] [place], [address] WBC (Bld) [#/Vol] 8.3 10*3/uL Normal 4.4-11.0 [facility] Comment on above: Performed By: #### L 501.2450, L500.2500, L501.9100, L500.3400, L501.5200, L100.0100 #### [facility] [address] [facility] [place], [place], [address] Carbon dioxide measurementOr dered By: Landon Allen on 08-05-2024 CO2 [Moles/Vol] 27.0 mmol/L 21.0-32.0 [facility] Chest 1 View (Portable)on Chest 1 View (Portable) [facility] Imaging Services [address] [place], [place] [address] Chest 1 View (Portable) MR#: [id number] Acct: [id number] Name: LARRYOLVIN Aravind Rep #: [id number] : 1970 M 53 From: Caitlin Jimenez nd, MD PCP: Dr. Olvin Massey MD Status: REG ER Study: Chest 1 View (Portable) Date of Exam: 08/05/24 Exam# [id number] Ordering Dr: Landon Allen DO PROCEDURE: CHEST [...] Findings of mild CHF/volume overload. Reading Location: [facility] CC: Dr. Landon Allen DO; Dr. Olvin Massey MD Apprentice Jockey: Signed Normal [facility] Chloride measurementOrdered By: Landon Allen on 08-05-2024 Chloride [Moles/Vol] 107 mmol/L 98-107 [facility] Emergency Department Summary on 08-05-2024 Emergency Department Summary [facility] Medical Records Department [address] [place] [address] Emergency Department Summary 08/05/24 MR#: [id number] Acct: [id number] Name: OLVIN JUAREZ Rep #: [id number] : 1970 53 From: Landon Allen DO PCP: Dr. Olvin Massey MD Status:REG ER Location: ED ADDENDUM by Dr. Brian Reyes DO on 08/05/24 at 2250 Care of the patient was turned over to me. Patient was accepted to [facility]. Thinks it was filled out. Patient remained calm and cooperative. Care of the patient will be turned over to the oncoming physician pending transfer. 08/05/24 2250 Cosigner Signature (if applicable): cc: Dr. Olvin Massey MD * Signed HPI History of Present Illness Chief Complaint: Mental Health Informant: patient, EMS and SNF Narrative Narrative: 53-year-old male from [facility] presenting to the emergency room with abnormal behavior. Patient has a history of schizoaffective disorder, bipolar, OCD, mild cognitive impairment, schizoaffective disorder. He has a history of seizure disorder as well He also has a history of hyponatremia and is on a fluid restricted diet. shelter provider notes the patient has been more [...] that the patient may be overmedicated. PFSH PFS Home Medications ???Medication ???Instructions ???Recorded ???Last Taken [...] Appearance: obese (more content not included)... Normal [facility] Eosinophil percentageOrdered By: Landon Allen on 08-05-2024 Eosinophils/100 WBC (Bld) 0.1 % 0-5 [facility] Epithelial cells.squamous LM Ql (Urine sed)Ordered By: Landon Allen on 08-05-2024 Epithelial cells.squamous LM.HPF (Urine sed) [#/Area] 0 /[HPF] 0-5 [facility] Erythrocyte distribution wid th (RBC) [Ratio]Ordered By: Landon Allen on 08-05-2024 Erythrocyte distribution width (RBC) [Entitic vol] 43.5 fL 35.1-43.9 [facility] Erythrocyte distribution wid th ratioOrdered By: Landon Allen on 08-05-2024 Erythrocyte distribution width (RBC) [Ratio] 13.2 % 11.6-14.6 [facility] Estimated glomerular filtrat ion rate (GFR) AmericanOrdered By: Landon Allen on 08-05-2024 Estimated GFR (MDRD) Amer 75 mL/min >60 [facility] Comment on above: GFR Calc Estimation of creatinine rodriguez aranceOrdered By: Landon Allen on 08-05-2024 Estimated Creatinine Clearance Calc 78.34 ml/min [facility] Glomerular filtration rate ( GFR) estimationOrdered By: Landon Allen on 08-05-2024 Estimated GFR (MDRD) Non-Af Amer 62 mL/min >60 [facility] Comment on above: Non- GFR Calc Glucose Ql (U)Ordered By: Nehemiah Allen on 08-05-2024 Urine Glucose (UA) Normal mg/dl Normal [facility] Glucose measurementOrdered B y: Landon Alejandro on 08-05-2024 Glucose [Mass/Vol] 119 mg/dL High 74-106 [facility] Comment on above: Fasting Glucose resu lt from 100 to 125 mg/dL suggests IMPAIRED HOMEOSTASIS per A.D.A. criteria. Hematocrit Auto (Bld) [Volum e fraction]Ordered By: Landon Allen on 08-05-2024 Hematocrit (Bld) [Volume fraction] 40.6 % 40-54 [facility] Hemoglobin measurementOrdere d By: Landon Allen on 08-05-2024 Hemoglobin (Bld) [Mass/Vol] 13.3 g/dL 13.0-16. 5 [facility] Immature granulocytes/100 WB C Auto (Bld)Ordered By: Landon Allen on 08-05-2024 Immature granulocytes/100 WBC (Bld) 0.400 % 0.0-0.9 [facility] Comment on above: IG% - Immature Granu locytes (promyelocytes, myelocytes and metamyelocytes) > 1% indicates that a LEFT SHIFT is Present. Ketones Test strip Ql (U)Ord ered By: Landon Allen on 08-05-2024 Ketones Ql (U) Negative Negative [facility] - Chemistry and C hemistry - challengeOrdered By: Landon Allen on 08-05-2024 AST [Catalytic activity/Vol] 15 U/L 15-37 [facility] Lipaseon 08-05-2024 Lipase [Catalytic activity/Vol] 27 U/L Low 73-393 [facility] Comment on above: Performed By: #### L 500.2500, L100.0500 #### [facility] [place], [place], [id number] Lipase measurementOrdered By : Landon Allen on 08-05-2024 Lipase [Catalytic activity/Vol] 27 U/L Low 73-393 [facility] Liver Profileon 08-05-2024 Albumin [Mass/Vol] 3.3 g/dL Normal 3.2-5.0 [facility] Comment on above: Performed By: #### L 500.2500, L100.0500 #### [facility] [address] [place], [address] ALK P 210 U/L High 45-117 [facility] Comment on above: Performed By: #### L 500.2500, L100.0500 #### [facility] [address] [place], [address] ALT [Catalytic activity/Vol] 28 U/L Normal 16-61 [facility] Comment on above: Performed By: #### L 500.2500, L100.0500 #### [facility] [address] [place], [address] AST [Catalytic activity/Vol] 15 U/L Normal 15-37 [facility] Comment on above: Performed By: #### L 500.2500, L100.0500 #### [facility] [address] [place], [address] Bilirubin [Mass/Vol] 0.30 mg/dL Normal 0.20-1.00 [facility] Comment on above: Result Comment: For patients on eltrombopag therapy, use of Dimension [place] TBIL is not recommended. Performed By: #### L 500.2500, L100.0500 #### [facility] [address] [place], [address] Bilirubin.direct [Mass/Vol] 0.11 mg/dL Normal 0.00-0.3 0 [facility] Comment on above: Performed By: #### L 500.2500, L100.0500 #### [facility] [address] [place], [address] Globulin (S) [Mass/Vol] 4.3 g/dL High 2.2-4.2 [facility] Comment on above: Performed By: #### L 500.2500, L100.0500 #### [facility] [address] [place], [place], [id number] T PROT 7.6 g/dL Normal 6.4-8.2 [facility] Comment on above: Performed By: #### L 500.2500, L100.0500 #### [facility] [address] [place], [place], [id number] Lymphocytes Auto (Unsp spec) [#/Vol]Ordered By: Landon Allen on 08-05-2024 Lymphocytes (Bld) [#/Vol] 1.48 10*3/uL 0.83-4.5 1 [facility] Lymphocytes/100 WBC Auto (Un sp spec)Ordered By: Landon Allen on 08-05-2024 Lymphocytes/100 WBC (Bld) 17.9 % Low 19-41 [facility] MCV (mean corpuscular volume ) determinationOrdered By: Landon Allen on 08-05-2024 MCV (RBC) [Entitic vol] 90.6 fL 80-94 [facility] Magnesiumon 08-05-2024 Magnesium [Mass/Vol] 2.5 mg/dL Normal 1.6-2.6 [facility] Comment on above: Performed By: #### L 500.2500, L100.0500 #### [facility] [address] [place], [place], [id number] Magnesium measurementOrdered By: Landon Allen on 08-05-2024 Magnesium [Mass/Vol] 2.5 mg/dL 1.6-2.6 [facility] Mean corpuscular hemoglobin (MCH) determinationOrdered By: Landon Allen on 08-05-2024 MCH (RBC) [Entitic mass] 29.7 pg 27.0-32.0 [facility] Mean corpuscular hemoglobin concentration (MCHC) determinationOrdered By: Landon Allen on 08-05-2024 MCHC (RBC) [Mass/Vol] 32.8 g/dL 32-36 [facility] Mean platelet volume determi nationOrdered By: Landon Allen on 08-05-2024 Platelet mean volume (Bld) [Entitic vol] 9.0 fL 6.2-12.0 [facility] Methadone, urineOrdered By: Landon Aleln on 08-05-2024 Urine Methadone Screen Negative < 300 ng/mL [facility] Microscopic analysis of urin e for red blood cells (RBC)Ordered By: Landon Allen on 08-05-2024 Urine RBC 0 SEEN /hpf 0-5 [facility] Monocyte percentageOrdered B y: Landon Allen on 08-05-2024 Monocytes/100 WBC (Bld) 7.4 % 0-10 [facility] Mucus LM Ql (Urine sed)Order ed By: Landon Allen on 08-05-2024 Mucus Ql (Urine sed) 0 SEEN /hpf [facility] Neutrophil percentageOrdered By: Landon Allen on 08-05-2024 Neutrophils/100 WBC (Bld) 73.5 % High 47-70 [facility] Nitrite Test strip Ql (U)Ord ered By: Landon Allen on 08-05-2024 Nitrite Ql (U) Negative Negative [facility] No Panel InformationOrdered By: Landon Allen on 08-05-2024 Urine Drug Screen Comment [facility] Comment on above: CONFIRMATORY TESTING FOR ALL [...] RBC/100 WBC (Bld) [Ratio] 0 % 0-5 [facility] Platelet countOrdered By: Nehemiah Allen on 08-05-2024 Platelets (Bld) [#/Vol] 261 10*3/uL 150-450 [facility] Potassium measurementOrdered By: Landon Allen on 08-05-2024 Potassium [Moles/Vol] 3.4 mmol/L Low 3.5-5.1 [facility] Protein Test strip Ql (U)Ord ered By: Landon Allen on 08-05-2024 Protein Ql (U) Negative Negative [facility] Quantitative urine opiates m easurementOrdered By: Landon Allen on 08-05-2024 Opiates Ql (U) Negative < 300 ng/mL [facility] RBC Auto (Bld) [#/Vol]Ordere d By: Landon Allen on 08-05-2024 RBC (Bld) [#/Vol] 4.48 10*6/uL Low 4.6-6.2 [facility] Serum anion gap measurementO rdered By: Landon Allen on 08-05-2024 Anion gap [Moles/Vol] 6 mmol/L 5-15 [facility] Serum ethanol measurementOrd ered By: Landon Allen on 08-05-2024 Ethyl Alcohol Level < 3.0 mg/dL [facility] Comment on above: The serum:whole bloo d ethanol ratio is approximately 1.14and varies slightly with hematocrit. Medical Alcohol reference interval and critical value innon-tolerant individuals; 50 - 100 Impairment 100 Intoxication 100 - 250 Severe Poisoning 250 - 400 Deep/possible fatal coma Serum globulin measurementOr dered By: Landon Allen on 08-05-2024 Globulin (S) [Mass/Vol] 4.3 g/dL High 2.2-4.2 [facility] Serum or plasma alanine chavez otransferase (ALT) measurementOrdered By: Landon Allen on 08-05-2024 ALT [Catalytic activity/Vol] 28 U/L 16-61 [facility] Serum or plasma albumin jack urement (mass/volume)Ordered By: Landon Allen on 08-05-2024 Albumin [Mass/Vol] 3.3 g/dL 3.2-5.0 [facility] Serum or plasma alkaline nazia sphatase measurementOrdered By: Landon Allen on 08-05-2024 ALP [Catalytic activity/Vol] 210 U/L High 45-117 [facility] Serum or plasma calcium jack urement (mass/volume)Ordered By: Landon Allen on 08-05-2024 Calcium [Mass/Vol] 9.1 mg/dL 8.5-10.1 [facility] Serum or plasma creatinine m easurement (mass/volume)Ordered By: Landon Allen on 08-05-2024 Creatinine [Mass/Vol] 1.28 mg/dL 0.70-1.30 [facility] Comment on above: The validity of the calculated GFR & GFRAA in patients over 70 years has not been determined. Clinical correlation is essential. Serum or plasma urea nitroge n measurement (mass/volume)Ordered By: Landon Allen on 08-05-2024 Urea nitrogen [Mass/Vol] 14 mg/dL 7-18 [facility] Sodium levelOrdered By: Wm Allen on 08-05-2024 Sodium [Moles/Vol] 140 mmol/L 136-145 [facility] Total proteinOrdered By: James Allen on 08-05-2024 Protein [Mass/Vol] 7.6 g/dL 6.4-8.2 [facility] Urinalysis, Completeon 08-05 AMORPHOUS 2+ Normal [facility] Comment on above: Order Comment: CLEAN CATCH Performed By: #### L 400.0001 #### [facility] [address] [place], [address] RBC 0 SEEN Normal 0-5 [facility] Comment on above: Order Comment: CLEAN CATCH Performed By: #### L 400.0001 #### [facility] [address] [place], [address] WBC 5-10 SEEN Normal 0-5 [facility] Comment on above: Order Comment: CLEAN CATCH Performed By: #### L 400.0001 #### [facility] [address] [place], [address] BACTERIA 0 SEEN Normal None Seen [facility] Comment on above: Order Comment: CLEAN CATCH Performed By: #### L 400.0001 #### [facility] [address] [place], [address] EPI,SQUAMOUS 0 SEEN Normal 0-5 [facility] Comment on above: Order Comment: CLEAN CATCH Performed By: #### L 400.0001 #### [facility] [address] [place], [address] Mucus Ql (Urine sed) 0 SEEN Normal [facility] Comment on above: Order Comment: CLEAN CATCH Performed By: #### L 400.0001 #### [facility] [address] [place], [address] Urine Drug Screen (VISTA)on 08-05-2024 AMPHETAMINES Negative Normal <1000 ng/mL [facility] Comment on above: Performed By: #### L 500.2500, L100.0500 #### [facility] [address] [place], [address] BARBITIURATES Negative Normal < 200 ng/mL [facility] Comment on above: Performed By: #### L 500.2500, L100.0500 #### [facility] [address] [place], [place], [facility] BENZODIAZIPINE Negative Normal < 200 ng/mL [facility] Comment on above: Performed By: #### L 500.2500, L100.0500 #### [facility] [place], [address] COCAINE Negative Normal < 300 ng/mL [facility] Comment on above: Performed By: #### L 500.2500, L100.0500 #### [facility] [address] [place], [address] ECSTACY Negative Normal < 500 ng/mL [facility] Comment on above: Performed By: #### L 500.2500, L100.0500 #### [facility] [address] [place], [address] METHADONE Negative Normal < 300 ng/mL [facility] Comment on above: Performed By: #### L 500.2500, L100.0500 #### [facility] [address] [place], [address] OPIATES Negative Normal < 300 ng/mL [facility] Comment on above: Performed By: #### L 500.2500, L100.0500 #### [facility] [address] [place], [address] PCP Negative Normal < 25 ng/mL [facility] Comment on above: Performed By: #### L 500.2500, L100.0500 #### [facility] [address] [place], [address] THC Negative Normal < 50 ng/mL [facility] Comment on above: Performed By: #### L 500.2500, L100.0500 #### [facility] [address] [place], [address] VISTA UDS PH 7 Normal [facility] Comment on above: Performed By: #### L 500.2500, L100.0500 #### [facility] [address] [place], [address] Urine amphetamine measuremen tOrdered By: Landon Allen on 08-05-2024 Amphetamines Ql (U) Negative <1000 ng/mL [facility] Urine barbiturates measureme ntOrdered By: Landon Allen on 08-05-2024 Urine Barbiturates Screen Negative < 200 ng/mL [facility] Urine benzodiazepine levelOr dered By: Landon Allen on 08-05-2024 Benzodiazepines Ql (U) Negative < 200 ng/mL [facility] Urine blood detectionOrdered By: Landon Allen on 08-05-2024 Urine Occult Blood Negative Negative [facility] Urine clarityOrdered By: James Allen on 08-05-2024 Clarity (U) Cloudy Clear [facility] Urine cocaine levelOrdered B y: Landon Allen on 08-05-2024 Cocaine Ql (U) Negative < 300 ng/mL [facility] Urine color determinationOrd ered By: Landon Allen on 08-05-2024 Color (U) Yellow Yellow [facility] Urine [id number] abinol (THC) measurementOrdered By: Landon Allen on 08-05-2024 Cannabinoids Screen Ql (U) Negative < 50 ng/m L [facility] Urine leukocyte esterase det ection by dipstickOrdered By: Landon Allen on 08-05-2024 Leukocyte esterase Test strip Ql (U) 100 /ul High Negative [facility] Urine methylenedioxymethamph etamine (MDMA) measurementOrdered By: Landon Allen on 08-05-2024 MDMA (Ecstasy) Screen Negative < 500 ng/mL [facility] Urine pHOrdered By: Landon saunders on 08-05-2024 pH (U) 8.0 [pH] 5.0 - 8.0 [facility] Urine phencyclidine (PCP) de tectionOrdered By: Landon Allen on 08-05-2024 Phencyclidine Ql (U) Negative < 25 ng/mL [facility] Urine sediment bacteria coun t by microscopy (number/high power field)Ordered By: Landon Allen on 08-05-2024 Bacteria LM.HPF (Urine sed) [#/Area] 0 /[HPF] None Seen [facility] Urine specific gravity measu rementOrdered By: Landon Allen on 08-05-2024 Specific gravity (U) [Rel density] 1.010 1.002-1.03 0 [facility] Urobilinogen Ql (U)Ordered B y: Landon Allen on 08-05-2024 Urine Urobilinogen Normal mg/dl Normal [facility] White blood cell (WBC) count Ordered By: Landon Allen on 08-05-2024 WBC (Bld) [#/Vol] 8.3 10*3/uL 4.4-11.0 [facility] White blood cell countOrdere d By: Landon Allen on 08-05-2024 Urine WBC 5-10 SEEN /hpf 0-5 [facility] Automated blood erythrocyte countOrdered By: Olvin Massey on 07-20-2024 RBC (Bld) [#/Vol] 4.31 10*6/uL Low 4.6-6.2 [facility] Comment on above: Order Comment: 119-1 Performed By: #### L 500.2500, L100.0500 #### [facility] [address] [place], [address] Automated blood hematocrit ( percentage)Ordered By: Olvin Massey on 07-20-2024 Hematocrit (Bld) [Volume fraction] 37.6 % Low 40-54 [facility] Comment on above: Order Comment: 119-1 Performed By: #### L 500.2500, L100.0500 #### [facility] [address] [place], [address] Basic Metabolic Profile (BMP )on 07-20-2024 BUN/CRE 15.1 RATIO Normal 10-20 [facility] Comment on above: Order Comment: 119-1 Performed By: #### L 500.2500, L100.0500 #### [facility] [address] [place], [address] CA,Total 8.9 mg/dL Normal 8.5-10.1 [facility] Comment on above: Order Comment: 119-1 Performed By: #### L 500.2500, L100.0500 #### [facility] [address] [place], [address] EST GFR - AA 82 mL/min Normal >60 [facility] Comment on above: Order Comment: 119-1 Result Comment: Afri can [place] GFR Calc Performed By: #### L 500.2500, L100.0500 #### [facility] [address] [place], [address] GAP 5 Normal 5-15 [facility] Comment on above: Order Comment: 119-1 Performed By: #### L 500.2500, L100.0500 #### [facility] [address] [place], [address] GFR/1.73 sq M.predicted among non-blacks MDRD (S/P/Bld) [Vol rate/Area] 68 mL/min/{1.73_m2} Normal >60 [facility] Comment on above: Order Comment: - Result Comment: Non- GFR Calc Performed By: #### L 500.2500, L100.0500 #### [facility] [address] [place], [address] Blood urea nitrogen (BUN)/cr eatinine ratioOrdered By: Olvin Massey on 07-20-2024 Urea nitrogen/Creatinine [Mass ratio] 15.1 mg/mg 10-20 [facility] CBC-Complete Blood Cnt No Di ffon 07-20-2024 RDW SD 40.2 fl Normal 35.1-43.9 [facility] Comment on above: Order Comment: Performed By: #### L 500.2500, L100.0500 #### [facility] [address] [place], [address] Carbon dioxide measurementOr dered By: Olvin Massey on 07-20-2024 CO2 [Moles/Vol] 24.0 mmol/L Normal 21.0-32.0 [facility] Comment on above: Order Comment: Performed By: #### L 500.2500, L100.0500 #### [facility] [address] [place], [address] Chloride measurementOrdered By: Olvin Massey on 07-20-2024 Chloride [Moles/Vol] 107 mmol/L Normal 98-107 [facility] Comment on above: Order Comment: Performed By: #### L 500.2500, L100.0500 #### [facility] [address] [place], [address] Erythrocyte distribution wid th (RBC) [Ratio]Ordered By: Olvin Massey on 07-20-2024 Erythrocyte distribution width (RBC) [Entitic vol] 40.2 fL 35.1-43.9 [facility] Erythrocyte distribution wid th ratioOrdered By: Olvin Massey on 07-20-2024 Erythrocyte distribution width (RBC) [Ratio] 12.6 % Normal 11.6-14.6 [facility] Comment on above: Order Comment: 119-1 Performed By: #### L 500.2500, L100.0500 #### [facility] [address] [place], [place], [id number] Estimated glomerular filtrat ion rate (GFR) AmericanOrdered By: Olvin Massey on 07-20-2024 Estimated GFR (MDRD) Amer 82 mL/min >60 [facility] Comment on above: GFR Calc Glomerular filtration rate ( GFR) estimationOrdered By: Olvin Massey on 07-20-2024 Estimated GFR (MDRD) Non-Af Amer 68 mL/min >60 [facility] Comment on above: Non- GFR Calc Glucose measurementOrdered B y: Olvin Massey on 07-20-2024 Glucose [Mass/Vol] 100 mg/dL Normal 74-106 [facility] Comment on above: Fasting Glucose resu lt from 100 to 125 mg/dL suggests IMPAIRED HOMEOSTASIS per A.D.A. criteria. Order Comment: 119- Result Comment: Fast ing Glucose result from 100 to 125 mg/dL suggests IMPAIRED HOMEOSTASIS per A.D.A. criteria. Performed By: #### L 500.2500, L100.0500 #### [facility] [address] [place], [address] Hemoglobin measurementOrdere d By: Olvin Massey on 07-20-2024 Hemoglobin (Bld) [Mass/Vol] 12.8 g/dL Low 13.0-16. 5 [facility] Comment on above: Order Comment: 119-1 Performed By: #### L 500.2500, L100.0500 #### [facility] [address] [place], [address] MCV (mean corpuscular volume ) determinationOrdered By: Olvin Massey on 07-20-2024 MCV (RBC) [Entitic vol] 87.2 fL Normal 80-94 [facility] Comment on above: Order Comment: 119-1 Performed By: #### L 500.2500, L100.0500 #### [facility] [address], [address] Mean corpuscular hemoglobin (MCH) determinationOrdered By: Olvin Massey on 07-20-2024 MCH (RBC) [Entitic mass] 29.7 pg Normal 27.0-32.0 [facility] Comment on above: Order Comment: 119-1 Performed By: #### L 500.2500, L100.0500 #### [facility] [address] [place], [address] Mean corpuscular hemoglobin concentration (MCHC) determinationOrdered By: Olvin Massey on 07-20-2024 MCHC (RBC) [Mass/Vol] 34.0 g/dL Normal 32-36 [facility] Comment on above: Order Comment: 119-1 Performed By: #### L 500.2500, L100.0500 #### [facility] [address] [place], [address] Mean platelet volume determi nationOrdered By: Olvin Massey on 07-20-2024 Platelet mean volume (Bld) [Entitic vol] 8.6 fL Normal 6.2-12.0 [facility] Comment on above: Order Comment: 119-1 Performed By: #### L 500.2500, L100.0500 #### [facility] [address] [place], [address] Platelet countOrdered By: Deborah Massey on 07-20-2024 Platelets (Bld) [#/Vol] 266 10*3/uL Normal 150-450 [facility] Comment on above: Order Comment: 119-1 Performed By: #### L 500.2500, L100.0500 #### [facility] [address] [place], [address] Potassium measurementOrdered By: Olvin Massey on 07-20-2024 Potassium [Moles/Vol] 3.7 mmol/L Normal 3.5-5.1 [facility] Comment on above: Order Comment: 119-1 Performed By: #### L 500.2500, L100.0500 #### [facility] [address] [place], [address] Serum anion gap measurementO rdered By: Olvin Massey on 07-20-2024 Anion gap [Moles/Vol] 5 mmol/L 5-15 [facility] Serum or plasma calcium jack urement (mass/volume)Ordered By: Olvin Massey on 07-20-2024 Calcium [Mass/Vol] 8.9 mg/dL 8.5-10.1 [facility] Serum or plasma creatinine m easurement (mass/volume)Ordered By: Olvin Massey on 07-20-2024 Creatinine [Mass/Vol] 1.19 mg/dL Normal 0.70-1.30 [facility] Comment on above: The validity of the calculated GFR & GFRAA in patients over 70 years has not been determined. Clinical correlation is essential. Order Comment: 119-1 Result Comment: The validity of the calculated GFR GFRAA in patients over 70 years has not been determined. Clinical correlation is essential. Performed By: #### L 500.2500, L100.0500 #### [facility] [address] [place], [address] Serum or plasma urea nitroge n measurement (mass/volume)Ordered By: Olvin Masesy on 07-20-2024 Urea nitrogen [Mass/Vol] 18 mg/dL Normal 7-18 [facility] Comment on above: Order Comment: 119-1 Performed By: #### L 500.2500, L100.0500 #### [facility] [address] [place], [address] Sodium levelOrdered By: Olvin Massey on 07-20-2024 Sodium [Moles/Vol] 136 mmol/L Normal 136-145 [facility] Comment on above: Order Comment: 119-1 Performed By: #### L 500.2500, L100.0500 #### [facility] [address] [place], [address] White blood cell (WBC) count Ordered By: Olvin Massey on 07-20-2024 WBC (Bld) [#/Vol] 6.6 10*3/uL Normal 4.4-11.0 [facility] Comment on above: Order Comment: 119-1 Performed By: #### L 500.2500, L100.0500 #### [facility] [address] [place], [address] Basic Metabolic Profile (BMP )on 07-16-2024 BUN/CRE 7.5 RATIO Low 10-20 [facility] Comment on above: Order Comment: 119-1 Performed By: #### L 500.2500, L100.0500 #### [facility] [address] [place], [address] CA,Total 9.0 mg/dL Normal 8.5-10.1 [facility] Comment on above: Order Comment: 119-1 Performed By: #### L 500.2500, L100.0500 #### [facility] [address] [place], [address] Chloride [Moles/Vol] 94 mmol/L Low 98-107 [facility] Comment on above: Order Comment: 119-1 Performed By: #### L 500.2500, L100.0500 #### [facility] [address] [place], [address] CO2 [Moles/Vol] 21.0 mmol/L Normal 21.0-32.0 [facility] Comment on above: Order Comment: 119-1 Performed By: #### L 500.2500, L100.0500 #### [facility] [address] [place], [address] Creatinine [Mass/Vol] 0.94 mg/dL Normal 0.70-1.30 [facility] Comment on above: Order Comment: 119-1 Result Comment: The validity of the calculated GFR GFRAA in patients over 70 years has not been determined. Clinical correlation is essential. Performed By: #### L 500.2500, L100.0500 #### [facility] [address] [place], [address] EST GFR - AA 108 mL/min Normal >60 [facility] Comment on above: Order Comment: 119-1 Result Comment: Afri can [place] GFR Calc Performed By: #### L 500.2500, L100.0500 #### [facility] [address] [place], [address] GAP 8 Normal 5-15 [facility] Comment on above: Order Comment: 119-1 Performed By: #### L 500.2500, L100.0500 #### [facility] [address] [place], [address] GFR/1.73 sq M.predicted among non-blacks MDRD (S/P/Bld) [Vol rate/Area] 90 mL/min/{1.73_m2} Normal >60 [facility] Comment on above: Order Comment: 119-1 Result Comment: Non- GFR Calc Performed By: #### L 500.2500, L100.0500 #### [facility] [address] [place], [address] Glucose [Mass/Vol] 98 mg/dL Normal 74-106 [facility] Comment on above: Order Comment: 119-1 Performed By: #### L 500.2500, L100.0500 #### [facility] [address] [place], [address] Potassium [Moles/Vol] 3.7 mmol/L Normal 3.5-5.1 [facility] Comment on above: Order Comment: 119-1 Performed By: #### L 500.2500, L100.0500 #### [facility] [address] [place], [address] Sodium [Moles/Vol] 123 mmol/L Low 136-145 [facility] Comment on above: Order Comment: 119-1 Performed By: #### L 500.2500, L100.0500 #### [facility] [address] [place], [address] Urea nitrogen [Mass/Vol] 7 mg/dL Normal 7-18 [facility] Comment on above: Order Comment: 119-1 Performed By: #### L 500.2500, L100.0500 #### [facility] [address] [place], [address] Blood urea nitrogen (BUN)/cr eatinine ratioOrdered By: Olvin Massey on 07-16-2024 Urea nitrogen/Creatinine [Mass ratio] 7.5 mg/mg Low 10-20 [facility] CBC-Complete Blood Cnt No Di ffon 07-16-2024 Erythrocyte distribution width (RBC) [Ratio] 12.0 % Normal 11.6-14.6 [facility] Comment on above: Order Comment: 119-1 Performed By: #### L 500.2500, L100.0500 #### [facility] [address] [place], [address] Hematocrit (Bld) [Volume fraction] 39.5 % Low 40-54 [facility] Comment on above: Order Comment: 119-1 Performed By: #### L 500.2500, L100.0500 #### [facility] [address] [place], [address] Hemoglobin (Bld) [Mass/Vol] 13.6 g/dL Normal 13.0-16. 5 [facility] Comment on above: Order Comment: 119-1 Performed By: #### L 500.2500, L100.0500 #### [facility] [address] [place], [address] MCH (RBC) [Entitic mass] 29.1 pg Normal 27.0-32.0 [facility] Comment on above: Order Comment: 119-1 Performed By: #### L 500.2500, L100.0500 #### [facility] [address] [place], [address] MCHC (RBC) [Mass/Vol] 34.4 g/dL Normal 32-36 [facility] Comment on above: Order Comment: 119-1 Performed By: #### L 500.2500, L100.0500 #### [facility] [address] [place], [address] MCV (RBC) [Entitic vol] 84.4 fL Normal 80-94 [facility] Comment on above: Order Comment: 119-1 Performed By: #### L 500.2500, L100.0500 #### [facility] [address] [place], [address] Platelet mean volume (Bld) [Entitic vol] 8.9 fL Normal 6.2-12.0 [facility] Comment on above: Order Comment: 119-1 Performed By: #### L 500.2500, L100.0500 #### [facility] [address] [place], [address] Platelets (Bld) [#/Vol] 237 10*3/uL Normal 150-450 [facility] Comment on above: Order Comment: 119-1 Performed By: #### L 500.2500, L100.0500 #### [facility] [address] [place], [address] RBC (Bld) [#/Vol] 4.68 10*6/uL Normal 4.6-6.2 [facility] Comment on above: Order Comment: 119-1 Performed By: #### L 500.2500, L100.0500 #### [facility] [address] [place], [address] RDW SD 36.9 fl Normal 35.1-43.9 [facility] Comment on above: Order Comment: 119-1 Performed By: #### L 500.2500, L100.0500 #### [facility] [address] [place], [address] WBC (Bld) [#/Vol] 5.5 10*3/uL Normal 4.4-11.0 [facility] Comment on above: Order Comment: 119-1 Performed By: #### L 500.2500, L100.0500 #### [facility] [address] [place], [address] Carbon dioxide measurementOr dered By: Olvin Massey on 07-16-2024 CO2 [Moles/Vol] 21.0 mmol/L 21.0-32.0 [facility] Chloride measurementOrdered By: Olvin Massey on 07-16-2024 Chloride [Moles/Vol] 94 mmol/L Low 98-107 [facility] Erythrocyte distribution wid th (RBC) [Ratio]Ordered By: Olvin Massey on 07-16-2024 Erythrocyte distribution width (RBC) [Entitic vol] 36.9 fL 35.1-43.9 [facility] Erythrocyte distribution wid th ratioOrdered By: Olvin Massey on 07-16-2024 Erythrocyte distribution width (RBC) [Ratio] 12.0 % 11.6-14.6 [facility] Estimated glomerular filtrat ion rate (GFR) AmericanOrdered By: Olvin Massey on 07-16-2024 Estimated GFR (MDRD) Amer 108 mL/min >60 [facility] Comment on above: GFR Calc Glomerular filtration rate ( GFR) estimationOrdered By: Olvin Massey on 07-16-2024 Estimated GFR (MDRD) Non-Af Amer 90 mL/min >60 [facility] Comment on above: Non- GFR Calc Glucose measurementOrdered B y: Olvin Massey on 07-16-2024 Glucose [Mass/Vol] 98 mg/dL 74-106 [facility] Hematocrit Auto (Bld) [Volum e fraction]Ordered By: Olvin Massey on 07-16-2024 Hematocrit (Bld) [Volume fraction] 39.5 % Low 40-54 [facility] Hemoglobin measurementOrdere d By: Olvin Massey on 07-16-2024 Hemoglobin (Bld) [Mass/Vol] 13.6 g/dL 13.0-16. 5 [facility] MCV (mean corpuscular volume ) determinationOrdered By: Olvin Massey on 07-16-2024 MCV (RBC) [Entitic vol] 84.4 fL 80-94 [facility] Mean corpuscular hemoglobin (MCH) determinationOrdered By: Olvin Massey on 07-16-2024 MCH (RBC) [Entitic mass] 29.1 pg 27.0-32.0 [facility] Mean corpuscular hemoglobin concentration (MCHC) determinationOrdered By: Olvin Massey on 07-16-2024 MCHC (RBC) [Mass/Vol] 34.4 g/dL 32-36 [facility] Mean platelet volume determi nationOrdered By: Olvin Massey on 07-16-2024 Platelet mean volume (Bld) [Entitic vol] 8.9 fL 6.2-12.0 [facility] Platelet countOrdered By: Deborah Massey on 07-16-2024 Platelets (Bld) [#/Vol] 237 10*3/uL 150-450 [facility] Potassium measurementOrdered By: Olvin Massey on 07-16-2024 Potassium [Moles/Vol] 3.7 mmol/L 3.5-5.1 [facility] RBC Auto (Bld) [#/Vol]Ordere d By: Olvin Massey on 07-16-2024 RBC (Bld) [#/Vol] 4.68 10*6/uL 4.6-6.2 [facility] Serum anion gap measurementO rdered By: Olvin Massey on 07-16-2024 Anion gap [Moles/Vol] 8 mmol/L 5-15 [facility] Serum or plasma calcium jack urement (mass/volume)Ordered By: Olvin Massey on 07-16-2024 Calcium [Mass/Vol] 9.0 mg/dL 8.5-10.1 [facility] Serum or plasma creatinine m easurement (mass/volume)Ordered By: Olvin Massey on 07-16-2024 Creatinine [Mass/Vol] 0.94 mg/dL 0.70-1.30 [facility] Comment on above: The validity of the calculated GFR & GFRAA in patients over 70 years has not been determined. Clinical correlation is essential. Serum or plasma urea nitroge n measurement (mass/volume)Ordered By: Olvin Massey on 07-16-2024 Urea nitrogen [Mass/Vol] 7 mg/dL 7-18 [facility] Sodium levelOrdered By: Olvin Massey on 07-16-2024 Sodium [Moles/Vol] 123 mmol/L Low 136-145 [facility] White blood cell (WBC) count Ordered By: Olvin Massey on 07-16-2024 WBC (Bld) [#/Vol] 5.5 10*3/uL 4.4-11.0 [facility] Basic Metabolic Profile (BMP )on 07-02-2024 BUN/CRE 11.4 RATIO Normal 10-20 [facility] Comment on above: Order Comment: 119.1 Performed By: #### L 100.0500, L500.2500 #### [facility] [address] [place], [address] CA,Total 8.6 mg/dL Normal 8.5-10.1 [facility] Comment on above: Order Comment: 119.1 Performed By: #### L 100.0500, L500.2500 #### [facility] [address] [place], [address] Chloride [Moles/Vol] 105 mmol/L Normal 98-107 [facility] Comment on above: Order Comment: 119.1 Performed By: #### L 100.0500, L500.2500 #### [facility] [address] [place], [address] CO2 [Moles/Vol] 25.0 mmol/L Normal 21.0-32.0 [facility] Comment on above: Order Comment: 119.1 Performed By: #### L 100.0500, L500.2500 #### [facility] [address] [place], [address] Creatinine [Mass/Vol] 1.05 mg/dL Normal 0.70-1.30 [facility] Comment on above: Order Comment: 119.1 Result Comment: The validity of the calculated GFR GFRAA in patients over 70 years has not been determined. Clinical correlation is essential. Performed By: #### L 100.0500, L500.2500 #### [facility] [address] [place], [address] EST GFR - AA 95 mL/min Normal >60 [facility] Comment on above: Order Comment: 119.1 Result Comment: Afri can [place] GFR Calc Performed By: #### L 100.0500, L500.2500 #### [facility] [address] [place], [address] GAP 5 Normal 5-15 [facility] Comment on above: Order Comment: 119.1 Performed By: #### L 100.0500, L500.2500 #### [facility] [address] [place], [address] GFR/1.73 sq M.predicted among non-blacks MDRD (S/P/Bld) [Vol rate/Area] 78 mL/min/{1.73_m2} Normal >60 [facility] Comment on above: Order Comment: 119.1 Result Comment: Non- GFR Calc Performed By: #### L 100.0500, L500.2500 #### [facility] [address] [place], [address] Glucose [Mass/Vol] 106 mg/dL Normal 74-106 [facility] Comment on above: Order Comment: 119.1 Result Comment: Fast ing Glucose result from 100 to 125 mg/dL suggests IMPAIRED HOMEOSTASIS per A.D.A. criteria. Performed By: #### L 100.0500, L500.2500 #### [facility] [address] [place], [address] Potassium [Moles/Vol] 3.7 mmol/L Normal 3.5-5.1 [facility] Comment on above: Order Comment: 119.1 Performed By: #### L 100.0500, L500.2500 #### [facility] [address] [place], [address] Sodium [Moles/Vol] 135 mmol/L Low 136-145 [facility] Comment on above: Order Comment: 119.1 Performed By: #### L 100.0500, L500.2500 #### [facility] [address] [place], [address] Urea nitrogen [Mass/Vol] 12 mg/dL Normal 7-18 [facility] Comment on above: Order Comment: 119.1 Performed By: #### L 100.0500, L500.2500 #### [facility] [address] [place], [address] Blood urea nitrogen (BUN)/cr eatinine ratioOrdered By: Olvin Massey on 07-02-2024 Urea nitrogen/Creatinine [Mass ratio] 11.4 mg/mg 10-20 [facility] CBC-Complete Blood Cnt No Di ffon 07-02-2024 Erythrocyte distribution width (RBC) [Ratio] 12.1 % Normal 11.6-14.6 [facility] Comment on above: Order Comment: 119.1 Performed By: #### L 100.0500, L500.2500 #### [facility] [address] [place], [address] Hematocrit (Bld) [Volume fraction] 38.4 % Low 40-54 [facility] Comment on above: Order Comment: 119.1 Performed By: #### L 100.0500, L500.2500 #### [facility] [address] [place], [address] Hemoglobin (Bld) [Mass/Vol] 13.0 g/dL Normal 13.0-16. 5 [facility] Comment on above: Order Comment: 119.1 Performed By: #### L 100.0500, L500.2500 #### [facility] [address] [place], [address] MCH (RBC) [Entitic mass] 29.5 pg Normal 27.0-32.0 [facility] Comment on above: Order Comment: 119.1 Performed By: #### L 100.0500, L500.2500 #### [facility] [address] [place], [address] MCHC (RBC) [Mass/Vol] 33.9 g/dL Normal 32-36 [facility] Comment on above: Order Comment: 119.1 Performed By: #### L 100.0500, L500.2500 #### [facility] [address] [place], [address] MCV (RBC) [Entitic vol] 87.1 fL Normal 80-94 [facility] Comment on above: Order Comment: 119.1 Performed By: #### L 100.0500, L500.2500 #### [facility] [address] [place], [address] Platelet mean volume (Bld) [Entitic vol] 10.1 fL Normal 6.2-12.0 [facility] Comment on above: Order Comment: 119.1 Performed By: #### L 100.0500, L500.2500 #### [facility] [address] [place], [address] Platelets (Bld) [#/Vol] 233 10*3/uL Normal 150-450 [facility] Comment on above: Order Comment: 119.1 Performed By: #### L 100.0500, L500.2500 #### [facility] [address] [place], [address] RBC (Bld) [#/Vol] 4.41 10*6/uL Low 4.6-6.2 [facility] Comment on above: Order Comment: 119.1 Performed By: #### L 100.0500, L500.2500 #### [facility] [address] [place], [address] RDW SD 38.7 fl Normal 35.1-43.9 [facility] Comment on above: Order Comment: 119.1 Performed By: #### L 100.0500, L500.2500 #### [facility] [address] [place], [place], [address] WBC (Bld) [#/Vol] 7.3 10*3/uL Normal 4.4-11.0 [facility] Comment on above: Order Comment: 119.1 Performed By: #### L 100.0500, L500.2500 #### [facility] [address] [place], [address] Carbon dioxide measurementOr dered By: Olvin Massey on 07-02-2024 CO2 [Moles/Vol] 25.0 mmol/L 21.0-32.0 [facility] Chloride measurementOrdered By: Olvin Massey on 07-02-2024 Chloride [Moles/Vol] 105 mmol/L 98-107 [facility] Erythrocyte distribution wid th (RBC) [Ratio]Ordered By: Olvin Massey on 07-02-2024 Erythrocyte distribution width (RBC) [Entitic vol] 38.7 fL 35.1-43.9 [facility] Erythrocyte distribution wid th ratioOrdered By: Olvin Massey on 07-02-2024 Erythrocyte distribution width (RBC) [Ratio] 12.1 % 11.6-14.6 [facility] Estimated glomerular filtrat ion rate (GFR) AmericanOrdered By: Olvin Massey on 07-02-2024 Estimated GFR (MDRD) Amer 95 mL/min >60 [facility] Comment on above: GFR Calc Glomerular filtration rate ( GFR) estimationOrdered By: Olvin Massey on 07-02-2024 Estimated GFR (MDRD) Non-Af Amer 78 mL/min >60 [facility] Comment on above: Non- GFR Calc Glucose measurementOrdered B y: Olvin Massey on 07-02-2024 Glucose [Mass/Vol] 106 mg/dL 74-106 [facility] Comment on above: Fasting Glucose resu lt from 100 to 125 mg/dL suggests IMPAIRED HOMEOSTASIS per A.D.A. criteria. Hematocrit Auto (Bld) [Volum e fraction]Ordered By: Olvin Massey on 07-02-2024 Hematocrit (Bld) [Volume fraction] 38.4 % Low 40-54 [facility] Hemoglobin measurementOrdere d By: Olvin Massey on 07-02-2024 Hemoglobin (Bld) [Mass/Vol] 13.0 g/dL 13.0-16. 5 [facility] MCV (mean corpuscular volume ) determinationOrdered By: Olvin Massey on 07-02-2024 MCV (RBC) [Entitic vol] 87.1 fL 80-94 [facility] Mean corpuscular hemoglobin (MCH) determinationOrdered By: Olvin Massey on 07-02-2024 MCH (RBC) [Entitic mass] 29.5 pg 27.0-32.0 [facility] Mean corpuscular hemoglobin concentration (MCHC) determinationOrdered By: Olvin Massey on 07-02-2024 MCHC (RBC) [Mass/Vol] 33.9 g/dL 32-36 [facility] Mean platelet volume determi nationOrdered By: Olvin Massey on 07-02-2024 Platelet mean volume (Bld) [Entitic vol] 10.1 fL 6.2-12.0 [facility] Platelet countOrdered By: Deborah Massey on 07-02-2024 Platelets (Bld) [#/Vol] 233 10*3/uL 150-450 [facility] Potassium measurementOrdered By: Olvin Massey on 07-02-2024 Potassium [Moles/Vol] 3.7 mmol/L 3.5-5.1 [facility] RBC Auto (Bld) [#/Vol]Ordere d By: Olvin Massey on 07-02-2024 RBC (Bld) [#/Vol] 4.41 10*6/uL Low 4.6-6.2 [facility] Serum anion gap measurementO rdered By: Olvin Massey on 07-02-2024 Anion gap [Moles/Vol] 5 mmol/L 5-15 [facility] Serum or plasma calcium jack urement (mass/volume)Ordered By: Olvin Massey on 07-02-2024 Calcium [Mass/Vol] 8.6 mg/dL 8.5-10.1 [facility] Serum or plasma creatinine m easurement (mass/volume)Ordered By: Olvin Massey on 07-02-2024 Creatinine [Mass/Vol] 1.05 mg/dL 0.70-1.30 [facility] Comment on above: The validity of the calculated GFR & GFRAA in patients over 70 years has not been determined. Clinical correlation is essential. Serum or plasma urea nitroge n measurement (mass/volume)Ordered By: Olvin Massey on 07-02-2024 Urea nitrogen [Mass/Vol] 12 mg/dL 7-18 [facility] Sodium levelOrdered By: Olvin Massey on 07-02-2024 Sodium [Moles/Vol] 135 mmol/L Low 136-145 [facility] White blood cell (WBC) count Ordered By: Olvin Massey on 07-02-2024 WBC (Bld) [#/Vol] 7.3 10*3/uL 4.4-11.0 [facility] KEPPRA (LEVETIRACETAM)on KEPPRA 40.6 ug/mL Abnormal 10.0-40.0 [facility] Comment on above: Result Comment: Perf ormed at: [facility] [address] [id number] Traffic Control Operator: Jere Tierney MD, Phone: [phone] Performed By: #### L 100.0500, L500.2500 #### [facility] [address] [place], [address] CBC-Complete Blood Cnt No Di ffon 05-15-2024 Erythrocyte distribution width (RBC) [Ratio] 11.9 % Normal 11.6-14.6 [facility] Comment on above: Performed By: #### L 500.2500, L100.0500 #### [facility] [address] [place], [address] Hematocrit (Bld) [Volume fraction] 40.8 % Normal 40-54 [facility] Comment on above: Performed By: #### L 500.2500, L100.0500 #### [facility] [address] [place], [address] Hemoglobin (Bld) [Mass/Vol] 13.9 g/dL Normal 13.0-16. 5 [facility] Comment on above: Performed By: #### L 500.2500, L100.0500 #### [facility] [address] [place] [place], [address] MCH (RBC) [Entitic mass] 30.0 pg Normal 27.0-32.0 [facility] Comment on above: Performed By: #### L 500.2500, L100.0500 #### [facility] [address] [place], [address] MCHC (RBC) [Mass/Vol] 34.1 g/dL Normal 32-36 [facility] Comment on above: Performed By: #### L 500.2500, L100.0500 #### [facility] [address] [place], [address] MCV (RBC) [Entitic vol] 87.9 fL Normal 80-94 [facility] Comment on above: Performed By: #### L 500.2500, L100.0500 #### [facility] [address] [place], [address] Platelet mean volume (Bld) [Entitic vol] 9.4 fL Normal 6.2-12.0 [facility] Comment on above: Performed By: #### L 500.2500, L100.0500 #### [facility] [address] [place], [address] Platelets (Bld) [#/Vol] 212 10*3/uL Normal 150-450 [facility] Comment on above: Performed By: #### L 500.2500, L100.0500 #### [facility] [address] [place], [address] RBC (Bld) [#/Vol] 4.64 10*6/uL Normal 4.6-6.2 [facility] Comment on above: Performed By: #### L 500.2500, L100.0500 #### [facility] [address] [place], [address] RDW SD 37.7 fl Normal 35.1-43.9 [facility] Comment on above: Performed By: #### L 500.2500, L100.0500 #### [facility] [address] [place], [address] WBC (Bld) [#/Vol] 8.7 10*3/uL Normal 4.4-11.0 [facility] Comment on above: Performed By: #### L 500.2500, L100.0500 #### [facility] [address] [place], [address] Comprehensive Metabolic Prof ilon 05-15-2024 Albumin [Mass/Vol] 3.3 g/dL Normal 3.2-5.0 [facility] Comment on above: Performed By: #### L 100.0500, L500.2500 #### [facility] [address] [place], [address] Albumin/Globulin [Mass ratio] 0.9 {ratio} Normal 0.9-2.4 [facility] Comment on above: Performed By: #### L 100.0500, L500.2500 #### [facility] [address] [place], [address] ALK P 109 U/L Normal 45-117 [facility] Comment on above: Performed By: #### L 100.0500, L500.2500 #### [facility] [address] [place], [address] ALT [Catalytic activity/Vol] 41 U/L Normal 16-61 [facility] Comment on above: Performed By: #### L 100.0500, L500.2500 #### [facility] [address] [place], [address] AST [Catalytic activity/Vol] 22 U/L Normal 15-37 [facility] Comment on above: Performed By: #### L 100.0500, L500.2500 #### [facility] [address] [place], [address] Bilirubin [Mass/Vol] 0.40 mg/dL Normal 0.20-1.00 [facility] Comment on above: Result Comment: For patients on eltrombopag therapy, use of Dimension [place] TBIL is not recommended. Performed By: #### L 100.0500, L500.2500 #### [facility] [address] [place], [address] BUN/CRE 8.5 RATIO Low 10-20 [facility] Comment on above: Performed By: #### L 100.0500, L500.2500 #### [facility] [address] [place], [address] CA,Total 8.8 mg/dL Normal 8.5-10.1 [facility] Comment on above: Performed By: #### L 100.0500, L500.2500 #### [facility] [address] [place], [address] Chloride [Moles/Vol] 107 mmol/L Normal 98-107 [facility] Comment on above: Performed By: #### L 100.0500, L500.2500 #### [facility] [address] [place], [address] CO2 [Moles/Vol] 24.0 mmol/L Normal 21.0-32.0 [facility] Comment on above: Performed By: #### L 100.0500, L500.2500 #### [facility] [address] [place], [address] Creatinine [Mass/Vol] 1.42 mg/dL High 0.70-1.30 [facility] Comment on above: Result Comment: The validity of the calculated GFR GFRAA in patients over 70 years has not been determined. Clinical correlation is essential. Performed By: #### L 100.0500, L500.2500 #### [facility] [address] [place], [address] EST GFR - AA 67 mL/min Normal >60 [facility] Comment on above: Result Comment: Afri can [place] GFR Calc Performed By: #### L 100.0500, L500.2500 #### [facility] [address] [place], [address] GAP 6 Normal 5-15 [facility] Comment on above: Performed By: #### L 100.0500, L500.2500 #### [facility] [address] [place], [address] GFR/1.73 sq M.predicted among non-blacks MDRD (S/P/Bld) [Vol rate/Area] 55 mL/min/{1.73_m2} Low >60 [facility] Comment on above: Result Comment: Non- GFR Calc Performed By: #### L 100.0500, L500.2500 #### [facility] [address] [place], [address] Globulin (S) [Mass/Vol] 3.8 g/dL Normal 2.2-4.2 [facility] Comment on above: Performed By: #### L 100.0500, L500.2500 #### [facility] [address] [place], [address] Glucose [Mass/Vol] 86 mg/dL Normal 74-106 [facility] Comment on above: Performed By: #### L 100.0500, L500.2500 #### [facility] [address] [place], [address] Potassium [Moles/Vol] 3.7 mmol/L Normal 3.5-5.1 [facility] Comment on above: Performed By: #### L 100.0500, L500.2500 #### [facility] [address] [place], [address] Sodium [Moles/Vol] 137 mmol/L Normal 136-145 [facility] Comment on above: Performed By: #### L 100.0500, L500.2500 #### [facility] [address] [place], [address] T PROT 7.1 g/dL Normal 6.4-8.2 [facility] Comment on above: Performed By: #### L 100.0500, L500.2500 #### [facility] [address] [place], [address] Urea nitrogen [Mass/Vol] 12 mg/dL Normal 7-18 [facility] Comment on above: Performed By: #### L 100.0500, L500.2500 #### [facility] [address] [place], [address] Respiratory pathogens DNA an d RNA panel IBAN+probe (Resp)Ordered By: Olvin Massey on 08-10-2023 Respiratory Panel (PCR) Influenza A (Sub type H1) [facility] Basophil percentageOrdered B y: Olvin Massey on 05-16-2023 Bilirubin [Mass/Vol] 0.30 mg/dL 0.20-1.00 [facility] Comment on above: For patients on eltr ombopag therapy, use of Dimension [place] TBIL is not recommended. Chloride [Moles/Vol] 107 mmol/L 98-107 [facility] Glucose [Mass/Vol] 94 mg/dL 74-106 [facility] Potassium [Moles/Vol] 3.5 mmol/L 3.5-5.1 [facility] Protein [Mass/Vol] 7.5 g/dL 6.4-8.2 [facility] Sodium [Moles/Vol] 140 mmol/L 136-145 [facility] WBC (Bld) [#/Vol] 7.5 10*3/uL 4.4-11.0 [facility] Blood erythrocytes count (nu mber/volume)Ordered By: Olvin Massey on 05-16-2023 RBC (Bld) [#/Vol] 4.83 10*6/uL 4.6-6.2 [facility] Blood hemoglobin measurement (mass/volume)Ordered By: Olvin Massey on 05-16-2023 Hemoglobin (Bld) [Mass/Vol] 14.1 g/dL 13.0-16. 5 [facility] Blood platelet mean volumeOr dered By: Olvin Massey on 05-16-2023 Platelet mean volume (Bld) [Entitic vol] 10.1 fL 6.2-12.0 [facility] Determination of erythrocyte mean corpuscular volume (MCV)Ordered By: Olvin Massey on 05-16-2023 MCV (RBC) [Entitic vol] 90.7 fL 80-94 [facility] Hematocrit Auto (Bld) [Volum e fraction]Ordered By: Olvin Massey on 05-16-2023 Hematocrit (Bld) [Volume fraction] 43.8 % 40-54 [facility] - Chemistry and C hemistry - challengeOrdered By: Olvin Massey on 05-16-2023 ALP [Catalytic activity/Vol] 121 U/L 45-117 [facility] ALT [Catalytic activity/Vol] 25 U/L 16-61 [facility] CO2 [Moles/Vol] 28.0 mmol/L 21.0-32.0 [facility] Globulin (S) [Mass/Vol] 4.3 g/dL 2.2-4.2 [facility] Urea nitrogen/Creatinine [Mass ratio] 10.4 mg/mg 10-20 [facility] - Hematology and Cell countsOrdered By: Olvin Massey on 05-16-2023 Erythrocyte distribution width (RBC) [Entitic vol] 38.5 fL 35.1-43.9 [facility] Erythrocyte distribution width (RBC) [Ratio] 11.6 % 11.6-14.6 [facility] MCH (RBC) [Entitic mass] 29.2 pg 27.0-32.0 [facility] MCHC Auto (RBC) [Mass/Vol]Or dered By: Olvin Massey on 05-16-2023 MCHC (RBC) [Mass/Vol] 32.2 g/dL 32-36 [facility] No Panel InformationOrdered By: Olvin Massey on 05-16-2023 Estimated GFR (MDRD) Amer 72 mL/min >60 [facility] Comment on above: GFR Calc Estimated GFR (MDRD) Non-Af Amer 59 mL/min >60 [facility] Comment on above: Non- GFR Calc Levetiracetam (Keppra) Level 42.1 ug/mL 10.0-40 .0 [facility] Comment on above: Performed at: [address] [id number] Director: Jeer Tierney MD, Phone: [phone] Platelets bldOrdered By: Herbert Massey on 05-16-2023 Platelets (Bld) [#/Vol] 232 10*3/uL 150-450 [facility] Serum or plasma albumin jack urement (mass/volume)Ordered By: Olvin Massey on 05-16-2023 Albumin [Mass/Vol] 3.2 g/dL 3.2-5.0 [facility] Serum or plasma albumin/glob ulin mass ratioOrdered By: Olvin Massey on 05-16-2023 Albumin/Globulin [Mass ratio] 0.7 {ratio} 0.9-2.4 [facility] Serum or plasma calcium jack urement (mass/volume)Ordered By: Olvin Massey on 05-16-2023 Calcium [Mass/Vol] 8.8 mg/dL 8.5-10.1 [facility] Serum or plasma creatinine m easurement (mass/volume)Ordered By: Olvin Massey on 05-16-2023 Creatinine [Mass/Vol] 1.34 mg/dL 0.70-1.30 [facility] Comment on above: The validity of the calculated GFR & GFRAA in patients over 70 years has not been determined. Clinical correlation is essential. Serum or plasma urea nitroge n measurement (mass/volume)Ordered By: Olvin Massey on 05-16-2023 Urea nitrogen [Mass/Vol] 14 mg/dL 7-18 [facility] Thin prep Papanicolaou smear with manual screeningOrdered By: Olvin Massey on 05-16-2023 Thin prep Papanicolaou smear with manual screening 15 U/L 15-37 [facility] Thin prep Papanicolaou smear with manual screening 5 5-15 [facility] Basophil percentageOrdered B y: Olvin Massey on 12-13-2022 Chloride [Moles/Vol] 104 mmol/L 98-107 [facility] Glucose [Mass/Vol] 87 mg/dL 74-106 [facility] Potassium [Moles/Vol] 3.6 mmol/L 3.5-5.1 [facility] Sodium [Moles/Vol] 136 mmol/L 136-145 [facility] WBC (Bld) [#/Vol] 10.8 10*3/uL 4.4-11.0 [facility] Blood erythrocytes count (nu mber/volume)Ordered By: Olvin Massey on 12-13-2022 RBC (Bld) [#/Vol] 4.83 10*6/uL 4.6-6.2 [facility] Blood hemoglobin measurement (mass/volume)Ordered By: Olvin Massey on 12-13-2022 Hemoglobin (Bld) [Mass/Vol] 14.0 g/dL 13.0-16. 5 [facility] Blood platelet mean volumeOr dered By: Olvin Massey on 12-13-2022 Platelet mean volume (Bld) [Entitic vol] 9.7 fL 6.2-12.0 [facility] Determination of erythrocyte mean corpuscular volume (MCV)Ordered By: Olvin Massey on 12-13-2022 MCV (RBC) [Entitic vol] 89.2 fL 80-94 [facility] Hematocrit Auto (Bld) [Volum e fraction]Ordered By: Olvin Massey on 12-13-2022 Hematocrit (Bld) [Volume fraction] 43.1 % 40-54 [facility] Laboratory - Chemistry and C hemistry - challengeOrdered By: Olvin Massey on 12-13-2022 CO2 [Moles/Vol] 27.0 mmol/L 21.0-32.0 [facility] Urea nitrogen/Creatinine [Mass ratio] 9.6 mg/mg 10-20 [facility] Laboratory - Hematology and Cell countsOrdered By: Olvin Massey on 12-13-2022 Erythrocyte distribution width (RBC) [Entitic vol] 41.4 fL 35.1-43.9 [facility] Erythrocyte distribution width (RBC) [Ratio] 12.7 % 11.6-14.6 [facility] MCH (RBC) [Entitic mass] 29.0 pg 27.0-32.0 [facility] MCHC Auto (RBC) [Mass/Vol]Or dered By: Olvin Massey on 12-13-2022 MCHC (RBC) [Mass/Vol] 32.5 g/dL 32-36 [facility] No Panel InformationOrdered By: Olvin Massey on 12-13-2022 Estimated GFR (MDRD) Amer 71 mL/min >60 [facility] Comment on above: GFR Calc Estimated GFR (MDRD) Non-Af Amer 59 mL/min >60 [facility] Comment on above: Non- GFR Calc Platelets bldOrdered By: Herbert Massey on 12-13-2022 Platelets (Bld) [#/Vol] 233 10*3/uL 150-450 [facility] Serum or plasma calcium jack urement (mass/volume)Ordered By: Olvin Massey on 12-13-2022 Calcium [Mass/Vol] 8.8 mg/dL 8.5-10.1 [facility] Serum or plasma creatinine m easurement (mass/volume)Ordered By: Olvin Massey on 12-13-2022 Creatinine [Mass/Vol] 1.35 mg/dL 0.70-1.30 [facility] Comment on above: The validity of the calculated GFR & GFRAA in patients over 70 years has not been determined. Clinical correlation is essential. Serum or plasma urea nitroge n measurement (mass/volume)Ordered By: Olvin Massey on 12-13-2022 Urea nitrogen [Mass/Vol] 13 mg/dL 7-18 [facility] Thin prep Papanicolaou smear with manual screeningOrdered By: Olvin Massey on 12-13-2022 Thin prep Papanicolaou smear with manual screening 5 5-15 [facility] Basophil percentageOrdered B y: Tracy Massey on 11-16-2022 Bilirubin [Mass/Vol] 0.40 mg/dL 0.20-1.00 [facility] Comment on above: For patients on eltr ombopag therapy, use of Dimension [place] TBIL is not recommended. Chloride [Moles/Vol] 105 mmol/L 98-107 [facility] Glucose [Mass/Vol] 90 mg/dL 74-106 [facility] Potassium [Moles/Vol] 4.1 mmol/L 3.5-5.1 [facility] Protein [Mass/Vol] 8.3 g/dL 6.4-8.2 [facility] Sodium [Moles/Vol] 136 mmol/L 136-145 [facility] WBC (Bld) [#/Vol] 7.7 10*3/uL 4.4-11.0 [facility] Blood erythrocytes count (nu mber/volume)Ordered By: Tracy Massey on 11-16-2022 RBC (Bld) [#/Vol] 5.08 10*6/uL 4.6-6.2 [facility] Blood hemoglobin measurement (mass/volume)Ordered By: Tracy Massey on 11-16-2022 Hemoglobin (Bld) [Mass/Vol] 14.6 g/dL 13.0-16. 5 [facility] Blood platelet mean volumeOr dered By: Tracy Massey on 11-16-2022 Platelet mean volume (Bld) [Entitic vol] 9.6 fL 6.2-12.0 [facility] Determination of erythrocyte mean corpuscular volume (MCV)Ordered By: Tracy Massey on 11-16-2022 MCV (RBC) [Entitic vol] 89.0 fL 80-94 [facility] Direct bilirubinOrdered By: Tracy Massey on 11-16-2022 Bilirubin.direct [Mass/Vol] 0.09 mg/dL 0.00-0.3 0 [facility] Hematocrit Auto (Bld) [Volum e fraction]Ordered By: Tracy Massey on 11-16-2022 Hematocrit (Bld) [Volume fraction] 45.2 % 40-54 [facility] Laboratory - Chemistry and C hemistry - challengeOrdered By: Tracy Massey on 11-16-2022 ALP [Catalytic activity/Vol] 130 U/L 45-117 [facility] ALT [Catalytic activity/Vol] 32 U/L 16-61 [facility] CO2 [Moles/Vol] 27.0 mmol/L 21.0-32.0 [facility] Globulin (S) [Mass/Vol] 4.9 g/dL 2.2-4.2 [facility] Urea nitrogen/Creatinine [Mass ratio] 11.8 mg/mg 10-20 [facility] Laboratory - Hematology and Cell countsOrdered By: Tracy Massey on 11-16-2022 Erythrocyte distribution width (RBC) [Entitic vol] 41.7 fL 35.1-43.9 [facility] Erythrocyte distribution width (RBC) [Ratio] 12.7 % 11.6-14.6 [facility] MCH (RBC) [Entitic mass] 28.7 pg 27.0-32.0 [facility] MCHC Auto (RBC) [Mass/Vol]Or dered By: Tracy Massey on 11-16-2022 MCHC (RBC) [Mass/Vol] 32.3 g/dL 32-36 [facility] No Panel InformationOrdered By: Tracy Massey on 11-16-2022 Estimated GFR (MDRD) Amer 77 mL/min >60 [facility] Comment on above: GFR Calc Estimated GFR (MDRD) Non-Af Amer 63 mL/min >60 [facility] Comment on above: Non- GFR Calc Levetiracetam (Keppra) Level 48.3 ug/mL 10.0-40 .0 [facility] Comment on above: Performed at: [facility] - [address] [id number] Director: Jere Tierney MD, Phone: [phone] Platelets bldOrdered By: Maria Esther Massey on 11-16-2022 Platelets (Bld) [#/Vol] 268 10*3/uL 150-450 [facility] Serum or plasma albumin jack urement (mass/volume)Ordered By: Tracy Massey on 11-16-2022 Albumin [Mass/Vol] 3.4 g/dL 3.2-5.0 [facility] Serum or plasma albumin/glob ulin mass ratioOrdered By: Tracy Massey on 11-16-2022 Albumin/Globulin [Mass ratio] 0.7 {ratio} 0.9-2.4 [facility] Serum or plasma calcium jack urement (mass/volume)Ordered By: Tracy Massey on 11-16-2022 Calcium [Mass/Vol] 9.1 mg/dL 8.5-10.1 [facility] Serum or plasma creatinine m easurement (mass/volume)Ordered By: Tracy Massey on 11-16-2022 Creatinine [Mass/Vol] 1.27 mg/dL 0.70-1.30 [facility] Comment on above: The validity of the calculated GFR & GFRAA in patients over 70 years has not been determined. Clinical correlation is essential. Serum or plasma urea nitroge n measurement (mass/volume)Ordered By: Tracy Massey on 11-16-2022 Urea nitrogen [Mass/Vol] 15 mg/dL 7-18 [facility] Thin prep Papanicolaou smear with manual screeningOrdered By: Tracy Massey on 11-16-2022 Thin prep Papanicolaou smear with manual screening 14 U/L 15-37 [facility] Thin prep Papanicolaou smear with manual screening 4 5-15 [facility] Basophil percentageon 2021 Bilirubin [Mass/Vol] 0.30 mg/dL 0.20-1.00 [facility] Work Phone: Comment on above: For patients on eltr ombopag therapy, use of [place] TBIL is not recommended. Chloride [Moles/Vol] 107 mmol/L 98-107 [facility] Work Phone: [phone] Glucose [Mass/Vol] 95 mg/dL 74-106 [facility] Work Phone: [phone] Potassium [Moles/Vol] 3.7 mmol/L 3.5-5.1 [facility] Work Phone: [phone] Protein [Mass/Vol] 7.8 g/dL 6.4-8.2 [facility] Work Phone: [phone] Sodium [Moles/Vol] 139 mmol/L 136-145 [facility] Work Phone: [phone] WBC (Bld) [#/Vol] 12.9 10*3/uL 4.4-11.0 [facility] Work Phone: [phone] Blood erythrocytes count (nu mber/volume)on 05-17-2022 RBC (Bld) [#/Vol] 4.81 10*6/uL 4.6-6.2 [facility] Work Phone: [phone] Blood hemoglobin measurement (mass/volume)on 05-17-2022 Hemoglobin (Bld) [Mass/Vol] 14.2 g/dL 13.0-16. 5 [facility] Work Phone: [phone] Blood platelet mean volumeon 05-17-2022 Platelet mean volume (Bld) [Entitic vol] 10.1 fL 6.2-12.0 [facility] Work Phone: [phone] Determination of erythrocyte mean corpuscular volume (MCV)on 05-17-2022 MCV (RBC) [Entitic vol] 88.6 fL 80-94 [facility] Work Phone: [phone] Hematocrit Auto (Bld) [Volum e fraction]on 05-17-2022 Hematocrit (Bld) [Volume fraction] 42.6 % 40-54 [facility] Work Phone: [phone] Laboratory - Chemistry and C hemistry - challengeon 05-17-2022 ALP [Catalytic activity/Vol] 104 U/L 45-117 [facility] Work Phone: [phone] ALT [Catalytic activity/Vol] 29 U/L 16-61 [facility] Work Phone: [phone] CO2 [Moles/Vol] 26.0 mmol/L 21.0-32.0 [facility] Work Phone: [phone] Globulin (S) [Mass/Vol] 4.4 g/dL 2.2-4.2 [facility] Work Phone: [phone] Urea nitrogen/Creatinine [Mass ratio] 11.8 mg/mg 10-20 [facility] Work Phone: [phone] Laboratory - Hematology and Cell countson 05-17-2022 Erythrocyte distribution width (RBC) [Entitic vol] 40.9 fL 35.1-43.9 [facility] Work Phone: [phone] Erythrocyte distribution width (RBC) [Ratio] 12.5 % 11.6-14.6 [facility] Work Phone: [phone] MCH (RBC) [Entitic mass] 29.5 pg 27.0-32.0 [facility] Work Phone: [phone] MCHC Auto (RBC) [Mass/Vol]on 05-17-2022 MCHC (RBC) [Mass/Vol] 33.3 g/dL 32-36 [facility] Work Phone: No Panel Informationon 05-17 Estimated GFR (MDRD) Amer 71 mL/min >60 [facility] Work Phone: Comment on above: GFR Calc Estimated GFR (MDRD) Non-Af Amer 59 mL/min >60 [facility] Work Phone: Comment on above: Non- GFR Calc Levetiracetam (Keppra) Level 29.6 ug/mL 10.0-40 .0 [facility] Work Phone: Comment on above: Performed at: [address] [id number] Director: Jere Tierney MD, Phone: [phone] Platelets bldon 05-17-2022 Platelets (Bld) [#/Vol] 245 10*3/uL 150-450 [facility] Work Phone: Serum or plasma albumin jack urement (mass/volume)on 05-17-2022 Albumin [Mass/Vol] 3.4 g/dL 3.2-5.0 [facility] Work Phone: Serum or plasma albumin/glob ulin mass ratioon 05-17-2022 Albumin/Globulin [Mass ratio] 0.8 {ratio} 0.9-2.4 [facility] Work Phone: Serum or plasma calcium jack urement (mass/volume)on 05-17-2022 Calcium [Mass/Vol] 8.8 mg/dL 8.5-10.1 [facility] Work Phone: Serum or plasma creatinine m easurement (mass/volume)on 05-17-2022 Creatinine [Mass/Vol] 1.36 mg/dL 0.70-1.30 [facility] Work Phone: Comment on above: The validity of the calculated GFR & GFRAA in patients over 70 years has not been determined. Clinical correlation is essential. Serum or plasma urea nitroge n measurement (mass/volume)on 05-17-2022 Urea nitrogen [Mass/Vol] 16 mg/dL 7-18 [facility] Work Phone: Thin prep Papanicolaou smear with manual screeningon 05-17-2022 Thin prep Papanicolaou smear with manual screening 15 U/L 15-37 [facility] Work Phone: [phone] Thin prep Papanicolaou smear with manual screening 6 5-15 [facility] Work Phone: Basophil percentageon 2021 Bilirubin [Mass/Vol] 0.30 mg/dL 0.20-1.00 [facility] Work Phone: [phone] Comment on above: For patients on eltr ombopag therapy, use of [place] TBIL is not recommended. Chloride [Moles/Vol] 105 mmol/L 98-107 [facility] Work Phone: [phone] Glucose [Mass/Vol] 96 mg/dL 74-106 [facility] Work Phone: Potassium [Moles/Vol] 3.9 mmol/L 3.5-5.1 [facility] Work Phone: [phone] Protein [Mass/Vol] 7.8 g/dL 6.4-8.2 [facility] Work Phone: [phone] Sodium [Moles/Vol] 137 mmol/L 136-145 [facility] Work Phone: [phone] WBC (Bld) [#/Vol] 8.0 10*3/uL 4.4-11.0 [facility] Work Phone: Blood erythrocytes count (nu mber/volume)on 11-13-2021 RBC (Bld) [#/Vol] 4.90 10*6/uL 4.6-6.2 [facility] Work Phone: Blood hemoglobin measurement (mass/volume)on 11-13-2021 Hemoglobin (Bld) [Mass/Vol] 14.1 g/dL 13.0-16. 5 [facility] Work Phone: Blood platelet mean volumeon 11-13-2021 Platelet mean volume (Bld) [Entitic vol] 9.7 fL 6.2-12.0 [facility] Work Phone: Determination of erythrocyte mean corpuscular volume (MCV)on 11-13-2021 MCV (RBC) [Entitic vol] 87.8 fL 80-94 [facility] Work Phone: [phone] Direct bilirubinon Bilirubin.direct [Mass/Vol] 0.08 mg/dL 0.00-0.3 0 [facility] Work Phone: [phone] Hematocrit Auto (Bld) [Volum e fraction]on 11-13-2021 Hematocrit (Bld) [Volume fraction] 43.0 % 40-54 [facility] Work Phone: [phone] Laboratory - Chemistry and C hemistry - challengeon 11-13-2021 ALP [Catalytic activity/Vol] 112 U/L 45-117 [facility] Work Phone: [phone] ALT [Catalytic activity/Vol] 43 U/L 16-61 [facility] Work Phone: [phone] CO2 [Moles/Vol] 26.0 mmol/L 21.0-32.0 [facility] Work Phone: [phone] Globulin (S) [Mass/Vol] 4.4 g/dL 2.2-4.2 [facility] Work Phone: [phone] Urea nitrogen/Creatinine [Mass ratio] 9.6 mg/mg 10-20 [facility] Work Phone: [phone] Laboratory - Hematology and Cell countson 11-13-2021 Erythrocyte distribution width (RBC) [Entitic vol] 39.7 fL 35.1-43.9 [facility] Work Phone: [phone] Erythrocyte distribution width (RBC) [Ratio] 12.4 % 11.6-14.6 [facility] Work Phone: [phone] MCH (RBC) [Entitic mass] 28.8 pg 27.0-32.0 [facility] Work Phone: [phone] MCHC Auto (RBC) [Mass/Vol]on 11-13-2021 MCHC (RBC) [Mass/Vol] 32.8 g/dL 32-36 [facility] Work Phone: No Panel Informationon 11-13 Estimated GFR (MDRD) Amer 66 mL/min >60 [facility] Work Phone: Comment on above: GFR Calc Estimated GFR (MDRD) Non-Af Amer 54 mL/min >60 [facility] Work Phone: Comment on above: Non- GFR Calc Levetiracetam (Keppra) Level 30.3 ug/mL [facility] Work Phone: Comment on above: Performed at: [address] [id number] Director: Jere Tierney MD, Phone: [phone] Platelets bldon 11-13-2021 Platelets (Bld) [#/Vol] 254 10*3/uL 150-450 [facility] Work Phone: Serum or plasma albumin jack urement (mass/volume)on 11-13-2021 Albumin [Mass/Vol] 3.4 g/dL 3.2-5.0 [facility] Work Phone: Serum or plasma albumin/glob ulin mass ratioon 11-13-2021 Albumin/Globulin [Mass ratio] 0.8 {ratio} 0.9-2.4 [facility] Work Phone: Serum or plasma calcium jack urement (mass/volume)on 11-13-2021 Calcium [Mass/Vol] 8.8 mg/dL 8.5-10.1 [facility] Work Phone: Serum or plasma creatinine m easurement (mass/volume)on 11-13-2021 Creatinine [Mass/Vol] 1.46 mg/dL 0.70-1.30 [facility] Work Phone: Comment on above: The validity of the calculated GFR & GFRAA in patients over 70 years has not been determined. Clinical correlation is essential. Serum or plasma urea nitroge n measurement (mass/volume)on 11-13-2021 Urea nitrogen [Mass/Vol] 14 mg/dL 7-18 [facility] Work Phone: Thin prep Papanicolaou smear with manual screeningon 11-13-2021 Thin prep Papanicolaou smear with manual screening 16 U/L 15-37 [facility] Work Phone: Thin prep Papanicolaou smear with manual screening 6 5-15 [facility] Work Phone: Vital Signs Date Time Vital Sign Value Performing Clinician Faci lity 08-06-2024 00:13-0500 Diastolic blood pressure 72 mm[Hg] Olvin Massey MD [facility] 08-06-2024 00:13-0500 Heart rate 79 /min Olvin Massey MD [facility] 08-06-2024 00:13-0500 Respiratory rate 18 /min Olvin Massey MD [facility] 08-06-2024 00:13-0500 SaO2% (BldA) [Mass fraction] 96 % Olvin Massey MD [facility] 08-06-2024 00:13-0500 Systolic blood pressure 119 mm[Hg] Olvin Massey MD [facility] 08-05-2024 08:54-0500 Body height 177.8 cm Olvin Massey MD [facility] 08-05-2024 08:54-0500 Body mass index (BMI) [Ratio] 30.9 kg/m2 Olvin Massey MD [facility] 08-05-2024 08:54-0500 Body temperature 98.6 [degF] Olvin Massey MD [facility] 08-05-2024 08:54-0500 Body weight 97.97 kg Olvin Massey MD [facility] Encounters Encounter Date Encounter Type Care Provider Facility Start: 04-29-2025 ambulatory Olvin NOEL Facil ity:[facility] Start: 02-23-2025 End: 02-23-2025 ambulatory Olvin NOEL Facility:[facility] Start: 01-25-2025 End: 01-25-2025 ambulatory Olvin NOEL Facility:[facility] Start: 01-24-2025 End: 01-24-2025 ambulatory Olvin NOEL Facility:[facility] Start: 12-14-2024 End: 12-14-2024 ambulatory Olvin NOEL Facility:[facility] Start: 11-14-2024 ambulatory Olvin NOEL Facil ity:[facility] Start: 10-25-2024 ambulatory Olvin NOEL Facil ity:[facility] Start: 10-09-2024 End: 10-09-2024 ambulatory Olvin NOEL Facility:[facility] Start: 09-25-2024 End: 09-25-2024 ambulatory Olvin NOEL Facility:[facility] Start: 08-29-2024 End: 08-29-2024 ambulatory Olvin Massey MD [facility] Work Phone: Start: 08-29-2024 End: 08-29-2024 Departed Referred Olvin Massey MD [facility] Start: 08-29-2024 End: 08-29-2024 ambulatory Olvin NOEL Facility:[facility] Start: 08-05-2024 End: 08-06-2024 Emergency department patient visit Dr. Landon Allen DO -Emergency Department Work Phone: Start: 07-20-2024 ambulatory Olvin NOEL Facil ity:[facility] Start: 07-20-2024 Registered Referred Olvin Massey MD [facility] Start: 07-16-2024 ambulatory Olvin NOEL Facil ity:[facility] Start: 07-16-2024 Registered Referred Olvin Massey MD [facility] Start: 07-02-2024 ambulatory Olvin NOEL Facil ity:[facility] Start: 07-02-2024 Registered Referred Olvin Massey MD [facility] Start: 05-15-2024 End: 05-15-2024 ambulatory Olvin NOEL Facility:[facility] Start: 08-10-2023 End: 08-10-2023 ambulatory [facility] Work Phone: Start: 08-10-2023 End: 08-10-2023 Departed Referred [facility] Start: 05-16-2023 End: 05-16-2023 ambulatory [facility] Work Phone: Start: 05-16-2023 End: 05-16-2023 Departed Referred [facility] Start: 12-13-2022 End: 12-13-2022 ambulatory [facility] Work Phone: Start: 12-13-2022 End: 12-13-2022 Departed Referred [facility] Start: 12-13-2022 Registered Referred [facility] Start: 11-16-2022 End: 11-16-2022 ambulatory [facility] Work Phone: Start: 11-16-2022 End: 11-16-2022 Departed Referred [facility] Start: 05-17-2022 End: 05-17-2022 ambulatory [facility] Work Phone: Start: 05-17-2022 End: 05-17-2022 Departed Referred [facility] Start: 11-13-2021 End: 11-13-2021 Departed Referred [facility] Start: 05-29-2018 ambulatory SELF PATIENT Facility:[facility] Procedures Date Procedure Procedure Detail Performing Clinician Start: 08-05-2024 Computed tomography of abdomen and pelvis with intravenous contrast Olvin Massey MD Start: 08-05-2024 CT of head without contrast Olvin Massey MD Start: 08-05-2024 Plain chest X-ray Olvin Massey MD Start: 08-10-2023 Nucleic acid assay Plan of Treatment Date Care Activity Detail Author Start: 08-05-2024 [facility] Start: 08-05-2024 [facility] Start: 08-05-2024 [facility] Patient referral [facility] Work Phone: Immunizations Immunization Date Immunization Notes Care Provider Terry dillon 02-25-2014 tetanus and diphther ia toxoids, adsorbed, preservative free, for adult use (2 Lf of tetanus toxoid and 2 Lf of diphtheria toxoid) [facility] Payers Date Payer Category Payer Medicare [id number] Self-pay [id number] 2018 Medicaid [id number] 2013 Medicaid [id number] [id number] 1970 Unknown [id number] 2.16. [id number] Unknown [id number] 2.16.8 [id number] Unknown [id number] 2.16.8 [id number] Unknown [id number] 2.16.8 [id number] Unknown [id number] 2.16.8 [id number] Unknown [id number] 2.16.8 [id number] Unknown [id number] 2.16.8 [id number] Unknown [id number] 2.16.8 [id number] Unknown [id number] 2.16.8 [id number] Unknown [id number] 2.16.8 [id number] Unknown [id number] 2.16.8 [id number] Unknown [id number] 2.16.8 [id number] Unknown [id number] 2.16.8 [id number] Unknown [id number] 2.16.8 [id number] Unknown [id number] 2.16.8 [id number] Social History Date Type Detail Facility Start: 07-10-2018 End: 07-10-2018 Tobacco smoking status NHIS Unknown if ever smoked [facility] Start: 1970 Sex Assigned At Male [facility] Start: 08-05-2024 Tobacco smoking stat us NHIS Never smoked tobacco (finding) [facility] Start: 09-19-2024 Sex Male (finding) [facility] Evaluation note Note Date & Type Note Facility Evaluation note No assessment information availa ble [facility] Work Phone: Reason for referral (narrative) Note Date & Type Note Facility Reason for referral (narrative) No reason for referral information available [facility] Work Phone: Summary Purpose Family History No Family History Records FoundNo Family History Records Found Advance Directives No Advanced Directives Records Found Advance Directive Response Recorded Date/ Time Living Will No July 10 5:47pm Power of Yard Hostler No July 10, 2018 5:47pm Advance Directive Response Recorded Date/ Time Living Will No July 10 4:47pm Power of Yard Hostler No July 10, 2018 4:47pm Advance Directive Response Recorded Date/ Time Living Will Yes August 05 10:03am Do you have a Healthcare Power of Yard Hostler? Yes August 05, 2024 10:03am Name of Medical [employer] of Yard Hostler ? August 05, 2024 10:03am Chief Complaint and Reason for Visit Chief Complaint HALF-WAY LABWORK Chief Complaint HALF-WAY LAB WOR K LABWORK Chief Complaint HALF-WAY LAB WOR K Chief Complaint Admit Date HALF-WAY LAB WORK July 02, 2024 4:00am HALF-WAY LAB WORK July 20, 2024 5:00am mental health August 05, 2024 8:53am HALF-WAY LAB WORK August 29, 2024 6 :40am Additional Source Comments (unrecognized sect ion and content) No Status Records FoundNo Status Records Found INFORMATION SOURCE (unrecogn ized section and content) DATE CREATED AUTHOR 07/11/2021 [employer] DATE CREATED AUTHOR AUTHOR'S NAVARRO GUTIÉRREZ 05/02/2025 [facility] Goals (unrecognized section and content) Goals [...] BE BASED ON THE PRIMARY CLINICAL RECORDS. [facility] [employer] provides no warranty or guarantee of the accuracy or completeness of information in this document.
[2025-05-17 08:28] LABS: AST(SGOT) 15 U/L (<=37); Alanine Aminotransfer ALT/SGPT 15 U/L (<=46); Albumin, Serum 4.2 g/dL (3.5-5.0); Alkaline Phosphatase 132 U/L (40-129); Anion Gap 11 (5-15); BUN 13 mg/dL (4-19); BUN/Creat Ratio 13.8 RATIO (10-20); Calcium,Total 9.0 mg/dL (7.6-11.0); Carbon Dioxide 23.0 mmol/L (21.0-32.0); Chloride 97 mmol/L (98-108); Globulin 3.5 g/dL (2.2-4.2); Glucose 92 mg/dL (70-99); Potassium 4.1 mmol/L (3.3-5.1)
[2025-05-17 12:40] LABS: Cholesterol 135 mg/dL (<=200); Low Density Lipoprotein Calc. 72 mg/dL; Triglycerides 58 mg/dL; Very Low Density Lipoprotein 12 mg/dL (5-40); cholesterol:hdl ratio screen 2.68
[2025-05-18 10:15] LABS: Hematocrit 40.3 % (40-54); Hemoglobin 13.5 g/dL (13.0-16.5); Mean Corp Hgb Conc 33.5 g/dL (32-36); Mean Corpuscular Volume 89.0 fL (80-94); Mean Platelet Vol. 10.1 fl (6.2-12.0); Platelet Count 254 K/mm3 (150-450); RBC Distribution Width CV 12.2 % (11.6-14.6); RBC Distribution Width SD 39.7 fl (35.1-43.9); Red Blood Count 4.53 M/mm3 (4.6-6.2); White Blood Count 4.8 K/mm3 (4.4-11.0)
[2025-05-20 17:08] LABS: KEPPRA (LEVETIRACETAM) 21.7 ug/mL (10.0-40.0)
== END ==
LOC: OLS.WCC 05:00
PROVIDERS: PCP Family Medicine; Visit Provider Family Medicine
DX: I10 Essential (primary) hypertension (principal); G40.219 Localization-related (focal) (partial) symptomatic epilepsy and epileptic syndromes with complex partial seizures, intractable, without status epilepticus; Z79.899 Other long term (current) drug therapy
CPT/HCPCS: 36415; 80053; 80061; 80177; 83036; 85027